=== PATIENT | female | born 1970 | race Caucasian/White ===

== ENCOUNTER → 2021-02-12 13:22 | Outpatient (CLI) | payer OTHER, SELFPAY ==
[2021-02-12 15:31] LABS: Absolute Lymphocyte Count 1.63 X10^3/uL (0.83-4.51); Absolute Neutrophil Count 3.9 X10^3/uL (2.0-7.7); Basophil# 0.03 X10^3/uL; Basophil% 0.5 % (0-1); Eosinophil# 0.09 X10^3/uL; Eosinophils% 1.5 % (0-5); Hematocrit 41.1 % (37-47); Hemoglobin 13.9 g/dL (12.0-15.0); Lymphocyte # 1.63 X10^3/ul (0.83-4.51); Lymphocyte % 27.3 % (19-41); Mean Corp Hgb Conc 33.8 g/dL (32-36); Mean Corpuscular Hgb 30.8 pg (27.0-32.0); Mean Corpuscular Volume 91.1 fL (81-99); Mean Platelet Vol. 9.5 fl (6.2-12.0); Monocyte# 0.28 X10^3/uL; Monocyte% 4.7 % (0-10); NRBC Flagged by Analyzer 0 % (0-5); Neutrophil # 3.91 X10^3/uL (2.7-7.7); Neutrophil % 65.7 % (47-70); Platelet Count 280 K/mm3 (150-450); RBC Distribution Width CV 12.6 % (11.6-14.6); RBC Distribution Width SD 42.2 fl (35.1-43.9); Red Blood Count 4.51 M/mm3 (4.2-5.4)
[2021-02-12 16:34] LABS: ALB/GLOB Ratio 1.3 RATIO (0.9-2.4); AST(SGOT) 11 U/L (15-37); Alanine Aminotransfer ALT/SGPT 22 U/L (13-56); Albumin, Serum 4.4 g/dL (3.2-5.0); Alkaline Phosphatase 62 U/L (45-117); Anion Gap 7 (5-15); BUN 15 mg/dL (7-18); Calcium,Total 9.1 mg/dL (8.5-10.1); Chloride 106 mmol/L (98-107); Creatinine, Serum 0.94 mg/dL (0.55-1.02); EST Glomerular Filtration Rate 68 mL/min (>60); Est Glom Filt Rate - Afr Amer 82 mL/min (>60); Globulin 3.3 g/dL (2.2-4.2); Glucose 95 mg/dL (74-106); Potassium 4.1 mmol/L (3.5-5.1); Protein, Total 7.7 g/dL (6.4-8.2); Sodium Level 139 mmol/L (136-145); Thyroid Stim Hormone (TSH) 1.64 uIU/mL (0.358-3.74)
[2021-02-12 16:38] LABS: Microalbumin,Random Urine < 5.0 mg/L (NO RANGE EST.)
== END ==
PROVIDERS: PCP Internal Medicine; Referring Provider Nurse Practitioner Adult Health; Visit Provider Nurse Practitioner Adult Health
DX: I10 Essential (primary) hypertension (principal); R53.83 Other fatigue
CPT/HCPCS: 36415; 80053; 82043; 84443; 85025

== ENCOUNTER → 2021-02-26 16:12 | Outpatient (CLI) | payer OTHER, SELFPAY ==
--- NOTE | 2021-02-26 16:16 | RAD_ITS ---
STUDY: X-RAY - LEFT KNEE REASON FOR EXAM: Female, 50 years old. Left knee pain. TECHNIQUE: 3 view(s) of the knee. COMPARISON: None. FINDINGS: Normal visualized distal femur. Normal visualized proximal tibia and fibula. Normal proximal tibiofibular articulation. Normal medial femorotibial compartment. 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 Normal patellofemoral articulation. Small suprapatellar joint effusion. 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 No other abnormality. Electronically Signed: Vinicius Luo MD at 9:37 EST , Service support ,
[2021-03-01 04:07] LABS: Chlamydia By Nucleic Acid AMP Negative (Negative)
[2021-03-01 13:39] LABS: Gonococcus By Nucleic Acid AMP Negative (Negative)
[2021-03-03 08:03] LABS: HPV APTIMA, High Risk Negative (Negative)
== END ==
PROVIDERS: PCP Internal Medicine; Visit Provider Nurse Practitioner Women's Health
DX: S86.912A Strain of unspecified muscle(s) and tendon(s) at lower leg level, left leg, initial encounter (principal); Z11.3 Encounter for screening for infections with a predominantly sexual mode of transmission; X58.XXXA Exposure to other specified factors, initial encounter; Y93.9 Activity, unspecified; Y92.9 Unspecified place or not applicable; Y99.9 Unspecified external cause status
CPT/HCPCS: 73562; 87491; 87591; 87624; 88175; G0145

== ENCOUNTER → 2021-03-16 11:56 | Outpatient (CLI) | payer OTHER, SELFPAY ==
--- NOTE | 2021-03-16 12:01 | US_ITS ---
HISTORY:menorrhagia. TECHNIQUE: Transabdominal and transvaginal pelvic ultrasound was performed with grayscale, spectral, and color Doppler flow evaluation. # of images incl. paperwork: 66. COMPARISON: None. FINDINGS: UTERUS: 9.4 x 4.6 x 4.9 cm. 1.2 x 1.4 x 1.3 cm heterogeneous anterior lesion. 0.8 x 1.3 x 1.4 cm hypoechoic posterior lesion. 1.3 x 1.6 x 1.3 cm mildly hyperechoic anterior lesion. ENDOMETRIUM: 3 mm in thickness. RIGHT OVARY: 2.3 x 1.5 x 2.1 cm. No adnexal masses. LEFT OVARY: 2.5 x 1.3 x 2.6 cm. 1.2 cm dominant follicle. FREE FLUID: No significant free fluid in the pelvis. US/Pelvic (Non ) IMPRESSION: Small uterine leiomyomata. at 1050 Reported and signed by: Mariela Paniagua MD Electronically Signed: Mariela Paniagua MD at 10:49 EST Tel , Service support ,
--- NOTE | 2021-03-16 12:01 | US_ITS ---
HISTORY:menorrhagia. TECHNIQUE: Transabdominal and transvaginal pelvic ultrasound was performed with grayscale, spectral, and color Doppler flow evaluation. # of images incl. paperwork: 66. COMPARISON: None. FINDINGS: UTERUS: 9.4 x 4.6 x 4.9 cm. 1.2 x 1.4 x 1.3 cm heterogeneous anterior lesion. 0.8 x 1.3 x 1.4 cm hypoechoic posterior lesion. 1.3 x 1.6 x 1.3 cm mildly hyperechoic anterior lesion. ENDOMETRIUM: 3 mm in thickness. RIGHT OVARY: 2.3 x 1.5 x 2.1 cm. No adnexal masses. LEFT OVARY: 2.5 x 1.3 x 2.6 cm. 1.2 cm dominant follicle. FREE FLUID: No significant free fluid in the pelvis. US/Transvaginal Non- IMPRESSION: Small uterine leiomyomata. at 1050 Reported and signed by: Mariela Paniagua MD Electronically Signed: Mariela Paniagua MD at 10:49 EST Tel , Service support ,
== END ==
PROVIDERS: PCP Internal Medicine; Referring Provider Nurse Practitioner Women's Health; Visit Provider Nurse Practitioner Women's Health
DX: N92.0 Excessive and frequent menstruation with regular cycle (principal)
CPT/HCPCS: 76830; 76856

== ENCOUNTER 2021-04-09 18:20 | Outpatient (CLI) | payer OTHER, SELFPAY ==
[2021-04-09 18:30] VITALS: BP 114/75; PULSE 74; RESP 16; TEMP 37; O2SAT 98; BMI 32.9
[2021-04-09] MEDS: 0.9% Saline Lock 10 ML Syringe IV (18:30)
[2021-04-09 19:04] VITALS: BP 113/71; PULSE 67; RESP 16; TEMP 36.9; O2SAT 99
[2021-04-09 20:00] VITALS: BP 129/86; PULSE 70; RESP 16; TEMP 37.2; O2SAT 100
== END 2021-04-09 20:02 | disposition home or self-care (01) ==
LOC: MS3OUT 18:20 → MS3 18:21
PROVIDERS: PCP Internal Medicine; Referring Provider Nurse Practitioner Adult Health; Visit Provider Nurse Practitioner Adult Health
DX: Z23 Encounter for immunization (principal); U07.1 COVID-19; I10 Essential (primary) hypertension
CPT/HCPCS: J7050; M0245; Q0245; A4216

== ENCOUNTER 2021-04-30 09:47 | Outpatient (CLI) | payer BC, SELFPAY ==
--- NOTE | 2021-04-30 09:49 | BI_ITS ---
MAMMOGRAPHY - BILATERAL SCREENING REASON FOR EXAM: Female, 50 years old. Routine annual screening examination. PERTINENT HISTORY: Grandmother with breast cancer. Aunt with breast cancer. TECHNIQUE: Digital bilateral breast chris (3D mammographic acquisition) in the CC and MLO projections. 2-D mediolateral oblique (MLO) and craniocaudad (CC) views of both breasts were obtained. CAD: Full Field Digital Mammography with Computer Added Detection was performed. COMPARISON: Comparison is made with prior outside examination dated 09/21/2014. FINDINGS: Breast Composition: The breasts are extremely dense, which lowers the sensitivity of mammography. There are no dominant masses or suspicious calcifications. Stable small benign appearing bilateral axillary lymph nodes. No other significant abnormalities are identified. There has been no significant change since the prior study. BI/SCRN MAMM (CAD)W/CHRIS BILAT IMPRESSION: Stable bilateral screening mammogram. Yearly follow-up mammogram recommended. (A) ASSESSMENT CATEGORY: BIRADS Category 2: Benign. A letter regarding these results will be sent to the patient by the facility within 30 days. Approximately 10% of breast cancers are not detected by mammography. A normal mammogram should not delay biopsy of a clinically suspicious abnormality. [id number] Electronically Signed: Tomy Bedolla MD at 13:22 EST ,
== END 2021-04-30 23:59 | disposition short-term general hospital (02) ==
LOC: OPBI 09:48
PROVIDERS: PCP Internal Medicine; Referring Provider Nurse Practitioner Women's Health; Visit Provider Nurse Practitioner Women's Health
DX: Z12.31 Encounter for screening mammogram for malignant neoplasm of breast (principal)
CPT/HCPCS: 77063; 77067

== ENCOUNTER 2021-05-07 11:50 | Outpatient (CLI) | payer BC, SELFPAY ==
--- NOTE | 2021-05-07 10:15 | EMB_PTH ---
PATIENT: JUAN ANTONIO MONIQUE LOC: [facility] U#:[id number] AGE/SX: 50/F ROOM: RE05/07/[address]: Dr. Naomy Treviño MD : 1970 BED: DIS: 05/07/2021 SPEC #: [id number] RECD: 05/07/21 11:47 STATUS: JAMEL REJuan F #: [id number] FIDELINA: 05/07/21 10:[address]: Naomy Treviño DEPT: SURGICAL PATHOLOGY RECD BY: Radha James ENTERED: 05/07/21 12:54 SP TYPE: ENDOM BX/C OT DR: Dr. Vale Pepe MD Tissues: Endometrium, NOS Procedures: Surgery Specimen Level IV HEADER OPERATION: Endometrial biopsy PRE-OP DIAGNOSIS: Abnormal uterine bleeding TISSUE SUBMITTED: Endometrial lining MICROSCOPIC DIAGNOSIS Endometrium, biopsy: Proliferative endometrium with focal glandular breakdown. AM:lashay 05/08/2021 MICROSCOPIC DESCRIPTION Slides are reviewed. GROSS DESCRIPTION Received is one container labeled with the patient's name and not further designated. The specimen consists of multiple irregular fragments of light adams soft tissue that in aggregate measure 3 x 1.5 x 0.1 cm. The specimen is totally submitted in one cassette. / AM:lashay 05/07/2021 TC:5 CPT: 76331
== END 2021-05-07 23:59 | disposition short-term general hospital (02) ==
LOC: LABSPEC 11:52
PROVIDERS: PCP Internal Medicine; Visit Provider Obstetrics & Gynecology
DX: N93.9 Abnormal uterine and vaginal bleeding, unspecified (principal)
CPT/HCPCS: 88305

== ENCOUNTER 2021-06-26 08:02 | Day surgery (SDC) | payer BC, SELFPAY ==
--- NOTE | 2021-06-25 10:35 | EKG12_ITS ---
Test Reason : PRE OP Blood Pressure : / mmHG Vent. Rate : 071 BPM Atrial Rate : 071 BPM P-R Int : 132 ms QRS Dur : 086 ms QT Int : 390 ms P-R-T Axes : 058 083 072 degrees QTc Int : 423 ms Normal sinus rhythm Normal ECG Confirmed by MICHAEL KOEHLER, TOMMIE ([id number]), electronic news gathering editor KALEY STAPLETON ([id number]) on 06/26/2021 9:22:17 AM Referred By: Naomy Treviño Confirmed By:TOMMIE RODRIGUEZ MD
[2021-06-25 11:22] LABS: Absolute Lymphocyte Count 1.57 X10^3/uL (0.83-4.51); Absolute Neutrophil Count 2.7 X10^3/uL (2.0-7.7); Basophil# 0.04 X10^3/uL; Basophil% 0.9 % (0-1); Eosinophil# 0.11 X10^3/uL; Eosinophils% 2.4 % (0-5); Hematocrit 37.1 % (37-47); Hemoglobin 12.5 g/dL (12.0-15.0); Lymphocyte # 1.57 X10^3/ul (0.83-4.51); Lymphocyte % 33.9 % (19-41); Mean Corp Hgb Conc 33.7 g/dL (32-36); Mean Corpuscular Hgb 31.1 pg (27.0-32.0); Mean Corpuscular Volume 92.3 fL (81-99); Mean Platelet Vol. 8.8 fl (6.2-12.0); Monocyte# 0.22 X10^3/uL; Monocyte% 4.8 % (0-10); NRBC Flagged by Analyzer 0 % (0-5); Neutrophil # 2.67 X10^3/uL (2.7-7.7); Neutrophil % 57.6 % (47-70); Platelet Count 276 K/mm3 (150-450); RBC Distribution Width CV 12.6 % (11.6-14.6); RBC Distribution Width SD 42.7 fl (35.1-43.9); Red Blood Count 4.02 M/mm3 (4.2-5.4); White Blood Count 4.6 K/mm3 (4.4-11.0)
[2021-06-26] VITALS (13 sets, daily range): BP systolic 68–123; BP diastolic 49–77; PULSE 73–88; RESP 12–18; TEMP 36.2–36.9; O2SAT 96–100; BMI 33.5
--- NOTE | 2021-06-26 05:47 | PCM.HP.BLA ---
History and Physical Date of Admission: 06/26/21 Vital Signs 06/18/21 09:03 Height 5 ft 3 in Weight: 188 lb BMI 33.3 Intake Visit Reasons: TVHBS possible LAVH Chief Complaint: pre op TVH BS Director Of Quantitative Research Required: No Is patient in pain?: No Allergies clindamycin Allergy (Intermediate, Verified 05/14/21 10:23) stomach pain penicillin G Allergy (Intermediate, Verified 05/14/21 10:23) hives Medications L.acidop,casei,lactis,rham-B.lact,nicolas 625 mg (10 billion cell) capsule 1 cap PO DAILY cap 02/12/21 [History Confirmed 06/18/21] blood pressure monitor #1 ea 02/12/21 [Rx Confirmed 06/18/21] pyridoxine (vitamin B6) 50 mg tablet 50 mg PO DAILY 02/12/21 [History Confirmed 06/18/21] turmeric root extract 500 mg capsule 500 mg PO DAILY 02/12/21 [History Confirmed 06/18/21] albuterol sulfate 90 mcg/actuation aerosol inhaler 2 puff INHALATION Q4H PRN #8.5 g 04/23/21 [Rx Confirmed 06/18/21] cyclobenzaprine 10 mg tablet 10 mg PO HS #30 tab 05/14/21 [Rx Confirmed 06/18/21] lisinopril 20 mg tablet 20 mg PO DAILY #90 tab 05/14/21 [Rx Confirmed 06/18/21] Is last menstrual period known: No Post menopausal: No Patient : No : No PFSH Medical History COVID-19 Encounter for screening for COVID-19 History of wrist fracture Hives Surgical History History of removal of cyst History of surgical removal of meniscus of knee Family History Daughter Asthma defect Mother Hypertension Depression Hyperlipidemia Rheumatic arteritis Grandmother Arthritis Cancer Breast CVA (cerebral vascular accident) Diabetes Father Hypertension CVA (cerebral vascular accident) Grandfather Heart disease, Onset Age: 60 M.I. 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 sexually active: Yes Smoking Status: Former smoker quit date: 08/16/20 alcohol intake: current alcohol intake frequency: 0-2 drinks per day substance use type: does not use what type of physical activity do you participate in: weight training and other details: Cardio frequency: 5-6 times per week do you feel safe at home: Yes additional social history: single HPI TVHBS possible LAV[facility] Details: JUAN ANTONIO DUMONT is a 50 year old who presents for preop appointment planning TVH BS for uterine fibroids and AUB. nl emb. Female Reproductive History Menopausal Symptoms: No hot flashes, No night sweats, No difficulty concentrating and No change in libido Pregancy History 4 Elective abortions Hx Para 2 Spontaneous abortions Hx # Term Pregnancies Ectopic pregnancies Hx # Pregnancies Multiple births # of living children 2 Past Pregnancies Del. Date Name GA/Weeks Outcome Route Bth Weight [facility] Renetta 1992 Unknown Marjorie 1998 ROS Const Constitutional: Denies fatigue, night sweats, weight gain or weight loss ENT ENT: Reports system reviewed and no additional complaints, except as documented Cardio Card: Denies chest pain Resp Resp: Denies cough or dyspnea GI GI: Reports as per HPI; Denies constipation, nausea or vomiting : Reports as per HPI; Denies hot flashes, nipple discharge, vaginal discharge, vaginal dryness, vaginal odor or vaginal pruritus Musc Musc: Denies arthralgias, back pain or muscle weakness Skin Skin/Breast: Denies alopecia, change in hair, dry skin, breast mass, breast pain, breast skin changes or nipple discharge Neuro Neuro: Reports system reviewed and no additional complaints, except as documented Psych Psych: Reports system reviewed and no additional complaints, except as documented; Denies change in libido or difficulty concentrating Endo Endo: Denies cold intolerance, excessive sweating, heat intolerance or polydipsia Dwayne/Lymph Hematologic/Lymphatic: Denies easy bleeding, Denies easy bruising and Denies lymphadenopathy Exam Const General: cooperative, healthy appearing, comfortable, no acute distress and well developed Orientation: alert HENMT Head: normal to inspection and normocephalic Ears: hearing grossly normal bilaterally and external ears normal Nose: external nose normal and nares normal Face and sinus: normal facial exam Neck Neck: normal visual inspection and no lymphadenopathy Thyroid: thyroid normal Chest Chest palpation & inspection: normal inspection of the chest Resp Effort & Inspection: normal respiratory effort Auscultation: clear to auscultation bilaterally Cardio Rate: regular rate Rhythm: regular rhythm Heart Sounds: S1 normal and S2 normal GI Inspection: normal to inspection and non-distended Palpation: soft and no hepatosplenomegaly General: bladder normal to palpation External Female Exam: normal external appearance and normal appearance of the urethra Urethra: normal appearance of the urethra, normal palpation and no discharge Speculum Exam - Vagina: normal appearance of the vagina and normal vaginal discharge Speculum Exam - Cervix: normal appearance of the cervix and nontender Bimanual Exam- Vagina & Uterus: normal bimanual exam, uterine size normal, bladder normal to palpation, uterine shape normal, No tender, uterine mobility normal, consistency normal, normal palpation and non-tender Bimanual Exam- Adnexa, other: normal adnexae, adnexae mobile, no masses and normal Pelvic Support: normal Musc Other: gross motor intact no deficits, full bilateral strength Skin General: no rashes or lesions noted Neuro General: patient alert, patient awake, moves all extremities and no focal motor deficits Motor: muscle tone normal throughout Extrem General: normal to inspection and no pedal edema Psych Appearance: grossly normal Mental Status: mental status grossly normal Affect: normal affect Speech and Movement: speech and movement normal Coding Level of Care Code No Charge Diagnoses Menorrhagia with regular cycle N92.0 Assessment and Plan Assessment and Plan (1) Menorrhagia with regular cycle: Status: Acute Comment: discussed medical vs surgical options. plan TVHBS. failed progestin therapy. emb done. cbc tsh us done small fibroids. Plan - Dr. Naomy Treviño MD: After discussing the patient's diagnosis and treatment plan options, patient wishes to proceed with surgical management. I have discussed with the patient the risks, benefits, and alternatives of the procedure which include but are not limited to risks of anesthesia, bleeding, infection, possible damage to bowel, bladder, or surrounding vasculature which could lead to additional surgery to evaluate any complications. Patient agrees to procedure and wishes to proceed. ACOG/uptodate references given for additional information regarding procedure. UPDATE- I have seen the patient and performed any clinically relevant updates to the history and physical exam. Naomy Treviño MD
--- NOTE | 2021-06-26 08:36 | SUR.PREOP ---
CLARIFIED CLINDAMYCIN ADVERSE REACTION WITH PHARMACY, PER PHARM DEVON ARGUETA TO GIVE IV CLINDAMYCIN.
[2021-06-26 08:51] LABS: Internal QC Validated? YES +Cl - CLEAR BKGD
[2021-06-26 08:55] LABS: Pregnancy, Urine Negative Negative
[2021-06-26 09:10] LABS: Bedside Glucose 121 mg/dL (74-106)
[2021-06-26] MEDS: Lactated Ringers 1,000 ML 40 ML IV (09:18)
[2021-06-26] MEDS: dexAMETHasone 10 MG/ML Vial 8 MG IV (09:18)
[2021-06-26] MEDS: Gabapentin 600 MG Tablet PO (09:19)
[2021-06-26] MEDS: Enoxaparin 40 MG/0.4 ML Syringe SC (09:19)
[2021-06-26] MEDS: Acetaminophen 500 MG Tablet 1000 MG PO (09:19)
[2021-06-26] MEDS: Celecoxib 200 MG Capsule 400 MG PO (09:19)
[2021-06-26] MEDS: Phenazopyridine 95 MG Tablet 190 MG PO (09:19)
--- NOTE | 2021-06-26 09:21 | PCM.OPRPT ---
Problems Associated Problem List Diagnoses (1) Menorrhagia with regular cycle: Report of Operation Date of Procedure: 06/26/21 Pre-Operative Diagnosis: see A/P Post-Operative Diagnosis: same Surgery/Procedure Performed:: TVH BS Description of Surgical Findings:: nl uterus tubes ovaries Type of Anesthesia: General Specimen's removed: uterus, tubes Drains: webster Estimated Blood Loss (mL): 50 Fluids Replaced: crystalloid Description of Procedure: Patient was taken to the operating room and was placed under general anesthesia was prepped and draped in normal sterile fashion in the dorsal lithotomy position. Preoperative antibiotics and SCDs and Webster catheter was placed inside the bladder. Weighted speculum was placed in the vagina and the anterior and posterior lip of the cervix was grasped with 2 Niels clamps and circumferentially injected with dilute vasopressin. A circumferential incision was made with a scalpel and the posterior cul-de-sac was entered into sharply and a longneck speculum was placed. The anterior cul-de-sac was also dissected down and entered into sharply and the uterosacral ligaments were clamped cut and suture ligated bilaterally followed by the cardinal ligaments which were Clamped cut and suture ligated bilaterally with 0 Monocryl. The uterus serially descended and progressive bites were taken bilaterally up to the level of the utero-ovarian ligament bilaterally which was clamped transected and double ligated with 0 Monocryl suture and 0 Vicryl free tie. Bilateral fallopian tubes and ovaries were well visualized and noted be within normal limits and the bilateral fallopian tubes were transected across the base with a Florina clamp and removed and sutured with 0 Vicryl suture. Excellent hemostasis was noted. The vagina was closed with [id number] 0 Vicryl pop offs including the posterior and anterior peritoneum in the reapproximation. Excellent hemostasis was noted. All instruments removed from the vagina clear urine was noted at the end of the procedure and patient was awoken and taken recovery in stable condition. Grafts/Implants Used: none Complications none Admit VTE Documentation VTE Present on Admission: No VTE Mechan Device Prophylaxis: SCD's VTE Pharm Prophylaxis ordered?: Yes Multi Select Codes Urinary/Genital Urinary/Genital CPT Codes: 25061 TVH+BS/O <250gr uterus
--- NOTE | 2021-06-26 09:22 | EX.PCM.DISCH ---
Discharge Instructions Procedure Hysterectomy, Vaginal Diet Discharge Diet: No restrictions Activity Discharge Activity: Return to Normal Activity, May Not Drive (while taking narcotic pain medications.) and May Shower May resume sexual activity in: 6-8 weeks Dressing / Incision Call your doctor if your incision/area has: Continuous Slow Oozing, Sudden Increased Bleeding, Increased Pain/ Swelling, Increased Redness and Foul Smelling Discharge Call your doctor if you observe: Fever of 101 or Higher, Inability to urinate, Inability to have a bowel movement and Using more than 1 pad per hour Follow Up Care Please Follow Up With: Naomy Treviño MD Test Results: Test results from this visit will be discussed in further detail at your follow-up appointment, if applicable. Discharge Plan Admission Primary Reason for Your Visit: hysterectomy Attending Provider: Naomy Treviño Primary Care Provider: Vale Pepe Discharge Orders/Prescriptions Prescriptions: New oxycodone-acetaminophen [Percocet] 5-325 mg tablet 1 tab PO Q6H PRN (Reason: pain) 7 Days Qty: 20 RF: 0 naproxen [naproxen] 500 MG tablet 500 mg PO BID PRN PRN (Reason: Pain) Qty: 30 RF: 1 Continued pyridoxine (vitamin B6) 50 mg tablet 50 mg PO DAILY RF: 0 turmeric root extract 500 mg capsule 500 mg PO DAILY RF: 0 Advanced Probiotic 625 mg (10 billion cell) capsule 1 cap PO DAILY RF: 0 (DME) blood pressure monitor Kit See Rx Instructions .ROUTE .MEDSUPPLY Qty: 1 RF: 0 lisinopril 20 mg tablet 20 mg PO DAILY Qty: 90 RF: 3 cyclobenzaprine 10 mg tablet 10 mg PO HS Qty: 30 RF: 8 albuterol sulfate 90 mcg/actuation HFA aerosol inhaler 2 puff inhalation Q4H PRN (Reason: shortness of breath or wheezing) Qty: 8.5 RF: 3 Referrals / Follow Up: Vale Pepe MD [Primary Care Provider] - Disposition Disposition (needs filled in before D/C Order can be placed): Home, Self Care
[2021-06-26] MEDS: Scopolamine 1mg/72hr Patch 1 PATCH TD (09:35)
--- NOTE | 2021-06-26 10:00 | HYST_PTH ---
PATIENT: JUAN ANTONIO MONIQUE LOC: [facility] [place] U[place][id number] AGE/SX: 50/F ROOM: RE06/26/[address]: Dr. Naomy Treviño MD : 1970 BED: DIS: 06/26/2021 SPEC #: [id number] RECD: 06/26/21 11:14 STATUS: JAMEL AMIN #: [id number] FIDELINA: 06/26/21 10:[address]: Naomy Treviño DEPT: SURGICAL PATHOLOGY RECD BY: Radha James ENTERED: 06/26/21 13:54 SP TYPE: HYSTERECT OTHR DR: Dr. Vale Pepe MD Tissues: Uterus, NOS Procedures: Surgery Specimen Level V HEADER OPERATION: ERAS, vaginal hysterectomy, salpingectomy PRE-OP DIAGNOSIS: Menorrhagia TISSUE SUBMITTED: Uterus, cervix, bilateral fallopian tubes MICROSCOPIC DIAGNOSIS Uterus, hysterectomy: Cervix ? squamous metaplasia and mild chronic inflammation. Endometrium ? proliferative endometrium. Myometrium ? leiomyomas and adenomyosis. Right and left fallopian tubes - No pathologic change. AM:lashay 06/27/2021 MICROSCOPIC DESCRIPTION Slides are reviewed. GROSS DESCRIPTION Received in fixative is one container labeled with the patient's name and designated uterus. The specimen consists of a uterus with attached cervix and two detached fallopian tubes. The uterus with cervix measures 10.5 x 5.6 x 4 cm and weighs 111.5 gm. The endocervical canal measures 3.8 cm in length and is grossly unremarkable. The triangular endometrial cavity measures 4 x 3.5 cm. The velvety endometrium measures up to 0.3 cm in thickness. The myometrium measures 2.5 cm in greatest thickness and contains multiple rubbery nodules ranging in size from 1.2 to 2.5 cm and grossly consistent with leiomyomas. The two fallopian tubes in the container have an average length each of 4 cm and an average diameter of 0.5 cm. Tower Air Traffic Control Specialist sections are submitted in eight cassettes as follows: 1??anterior cervix, 2 - posterior cervix, 3 & 4 - anterior uterine wall, 5 & 6 - posterior myometrial wall, 7??right fallopian tube, 8 - left fallopian tube. / AM:lashay 06/26/2021 TC:1 CPT: 69570
[2021-06-26] MEDS: Vasopressin 20 UNITS/ML Vial (10:20)
[2021-06-26] MEDS: Lactated Ringers 1,000 ML 70 ML IV (11:30)
--- NOTE | 2021-06-26 11:41 | SUR.PHASEI ---
on arrival to [facility], patient's blood pressure 68/55 ELECTRONICS DETAIL DRAFTSPERSON at side and gave 10mg of Ephedrine. Bp up to 88/49, ELECTRONICS DETAIL DRAFTSPERSON gave another 5mg Ephedrine. Blood pressure up to 91/55. IV Fluids running at LR wide open per ELECTRONICS DETAIL DRAFTSPERSON.
[2021-06-26] MEDS: Ondansetron 4 MG/2 ML Vial IV (12:18)
[2021-06-26] MEDS: Lactated Ringers 1,000 ML 999 ML IV (12:58)
[2021-06-26 13:00] LABS: Absolute Lymphocyte Count 1.06 X10^3/uL (0.83-4.51); Absolute Neutrophil Count 9.3 X10^3/uL (2.0-7.7); Basophil# 0.01 X10^3/uL; Basophil% 0.1 % (0-1); Eosinophil# 0.04 X10^3/uL; Eosinophils% 0.4 % (0-5); Hematocrit 34.9 % (37-47); Lymphocyte # 1.06 X10^3/ul (0.83-4.51); Lymphocyte % 10.1 % (19-41); Mean Corp Hgb Conc 34.4 g/dL (32-36); Mean Corpuscular Hgb 31.7 pg (27.0-32.0); Mean Corpuscular Volume 92.1 fL (81-99); Mean Platelet Vol. 8.4 fl (6.2-12.0); Monocyte# 0.13 X10^3/uL; Monocyte% 1.2 % (0-10); NRBC Flagged by Analyzer 0 % (0-5); Neutrophil # 9.26 X10^3/uL (2.7-7.7); Neutrophil % 87.8 % (47-70); Platelet Count 222 K/mm3 (150-450); RBC Distribution Width CV 12.5 % (11.6-14.6); Red Blood Count 3.79 M/mm3 (4.2-5.4); White Blood Count 10.5 K/mm3 (4.4-11.0)
[2021-06-26] MEDS: Ketorolac 30 MG/ML Syringe IV (13:20)
[2021-06-26] MEDS: oxyCODONE 5 MG Tablet PO (14:59)
[2021-06-26] MEDS: Acetaminophen 325 MG Tablet PO (14:59)
== END 2021-06-26 23:59 | disposition home or self-care (01) ==
LOC: SDC 08:05 → AC 08:06
PROVIDERS: Anesthesiology; PCP Internal Medicine; Referring Provider Obstetrics & Gynecology; Visit Provider Obstetrics & Gynecology
PROC: (CPT 58260; principal; 2021-06-26 09:40)
DX: D25.9 Leiomyoma of uterus, unspecified (principal); N80.0 Endometriosis of uterus; Z20.822 Contact with and (suspected) exposure to COVID-19; M79.7 Fibromyalgia; K21.9 Gastro-esophageal reflux disease without esophagitis; Z79.899 Other long term (current) drug therapy; Z87.891 Personal history of nicotine dependence
CPT/HCPCS: 58262; 00944; 36415; 81025; 82962; 83735; 85025; 86850; 86900; 86901; 87426; 88307; 93005; C9803; J7120; J2405; J3490

== ENCOUNTER → 2021-08-13 | Outpatient (CLI) | payer BC, SELFPAY ==
[2021-08-13 12:47] LABS: Bacteria 0 SEEN /hpf (None Seen); Mucous, Urine 0 SEEN /hpf (<or=2+); Red Blood Cells-Urine 0 SEEN /hpf (0-5); Squamous Epithelial Cells - UA 0 SEEN /hpf (5-10)
[2021-08-13 13:22] LABS: Absolute Lymphocyte Count 2.19 X10^3/uL (0.83-4.51); Absolute Neutrophil Count 4.1 X10^3/uL (2.0-7.7); Basophil# 0.03 X10^3/uL; Basophil% 0.4 % (0-1); Eosinophil# 0.19 X10^3/uL; Eosinophils% 2.7 % (0-5); Hematocrit 42.9 % (37-47); Hemoglobin 14.3 g/dL (12.0-15.0); Lymphocyte # 2.19 X10^3/ul (0.83-4.51); Lymphocyte % 31.4 % (19-41); Mean Corp Hgb Conc 33.3 g/dL (32-36); Mean Corpuscular Volume 90.1 fL (81-99); Mean Platelet Vol. 8.7 fl (6.2-12.0); Monocyte# 0.44 X10^3/uL; Monocyte% 6.3 % (0-10); NRBC Flagged by Analyzer 0 % (0-5); Neutrophil # 4.11 X10^3/uL (2.7-7.7); Neutrophil % 58.9 % (47-70); Platelet Count 321 K/mm3 (150-450); RBC Distribution Width CV 12.6 % (11.6-14.6); RBC Distribution Width SD 41.6 fl (35.1-43.9); Red Blood Count 4.76 M/mm3 (4.2-5.4)
[2021-08-13 13:25] LABS: Color, Urine Yellow (Yellow); Glucose, Dipstick Normal (Normal); Ketone-Dipstick Negative (Negative); Leukocyte Esterase-Dipstick 25 /ul (Negative); Nitrite-Dipstick Negative (Negative); Occult Blood-Urine Negative /ul (Negative); Protein-Dipstick Negative (Negative); Urine Bilirubin Dipstick Negative (Negative); Urine Clarity Sl. Cloudy (Clear); Urine Urobilinogen Normal (Normal)
[2021-08-13 13:37] LABS: White Blood Cells 0-5 SEEN /hpf (0-5)
[2021-08-13 13:39] LABS: Protein, Urine (Random) < 6.0 mg/dL (<11.9)
[2021-08-13 14:13] LABS: ALB/GLOB Ratio 1.3 RATIO (0.9-2.4); AST(SGOT) 13 U/L (15-37); Alanine Aminotransfer ALT/SGPT 20 U/L (13-56); Albumin, Serum 4.2 g/dL (3.2-5.0); Alkaline Phosphatase 75 U/L (45-117); Anion Gap 4 (5-15); BUN 23 mg/dL (7-18); BUN/Creat Ratio 26.8 RATIO (10-20); Calcium,Total 9.3 mg/dL (8.5-10.1); Chloride 106 mmol/L (98-107); Creatinine, Serum 0.86 mg/dL (0.55-1.02); EST Glomerular Filtration Rate 75 mL/min (>60); Est Glom Filt Rate - Afr Amer 90 mL/min (>60); Free T3 2.6 pg/mL (2.18-3.98); Globulin 3.2 g/dL (2.2-4.2); Glucose 92 mg/dL (74-106); Potassium 4.5 mmol/L (3.5-5.1); Protein, Total 7.4 g/dL (6.4-8.2); Sodium Level 136 mmol/L (136-145); T4 Free Direct 0.84 ng/dL (0.76-1.46); Thyroid Stim Hormone (TSH) 1.28 uIU/mL (0.358-3.74)
== END | disposition home or self-care (01) ==
LOC: LAB 12:42
PROVIDERS: PCP Internal Medicine; Visit Provider Nurse Practitioner Adult Health
DX: R53.83 Other fatigue (principal)
CPT/HCPCS: 36415; 80053; 81001; 82570; 84156; 84439; 84443; 84481; 85025

== ENCOUNTER → 2021-09-24 | Outpatient (CLI) | payer BC, SELFPAY ==
[2021-09-24 12:12] LABS: Erythrocyte Sedimentation Rate 3 mm/hr (0-30)
[2021-09-24 12:14] LABS: ALB/GLOB Ratio 1.3 RATIO (0.9-2.4); AST(SGOT) 12 U/L (15-37); Alanine Aminotransfer ALT/SGPT 20 U/L (13-56); Albumin, Serum 3.8 g/dL (3.2-5.0); Alkaline Phosphatase 63 U/L (45-117); Anion Gap 3 (5-15); BUN 13 mg/dL (7-18); BUN/Creat Ratio 14.4 RATIO (10-20); CRP 3.11 mg/L (0.0-3.0); Calcium,Total 8.9 mg/dL (8.5-10.1); Chloride 108 mmol/L (98-107); EST Glomerular Filtration Rate 71 mL/min (>60); Est Glom Filt Rate - Afr Amer 85 mL/min (>60); Glucose 89 mg/dL (74-106); Potassium 4.1 mmol/L (3.5-5.1); Protein, Total 6.8 g/dL (6.4-8.2); Rheumatoid Factor < 10.0 IU/mL (<15); Sodium Level 139 mmol/L (136-145)
[2021-09-24 12:15] LABS: Absolute Lymphocyte Count 1.37 X10^3/uL (0.83-4.51); Absolute Neutrophil Count 2.9 X10^3/uL (2.0-7.7); Basophil# 0.03 X10^3/uL; Basophil% 0.7 % (0-1); Eosinophil# 0.12 X10^3/uL; Eosinophils% 2.6 % (0-5); Hematocrit 38.3 % (37-47); Lymphocyte # 1.37 X10^3/ul (0.83-4.51); Lymphocyte % 29.8 % (19-41); Mean Corp Hgb Conc 33.9 g/dL (32-36); Mean Corpuscular Volume 91.4 fL (81-99); Mean Platelet Vol. 9.2 fl (6.2-12.0); Monocyte# 0.21 X10^3/uL; Monocyte% 4.6 % (0-10); NRBC Flagged by Analyzer 0 % (0-5); Neutrophil # 2.85 X10^3/uL (2.7-7.7); Neutrophil % 62.1 % (47-70); Platelet Count 250 K/mm3 (150-450); RBC Distribution Width CV 13.1 % (11.6-14.6); RBC Distribution Width SD 43.7 fl (35.1-43.9); Red Blood Count 4.19 M/mm3 (4.2-5.4); White Blood Count 4.6 K/mm3 (4.4-11.0)
[2021-09-24 13:01] LABS: Hepatitis B Surface Antibody Non-Reactive; Hepatitis B Surface Antigen Non-Reactive (Nonreactive); Hepatitis C Antibody Non-Reactive (Nonreactive)
[2021-09-25 15:55] LABS: ANTINUCLEAR ANTIBODIES DIRECT Negative (Negative)
[2021-09-27 17:13] LABS: CCP IgG Antibodies 9 units (0-19)
== END | disposition home or self-care (01) ==
LOC: MTLAB 10:08
PROVIDERS: PCP Internal Medicine; Referring Provider Internal Medicine Rheumatology; Visit Provider Internal Medicine Rheumatology
DX: M06.4 Inflammatory polyarthropathy (principal); M79.7 Fibromyalgia; M17.0 Bilateral primary osteoarthritis of knee; M47.897 Other spondylosis, lumbosacral region; M51.37 Other intervertebral disc degeneration, lumbosacral region; K58.9 Irritable bowel syndrome, unspecified; G43.909 Migraine, unspecified, not intractable, without status migrainosus; I10 Essential (primary) hypertension; K21.9 Gastro-esophageal reflux disease without esophagitis
CPT/HCPCS: 36415; 80053; 85025; 85652; 86038; 86140; 86200; 86431; 86706; 86803; 87340

== ENCOUNTER → 2021-12-10 | Outpatient (CLI) | payer BC, SELFPAY ==
[2021-12-10 18:01] LABS: Absolute Lymphocyte Count 1.68 X10^3/uL (0.83-4.51); Absolute Neutrophil Count 3.9 X10^3/uL (2.0-7.7); Basophil# 0.03 X10^3/uL; Basophil% 0.5 % (0-1); Eosinophil# 0.13 X10^3/uL; Eosinophils% 2.1 % (0-5); Hematocrit 37.4 % (37-47); Hemoglobin 12.6 g/dL (12.0-15.0); Lymphocyte # 1.68 X10^3/ul (0.83-4.51); Lymphocyte % 27.6 % (19-41); Mean Corp Hgb Conc 33.7 g/dL (32-36); Mean Corpuscular Hgb 30.6 pg (27.0-32.0); Mean Corpuscular Volume 90.8 fL (81-99); Mean Platelet Vol. 9.5 fl (6.2-12.0); Monocyte# 0.33 X10^3/uL; Monocyte% 5.4 % (0-10); NRBC Flagged by Analyzer 0 % (0-5); Neutrophil % 64.1 % (47-70); Platelet Count 261 K/mm3 (150-450); RBC Distribution Width CV 12.6 % (11.6-14.6); RBC Distribution Width SD 41.4 fl (35.1-43.9); Red Blood Count 4.12 M/mm3 (4.2-5.4); White Blood Count 6.1 K/mm3 (4.4-11.0)
== END | disposition home or self-care (01) ==
PROVIDERS: PCP Internal Medicine; Referring Provider Internal Medicine Rheumatology; Visit Provider Internal Medicine Rheumatology
DX: M06.4 Inflammatory polyarthropathy (principal); M79.7 Fibromyalgia; M17.0 Bilateral primary osteoarthritis of knee; M47.897 Other spondylosis, lumbosacral region; M51.37 Other intervertebral disc degeneration, lumbosacral region; K58.9 Irritable bowel syndrome, unspecified; G43.909 Migraine, unspecified, not intractable, without status migrainosus; I10 Essential (primary) hypertension; K21.9 Gastro-esophageal reflux disease without esophagitis
CPT/HCPCS: 36415; 85025

== ENCOUNTER → 2022-01-28 | Outpatient (CLI) | payer BC, SELFPAY ==
[2022-01-28 12:23] LABS: Absolute Lymphocyte Count 0.93 X10^3/uL (0.83-4.51); Basophil# 0.02 X10^3/uL; Basophil% 0.3 % (0-1); Eosinophil# 0.02 X10^3/uL; Eosinophils% 0.3 % (0-5); Hematocrit 39.9 % (37-47); Hemoglobin 13.5 g/dL (12.0-15.0); Lymphocyte # 0.93 X10^3/ul (0.83-4.51); Lymphocyte % 12.9 % (19-41); Mean Corp Hgb Conc 33.8 g/dL (32-36); Mean Corpuscular Hgb 31.1 pg (27.0-32.0); Mean Corpuscular Volume 91.9 fL (81-99); Mean Platelet Vol. 8.9 fl (6.2-12.0); Monocyte# 0.19 X10^3/uL; Monocyte% 2.6 % (0-10); NRBC Flagged by Analyzer 0 % (0-5); Neutrophil # 5.99 X10^3/uL (2.7-7.7); Neutrophil % 83.3 % (47-70); Platelet Count 263 K/mm3 (150-450); RBC Distribution Width SD 46.9 fl (35.1-43.9); Red Blood Count 4.34 M/mm3 (4.2-5.4); White Blood Count 7.2 K/mm3 (4.4-11.0)
[2022-01-28 12:47] LABS: ALB/GLOB Ratio 1.3 RATIO (0.9-2.4); AST(SGOT) 14 U/L (15-37); Alanine Aminotransfer ALT/SGPT 28 U/L (13-56); Alkaline Phosphatase 67 U/L (45-117); Anion Gap 8 (5-15); BUN 14 mg/dL (7-18); BUN/Creat Ratio 14.4 RATIO (10-20); Calcium,Total 9.3 mg/dL (8.5-10.1); Chloride 106 mmol/L (98-107); Creatinine, Serum 0.98 mg/dL (0.55-1.02); EST Glomerular Filtration Rate 65 mL/min (>60); Est Glom Filt Rate - Afr Amer 78 mL/min (>60); Globulin 3.1 g/dL (2.2-4.2); Glucose 109 mg/dL (74-106); Potassium 4.8 mmol/L (3.5-5.1); Protein, Total 7.1 g/dL (6.4-8.2); Sodium Level 138 mmol/L (136-145)
== END | disposition home or self-care (01) ==
LOC: MTLAB 10:25
PROVIDERS: PCP Internal Medicine; Referring Provider Internal Medicine Rheumatology; Visit Provider Internal Medicine Rheumatology
DX: M06.4 Inflammatory polyarthropathy (principal); M79.7 Fibromyalgia; M17.0 Bilateral primary osteoarthritis of knee; M47.897 Other spondylosis, lumbosacral region; M51.37 Other intervertebral disc degeneration, lumbosacral region; K58.9 Irritable bowel syndrome, unspecified; G43.909 Migraine, unspecified, not intractable, without status migrainosus; I10 Essential (primary) hypertension; K21.9 Gastro-esophageal reflux disease without esophagitis
CPT/HCPCS: 36415; 80053; 85025

== ENCOUNTER → 2022-03-25 | Outpatient (CLI) | payer BC, SELFPAY ==
[2022-03-25 10:01] LABS: Absolute Lymphocyte Count 2.06 X10^3/uL (0.83-4.51); Absolute Neutrophil Count 3.2 X10^3/uL (2.0-7.7); Basophil# 0.04 X10^3/uL; Basophil% 0.7 % (0-1); Eosinophil# 0.33 X10^3/uL; Eosinophils% 5.6 % (0-5); Hematocrit 40.2 % (37-47); Hemoglobin 13.4 g/dL (12.0-15.0); Lymphocyte # 2.06 X10^3/ul (0.83-4.51); Lymphocyte % 34.8 % (19-41); Mean Corp Hgb Conc 33.3 g/dL (32-36); Mean Corpuscular Hgb 32.1 pg (27.0-32.0); Mean Corpuscular Volume 96.2 fL (81-99); Mean Platelet Vol. 9.2 fl (6.2-12.0); Monocyte# 0.29 X10^3/uL; Monocyte% 4.9 % (0-10); NRBC Flagged by Analyzer 0 % (0-5); Neutrophil # 3.17 X10^3/uL (2.7-7.7); Neutrophil % 53.5 % (47-70); Platelet Count 303 K/mm3 (150-450); RBC Distribution Width CV 13.2 % (11.6-14.6); RBC Distribution Width SD 46.9 fl (35.1-43.9); Red Blood Count 4.18 M/mm3 (4.2-5.4); White Blood Count 5.9 K/mm3 (4.4-11.0)
[2022-03-25 10:29] LABS: BUN 12 mg/dL (7-18); EST Glomerular Filtration Rate 71 mL/min (>60); Glucose 107 mg/dL (74-106)
[2022-03-25 10:30] LABS: ALB/GLOB Ratio 1.6 RATIO (0.9-2.4); AST(SGOT) 9 U/L (15-37); Alanine Aminotransfer ALT/SGPT 20 U/L (13-56); Albumin, Serum 3.8 g/dL (3.2-5.0); Alkaline Phosphatase 68 U/L (45-117); Anion Gap 4 (5-15); BUN/Creat Ratio 13.4 RATIO (10-20); Calcium,Total 8.6 mg/dL (8.5-10.1); Chloride 110 mmol/L (98-107); Est Glom Filt Rate - Afr Amer 86 mL/min (>60); Globulin 2.4 g/dL (2.2-4.2); Potassium 4.5 mmol/L (3.5-5.1); Protein, Total 6.2 g/dL (6.4-8.2); Sodium Level 141 mmol/L (136-145)
== END | disposition home or self-care (01) ==
LOC: MTLAB 07:05
PROVIDERS: PCP Internal Medicine; Referring Provider Internal Medicine Rheumatology; Visit Provider Internal Medicine Rheumatology
DX: Z79.899 Other long term (current) drug therapy (principal); M06.4 Inflammatory polyarthropathy; M79.7 Fibromyalgia; M17.0 Bilateral primary osteoarthritis of knee; M47.897 Other spondylosis, lumbosacral region; M51.37 Other intervertebral disc degeneration, lumbosacral region; K58.9 Irritable bowel syndrome, unspecified; G43.909 Migraine, unspecified, not intractable, without status migrainosus; I10 Essential (primary) hypertension; K21.9 Gastro-esophageal reflux disease without esophagitis
CPT/HCPCS: 36415; 80053; 85025

== ENCOUNTER → 2022-04-01 | Outpatient (CLI) | payer BC, SELFPAY ==
[2022-04-03 15:08] LABS: Red Blood Cell Count Test/G6PD 3.92 x10E6/uL (3.77-5.28)
[2022-04-03 20:54] LABS: G6PD Quant Test 249 (127-427)
== END | disposition home or self-care (01) ==
LOC: MTLAB 07:56
PROVIDERS: PCP Internal Medicine; Referring Provider Internal Medicine Rheumatology; Visit Provider Internal Medicine Rheumatology
DX: M06.4 Inflammatory polyarthropathy (principal); Z79.899 Other long term (current) drug therapy; M79.7 Fibromyalgia; M17.0 Bilateral primary osteoarthritis of knee; M47.897 Other spondylosis, lumbosacral region; M51.37 Other intervertebral disc degeneration, lumbosacral region; K58.9 Irritable bowel syndrome, unspecified; G43.909 Migraine, unspecified, not intractable, without status migrainosus; I10 Essential (primary) hypertension; K21.9 Gastro-esophageal reflux disease without esophagitis
CPT/HCPCS: 36415; 82955

== ENCOUNTER → 2022-05-06 | Outpatient (CLI) | payer BC, SELFPAY ==
--- NOTE | 2022-05-06 08:51 | BI_ITS ---
MAMMOGRAPHY - BILATERAL SCREENING REASON FOR EXAM: Female, 51 years old. Routine annual screening examination. PERTINENT HISTORY: Grandmothers with breast cancer. TECHNIQUE: Digital bilateral breast chris (3D mammographic acquisition) in the CC and MLO projections. 2-D mediolateral oblique (MLO) and craniocaudad (CC) views of both breasts were obtained. CAD: Full Field Digital Mammography with Computer Added Detection was performed. COMPARISON: Comparison is made with prior study dated 04/30/2021. FINDINGS: Breast Composition: The breasts are extremely dense, which lowers the sensitivity of mammography. There are no dominant masses or suspicious calcifications. Stable small benign appearing bilateral axillary lymph nodes. No other significant abnormalities are identified. There has been no significant change since the prior study. BI/SCRN MAMM (CAD)W/CHRIS BILAT IMPRESSION: Stable bilateral screening mammogram. Yearly follow-up mammogram recommended. (A) ASSESSMENT CATEGORY: BIRADS Category 2: Benign. A letter regarding these results will be sent to the patient by the facility within 30 days. Approximately 10% of breast cancers are not detected by mammography. A normal mammogram should not delay biopsy of a clinically suspicious abnormality. [id number] Electronically Signed: Tomy Bedolla MD at 9:37 EST ,
== END | disposition home or self-care (01) ==
LOC: OPBI 08:49
PROVIDERS: PCP Internal Medicine; Visit Provider Obstetrics & Gynecology
DX: Z12.31 Encounter for screening mammogram for malignant neoplasm of breast (principal); Z80.3 Family history of malignant neoplasm of breast
CPT/HCPCS: 77063; 77067

== ENCOUNTER → 2022-06-03 | Outpatient (CLI) | payer BC, SELFPAY ==
[2022-06-03 10:19] LABS: Absolute Lymphocyte Count 1.42 X10^3/uL (0.83-4.51); Absolute Neutrophil Count 3.9 X10^3/uL (2.0-7.7); Basophil# 0.03 X10^3/uL; Basophil% 0.5 % (0-1); Eosinophil# 0.09 X10^3/uL; Eosinophils% 1.6 % (0-5); Hematocrit 40.1 % (37-47); Hemoglobin 13.3 g/dL (12.0-15.0); Lymphocyte # 1.42 X10^3/ul (0.83-4.51); Lymphocyte % 24.8 % (19-41); Mean Corp Hgb Conc 33.2 g/dL (32-36); Mean Corpuscular Hgb 31.3 pg (27.0-32.0); Mean Corpuscular Volume 94.4 fL (81-99); Mean Platelet Vol. 9.3 fl (6.2-12.0); Monocyte% 5.2 % (0-10); NRBC Flagged by Analyzer 0 % (0-5); Neutrophil # 3.88 X10^3/uL (2.7-7.7); Neutrophil % 67.7 % (47-70); Platelet Count 245 K/mm3 (150-450); RBC Distribution Width CV 12.5 % (11.6-14.6); RBC Distribution Width SD 43.2 fl (35.1-43.9); Red Blood Count 4.25 M/mm3 (4.2-5.4); White Blood Count 5.7 K/mm3 (4.4-11.0)
[2022-06-03 10:51] LABS: ALB/GLOB Ratio 1.3 RATIO (0.9-2.4); AST(SGOT) 12 U/L (15-37); Alanine Aminotransfer ALT/SGPT 18 U/L (13-56); Albumin, Serum 3.8 g/dL (3.2-5.0); Alkaline Phosphatase 58 U/L (45-117); Anion Gap 6 (5-15); BUN 20 mg/dL (7-18); Calcium,Total 9.1 mg/dL (8.5-10.1); Chloride 107 mmol/L (98-107); Creatinine, Serum 0.84 mg/dL (0.55-1.02); EST Glomerular Filtration Rate 77 mL/min (>60); Est Glom Filt Rate - Afr Amer 93 mL/min (>60); Globulin 2.9 g/dL (2.2-4.2); Glucose 97 mg/dL (74-106); Potassium 4.2 mmol/L (3.5-5.1); Protein, Total 6.7 g/dL (6.4-8.2); Sodium Level 139 mmol/L (136-145)
== END | disposition home or self-care (01) ==
LOC: MTLAB 08:35
PROVIDERS: PCP Internal Medicine; Referring Provider Internal Medicine Rheumatology; Visit Provider Internal Medicine Rheumatology
DX: M06.4 Inflammatory polyarthropathy (principal); Z79.899 Other long term (current) drug therapy; M79.7 Fibromyalgia; M17.0 Bilateral primary osteoarthritis of knee; M47.897 Other spondylosis, lumbosacral region; M51.37 Other intervertebral disc degeneration, lumbosacral region; K58.9 Irritable bowel syndrome, unspecified; G43.909 Migraine, unspecified, not intractable, without status migrainosus; I10 Essential (primary) hypertension; K21.9 Gastro-esophageal reflux disease without esophagitis
CPT/HCPCS: 36415; 80053; 85025

== ENCOUNTER → 2022-07-26 | Outpatient (CLI) | payer BC, SELFPAY ==
[2022-07-26 10:24] LABS: Absolute Lymphocyte Count 1.43 X10^3/uL (0.83-4.51); Absolute Neutrophil Count 2.7 X10^3/uL (2.0-7.7); Basophil# 0.02 X10^3/uL; Basophil% 0.4 % (0-1); Eosinophil# 0.07 X10^3/uL; Eosinophils% 1.5 % (0-5); Hematocrit 36.7 % (37-47); Hemoglobin 12.2 g/dL (12.0-15.0); Lymphocyte # 1.43 X10^3/ul (0.83-4.51); Lymphocyte % 31.6 % (19-41); Mean Corp Hgb Conc 33.2 g/dL (32-36); Mean Corpuscular Hgb 31.8 pg (27.0-32.0); Mean Corpuscular Volume 95.6 fL (81-99); Mean Platelet Vol. 9.4 fl (6.2-12.0); Monocyte# 0.33 X10^3/uL; Monocyte% 7.3 % (0-10); NRBC Flagged by Analyzer 0 % (0-5); Neutrophil # 2.67 X10^3/uL (2.7-7.7); Platelet Count 195 K/mm3 (150-450); RBC Distribution Width CV 12.9 % (11.6-14.6); RBC Distribution Width SD 45.1 fl (35.1-43.9); Red Blood Count 3.84 M/mm3 (4.2-5.4); White Blood Count 4.5 K/mm3 (4.4-11.0)
[2022-07-26 11:14] LABS: ALB/GLOB Ratio 1.5 RATIO (0.9-2.4); AST(SGOT) 11 U/L (15-37); Alanine Aminotransfer ALT/SGPT 23 U/L (13-56); Alkaline Phosphatase 57 U/L (45-117); Anion Gap 3 (5-15); BUN 25 mg/dL (7-18); BUN/Creat Ratio 28.2 RATIO (10-20); Calcium,Total 9.2 mg/dL (8.5-10.1); Chloride 108 mmol/L (98-107); Creatinine, Serum 0.89 mg/dL (0.55-1.02); EST Glomerular Filtration Rate 72 mL/min (>60); Est Glom Filt Rate - Afr Amer 87 mL/min (>60); Globulin 2.7 g/dL (2.2-4.2); Glucose 99 mg/dL (74-106); Potassium 4.8 mmol/L (3.5-5.1); Protein, Total 6.7 g/dL (6.4-8.2); Sodium Level 136 mmol/L (136-145)
== END | disposition home or self-care (01) ==
PROVIDERS: PCP Internal Medicine; Referring Provider Internal Medicine Rheumatology; Visit Provider Internal Medicine Rheumatology
DX: M06.4 Inflammatory polyarthropathy (principal); Z79.899 Other long term (current) drug therapy
CPT/HCPCS: 36415; 80053; 85025

== ENCOUNTER → 2022-09-20 | Outpatient (CLI) | payer BC, SELFPAY ==
[2022-09-20 11:18] LABS: Absolute Lymphocyte Count 2.05 X10^3/uL (0.83-4.51); Absolute Neutrophil Count 4.1 X10^3/uL (2.0-7.7); Basophil# 0.03 X10^3/uL; Basophil% 0.4 % (0-1); Eosinophils% 1.5 % (0-5); Hematocrit 40.8 % (37-47); Hemoglobin 13.1 g/dL (12.0-15.0); Lymphocyte # 2.05 X10^3/ul (0.83-4.51); Lymphocyte % 30.4 % (19-41); Mean Corp Hgb Conc 32.1 g/dL (32-36); Mean Corpuscular Hgb 31.3 pg (27.0-32.0); Mean Corpuscular Volume 97.4 fL (81-99); Mean Platelet Vol. 9.5 fl (6.2-12.0); Monocyte% 5.9 % (0-10); NRBC Flagged by Analyzer 0 % (0-5); Neutrophil # 4.13 X10^3/uL (2.7-7.7); Neutrophil % 61.4 % (47-70); Platelet Count 221 K/mm3 (150-450); RBC Distribution Width CV 12.3 % (11.6-14.6); RBC Distribution Width SD 43.9 fl (35.1-43.9); Red Blood Count 4.19 M/mm3 (4.2-5.4); White Blood Count 6.7 K/mm3 (4.4-11.0)
[2022-09-20 11:33] LABS: ALB/GLOB Ratio 1.5 RATIO (0.9-2.4); AST(SGOT) 13 U/L (15-37); Alanine Aminotransfer ALT/SGPT 19 U/L (13-56); Alkaline Phosphatase 60 U/L (45-117); Anion Gap 7 (5-15); BUN 18 mg/dL (7-18); BUN/Creat Ratio 17.8 RATIO (10-20); Calcium,Total 8.8 mg/dL (8.5-10.1); Chloride 106 mmol/L (98-107); Creatinine, Serum 1.01 mg/dL (0.55-1.02); EST Glomerular Filtration Rate 62 mL/min (>60); Est Glom Filt Rate - Afr Amer 75 mL/min (>60); Globulin 2.7 g/dL (2.2-4.2); Glucose 83 mg/dL (74-106); Potassium 4.6 mmol/L (3.5-5.1); Protein, Total 6.7 g/dL (6.4-8.2); Sodium Level 137 mmol/L (136-145)
== END | disposition home or self-care (01) ==
LOC: MTLAB 07:47
PROVIDERS: PCP Internal Medicine; Referring Provider Internal Medicine Rheumatology; Visit Provider Internal Medicine Rheumatology
DX: M06.4 Inflammatory polyarthropathy (principal); Z79.899 Other long term (current) drug therapy
CPT/HCPCS: 36415; 80053; 85025

== ENCOUNTER → 2023-01-08 | Outpatient (CLI) | payer OTHER, SELFPAY ==
[2023-01-08 10:15] LABS: Absolute Lymphocyte Count 1.77 X10^3/uL (0.83-4.51); Absolute Neutrophil Count 3.8 X10^3/uL (2.0-7.7); Basophil# 0.03 X10^3/uL; Basophil% 0.5 % (0-1); Eosinophils% 1.6 % (0-5); Hematocrit 39.4 % (37-47); Hemoglobin 13.2 g/dL (12.0-15.0); Lymphocyte # 1.77 X10^3/ul (0.83-4.51); Lymphocyte % 28.8 % (19-41); Mean Corp Hgb Conc 33.5 g/dL (32-36); Mean Corpuscular Hgb 31.7 pg (27.0-32.0); Mean Corpuscular Volume 94.7 fL (81-99); Mean Platelet Vol. 9.6 fl (6.2-12.0); Monocyte# 0.41 X10^3/uL; Monocyte% 6.7 % (0-10); NRBC Flagged by Analyzer 0 % (0-5); Neutrophil # 3.82 X10^3/uL (2.7-7.7); Neutrophil % 62.1 % (47-70); Platelet Count 218 K/mm3 (150-450); RBC Distribution Width CV 12.1 % (11.6-14.6); RBC Distribution Width SD 42.6 fl (35.1-43.9); Red Blood Count 4.16 M/mm3 (4.2-5.4); White Blood Count 6.2 K/mm3 (4.4-11.0)
[2023-01-08 10:46] LABS: ALB/GLOB Ratio 1.6 RATIO (0.9-2.4); AST(SGOT) 7 U/L (15-37); Alanine Aminotransfer ALT/SGPT 17 U/L (13-56); Albumin, Serum 4.1 g/dL (3.2-5.0); Alkaline Phosphatase 62 U/L (45-117); Anion Gap 6 (5-15); BUN 12 mg/dL (7-18); BUN/Creat Ratio 14.9 RATIO (10-20); Calcium,Total 8.8 mg/dL (8.5-10.1); Chloride 108 mmol/L (98-107); EST Glomerular Filtration Rate 80 mL/min (>60); Est Glom Filt Rate - Afr Amer 97 mL/min (>60); Globulin 2.6 g/dL (2.2-4.2); Glucose 89 mg/dL (74-106); Potassium 4.1 mmol/L (3.5-5.1); Protein, Total 6.7 g/dL (6.4-8.2); Sodium Level 140 mmol/L (136-145)
[2023-01-08 10:48] LABS: Cholesterol 176 mg/dL (200); High Density Lipoprotein 44 mg/dL; Triglycerides 108 mg/dL; Very Low Density Lipoprotein 22 mg/dL (5-40)
== END | disposition home or self-care (01) ==
PROVIDERS: PCP Internal Medicine; Referring Provider Internal Medicine Rheumatology; Visit Provider Internal Medicine Rheumatology
DX: M06.4 Inflammatory polyarthropathy (principal); Z79.899 Other long term (current) drug therapy; M47.897 Other spondylosis, lumbosacral region; I10 Essential (primary) hypertension
CPT/HCPCS: 36415; 80053; 80061; 85025

== ENCOUNTER 2023-02-13 16:40 | Outpatient (CLI) | payer OTHER, SELFPAY ==
--- OUTSIDE RECORDS SUMMARY | 2023-02-13 17:01 | XMS RPT_ITS | CCD ---
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 Mine Aguilar Attending Unavail able Unavailable Primary Care Provider UnavailJOSE DANIEL Mayes JR Attending Unavailable JOSE DANIEL PORRAS JR Attending Unavailable REX VILLA Referring Unavailable JOSE DANIEL PORRAS JR Attending Unavailable JOSE DANIEL PORRAS JR Referring Unavailable OSMIN VINES Attending Unavailable JOSE DANIEL PORRAS JR Referring Unavailable ELAINE MCKENNA Attending Unavailable Allergies Allergy Classification Reported Allergen(s) Allergy Type Date of Onset Reaction(s) Facility (14 sources) Clindamycin; Translations: [CLINDAMYCIN] Drug Allergy 02-12-2021 GI Upset, Other: See Comments [facility] (13 sources) Penicillin G; Translations: [PENICILLIN G] Drug Allergy 02-12-2021 [facility] (1 source) Penicillin Drug Allergy [facility] Medications Current Medications Medication Drug Class(es) Dates Sig (Normalized) Sig (Original) diclofenac sodium 50 mg delayed release oral tablet (1 source) Nonsteroidal Anti-inflammatory Drug Start: 12-08-2022 End: 12-22-2022 take 1 tablet by mouth three times daily at mealtime diclofenac sodium 50 mg oral delayed release tablet ; 1 tab(s) orally 3 times a day Quantity: 45 Refills: 0 Ordered: 08-Dec-2022 Mine Aguilar Start: 08-Dec-2022 End: 22-Dec-2022 Generic Substitution Allowed Comments: Do not take this drug if you are .It is very important that you take or use this exactly as directed. Do not skip doses or discontinue unless directed by your doctor.May cause drowsiness or dizziness.Obtain medical advice before taking any non-prescription drugs as some may affect the action of this medication.Swallow whole. Do not crush.Take with food or milk. Completed/Discontinued Medications Medication Drug Class(es) Dates Sig (Normalized) Sig (Original) [id number] 200 actuat albuterol 0.09 mg/actuat metered dose inhaler (8 sources) beta2-Adrenergic Agonist Start: 04-23-2021 take 2 puff(s) by inhalation every four hours as needed albuterol HFA (PROVENTIL HFA, VENTOLIN HFA) 90 mcg/actuation inhaler Inhale 2 Puffs as instructed every 4 hours as needed. 0 04/23/2021 Active Problems Active Problems Problem Classification Problem Date Documented Da te Episodic/Chronic Abdominal pain (3 sources) Abdominal pain; Translations: [Pelvic and perineal pain] Onset: 12-08-2022 12-08-2022 Episodic Past or Other Problems Problem Classification Problem Date Documented Date Episodic/Chronic Malaise and fatigue (5 sources) Asthenia; Translations: [Weakness] Onset: 06-10-2022 Episodic Other connective tissue disease (1 source) Pain in left leg; Translations: [Pain of left lower extremity] Onset: 06-10-2022 Episodic Other connective tissue disease (1 source) Other muscle spasm; Translations: [Muscle spasm of left lower extremity] Onset: 06-10-2022 Episodic Other nervous system disorders (1 source) Paresthesia of skin; Translations: [Paresthesia of skin] Onset: 06-10-2022 Episodic Spondylosis; intervertebral disc disorders; other back problems (6 sources) Stenosis of intervertebral foramina; Translations: [Spinal stenosis, cervical region] Onset: 06-10-2022 Episodic Results Test Name Value Interpretation Reference Range Facil ity Vital Signs Date Time Vital Sign Value Performing Clinician Facility 12-31-2022 07:01-0400 Body temperature 98.71 [degF] Elaine Mckenna PA-C Work Phone: [facility] 12-31-2022 07:01-0400 Body weight 76.3 kg Elaine Mckenna PA-C Work Phone: [facility] 12-31-2022 07:01-0400 Diastolic blood pressure 74 mm[Hg] Elaine Mckenna PA-C Work Phone: [facility] 12-31-2022 07:01-0400 Heart rate 72 /min Elaine Mckenna PA-C Work Phone: [facility] 12-31-2022 07:01-0400 Respiratory rate 16 /min Elaine Garciaer PA-C Work Phone: [facility] 12-31-2022 07:01-0400 SaO2% (BldA) [Mass fraction] 98 % Elaine Mckenna PA-C Work Phone: [facility] 12-31-2022 07:01-0400 Systolic blood pressure 104 mm[Hg] Elaine Mckenna PA-C Work Phone: [facility] 12-08-2022 12:49-0400 Body height 160 cm No Pcp Required [facility] 12-08-2022 12:49-0400 Body weight 72 kg No Pcp Required [facility] 12-08-2022 12:49-0400 Diastolic blood pressure 77 mm[Hg] No Pcp Required [facility] 12-08-2022 12:49-0400 Heart rate 75 /min No Pcp Required [facility] 12-08-2022 12:49-0400 Respiratory rate 22 /min No Pcp Required [facility] 12-08-2022 12:49-0400 SaO2% (BldA) [Mass fraction] 100 % No Pcp Required [facility] 12-08-2022 12:49-0400 Systolic blood pressure 134 mm[Hg] No Pcp Required [facility] 09-16-2022 13:56-0400 Body temperature 98.4 [degF] Jose Daniel Porras Jr., MD Work Phone: [facility] 09-16-2022 13:56-0400 Body weight 78.56 kg Jose Daniel Porras Jr., MD Work Phone: [facility] 09-16-2022 13:56-0400 Diastolic blood pressure 87 mm[Hg] Jose Daniel Porras Jr., MD Work Phone: [facility] 09-16-2022 13:56-0400 Heart rate 74 /min Jose Daniel Porras Jr., MD Work Phone: [facility] 09-16-2022 13:56-0400 Respiratory rate 18 /min Jose Danile Porras Jr., MD Work Phone: [facility] 09-16-2022 13:56-0400 SaO2% (BldA) [Mass fraction] 99 % Jose Daniel Porras Jr., MD Work Phone: [facility] 09-16-2022 13:56-0400 Systolic blood pressure 135 mm[Hg] Jose Daniel Porras Jr., MD Work Phone: [facility] 05-20-2022 15:19-0500 Body temperature 99.1 [degF] Jose Daniel Porras Jr., MD Work Phone: [facility] 05-20-2022 15:19-0500 Body weight 81.19 kg Jose Daniel Porras Jr., MD Work Phone: [facility] 05-20-2022 15:19-0500 Diastolic blood pressure 82 mm[Hg] Jose Daniel Porras Jr., MD Work Phone: [facility] 05-20-2022 15:19-0500 Heart rate 74 /min Jose Daniel Porras Jr., MD Work Phone: [facility] 05-20-2022 15:19-0500 Respiratory rate 16 /min Jose Daniel Porras Jr., MD Work Phone: [facility] 05-20-2022 15:19-0500 SaO2% (BldA) [Mass fraction] 97 % Jose Daniel Porras Jr., MD Work Phone: [facility] 05-20-2022 15:19-0500 Systolic blood pressure 138 mm[Hg] Jose Daniel Porras Jr., MD Work Phone: [facility] 01-14-2022 14:27-0400 Body temperature 98.29 [degF] Jose Daniel Porras Jr., MD Work Phone: [facility] 01-14-2022 14:27-0400 Body weight 81.65 kg Jose Daniel Porras Jr., MD Work Phone: [facility] 01-14-2022 14:27-0400 Diastolic blood pressure 82 mm[Hg] Jose Daniel Porras Jr., MD Work Phone: [facility] 01-14-2022 14:27-0400 Heart rate 85 /min Jose Daniel Porras Jr., MD Work Phone: [facility] 01-14-2022 14:27-0400 Respiratory rate 18 /min Jose Daniel Porras Jr., MD Work Phone: [facility] 01-14-2022 14:27-0400 SaO2% (BldA) [Mass fraction] 97 % Jose Daniel Porras Jr., MD Work Phone: [facility] 01-14-2022 14:27-0400 Systolic blood pressure 138 mm[Hg] Jose Daniel Porras Jr., MD Work Phone: [facility] Encounters Encounter Date Encounter Type Care Provider Facility Start: 12-31-2022 End: 12-31-2022 ambulatory ELAINEBRINA GARCIA Facility:[facility] Start: 12-31-2022 End: 12-31-2022 Patient encounter procedure Elainebrina Garciaderrick PA-Aniya Work Phone: Neurology Procedures Date Procedure Procedure Detail Performing Clinician Start: 12-24-2021 Mri brain brain stem w/o w/contrast material Jose Daniel Porras MD Work Phone: Plan of Treatment Date Care Activity Detail Author Start: 12-08-2025 Diabetes Screening Diabetes Screening [facility] Start: 11-26-2024 DIABETES SCREEN DIABETES SCREEN [facility] Start: 01-01-2024 BP Controlled (<130/80) BP Controlled (<130/80) [facility] Start: 12-13-2022 Influenza vaccination [facility] Start: 04-14-2022 DEPRESSION ASSESSMENT DEPRESSION ASSESSMENT [facility] Start: 12-13-2021 Influenza vaccination INFLUENZA (#1) [facility] Start: 04-14-2021 DEPRESSION ASSESSMENT DEPRESSION ASSESSMENT [facility] Start: 2017 COLOGUARD (FIT-DNA) COLOGUARD (FIT-DNA) [facility] Start: 2017 Colonoscopy COLONOSCOPY [facility] Start: 2017 COLORECTAL CANCER SCREENING COLORECTAL CANCER SCREENING [facility] Start: [address] COLONOGRAPHY [facility] Start: 2017 DIABETES SCREEN DIABETES SCREEN [facility] Start: 2017 FECAL OCCULT BLOOD FECAL OCCULT BLOOD [facility] Start: 2017 Lipid 1996 panel - Serum or Plasma Lipid Screening [facility] Start: 2017 LIPID SCREEN LIPID SCREEN [facility] Start: 2017 SIGMOIDOSCOPY SIGMOIDOSCOPY [facility] Start: 2012 Mammography [facility] Start: 2002 HPV TESTING HPV TESTING [facility] Start: 1993 PAP TESTING PAP TESTING [facility] Start: 12-13-1991 SHINGRIX VACCINE (1 of 2) SHINGRIX VACCINE (1 of 2) [facility] Start: 12-13-1991 Urine microalbumin profile [facility] Start: 1990 Annual PCP Team Chronic Disease Visit Annual PCP Team Chronic Disease Visit [facility] Start: 1990 HEPATITIS C SCREENING HEPATITIS C SCREENING [facility] Start: 1990 HIV SCREENING HIV SCREENING [facility] Start: 1984 Adult depression screening assessment DEPRESSION SCREENING [facility] Start: 1978 PNEUMOCOCCAL (1 - PCV) PNEUMOCOCCAL (1 - PCV) [facility] Start: 1978 Pneumococcal vaccination Pneumococcal Vaccine (1 - PCV) [facility] Start: 1977 COVID-19 VACCINE (#1) COVID-19 VACCINE (#1) [facility] Start: 06-11-1973 COVID-19 VACCINE (#1) COVID-19 VACCINE (#1) [facility] Start: 1972 HEPATITIS B (1 of 3 - 3-dose series) HEPATITIS B (1 of 3 - 3-dose series) [facility] Start: 1972 Hepatitis B Vaccine (1 of 3 - 3-dose series) Hepatitis B Vaccine (1 of 3 - 3-dose series) [facility] End: 12-27-2022 Mri spinal canal cervical w/o & w/contr matrl MRI CERVICAL SPINE WO/W IVCON Radiology Routine 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 Occurrences starting 11/27/2021 until 12/27/[address] [facility] Work Phone: Payers Date Payer Category Payer Unknown [id number] 2022 Unknown [id number] 2021 Unknown [employer] SS PPO [id number] 2021-Present [phone] [id number] [place] [address] PPO [id number] 2021 Unknown [id number] 2021 Unknown [id number] 1972 Unknown [id number] Social History Date Type Detail Facility Tobacco smoking stat [facility] Tobacco smoking consumption unknown [facility] Start: 1972 Sex Assigned At Not on file [facility] Start: 11-26-2021 End: 01-14-2022 Tobacco smoking status NHIS Ex-smoker [facility] End: 08-16-2020 History of tobacco use Current smoker [facility] End: 08-16-2020 History of tobacco use Cigarette Smoker [facility] Start: 1972 Sex Assigned At Female [facility] Start: 11-16-2021 End: 11-26-2021 Exposure to SARS-CoV-2 (event) Not sure [facility] Start: 01-14-2022 Tobacco use and exposure Smoke less tobacco non-user [facility] Start: 01-14-2022 End: 12-31-2022 Alcohol intake Ex-drinker (finding) [facility] Start: 01-14-2022 History SDOH Alcohol Comment Unable due to medication [facility] Start: 01-04-2022 End: 01-14-2022 Exposure to SARS-CoV-2 (event) Yes [facility] Start: 05-13-2022 End: 09-16-2022 History of Social function [facility] Start: 05-13-2022 End: 09-16-2022 Tobacco use panel [facility] Adult Depression Screening Assessment 2 [facility] Start: 11-19-2021 Gender identity Identifies as female gender (finding) [facility] Clinical Notes 11-16-2021 to 12-31-2022 Patient InstructionsElaine Mckenna PA-C - 12/31/2022 7:12 AM EDTTelephone Encounter - Jose Daniel Porras Jr., MD - 12/17/2022 10:34 AM EDTJose Daniel Porras Jr., MD - 09/16/2022 1:57 PM EDT Note Date & Type Note Facility 12-31-2022 Note HNO ID: [id number] Author: Elaine Mckenna PA-C Service: ? Author Type: Physician Component Assembler Supervisor Type: Progress Notes Filed: 12/31/2022 7:54 AM Note Text: ESTABLISHED PATIENT VISIT Last visit: 09/16/[address] Porras Assessment and Plan: ASSESSMENT/PLAN: 1. Paresthesia of skin - ICD9: 782.0, ICD10: R20.2 (primary diagnosis) 2. Chronic nonintractable headache, unspecified headache type - ICD9: 784.0, ICD10: R51.9, G89.29 3. Intractable episodic headache, unspecified headache type - ICD9: 784.0, ICD10: R51.9 4. Cervicalgia - ICD9: 723.1, ICD10: M54.2 5. Fibromyalgia - ICD9: 729.1, ICD10: M79.7 6. Rheumatoid arthritis, involving unspecified site, unspecified whether rheumatoid factor present (HCC) - ICD9: 714.0, ICD10: M06.9 Overall patient doing much better with conservative treatment of symptoms above. Etiology of pain still uncertain but known med conditions likely contributing including RA and Fibromyalgia. Tolerating Lyrica which has resulted in resolution of most symptoms. However, discomfort does return during the afternoon hours and question if Lyrica lasting long enough. Thus, will increase dose to 75mg TID. SE and ADRs again reviewed with pt. She agrees with plan. Encouraged massage therapy and physical therapy as recommended by Dr. Vines. No additional workup at this time. Follow up in 3 months or sooner prn. Jose Daniel Porras MD CHIEF COMPLAINT: follow up HISTORY OF PRESENT ILLNESS: Samuel Mccracken is a 52 year old female, There were no vitals taken for this visit. with a PMH significant for fibromyalgia, RA, tension headache, HTN. Chiquita 09/16/22- improved with lyrica, increased to [address]mg tid. Saw Dr[address] Vines and does not want to do injections. Etiology likely RA and Fibromyalgia. Was unable to attend last appont[place]. Since last appointment no break thorugh nerve pain. No new sympotms, no side effects with increasing Lyrica. No day time sleepiness. No new concerns. No new meds or diagnoses. Has tried gabapentin in the past with no help. Reports that she has had numbness and pain in the hands, feet, neck and spine for many years. Started around the time she had lumbar fusion surgery on L5-S1. Feels like bugs crawling on her back but will also feel like a complete loss of sensation as well. Occasionally will get electrical shock like pain as well. No weakness or falls. REVIEW OF SYSTEMS GENERAL:No weight loss, malaise or fevers. HEENT:Negative for frequent or significant headaches, No changes in hearing or vision, no nose bleeds or other nasal problems NECK:Negative for lumps, goiter, pain and significant neck swelling RESPIRATORY: Negative for cough, wheezing or shortness of breath. CARDIOVASCULAR: Negative for chest pain, leg swelling or palpitations. GASTROINTESTINAL: Negative for abdominal discomfort, blood in stools or black stools or change in bowel habits GENITOURINARY: No history of dysuria, frequency or incontinence MUSCULOSKELETAL: Negative for joint pain or swelling, back pain or muscle pain. NEUROLOGIC:Negative for focal numbness or weakness, headaches and dizziness or syncope, vision changes, speech/languag changes - EXCEPT that as per HPI above. SKIN:Negative for lesions, rash, and itching. PSYCHIATRIC: Negative for sleep disturbance, mood disorder and recent psychosocial stressors. HEMATOLOGIC/LYMPHATIC/IMMUNOLOG IC:Negative for prolonged bleeding, bruising easily or swollen nodes. ENDOCRINE: Negative for cold or heat intolerance, polyuria, polydipsia and goiter. The remainder of the ROS was reviewed and is negative. LAB/IMAGING: Those performed since patient's last visit have been reviewed. CMP 12/04 normal MEDICATIONS: pregabalin (LYRICA) 75 mg capsule Take 1 capsule by mouth three times daily for 30 days. sulfaSALAzine EC (AZULFIDINE EN) 500 mg EC tablet Take 2 tablets by mouth twice daily. albuterol HFA (PROVENTIL HFA, VENTOLIN HFA) 90 mcg/actuation inhaler Inhale 2 Puffs as instructed every 4 hours as needed. predniSONE (DELTASONE) 10 mg tablet Take 1 tablet by mouth Every 3 Days. With flare takes PRN 3-5 days As needed lisinopril (ZESTRIL, PRINIVIL) 20 mg tablet Take 10 mg by mouth once daily. cyclobenzaprine (FLEXERIL) 10 mg tablet Take 10 mg by mouth daily at bedtime. pyridoxine, vitamin B6, (VITAMIN B6) 100 mg tablet Take 100 mg by mouth once daily. HISTORIES History reviewed. No pertinent past medical history. History reviewed. No pertinent family history. SOCIAL HISTORY Social History Tobacco Use Smoking status: Former Types: Cigarettes Quit date: 08/16/2020 Years since quittin.3 Smokeless tobacco: Never Substance Use Topics Alcohol use: Not Currently Comment: Unable due to medication Drug use: Never PHYSICAL EXAMINATION BP 104/74 Pulse 72 Temp 37.1 ?C (98.7 ?F) Resp 16 Wt 76.3 kg (168 lb 3.2 oz) SpO2 98% GENERAL EXAM: General appearance: NAD, (more content not included)... [facility] 12-31-2022 Instructions Elaine Mckenna PA-C - 12/31/2022 7:25 AM EDT Continue 75mg three times a day Follow up in March with Dr. Porras as planned documented in this encounter [facility] 12-31-2022 History of Presen t illness Narrative ESTABLISHED PATIENT VISIT Last visit: 09/16/[address] Porras Assessment and Plan: ASSESSMENT/PLAN: 1. Paresthesia of skin - ICD9: 782.0, ICD10: R20.2 (primary diagnosis) 2. Chronic nonintractable headache, unspecified headache type - ICD9: 784.0, ICD10: R51.9, G89.29 3. Intractable episodic headache, unspecified headache type - ICD9: 784.0, ICD10: R51.9 4. Cervicalgia - ICD9: 723.1, ICD10: M54.2 5. Fibromyalgia - ICD9: 729.1, ICD10: M79.7 6. Rheumatoid arthritis, involving unspecified site, unspecified whether rheumatoid factor present (HCC) - ICD9: 714.0, ICD10: M06.9 Overall patient doing much better with conservative treatment of symptoms above. Etiology of pain still uncertain but known med conditions likely contributing including RA and Fibromyalgia. Tolerating Lyrica which has resulted in resolution of most symptoms. However, discomfort does return during the afternoon hours and question if Lyrica lasting long enough. Thus, will increase dose to 75mg TID. SE and ADRs again reviewed with pt. She agrees with plan. Encouraged massage therapy and physical therapy as recommended by Dr. Vines. No additional workup at this time. Follow up in 3 months or sooner prn. Jose Daniel Porras MD CHIEF COMPLAINT: follow up HISTORY OF PRESENT ILLNESS: Samuel Mccracken is a 52 year old female, There were no vitals taken for this visit. with a PMH significant for fibromyalgia, RA, tension headache, HTN. Chiquita 09/16/22- improved with lyrica, increased to [address]mg tid. [address] Dr[address] Vines and does not want to do injections. Etiology likely RA and Fibromyalgia. Was unable to attend last appontment due to being [place] of state. Since last appointment no break thorugh nerve pain. No new sympotms, no side effects with increasing Lyrica. No day time sleepiness. No new concerns. No new meds or diagnoses. Has tried gabapentin in the past with no help. Reports that she has had numbness and pain in the hands, feet, neck and spine for many years. Started around the time she had lumbar fusion surgery on L5-S1. Feels like bugs crawling on her back but will also feel like a complete loss of sensation as well. Occasionally will get electrical shock like pain as well. No weakness or falls. REVIEW OF SYSTEMS GENERAL:No weight loss, malaise or fevers. HEENT:Negative for frequent or significant headaches, No changes in hearing or vision, no nose bleeds or other nasal problems NECK:Negative for lumps, goiter, pain and significant neck swelling RESPIRATORY: Negative for cough, wheezing or shortness of breath. CARDIOVASCULAR: Negative for chest pain, leg swelling or palpitations. GASTROINTESTINAL: Negative for abdominal discomfort, blood in stools or black stools or change in bowel habits GENITOURINARY: No history of dysuria, frequency or incontinence MUSCULOSKELETAL: Negative for joint pain or swelling, back pain or muscle pain. NEUROLOGIC:Negative for focal numbness or weakness, headaches and dizziness or syncope, vision changes, speech/languag changes - EXCEPT that as per HPI above. SKIN:Negative for lesions, rash, and itching. PSYCHIATRIC: Negative for sleep disturbance, mood disorder and recent psychosocial stressors. HEMATOLOGIC/LYMPHATIC/IMMUNOLOG IC:Negative for prolonged bleeding, bruising easily or swollen nodes. ENDOCRINE: Negative for cold or heat intolerance, polyuria, polydipsia and goiter. The remainder of the ROS was reviewed and is negative. LAB/IMAGING: Those performed since patient's last visit have been reviewed. CMP 12/04 normal MEDICATIONS: pregabalin (LYRICA) 75 mg capsule Take 1 capsule by mouth three times daily for 30 days. sulfaSALAzine EC (AZULFIDINE EN) 500 mg EC tablet Take 2 tablets by mouth twice daily. albuterol HFA (PROVENTIL HFA, VENTOLIN HFA) 90 mcg/actuation inhaler Inhale 2 Puffs as instructed every 4 hours as needed. predniSONE (DELTASONE) 10 mg tablet Take 1 tablet by mouth Every 3 Days. With flare takes PRN 3-5 days As needed lisinopril (ZESTRIL, PRINIVIL) 20 mg tablet Take 10 mg by mouth once daily. cyclobenzaprine (FLEXERIL) 10 mg tablet Take 10 mg by mouth daily at bedtime. pyridoxine, vitamin B6, (VITAMIN B6) 100 mg tablet Take 100 mg by mouth once daily. HISTORIES History reviewed. No pertinent past medical history. History reviewed. No pertinent family history. SOCIAL HISTORY Social History Tobacco Use Smoking status: Former Types: Cigarettes Quit date: 08/16/2020 Years since quittin.3 Smokeless tobacco: Never Substance Use Topics Alcohol use: Not Currently Comment: Unable due to medication Drug use: Never PHYSICAL EXAMINATION BP 104/74 Pulse 72 Temp 37.1 C (98.7 F) Resp 16 Wt 76.3 kg (168 lb 3.2 oz) SpO2 98% GENERAL EXAM: General appearance: NAD, pleasant. HEENT: NC/AT, nasal congestion absent, no oral lesions, membranes moist. NECK: No masses, supple. Lungs: Breathing comfortably Extr: Moves all extremities without difficulty Skin: Cool to touch. No rash. NEUROLOGICAL EXAM: General: Awake, alert, oriented x3 (person,place,time), speech fluent, no dysarthria; comprehension, naming, repetition intact. Short and terminal carman memory intact. CN: PERRL, EOMI and without nystagmus, VFF to confrontation, facial sensation and strength are normal and symmetric, hearing is intact to finger rub bilaterally, palate and tongue movements are intact and symmetric. SCM and trapezius strength normal. Motor: Normal tone, bulk and strength (5/5) bilaterally (throughout extremities x4). Reflexes: 2/4 and symmetric, Coordination: FNF intact. No tremors. Sensation: LT throughout. No evidence of neglect. Gait: Narrow based and stable with normal stride and arm swing. Assessment and Plan: ASSESSMENT/PLAN: 1. Paresthesia of skin - ICD9: 782.0, ICD10: R20.2 (primary diagnosis) Patient with significant improvement in her symptoms after titrating up to 75mg lyrica tid. No side effects, recent CMP normal. No daytime sleepiness and no break through symptoms. No new symptoms or red flag signs or symptoms that would warrant further work up at this time. Will continue current regimen at this time. Patient agreeable to treatment plan of care, all questions were answered. Patient has follow up in [address] Porras and would like to keep this appointment. Elaine Mckenna PA-C I spent a total of 25 minutes on the date of the service which included preparing to see the patient, [id number] patient care, completing clinical documentation, obtaining and/or reviewing separately obtained history, performing a medically appropriate examination, counseling and educating the patient/family/caregiver, and ordering medications, tests, or procedures. This document has been created with the use of voice recognition technology. It may contain inaccuracies: (e.g. misspellings, inaccurate syntax or word sense) that have escaped review. [facility] website checked and validated. All prescriptions have been APPROPRIATELY filled. No suspicious activity was identified. 12/31/2022 by Elaine Mckenna PA-C documented in this encounter [facility] 12-17-2022 Miscellaneous Notes PDMP website checked and validated. All prescriptions have been APPROPRIATELY filled. No suspicious activity was identified. 12/17/2022 by Jose Daniel Porras MD [facility] message sent back to patient with providers message below. Nothing further at this time. LU Ludwig Patient is calling had family emergency in [place], had to reschedule her appt. Went over notes below from Dr Porras with understanding. Patient asking if would send rx to local pharmacy until her appt? Her is going to have ot [facility] and get it to her. She will not be back in the area until 12/29. Patient uses [facility] pharmacy. Patient phone number is [phone] if needed. Please advise This is a controlled med and cannot be Rx'd outside the [facility]. Jose Daniel Porras MD Pt has made follow up appointment in person with on 12-31-22. Please advise. Meredith Vaughan LPN documented in this encounter [facility] 10-16-2022 Miscellaneous Notes Medication approved. CaseId:[id number]; Status:Approved;Review Type:Prior Auth; Coverage Start Date:10/12/2022; Coverage End Date:11/11/2023; Meredith Vaughan LPN PA started on CoverMyMeds. Await decision. Meredith Vaughan LPN Pt called and she needs to have another PA done for medication Pregabalin she takes 3 times a day. Pt's insurance changed to [employer] PRIOR AUTHORIZATION Medication for Prior Authorization: Pregabalin Other formulary meds available : NO Insurance Company: [employer] phone number: [phone] Patient insurance ID number: [id number] Martha Davis LPN Pt reports she runs out of medication tomorrow 10/17/22. documented in this encounter [facility] 09-16-2022 Miscellaneous Notes Medication approved. Pt notified via TC. Meredith Vaughan LPN PA started via covermymeds. Sent to plan. Await decision. Meredith Vaughan LPN Pt calls to report that insurance does not want to cover pregabalin 75 mg tid. Pharmacy advised provider would need to change dose/medication or a prior authorization is needed for insurance. Pt reports she will be out of medication tomorrow. . reporree documented in this encounter [facility] 09-16-2022 Note HNO ID: [id number] Author: Jose Daniel Porras Jr., MD Service: ? Author Type: Physician Type: Progress Notes Filed: 09/16/2022 5:38 PM Note Text: ESTABLISHED PATIENT VISIT CHIEF COMPLAINT: Follow up HISTORY OF PRESENT ILLNESS: Samuel Mccracken is a 51 year old female, with a PMH significant for and since last office visit of 05/20/22: 1. Paresthesia of skin - ICD9: 782.0, ICD10: R20.2 (primary diagnosis) 2. Weakness - ICD9: 780.79, ICD10: R53.1 3. Pain of left lower extremity - ICD9: 729.5, ICD10: M79.605 4. Muscle spasm of left lower extremity - ICD9: 728.85, ICD10: M62.838 5. Chronic nonintractable headache, unspecified headache type - ICD9: 784.0, ICD10: R51.9, G89.29 6. Foraminal stenosis of cervical region - ICD9: 723.0, ICD10: M48.02 7. Intractable episodic headache, unspecified headache type - ICD9: 784.0, ICD10: R51.9 8. Cervicalgia - ICD9: 723.1, ICD10: M54.2 Patient with multiple complaints above for which etiology is uncertain. Patient has known inflammatory/autoimmune disorder that may be contributing to symptoms. However, while some symptoms have improved with therapy (lower exts), she continues to have arm numbness and spasms in thoracic region as well as headaches with cervicalgia. Possible that foraminal stenosis at C5-6 contributing with pt reporting LUE symptoms >> RUE. Will refer to spine and pain for second opinion. Currently with non-focal neuro exam. In addition to above, will empirically treat with Lyrica 75mg BID to see if any improvement in symptoms with additional concerns for CTS on prior EMG/NCV as well as inability to rule out small fiber type neuropathy. Pt to follow up after evaluation by spine and pain. Encouraged pt to follow up with Rheum as well. Pt reports doing well. No longer working for [employer] and working from home. Nerve pain eased up tremendously with the Lyrica. Still some bleed through down back and hands. Saw Dr. Vines, and did not want to do injections and recommend therapy and massage. Has yet to do any of this. Neck has eased up. Reports no other neurogenic pain. Breakthrough pain occurring few times per week. No weakness. Not dropping objects. Rarely takes muscle relaxants. No side effects from Lyrica. Pain fairly well controlled over 24 hours. States perhaps pain worse towards the evening and afternoon. REVIEW OF SYSTEMS GENERAL:No weight loss, malaise or fevers. HEENT: No changes in hearing or vision, no nose bleeds or other nasal problems RESPIRATORY: Negative for cough, wheezing or shortness of breath. CARDIOVASCULAR: Negative for chest pain, leg swelling or palpitations. GASTROINTESTINAL: Negative for abdominal discomfort, blood in stools or black stools or change in bowel habits GENITOURINARY: No history of dysuria, frequency or incontinence MUSCULOSKELETAL: See HPI. NEUROLOGIC:Negative for focal numbness or weakness, and dizziness or syncope, vision changes, speech/languag changes - EXCEPT that as per HPI above. SKIN:Negative for lesions, rash, and itching. LAB/IMAGING: Those performed since patient's last visit have been reviewed. Glucose (mg/dL) Date Value 11/26/2021 82 BUN (mg/dL) Date Value 11/26/2021 19 Creatinine (mg/dL) Date Value 11/26/2021 0.75 Sodium (mmol/L) Date Value 11/26/2021 138 Potassium (mmol/L) Date Value 11/26/2021 4.3 Chloride (mmol/L) Date Value 11/26/2021 104 CO2 (mmol/L) Date Value 11/26/2021 21 (L) Protein, Total (g/dL) Date Value 11/26/2021 7.1 11/26/2021 6.9 Albumin (g/dL) Date Value 11/26/2021 5.1 (H) Calcium, Total (mg/dL) Date Value 11/26/2021 9.8 Alkaline Phosphatase (U/L) Date Value 11/26/2021 72 Bilirubin, Total (mg/dL) Date Value 11/26/2021 0.2 AST (U/L) Date Value 11/26/2021 15 ALT (U/L) Date Value 11/26/2021 17 PAST MEDICAL HISTORY: RA, fibromyalgia, OA MEDICATIONS: pregabalin (LYRICA) 75 mg capsule Take 1 capsule by mouth twice daily for 90 days. sulfaSALAzine EC (AZULFIDINE EN) 500 mg EC tablet Take 2 tablets by mouth twice daily. albuterol HFA (PROVENTIL HFA, VENTOLIN HFA) 90 mcg/actuation inhaler Inhale 2 Puffs as instructed every 4 hours as needed. predniSONE (DELTASONE) 10 mg tablet Take 1 tablet by mouth Every 3 Days. With flare takes PRN 3-5 days lisinopril (ZESTRIL, PRINIVIL) 20 mg tablet Take 20 mg by mouth once daily. cyclobenzaprine (FLEXERIL) 10 mg tablet Take 10 mg by mouth daily at bedtime. pyridoxine, vitamin B6, (VITAMIN B6) 100 mg tablet Take 100 mg by mouth once daily. HISTORIES SOCIAL HISTORY Social History Tobacco Use Smoking status: Former Types: Cigarettes Quit date: 08/16/2020 Years since quittin.0 Smokeless tobacco: Never Substance Use Topics Alcohol use: Not Currently Comment: Unable due to medication Drug use: Never PHYSICAL EXAMINATION Blood pressure 135/87, pulse 74, temperature 36.9 ?C (98.4 ?F), resp. rate 18, weight 78.6 kg (173 l (more content not included)... [facility] 09-16-2022 History of Presen t illness Narrative ESTABLISHED PATIENT VISIT CHIEF COMPLAINT: Follow up HISTORY OF PRESENT ILLNESS: Samuel Mccracken is a 51 year old female, with a PMH significant for and since last office visit of 05/20/22: 1. Paresthesia of skin - ICD9: 782.0, ICD10: R20.2 (primary diagnosis) 2. Weakness - ICD9: 780.79, ICD10: R53.1 3. Pain of left lower extremity - ICD9: 729.5, ICD10: M79.605 4. Muscle spasm of left lower extremity - ICD9: 728.85, ICD10: M62.838 5. Chronic nonintractable headache, unspecified headache type - ICD9: 784.0, ICD10: R51.9, G89.29 6. Foraminal stenosis of cervical region - ICD9: 723.0, ICD10: M48.02 7. Intractable episodic headache, unspecified headache type - ICD9: 784.0, ICD10: R51.9 8. Cervicalgia - ICD9: 723.1, ICD10: M54.2 Patient with multiple complaints above for which etiology is uncertain. Patient has known inflammatory/autoimmune disorder that may be contributing to symptoms. However, while some symptoms have improved with therapy (lower exts), she continues to have arm numbness and spasms in thoracic region as well as headaches with cervicalgia. Possible that foraminal stenosis at C5-6 contributing with pt reporting LUE symptoms >> RUE. Will refer to spine and pain for second opinion. Currently with non-focal neuro exam. In addition to above, will empirically treat with Lyrica 75mg BID to see if any improvement in symptoms with additional concerns for CTS on prior EMG/NCV as well as inability to rule out small fiber type neuropathy. Pt to follow up after evaluation by spine and pain. Encouraged pt to follow up with Rheum as well. Pt reports doing well. No longer working for [employer] and working from home. Nerve pain eased up tremendously with the Lyrica. Still some bleed through down back and hands. Saw Dr. Vines, and did not want to do injections and recommend therapy and massage. Has yet to do any of this. Neck has eased up. Reports no other neurogenic pain. Breakthrough pain occurring few times per week. No weakness. Not dropping objects. Rarely takes muscle relaxants. No side effects from Lyrica. Pain fairly well controlled over 24 hours. States perhaps pain worse towards the evening and afternoon. REVIEW OF SYSTEMS GENERAL:No weight loss, malaise or fevers. HEENT: No changes in hearing or vision, no nose bleeds or other nasal problems RESPIRATORY: Negative for cough, wheezing or shortness of breath. CARDIOVASCULAR: Negative for chest pain, leg swelling or palpitations. GASTROINTESTINAL: Negative for abdominal discomfort, blood in stools or black stools or change in bowel habits GENITOURINARY: No history of dysuria, frequency or incontinence MUSCULOSKELETAL: See HPI. NEUROLOGIC:Negative for focal numbness or weakness, and dizziness or syncope, vision changes, speech/languag changes - EXCEPT that as per HPI above. SKIN:Negative for lesions, rash, and itching. LAB/IMAGING: Those performed since patient's last visit have been reviewed. Glucose (mg/dL) Date Value 11/26/2021 82 BUN (mg/dL) Date Value 11/26/2021 19 Creatinine (mg/dL) Date Value 11/26/2021 0.75 Sodium (mmol/L) Date Value 11/26/2021 138 Potassium (mmol/L) Date Value 11/26/2021 4.3 Chloride (mmol/L) Date Value 11/26/2021 104 CO2 (mmol/L) Date Value 11/26/2021 21 (L) Protein, Total (g/dL) Date Value 11/26/2021 7.1 11/26/2021 6.9 Albumin (g/dL) Date Value 11/26/2021 5.1 (H) Calcium, Total (mg/dL) Date Value 11/26/2021 9.8 Alkaline Phosphatase (U/L) Date Value 11/26/2021 72 Bilirubin, Total (mg/dL) Date Value 11/26/2021 0.2 AST (U/L) Date Value 11/26/2021 15 ALT (U/L) Date Value 11/26/2021 17 PAST MEDICAL HISTORY: RA, fibromyalgia, OA MEDICATIONS: pregabalin (LYRICA) 75 mg capsule Take 1 capsule by mouth twice daily for 90 days. sulfaSALAzine EC (AZULFIDINE EN) 500 mg EC tablet Take 2 tablets by mouth twice daily. albuterol HFA (PROVENTIL HFA, VENTOLIN HFA) 90 mcg/actuation inhaler Inhale 2 Puffs as instructed every 4 hours as needed. predniSONE (DELTASONE) 10 mg tablet Take 1 tablet by mouth Every 3 Days. With flare takes PRN 3-5 days lisinopril (ZESTRIL, PRINIVIL) 20 mg tablet Take 20 mg by mouth once daily. cyclobenzaprine (FLEXERIL) 10 mg tablet Take 10 mg by mouth daily at bedtime. pyridoxine, vitamin B6, (VITAMIN B6) 100 mg tablet Take 100 mg by mouth once daily. HISTORIES SOCIAL HISTORY Social History Tobacco Use Smoking status: Former Types: Cigarettes Quit date: 08/16/2020 Years since quittin.0 Smokeless tobacco: Never Substance Use Topics Alcohol use: Not Currently Comment: Unable due to medication Drug use: Never PHYSICAL EXAMINATION Blood pressure 135/87, pulse 74, temperature 36.9 C (98.4 F), resp. rate 18, weight 78.6 kg (173 lb 3.2 oz), SpO2 99 %. GENERAL EXAM: General appearance: NAD, pleasant. HEENT: NC/AT, nasal congestion absent, no oral lesions, membranes moist. NECK: No masses, supple. Lungs: CTA bilaterally. CV: RRR nl S1, S2. Skin: Cool to touch. NEUROLOGICAL EXAM: General: Awake, alert, oriented x3 (person,place,time), speech fluent, no dysarthria; comprehension, naming, repetition intact. CN: PERRL, EOMI and without nystagmus, VFF to confrontation, facial sensation and strength are normal and symmetric, hearing is intact to finger rub bilaterally, palate and tongue movements are intact and symmetric. SCM and trapezius strength normal. Motor: Normal tone, bulk and strength (5/5) bilaterally (throughout extremities x4). Coordination: FNF, JESI, HTS intact. No tremors. Sensation: LT intact throughout. No evidence of neglect. Gait: Stable with normal stride and arm swing. Assessment and Plan: ASSESSMENT/PLAN: 1. Paresthesia of skin - ICD9: 782.0, ICD10: R20.2 (primary diagnosis) 2. Chronic nonintractable headache, unspecified headache type - ICD9: 784.0, ICD10: R51.9, G89.29 3. Intractable episodic headache, unspecified headache type - ICD9: 784.0, ICD10: R51.9 4. Cervicalgia - ICD9: 723.1, ICD10: M54.2 5. Fibromyalgia - ICD9: 729.1, ICD10: M79.7 6. Rheumatoid arthritis, involving unspecified site, unspecified whether rheumatoid factor present (HCC) - ICD9: 714.0, ICD10: M06.9 Overall patient doing much better with conservative treatment of symptoms above. Etiology of pain still uncertain but known med conditions likely contributing including RA and Fibromyalgia. Tolerating Lyrica which has resulted in resolution of most symptoms. However, discomfort does return during the afternoon hours and question if Lyrica lasting long enough. Thus, will increase dose to 75mg TID. SE and ADRs again reviewed with pt. She agrees with plan. Encouraged massage therapy and physical therapy as recommended by Dr. Vines. No additional workup at this time. Follow up in 3 months or sooner prn. Jose Daniel Porras MD PDMP website checked and validated. All prescriptions have been APPROPRIATELY filled. No suspicious activity was identified. 09/16/2022 by Jose Daniel Porras MD Medical Decision Making: Problems: Moderate: 2+ stable chronic illnesses Risk: Moderate: Drug management Medical Decision Making Level: 4 - Moderate documented in this encounter [facility] 07-29-2022 Miscellaneous Notes PDMP website checked and validated. All prescriptions have been APPROPRIATELY filled. No suspicious activity was identified. 07/29/2022 by Jose Daniel Porras MD [facility] 05/20/22 with [facility] NOV 09/16/22 with [facility] Refill 05/20/22 with qty: 60 and 2 refills Pt states she will not have enough until follow up appt in September [facility] Damon Assessment/Plan Assessment and Plan: ASSESSMENT/PLAN: 1. Paresthesia of skin - ICD9: 782.0, ICD10: R20.2 (primary diagnosis) 2. Weakness - ICD9: 780.79, ICD10: R53.1 3. Pain of left lower extremity - ICD9: 729.5, ICD10: M79.605 4. Muscle spasm of left lower extremity - ICD9: 728.85, ICD10: M62.838 5. Chronic nonintractable headache, unspecified headache type - ICD9: 784.0, ICD10: R51.9, G89.29 6. Foraminal stenosis of cervical region - ICD9: 723.0, ICD10: M48.02 7. Intractable episodic headache, unspecified headache type - ICD9: 784.0, ICD10: R51.9 8. Cervicalgia - ICD9: 723.1, ICD10: M54.2 Patient with multiple complaints above for which etiology is uncertain. Patient has known inflammatory/autoimmune disorder that may be contributing to symptoms. However, while some symptoms have improved with therapy (lower exts), she continues to have arm numbness and spasms in thoracic region as well as headaches with cervicalgia. Possible that foraminal stenosis at C5-6 contributing with pt reporting LUE symptoms >> RUE. Will refer to spine and pain for second opinion. Currently with non-focal neuro exam. In addition to above, will empirically treat with Lyrica 75mg BID to see if any improvement in symptoms with additional concerns for CTS on prior EMG/NCV as well as inability to rule out small fiber type neuropathy. Pt to follow up after evaluation by spine and pain. Encouraged pt to follow up with Rheum as well. Jose Daniel Porras MD documented in this encounter [facility] 06-10-2022 Note HNO ID: [id number] Author: Osmin Vines MD Service: ? Author Type: Physician Type: Progress Notes Filed: 06/10/2022 12:52 PM Note Text: [facility] Date: June 10, 2022 - 11:05 AM Samuel Mccracken is seen in consultation requested by Dr. Jose Daniel Porras Jr. for an opinion regarding chronic neck pain. My final recommendations will be communicated back to the requesting physician by way of shared medical record or via US mail. Chief Complaint: neck pain SUBJECTIVE: Samuel Mccracken, is a 51 year old female who presents with neck pain. The pain started 7+ years ago, with no known injury or trauma. The pain onset was gradual. The patient states that the current pain is persistent. Her pain is located in the bilateral posterior cervical region and radiates to bilateral upper extremities along anterior aspect, lateral aspect, and posterior aspect to the level of fingers. // The pain is described as burning, contraction, numbness, radiating, spasm, stiffness, tightness, numbness, and tingling The pain intensity is rated 6. The pain is exacerbated by heavy lifting and relieved by medications, cold, heat, and massage. Symptoms interfere with physical activity, walking, sleeping, sitting, bathing, driving, cooking, household cleaning, lifting, and social activities. 50% pain in spine vs 50% (radiating) pain in the extremity. Litigation: No. Worker's Compensation: No. Prior pain treatment has included Medication: pregabalin with substantial relief. Cervical injection in 2015 in [place]. ALLERGIES Allergen Reactions Clindamycin GI Upset, Other: See Comments Missy Pang Current Medications: Pain medications reviewed and reconciled in the medication list: Yes. Current Outpatient Medications Medication Sig sulfaSALAzine EC (AZULFIDINE EN) 500 mg EC tablet Take 1 tablet by mouth twice daily. albuterol HFA (PROVENTIL HFA, VENTOLIN HFA) 90 mcg/actuation inhaler Inhale 2 Puffs as instructed every 4 hours as needed. pregabalin (LYRICA) 75 mg capsule Take 1 capsule by mouth twice daily for 90 days. predniSONE (DELTASONE) 10 mg tablet Take 1 tablet by mouth Every 3 Days. With flare takes PRN 3-5 days lisinopril (ZESTRIL, PRINIVIL) 20 mg tablet Take 20 mg by mouth once daily. cyclobenzaprine (FLEXERIL) 10 mg tablet Take 10 mg by mouth daily at bedtime. pyridoxine, vitamin B6, (VITAMIN B6) 100 mg tablet Take 100 mg by mouth once daily. No current facility-administered medications for this visit. No past medical history on file. PAST SURGICAL HISTORY Procedure Laterality Date VAGINAL HYSTERECTOMY 06/26/2021 No family history on file. Social History: Alcohol Use: Not Currently (Unable due to medication) Tobacco Use: Quit 08/16/2020. Types: Cigarettes Drug Use: Never Employer And Job Title: None on file Years Of Education Completed: Not specified Marital Status: REVIEW OF SYSTEMS: Constitutional: (-) Fever (-) Night Sweats (-) Weight Gain (-) Weight Loss (+) Fatigue Cardiovascular: (-) Chest Pain (-) Palpitations (-) Lightheadedness (-) Swelling of Ankles (-) Hx Heart Surgery Respiratory: (-) Shortness of Breath (-) Cough (-) Wheezing (-) Snoring Gastrointestinal: (-) Incontinence (-) Abdominal Pain (-) Diarrhea (-) Constipation (-) Nausea/Vomiting (-) Heart Burn Endocrine: (-) Thyroid Disorder (-) Diabetes Hematologic: (-) Prolonged Bleeding (-) Easy Bruising Genitourinary: (-) Incontinence (-) Frequency (-) Urinary Urgency Skin: (-) Rashes (-) Itching (-) Other Lesions Neurologic: (+) Headache (-) Double Vision (-) Confusion (-) Paralysis (+) Vertigo (-) Syncope Psychiatric: (-) Depression (+) Anxiety (-) Delusions (-) Hallucinations (-) Suicidal Thoughts OARRS Report reviewed: Yes Narcotic Agreement reviewed and signed?: N/A Baseline Urine Toxicology obtained: N/A Urine Panel: No results found for: UQCANN, UQBNZL, CHI4VAW, UQAMPH, UQMAMP, UQBUPRE, UQNORBUP, UQMTHD, UQEDDP, UQTRAM, UQDTRM, UQFNTL, UQNFTL, UQCODE, UQMORP, UQDCDN, UQHCOD, UQOXYC, UQHMOR, UQOXYM, UQCREA, UQPH, UQSPGR, UQOXID, UQSPQ The pain panel was N/A OBJECTIVE: Performed in conjunction with observation. The patient was alert and oriented x3. The patient was in no acute distress. Lungs: Clear, negative for dyspnea or distress. CVR: Negative for SOB or peripheral edema. Neck: Supple. The range of motion was intact. Diffuse bilateral paracervical tenderness extends to the superior border of the trapezius bilaterally in the upper thoracic levels. Cervical facet loading: Negative Spurling's: Negative Back: Range of motion of the trunk was intact. SLR: Negative Extremities: no reported edema or erythema. Motor: Negative focal deficits Sensory: Intact to light touch and sharp throughout the upper extremities Gait: Within normal limits Medical record (more content not included)... [facility] 06-10-2022 History of Presen t illness Narrative [facility] Date: June 10, 2022 - 11:05 AM Samuel Mccracken is seen in consultation requested by Dr. Jose Daniel Porras Jr. for an opinion regarding chronic neck pain. My final recommendations will be communicated back to the requesting physician by way of shared medical record or via US mail. Chief Complaint: neck pain SUBJECTIVE: Samuel Mccracken, is a 51 year old female who presents with neck pain. The pain started 7+ years ago, with no known injury or trauma. The pain onset was gradual. The patient states that the current pain is persistent. Her pain is located in the bilateral posterior cervical region and radiates to bilateral upper extremities along anterior aspect, lateral aspect, and posterior aspect to the level of fingers. // The pain is described as burning, contraction, numbness, radiating, spasm, stiffness, tightness, numbness, and tingling The pain intensity is rated 6. The pain is exacerbated by heavy lifting and relieved by medications, cold, heat, and massage. Symptoms interfere with physical activity, walking, sleeping, sitting, bathing, driving, cooking, household cleaning, lifting, and social activities. 50% pain in spine vs 50% (radiating) pain in the extremity. Litigation: No. Worker's Compensation: No. Prior pain treatment has included Medication: pregabalin with substantial relief. Cervical injection in 2015 in [place]. ALLERGIES Allergen Reactions Clindamycin GI Upset, Other: See Comments Missy Pang Current Medications: Pain medications reviewed and reconciled in the medication list: Yes. Current Outpatient Medications Medication Sig sulfaSALAzine EC (AZULFIDINE EN) 500 mg EC tablet Take 1 tablet by mouth twice daily. albuterol HFA (PROVENTIL HFA, VENTOLIN HFA) 90 mcg/actuation inhaler Inhale 2 Puffs as instructed every 4 hours as needed. pregabalin (LYRICA) 75 mg capsule Take 1 capsule by mouth twice daily for 90 days. predniSONE (DELTASONE) 10 mg tablet Take 1 tablet by mouth Every 3 Days. With flare takes PRN 3-5 days lisinopril (ZESTRIL, PRINIVIL) 20 mg tablet Take 20 mg by mouth once daily. cyclobenzaprine (FLEXERIL) 10 mg tablet Take 10 mg by mouth daily at bedtime. pyridoxine, vitamin B6, (VITAMIN B6) 100 mg tablet Take 100 mg by mouth once daily. No current facility-administered medications for this visit. No past medical history on file. PAST SURGICAL HISTORY Procedure Laterality Date VAGINAL HYSTERECTOMY 06/26/2021 No family history on file. Social History: Alcohol Use: Not Currently (Unable due to medication) Tobacco Use: Quit 08/16/2020. Types: Cigarettes Drug Use: Never Employer And Job Title: None on file Years Of Education Completed: Not specified Marital Status: REVIEW OF SYSTEMS: Constitutional: (-) Fever (-) Night Sweats (-) Weight Gain (-) Weight Loss (+) Fatigue Cardiovascular: (-) Chest Pain (-) Palpitations (-) Lightheadedness (-) Swelling of Ankles (-) Hx Heart Surgery Respiratory: (-) Shortness of Breath (-) Cough (-) Wheezing (-) Snoring Gastrointestinal: (-) Incontinence (-) Abdominal Pain (-) Diarrhea (-) Constipation (-) Nausea/Vomiting (-) Heart Burn Endocrine: (-) Thyroid Disorder (-) Diabetes Hematologic: (-) Prolonged Bleeding (-) Easy Bruising Genitourinary: (-) Incontinence (-) Frequency (-) Urinary Urgency Skin: (-) Rashes (-) Itching (-) Other Lesions Neurologic: (+) Headache (-) Double Vision (-) Confusion (-) Paralysis (+) Vertigo (-) Syncope Psychiatric: (-) Depression (+) Anxiety (-) Delusions (-) Hallucinations (-) Suicidal Thoughts OARRS Report reviewed: Yes Narcotic Agreement reviewed and signed?: N/A Baseline Urine Toxicology obtained: N/A Urine Panel: No results found for: UQCANN, UQBNZL, KTF5DUK, UQAMPH, UQMAMP, UQBUPRE, UQNORBUP, UQMTHD, UQEDDP, UQTRAM, UQDTRM, UQFNTL, UQNFTL, UQCODE, UQMORP, UQDCDN, UQHCOD, UQOXYC, UQHMOR, UQOXYM, UQCREA, UQPH, UQSPGR, UQOXID, UQSPQ The pain panel was N/A OBJECTIVE: Performed in conjunction with observation. The patient was alert and oriented x3. The patient was in no acute distress. Lungs: Clear, negative for dyspnea or distress. CVR: Negative for SOB or peripheral edema. Neck: Supple. The range of motion was intact. Diffuse bilateral paracervical tenderness extends to the superior border of the trapezius bilaterally in the upper thoracic levels. Cervical facet loading: Negative Spurling's: Negative Back: Range of motion of the trunk was intact. SLR: Negative Extremities: no reported edema or erythema. Motor: Negative focal deficits Sensory: Intact to light touch and sharp throughout the upper extremities Gait: Within normal limits Medical record and diagnostic tests reviewed for today's visit: The [facility] EMR was reviewed during the visit IMAGING STUDIES: No new imaging studies were reviewed during this office visit. ASSESSMENT: (R20.2) Paresthesia of skin (R53.1) Weakness (M79.605) Pain of left lower extremity (M62.838) Muscle spasm of left lower extremity (R51.9, G89.29) Chronic nonintractable headache, unspecified headache type (M48.02) Foraminal stenosis of cervical region Discussion: A discussion was entertained regarding multicomponent pain source. Discussed conservative options and focus on improvement of function and the concerns of ongoing chronic pain. Discussed the rationale behind interventional approach and how it can facilitate improvement of pain but also diagnostic information that procedures provide. shelter use of any opioid pain medication is discouraged in chronic benign pain. PLAN: 1. MRI of the cervical and thoracic spine was reviewed. Findings were discussed. Recommended conservative approach. Recommend referral to integrative medicine for consideration for acute puncture, OMT, chiropractic treatments. 2. No interventional procedures indicated 3. No new medication was prescribed. 4. Counseled patient regarding the importance of activity modification and exercise. 5. Follow up: 6 to 8 weeks or as needed basis. The above plan and management options were discussed with patient. The patient is in agreement with the above and verbalized understanding. I have discussed and confirmed the above treatment plan with the patient and I have reviewed the nurses notes and I am aware of the family/social history. I have confirmed ROS findings. Osmin Vines MD June 10, 2022 cc: Jose Daniel Porras [address] [phone] Results of consultation to be transmitted via electronic medical record for those providers who practice within [facility] or with access to [employer] via MD Connect, or via letter. documented in this encounter [facility] 05-20-2022 Note HNO ID: [id number] Author: Jose Daniel Porras Jr., MD Service: ? Author Type: Physician Type: Progress Notes Filed: 05/20/2022 6:05 PM Note Text: ESTABLISHED PATIENT VISIT CHIEF COMPLAINT: Follow Up HISTORY OF PRESENT ILLNESS: Samuel Mccracken is a 51 year old female, with a PMH significant for and per last office visit of 01/14/22: 1. Paresthesia of skin - ICD9: 782.0, ICD10: R20.2 (primary diagnosis) 2. Weakness - ICD9: 780.79, ICD10: R53.1 3. Pain of left lower extremity - ICD9: 729.5, ICD10: M79.605 4. Muscle spasm of left lower extremity - ICD9: 728.85, ICD10: M62.838 5. Involuntary movements - ICD9: 781.0, ICD10: R25.9 6. Chronic nonintractable headache, unspecified headache type - ICD9: 784.0, ICD10: R51.9, G89.29 Previous complaints resolving/resolved since starting on methotrexate for RA. Non focal neuro exam today. Reviewed EMG and imagine studies with pt in detail. Possible that CTS is contributing to wrist pain but symptoms as described today appear of a more arthritic nature. As for other symptoms, given improvement since on methotrexate and steroids, possible RA or inflammation superimposed on known lumbar disease. At this point with improvement, discussed with patient treatment options, but feel it might be best to first see how methotrexate works over the next few months. If symptoms worsen the patient will contact us immediately. For now will schedule follow up in ~4 months. Pt agrees with plan. States methotrexate helped legs but made the upper ext pain worse. Off MTX due to GI upset. Now on sulfaSALAzine since 2021. States it is helping. States no longer having nerve pain in legs. States the weird things she is having is a tingling that goes from the back of head, into neck and down into shoulder blades. Has happened twice and lasted couple hours. Issue that is more prominent is sense that muscles are pulling into the spine, and feels like they are locked. Not loosening with Flexeril. LUE more bothered than R. States both hands go numb if holding steering wheel or otherwise either hand will go numb if holding something too long. 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 Besides pain in the back of the head, headaches are occurring about one day per week - entire posterior cranium gomez. By description feels tightness around head suggestive of tension headache. REVIEW OF SYSTEMS GENERAL:No weight loss, malaise or fevers. HEENT: No changes in hearing or vision, no nose bleeds or other nasal problems NECK:Negative for lumps, goiter, pain and significant neck swelling RESPIRATORY: Negative for cough, wheezing or shortness of breath. CARDIOVASCULAR: Negative for chest pain, leg swelling or palpitations. GASTROINTESTINAL: Negative for abdominal discomfort, blood in stools or black stools or change in bowel habits GENITOURINARY: No history of dysuria, frequency or incontinence MUSCULOSKELETAL: See HPI. NEUROLOGIC:See HPI. SKIN:Negative for lesions, rash, and itching. HEMATOLOGIC/LYMPHATIC/IMMUNOLOG IC:Negative for prolonged bleeding, bruising easily or swollen nodes. ENDOCRINE: Negative for cold or heat intolerance, polyuria, polydipsia and goiter. The remainder of the ROS was reviewed and is negative. LAB/IMAGING: Those performed since patient's last visit have been reviewed. Glucose (mg/dL) Date Value 11/26/2021 82 BUN (mg/dL) Date Value 11/26/2021 19 Creatinine (mg/dL) Date Value 11/26/2021 0.75 Sodium (mmol/L) Date Value 11/26/2021 138 Potassium (mmol/L) Date Value 11/26/2021 4.3 Chloride (mmol/L) Date Value 11/26/2021 104 CO2 (mmol/L) Date Value 11/26/2021 21 (L) Protein, Total (g/dL) Date Value 11/26/2021 7.1 11/26/2021 6.9 Albumin (g/dL) Date Value 11/26/2021 5.1 (H) Calcium, Total (mg/dL) Date Value 11/26/2021 9.8 Alkaline Phosphatase (U/L) Date Value 11/26/2021 72 Bilirubin, Total (mg/dL) Date Value 11/26/2021 0.2 AST (U/L) Date Value 11/26/2021 15 ALT (U/L) Date Value 11/26/2021 17 MEDICATIONS: predniSONE (DELTASONE) 10 mg tablet Take 1 tablet by mouth Every 3 Days. With flare takes PRN 3-5 days methotrexate 2.5 mg tablet Take 2.5 mg by mouth one time only. lisinopril (ZESTRIL, PRINIVIL) 20 mg tablet Take 20 mg by mouth once daily. cyclobenzaprine (FLEXERIL) 10 mg tablet Take 10 mg by mouth daily at bedtime. turmeric root extract 500 mg cap Take 500 mg by mouth once daily. pyridoxine, vitamin B6, (VITAMIN B6) 100 mg tablet Take 100 mg by mouth once daily. L.acid/L.casei/B.bif/B.nicolas/FOS (PROBIOTIC BLEND ORAL) Take 1 capsule by mouth once daily. ProBio 5 by [employer] MEDICATION, NON-DATABASE Take 2 capsules by mouth once daily. [employer] HISTORIES SOCIAL HISTORY Social History Tobacco Use Smoking status: Former Types: Cigarettes Quit date: 08/16/2020 Years since quittin.7 Smokeless tobacco: Never Substance Use Topic (more content not included)... [facility] 05-20-2022 History of Presen t illness Narrative ESTABLISHED PATIENT VISIT CHIEF COMPLAINT: Follow Up HISTORY OF PRESENT ILLNESS: Samuel Mccracken is a 51 year old female, with a PMH significant for and per last office visit of 01/14/22: 1. Paresthesia of skin - ICD9: 782.0, ICD10: R20.2 (primary diagnosis) 2. Weakness - ICD9: 780.79, ICD10: R53.1 3. Pain of left lower extremity - ICD9: 729.5, ICD10: M79.605 4. Muscle spasm of left lower extremity - ICD9: 728.85, ICD10: M62.838 5. Involuntary movements - ICD9: 781.0, ICD10: R25.9 6. Chronic nonintractable headache, unspecified headache type - ICD9: 784.0, ICD10: R51.9, G89.29 Previous complaints resolving/resolved since starting on methotrexate for RA. Non focal neuro exam today. Reviewed EMG and imagine studies with pt in detail. Possible that CTS is contributing to wrist pain but symptoms as described today appear of a more arthritic nature. As for other symptoms, given improvement since on methotrexate and steroids, possible RA or inflammation superimposed on known lumbar disease. At this point with improvement, discussed with patient treatment options, but feel it might be best to first see how methotrexate works over the next few months. If symptoms worsen the patient will contact us immediately. For now will schedule follow up in ~4 months. Pt agrees with plan. States methotrexate helped legs but made the upper ext pain worse. Off MTX due to GI upset. Now on sulfaSALAzine since 2021. States it is helping. States no longer having nerve pain in legs. States the weird things she is having is a tingling that goes from the back of head, into neck and down into shoulder blades. Has happened twice and lasted couple hours. Issue that is more prominent is sense that muscles are pulling into the spine, and feels like they are locked. Not loosening with Flexeril. LUE more bothered than R. States both hands go numb if holding steering wheel or otherwise either hand will go numb if holding something too long. 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 Besides pain in the back of the head, headaches are occurring about one day per week - entire posterior cranium gomez. By description feels tightness around head suggestive of tension headache. REVIEW OF SYSTEMS GENERAL:No weight loss, malaise or fevers. HEENT: No changes in hearing or vision, no nose bleeds or other nasal problems NECK:Negative for lumps, goiter, pain and significant neck swelling RESPIRATORY: Negative for cough, wheezing or shortness of breath. CARDIOVASCULAR: Negative for chest pain, leg swelling or palpitations. GASTROINTESTINAL: Negative for abdominal discomfort, blood in stools or black stools or change in bowel habits GENITOURINARY: No history of dysuria, frequency or incontinence MUSCULOSKELETAL: See HPI. NEUROLOGIC:See HPI. SKIN:Negative for lesions, rash, and itching. HEMATOLOGIC/LYMPHATIC/IMMUNOLOG IC:Negative for prolonged bleeding, bruising easily or swollen nodes. ENDOCRINE: Negative for cold or heat intolerance, polyuria, polydipsia and goiter. The remainder of the ROS was reviewed and is negative. LAB/IMAGING: Those performed since patient's last visit have been reviewed. Glucose (mg/dL) Date Value 11/26/2021 82 BUN (mg/dL) Date Value 11/26/2021 19 Creatinine (mg/dL) Date Value 11/26/2021 0.75 Sodium (mmol/L) Date Value 11/26/2021 138 Potassium (mmol/L) Date Value 11/26/2021 4.3 Chloride (mmol/L) Date Value 11/26/2021 104 CO2 (mmol/L) Date Value 11/26/2021 21 (L) Protein, Total (g/dL) Date Value 11/26/2021 7.1 11/26/2021 6.9 Albumin (g/dL) Date Value 11/26/2021 5.1 (H) Calcium, Total (mg/dL) Date Value 11/26/2021 9.8 Alkaline Phosphatase (U/L) Date Value 11/26/2021 72 Bilirubin, Total (mg/dL) Date Value 11/26/2021 0.2 AST (U/L) Date Value 11/26/2021 15 ALT (U/L) Date Value 11/26/2021 17 MEDICATIONS: predniSONE (DELTASONE) 10 mg tablet Take 1 tablet by mouth Every 3 Days. With flare takes PRN 3-5 days methotrexate 2.5 mg tablet Take 2.5 mg by mouth one time only. lisinopril (ZESTRIL, PRINIVIL) 20 mg tablet Take 20 mg by mouth once daily. cyclobenzaprine (FLEXERIL) 10 mg tablet Take 10 mg by mouth daily at bedtime. turmeric root extract 500 mg cap Take 500 mg by mouth once daily. pyridoxine, vitamin B6, (VITAMIN B6) 100 mg tablet Take 100 mg by mouth once daily. L.acid/L.casei/B.bif/B.nicolas/FOS (PROBIOTIC BLEND ORAL) Take 1 capsule by mouth once daily. ProBio 5 by [employer] MEDICATION, NON-DATABASE Take 2 capsules by mouth once daily. [employer] HISTORIES SOCIAL HISTORY Social History Tobacco Use Smoking status: Former Types: Cigarettes Quit date: 08/16/2020 Years since quittin.7 Smokeless tobacco: Never Substance Use Topics Alcohol use: Not Currently Comment: Unable due to medication Drug use: Never PHYSICAL EXAMINATION Blood pressure 138/82, pulse 74, temperature 37.3 C (99.1 F), temperature source Left Tympanic, resp. rate 16, weight 81.2 kg (179 lb), SpO2 97 %. GENERAL EXAM: General appearance: NAD, pleasant. HEENT: NC/AT, nasal congestion absent, no oral lesions, membranes moist. NECK: No masses, supple. Lungs: CTA bilaterally. CV: RRR nl S1, S2. Extr: No cyanosis, clubbing or edema. Skin: Cool to touch. NEUROLOGICAL EXAM: General: Awake, alert, oriented x3 (person,place,time), speech fluent, no dysarthria; comprehension, naming, repetition intact. Fund of knowledge grossly normal. CN: PERRL, fundi with no evidence of papilledema, EOMI and without nystagmus, VFF to confrontation, facial sensation and strength are normal and symmetric, hearing is intact, palate and tongue movements are intact and symmetric. SCM and trapezius strength normal. Motor: Normal tone, bulk and strength (5/5) bilaterally (throughout extremities x4). Coordination: FNF, JESI, HTS intact. No tremors. Sensation: Light touch, vibration, temperature intact throughout. No evidence of neglect. Gait: Stable with normal stride and arm swing. Assessment and Plan: ASSESSMENT/PLAN: 1. Paresthesia of skin - ICD9: 782.0, ICD10: R20.2 (primary diagnosis) 2. Weakness - ICD9: 780.79, ICD10: R53.1 3. Pain of left lower extremity - ICD9: 729.5, ICD10: M79.605 4. Muscle spasm of left lower extremity - ICD9: 728.85, ICD10: M62.838 5. Chronic nonintractable headache, unspecified headache type - ICD9: 784.0, ICD10: R51.9, G89.29 6. Foraminal stenosis of cervical region - ICD9: 723.0, ICD10: M48.02 7. Intractable episodic headache, unspecified headache type - ICD9: 784.0, ICD10: R51.9 8. Cervicalgia - ICD9: 723.1, ICD10: M54.2 Patient with multiple complaints above for which etiology is uncertain. Patient has known inflammatory/autoimmune disorder that may be contributing to symptoms. However, while some symptoms have improved with therapy (lower exts), she continues to have arm numbness and spasms in thoracic region as well as headaches with cervicalgia. Possible that foraminal stenosis at C5-6 contributing with pt reporting LUE symptoms >> RUE. Will refer to spine and pain for second opinion. Currently with non-focal neuro exam. In addition to above, will empirically treat with Lyrica 75mg BID to see if any improvement in symptoms with additional concerns for CTS on prior EMG/NCV as well as inability to rule out small fiber type neuropathy. Pt to follow up after evaluation by spine and pain. Encouraged pt to follow up with Rheum as well. Jose Daniel Porras MD I spent a total of 35 minutes on the date of the service which included preparing to see the patient, [id number] patient care, completing clinical documentation, obtaining and/or reviewing separately obtained history, performing a medically appropriate examination, counseling and educating the patient/family/caregiver, ordering medications, tests, or procedures, and communicating results to the patient/family/caregiver. PDMP website checked and validated. All prescriptions have been APPROPRIATELY filled. No suspicious activity was identified. 05/20/2022 by Jose Daniel Porras MD documented in this encounter [facility] 01-14-2022 Note HNO ID: [id number] Author: Jose Daniel Porras Jr., MD Service: ? Author Type: Physician Type: Progress Notes Filed: 01/14/2022 3:20 PM Note Text: ESTABLISHED PATIENT VISIT CHIEF COMPLAINT: Follow Up HISTORY OF PRESENT ILLNESS: Samuel Stanton is a 51 year old female, with a PMH significant for and per last note of 11/26/21: 1. Paresthesia of skin - ICD9: 782.0, ICD10: R20.2 (primary diagnosis) 2. Chronic nonintractable headache, unspecified headache type - ICD9: 784.0, ICD10: R51.9, G89.29 3. Involuntary movements - ICD9: 781.0, ICD10: R25.9 4. Weakness - ICD9: 780.79, ICD10: R53.1 5. Pain of left lower extremity - ICD9: 729.5, ICD10: M79.605 6. Muscle spasm of left lower extremity - ICD9: 728.85, ICD10: M62.838 Patient with multiple complaints as above, although limited details with regards to onset of and pattern of symptoms. Etiology uncertain. Possible that symptoms being endorsed are due to known inflammatory arthritis for whom she is seeing Rheumatology. However, from neuro standpoint, if trying to determine a single etiology of multiple symptoms would need to consider a demyelinating disorder such as MS. Otherwise possible that patient may have multiple disorder, but again, at this time, difficult to determine what these in fact would be. Neuro exam is non focal except for subjective deficits on sensory testing. At this time, will proceed with MRI brain, C spine and T spine to determine if demyelination or other RADIO RIGGER lesion present that might be the cause of symptoms (I.e. headache - mass, lower ext symptoms - herniation...). Will also get EMG/NCV to evaluate for peripheral n etiology of symptoms. Also will check for metabolic etiologies including B12 deficiency or thyroid disorder, as well as immune etiology with SPEP and infections with Lyme Ab. As etiology uncertain will hold on any treatment at this time. Patient will return after workup complete. If workup unremarkable, then likely symptoms due to rheum disorder and encourage follow up with rheumatology. If headaches persist, will also recommend referral to the headache center. MRI brain/C/T spine unremarkable for etiology of symptoms and per rad report: Few punctate foci of nonspecific white matter change, likely the subtle sequelae of remote insult and within expected limits for age. No abnormal intracranial enhancement or mass effect. Cervical spondylosis notable for mild spinal canal and moderate left foraminal narrowing at C5-6. No cord compression. Patent thoracic spinal canal and neural foramina. No evidence of a demyelinating lesion involving the cervical or thoracic spinal cord. Lab workup ordered last visit also unremarkable. Primary finding from EMG/NCV was mild L CTS per report. Pt states not doing bad since last visit - most of her discomfort is due to the RA and not the nerve pain. Does get burning over wrists but appears in joints not radiating throughout distributing of median nerve. Since last visit, started on Methotrexate, and not noticing significant change in symptoms yet. Also taking prednisone as needed for flare and then folic acid to calm side effects from the methotrexate. REVIEW OF SYSTEMS GENERAL:No weight loss, malaise or fevers. HEENT:Negative for frequent or significant headaches, No changes in hearing or vision, no nose bleeds or other nasal problems NECK:Negative for lumps, goiter, pain and significant neck swelling RESPIRATORY: Negative for cough, wheezing or shortness of breath. CARDIOVASCULAR: Negative for chest pain, leg swelling or palpitations. GASTROINTESTINAL: Negative for abdominal discomfort, blood in stools or black stools or change in bowel habits GENITOURINARY: No history of dysuria, frequency or incontinence MUSCULOSKELETAL: See HPI. NEUROLOGIC: See HPI. SKIN:Negative for lesions, rash, and itching. HEMATOLOGIC/LYMPHATIC/IMMUNOLOG IC:Negative for prolonged bleeding, bruising easily or swollen nodes. ENDOCRINE: Negative for cold or heat intolerance, polyuria, polydipsia and goiter. The remainder of the ROS was reviewed and is negative. LAB/IMAGING: Those performed since patient's last visit have been reviewed. Glucose (mg/dL) Date Value 11/26/2021 82 BUN (mg/dL) Date Value 11/26/2021 19 Creatinine (mg/dL) Date Value 11/26/2021 0.75 Sodium (mmol/L) Date Value 11/26/2021 138 Potassium (mmol/L) Date Value 11/26/2021 4.3 Chloride (mmol/L) Date Value 11/26/2021 104 CO2 (mmol/L) Date Value 11/26/2021 21 (L) Protein, Total (g/dL) Date Value 11/26/2021 7.1 11/26/2021 6.9 Albumin (g/dL) Date Value 11/26/2021 5.1 (H) Calcium, Total (mg/dL) Date Value 11/26/2021 9.8 Alkaline Phosphatase (U/L) Date Value 11/26/2021 72 Bilirubin, Total (mg/dL) Date Value 11/26/2021 0.2 AST (U/L) Date Value 11/26/2021 15 ALT (U/L) Date Value 11/26/2021 17 MEDICATIONS: lisinopril (ZESTRIL, PRINIVIL) 20 (more content not included)... [facility] 01-14-2022 History of Presen t illness Narrative ESTABLISHED PATIENT VISIT CHIEF COMPLAINT: Follow Up HISTORY OF PRESENT ILLNESS: Samuel Stanton is a 51 year old female, with a PMH significant for and per last note of 11/26/21: 1. Paresthesia of skin - ICD9: 782.0, ICD10: R20.2 (primary diagnosis) 2. Chronic nonintractable headache, unspecified headache type - ICD9: 784.0, ICD10: R51.9, G89.29 3. Involuntary movements - ICD9: 781.0, ICD10: R25.9 4. Weakness - ICD9: 780.79, ICD10: R53.1 5. Pain of left lower extremity - ICD9: 729.5, ICD10: M79.605 6. Muscle spasm of left lower extremity - ICD9: 728.85, ICD10: M62.838 Patient with multiple complaints as above, although limited details with regards to onset of and pattern of symptoms. Etiology uncertain. Possible that symptoms being endorsed are due to known inflammatory arthritis for whom she is seeing Rheumatology. However, from neuro standpoint, if trying to determine a single etiology of multiple symptoms would need to consider a demyelinating disorder such as MS. Otherwise possible that patient may have multiple disorder, but again, at this time, difficult to determine what these in fact would be. Neuro exam is non focal except for subjective deficits on sensory testing. At this time, will proceed with MRI brain, C spine and T spine to determine if demyelination or other RADIO RIGGER lesion present that might be the cause of symptoms (I.e. headache - mass, lower ext symptoms - herniation...). Will also get EMG/NCV to evaluate for peripheral n etiology of symptoms. Also will check for metabolic etiologies including B12 deficiency or thyroid disorder, as well as immune etiology with SPEP and infections with Lyme Ab. As etiology uncertain will hold on any treatment at this time. Patient will return after workup complete. If workup unremarkable, then likely symptoms due to rheum disorder and encourage follow up with rheumatology. If headaches persist, will also recommend referral to the headache center. MRI brain/C/T spine unremarkable for etiology of symptoms and per rad report: Few punctate foci of nonspecific white matter change, likely the subtle sequelae of remote insult and within expected limits for age. No abnormal intracranial enhancement or mass effect. Cervical spondylosis notable for mild spinal canal and moderate left foraminal narrowing at C5-6. No cord compression. Patent thoracic spinal canal and neural foramina. No evidence of a demyelinating lesion involving the cervical or thoracic spinal cord. Lab workup ordered last visit also unremarkable. Primary finding from EMG/NCV was mild L CTS per report. Pt states not doing bad since last visit - most of her discomfort is due to the RA and not the nerve pain. Does get burning over wrists but appears in joints not radiating throughout distributing of median nerve. Since last visit, started on Methotrexate, and not noticing significant change in symptoms yet. Also taking prednisone as needed for flare and then folic acid to calm side effects from the methotrexate. REVIEW OF SYSTEMS GENERAL:No weight loss, malaise or fevers. HEENT:Negative for frequent or significant headaches, No changes in hearing or vision, no nose bleeds or other nasal problems NECK:Negative for lumps, goiter, pain and significant neck swelling RESPIRATORY: Negative for cough, wheezing or shortness of breath. CARDIOVASCULAR: Negative for chest pain, leg swelling or palpitations. GASTROINTESTINAL: Negative for abdominal discomfort, blood in stools or black stools or change in bowel habits GENITOURINARY: No history of dysuria, frequency or incontinence MUSCULOSKELETAL: See HPI. NEUROLOGIC: See HPI. SKIN:Negative for lesions, rash, and itching. HEMATOLOGIC/LYMPHATIC/IMMUNOLOG IC:Negative for prolonged bleeding, bruising easily or swollen nodes. ENDOCRINE: Negative for cold or heat intolerance, polyuria, polydipsia and goiter. The remainder of the ROS was reviewed and is negative. LAB/IMAGING: Those performed since patient's last visit have been reviewed. Glucose (mg/dL) Date Value 11/26/2021 82 BUN (mg/dL) Date Value 11/26/2021 19 Creatinine (mg/dL) Date Value 11/26/2021 0.75 Sodium (mmol/L) Date Value 11/26/2021 138 Potassium (mmol/L) Date Value 11/26/2021 4.3 Chloride (mmol/L) Date Value 11/26/2021 104 CO2 (mmol/L) Date Value 11/26/2021 21 (L) Protein, Total (g/dL) Date Value 11/26/2021 7.1 11/26/2021 6.9 Albumin (g/dL) Date Value 11/26/2021 5.1 (H) Calcium, Total (mg/dL) Date Value 11/26/2021 9.8 Alkaline Phosphatase (U/L) Date Value 11/26/2021 72 Bilirubin, Total (mg/dL) Date Value 11/26/2021 0.2 AST (U/L) Date Value 11/26/2021 15 ALT (U/L) Date Value 11/26/2021 17 MEDICATIONS: lisinopril (ZESTRIL, PRINIVIL) 20 mg tablet Take 20 mg by mouth once daily. cyclobenzaprine (FLEXERIL) 10 mg tablet Take 10 mg by mouth daily at bedtime. turmeric root extract 500 mg cap Take 500 mg by mouth once daily. pyridoxine, vitamin B6, (VITAMIN B6) 100 mg tablet Take 100 mg by mouth once daily. L.acid/L.casei/B.bif/B.nicolas/FOS (PROBIOTIC BLEND ORAL) Take 1 capsule by mouth once daily. ProBio 5 by Plexus MEDICATION, NON-DATABASE Take 2 capsules by mouth once daily. Plexus Bio Cleanse HISTORIES No past medical history on file. No family history on file. SOCIAL HISTORY Social History Tobacco Use Smoking status: Former Types: Cigarettes Quit date: 08/16/2020 Years since quittin.4 PHYSICAL EXAMINATION Blood pressure 138/82, pulse 85, temperature 36.8 C (98.3 F), resp. rate 18, weight 81.6 kg (180 lb), SpO2 97 %. GENERAL EXAM: General appearance: NAD, pleasant. HEENT: NC/AT NECK: ROM nml. Lungs: CTA bilaterally. CV: RRR nl S1, S2, NEUROLOGICAL EXAM: General: Awake, alert, oriented x3 (person,place,time), speech fluent, no dysarthria; comprehension, naming, repetition intact. Fund of knowledge grossly normal. CN: PERRL, EOMI and without nystagmus, VFF to confrontation, facial sensation and strength are normal and symmetric, palate and tongue movements are intact and symmetric. SCM and trapezius strength normal. Coordination: FNF, JESI, HTS intact. No tremors. Sensation: Light touch intact throughout. Vibration and pin unremarkable today. Gait: Stable with normal stride and arm swing. Assessment and Plan: ASSESSMENT/PLAN: 1. Paresthesia of skin - ICD9: 782.0, ICD10: R20.2 (primary diagnosis) 2. Weakness - ICD9: 780.79, ICD10: R53.1 3. Pain of left lower extremity - ICD9: 729.5, ICD10: M79.605 4. Muscle spasm of left lower extremity - ICD9: 728.85, ICD10: M62.838 5. Involuntary movements - ICD9: 781.0, ICD10: R25.9 6. Chronic nonintractable headache, unspecified headache type - ICD9: 784.0, ICD10: R51.9, G89.29 Previous complaints resolving/resolved since starting on methotrexate for RA. Non focal neuro exam today. Reviewed EMG and imagine studies with pt in detail. Possible that CTS is contributing to wrist pain but symptoms as described today appear of a more arthritic nature. As for other symptoms, given improvement since on methotrexate and steroids, possible RA or inflammation superimposed on known lumbar disease. At this point with improvement, discussed with patient treatment options, but feel it might be best to first see how methotrexate works over the next few months. If symptoms worsen the patient will contact us immediately. For now will schedule follow up in ~4 months. Pt agrees with plan. Jose Daniel Porras MD I spent a total of 30+ minutes on the date of the service which included preparing to see the patient, [id number] patient care, completing clinical documentation, obtaining and/or reviewing separately obtained history, performing a medically appropriate examination, counseling and educating the patient/family/caregiver, independently interpreting results (not separately reported), and communicating results to the patient/family/caregiver (this includes reviewing results directly with patient). documented in this encounter [facility] 12-24-2021 History of Presen t illness Narrative Radiology Service Progress Note DATE OF SERVICE: December 24, 2021 TIME: 2:20 PM PATIENT IDENTITY VERIFICATION COMPLETED USING TWO (2) STANDARD IDENTIFIERS: Name and Date of confirmed by patient verbally. FALL SCREENING: Has the patient had 2 falls in the last year or 1 fall with injury or currently using an Ambulatory Assistive Device (Walker, Cane, Wheelchair, Crutches, etc.)? No PATIENT GENDER DATA: Female. status: : No status: NO. PATIENT RELEVANT IMPLANT DATA REVIEWED: Yes ALLERGIES: Reviewed and unchanged CONTRAST ALLERGY: NO. EXAM: MRI - CONTRAST TYPE: GROUP II PERIPHERAL IV DATA: Ambulatory: A peripheral IV was started in the Right antecubital site with a Angio cath: 22 gauge. RADIOLOGY DEPARTMENT: MR; Exam(s) Completed: Head: Multiple Sclerosis Spine: Cervical spine and Thoracic spine SIGNATURE: RT Cedric(R) PATIENT NAME: Samuel Stanton DATE: December 24, 2021 TIME: 2:20 PM documented in this encounter [facility] 11-27-2021 Miscellaneous Notes Pt updated through . DIANA Ludwig In looking over pt chart the EMG was ordered yesterday at office visit but was not on lot attendant worksheet. Will route to scheduling pool once other issues addressed to be scheduled. Please advise in regards to MRI questions. Thank you. DIANA Ludwig documented in this encounter [facility] 11-27-2021 Miscellaneous Notes Please assist patient in scheduling an EMG. Thank you. DIANA Ludwig documented in this encounter [facility] 11-16-2021 Miscellaneous Notes Records received via fax. Copy placed on providers desk for review with original sent to scanning. DIANA Ludwig Noted. Will leave encounter open until records received. DIANA Ludwig Pt called in and information was given. Pt will contact her doctor to fax records. Fax number was provided. Martha Davis LPN TC to patient to inquire about current PCP and contact information. No answer, left message to return call. Pt has an upcoming appointment on 11/[address] Porras and there are no records on patient. Will need recent OV notes, imaging, any sleep studies and recent lab work from PCPs office. DIANA Ludwig documented in this encounter [facility] Diagnosis Chronic nonintractable headache, unspecified headache type Paresthesia of skin Disturbance of skin sensation Involuntary movements Abnormal involuntary movements Demyelinating disease of central nervous system (HCC) Demyelinating disease of central nervous system, unspecified [facility] Diagnosis Paresthesia of skin- Primary Disturbance of skin sensation Weakness Other malaise and fatigue Pain of left lower extremity Muscle spasm of left lower extremity Involuntary movements Abnormal involuntary movements Chronic nonintractable headache, unspecified headache type [facility] Diagnosis Paresthesia of skin- Primary Disturbance of skin sensation Weakness Other malaise and fatigue Pain of left lower extremity Muscle spasm of left lower extremity Chronic nonintractable headache, unspecified headache type Foraminal stenosis of cervical region Spinal stenosis in cervical region Intractable episodic headache, unspecified headache type Cervicalgia [facility] Diagnosis Cervical myofascial pain syndrome- Primary Mylagia and myositis, unspecified Paresthesia of skin Disturbance of skin sensation Weakness Other malaise and fatigue Pain of left lower extremity Muscle spasm of left lower extremity Chronic nonintractable headache, unspecified headache type Foraminal stenosis of cervical region Spinal stenosis in cervical region Myofascial pain syndrome of thoracic spine [facility] Diagnosis Paresthesia of skin Disturbance of skin sensation Weakness Other malaise and fatigue Pain of left lower extremity Muscle spasm of left lower extremity Chronic nonintractable headache, unspecified headache type [facility] Diagnosis Paresthesia of skin- Primary Disturbance of skin sensation Chronic nonintractable headache, unspecified headache type Intractable episodic headache, unspecified headache type Cervicalgia Fibromyalgia Mylagia and myositis, unspecified Rheumatoid arthritis, involving unspecified site, unspecified whether rheumatoid factor present ([facility]) [facility] Diagnosis Paresthesia of skin Disturbance of skin sensation Chronic nonintractable headache, unspecified headache type Cervicalgia Fibromyalgia Mylagia and myositis, unspecified Rheumatoid arthritis, involving unspecified site, unspecified whether rheumatoid factor present (HCC) [facility] Diagnosis Paresthesia of skin- Primary Disturbance of skin sensation Fibromyalgia Mylagia and myositis, unspecified documented in this encounter [facility] Summary Purpose Family History No Family History Records FoundNo Family History Records FoundNo Family History Records FoundNo Family History Records Found Advance Directives No Advanced Directives Records FoundNo Advanced Directives Records FoundNo Advanced Directives Records FoundNo Advanced Directives Records Found Reason for Referral Specialty Diagnoses / Procedures Referred By Contac t Referred To Contact MR IMAGING Diagnoses Demyelinating disease of central nervous system (HCC) Procedures MRI CERVICAL SPINE WO/W IVCON MRI SPINAL CANAL CERVICAL W/O & W/CONTR JUL Jose Daniel Porras Jr., MD [address] [facility] [address] [place] [address] Mr Imaging Referral ID Status Reason Start Date Expiration Date Visits Requested Visits Authorized [id number] Pending Review Auto-Generat ed Referral 11/27/2021 12/27/2022 1 1 Referral ID Status Reason Start Date Expiration Date V isits Requested Visits Authorized [id number] Closed Auto-Generate d Referral 11/27/2021 12/27/2022 1 1 Specialty Diagnoses / Procedures Referred By Contac t Referred To Contact MR IMAGING Diagnoses Chronic nonintractable headache, unspecified headache type Paresthesia of skin Demyelinating disease of central nervous system (HCC) Involuntary movements Procedures MRI THORACIC SPINE WO/W IVCON MRI SPINAL CANAL THORACIC W/O & W/CONTR JUL Jose Daniel Porras Jr., MD [address] [facility] [address] [place] [address] Mr Imaging Referral ID Status Reason Start Date Expiration Date V isits Requested Visits Authorized [id number] Closed Auto-Generate d Referral 11/26/2021 12/26/2022 1 1 Specialty Diagnoses / Procedures Referred By Contac t Referred To Contact MR IMAGING Diagnoses Chronic nonintractable headache, unspecified headache type Paresthesia of skin Involuntary movements Procedures MRI BRAIN WO/W IVCON MRI BRAIN BRAIN STEM W/O W/CONTRAST MATERIAL Jose Daniel Porras Jr., MD [address] [facility] [address] [place] [address] Mr Imaging Referral ID Status Reason Start Date Expiration Date V isits Requested Visits Authorized [id number] Closed Auto-Generate d Referral 11/26/2021 12/25/2021 1 1 Specialty Diagnoses / Procedures Referred By Contac t Referred To Contact [facility] Diagnoses Paresthesia of skin Weakness Pain of left lower extremity Muscle spasm of left lower extremity Chronic nonintractable headache, unspecified headache type Foraminal stenosis of cervical region Procedures [facility]/OUTPATIENT [facility] 60-74 MINUTES Jose Daniel Porras Jr., MD [address] [place] [address] Referral ID Status Reason Start Date Expiration Date Visits Requested Visits Authorized [id number] Authorized PCP Requested Referral 05/20/2022 05/20/2023 1 1 Specialty Diagnoses / Procedures Referred By Contac t Referred To Contact Diagnoses Cervical myofascial pain syndrome Myofascial pain syndrome of thoracic spine Procedures CONSULT TO [facility] OFF[facility]/OUTPATIENT [facility] 60-74 MINUTES Osmin Vines MD [address] [facility] [place] [address] Referral ID Status Reason Start Date Expiration Date Visits Requested Visits Authorized [id number] Authorized PCP Requested Referral 06/10/2022 06/10/2023 1 1 Additional Source Comments Source Comments (unrecognize d section and content) In the event this informatio n is protected by the Federal Confidentiality of Alcohol and Drug Abuse Patient Records regulations: The Federal rules restrict any use of the information to criminally investigate or prosecute any alcohol or drug abuse patient.[facility] the event this information is protected by the Federal Confidentiality of Alcohol and Drug Abuse Patient Records regulations: The Federal rules restrict any use of the information to criminally investigate or prosecute any alcohol or drug abuse patient.[facility] the event this information is protected by the Federal Confidentiality of Alcohol and Drug Abuse Patient Records regulations: The Federal rules restrict any use of the information to criminally investigate or prosecute any alcohol or drug abuse patient.[facility] the event this information is protected by the Federal Confidentiality of Alcohol and Drug Abuse Patient Records regulations: The Federal rules restrict any use of the information to criminally investigate or prosecute any alcohol or drug abuse patient.[facility] the event this information is protected by the Federal Confidentiality of Alcohol and Drug Abuse Patient Records regulations: The Federal rules restrict any use of the information to criminally investigate or prosecute any alcohol or drug abuse patient.[facility] the event this information is protected by the Federal Confidentiality of Alcohol and Drug Abuse Patient Records regulations: The Federal rules restrict any use of the information to criminally investigate or prosecute any alcohol or drug abuse patient.[facility] the event this information is protected by the Federal Confidentiality of Alcohol and Drug Abuse Patient Records regulations: The Federal rules restrict any use of the information to criminally investigate or prosecute any alcohol or drug abuse patient.[facility] the event this information is protected by the Federal Confidentiality of Alcohol and Drug Abuse Patient Records regulations: The Federal rules restrict any use of the information to criminally investigate or prosecute any alcohol or drug abuse patient.[facility] the event this information is protected by the Federal Confidentiality of Alcohol and Drug Abuse Patient Records regulations: The Federal rules restrict any use of the information to criminally investigate or prosecute any alcohol or drug abuse patient.[facility] the event this information is protected by the Federal Confidentiality of Alcohol and Drug Abuse Patient Records regulations: The Federal rules restrict any use of the information to criminally investigate or prosecute any alcohol or drug abuse patient.[facility] the event this information is protected by the Federal Confidentiality of Alcohol and Drug Abuse Patient Records regulations: The Federal rules restrict any use of the information to criminally investigate or prosecute any alcohol or drug abuse patient.[facility] the event this information is protected by the Federal Confidentiality of Alcohol and Drug Abuse Patient Records regulations: The Federal rules restrict any use of the information to criminally investigate or prosecute any alcohol or drug abuse patient.[facility] the event this information is protected by the Federal Confidentiality of Alcohol and Drug Abuse Patient Records regulations: The Federal rules restrict any use of the information to criminally investigate or prosecute any alcohol or drug abuse patient.[facility] the event this information is protected by the Federal Confidentiality of Alcohol and Drug Abuse Patient Records regulations: The Federal rules restrict any use of the information to criminally investigate or prosecute any alcohol or drug abuse patient.[facility] INFORMATION SOURCE (unrecogn ized section and content) DATE CREATED AUTHOR AUTHOR'S ORGANIZ ATION 10/16/2022 [facility] DATE CREATED AUTHOR AUTHOR'S ORGANIZ ATION 12/10/2022 [facility] DATE CREATED AUTHOR AUTHOR'S ORGANIZ ATION 01/01/[address] [facility] Reason for Visit (unrecogniz ed section and content) Reason Comments Orders Specialty Diagnoses / Procedures Referred By Lane galindo Referred To Contact MR IMAGING Diagnoses Chronic nonintractable headache, unspecified headache type Paresthesia of skin Demyelinating disease of central nervous system (HCC) Involuntary movements Procedures MRI THORACIC SPINE WO/W IVCON MRI SPINAL CANAL THORACIC W/O & W/CONTR MATRL Jose Daniel Porras Jr., MD [address] [facility] [address] [place] [address] Mr Imaging Referral ID Status Reason Start Date Expiration Date V isits Requested Visits Authorized [id number] Closed Auto-Generate d Referral 11/26/2021 12/26/2022 1 1 Reason Comments Established Patient Follow up N/T and mu scle weakness Reason Comments Follow Up Specialty Diagnoses / Procedures Referred By Contac mateo Referred To Contact [facility] Diagnoses Paresthesia of skin Weakness Pain of left lower extremity Muscle spasm of left lower extremity Chronic nonintractable headache, unspecified headache type Foraminal stenosis of cervical region Procedures [facility]/OUTPATIENT [facility] 60-74 MINUTES Jose Daniel Porras Jr., MD [address] [place] [address] Referral ID Status Reason Start Date Expiration Date V isits Requested Visits Authorized [id number] Closed PCP Requested Referral 05/20/2022 05/20/2023 1 1 Reason Onset Date Comments Refill Request 07/26/2022 Reason Comments Medication Problem Reason Comments Follow Up Reason Comments Medication prior authorization Reason Comments New Patient Evaluation <item> Privacy Markings (unrecogniz ed section and content) Section Author: Judith Johansen PROHIBITION ON REDISCLOSURE OF CONFIDENTIAL INFORMATION This notice accompanies a disclosure of information concerning a client made to you with the consent of such client. FOR RECORDS PERTAINING TO PATIENTS WHO ARE OR HAVE BEEN ENROLLED IN A CHEMICAL DEPENDENCY/SUBSTANCEABUSE PROGRAM, SOME INFORMATION MAY BE OMITTED. This clinical summary was aggregated from multiple sources. Caution should be exercised in using it in the provision of clinical care. This summary normalizes information from multiple sources, and as a consequence, information in this document may materially change the coding, format and clinical context of patient data. In addition, data may be omitted in some cases. CLINICAL DECISIONS SHOULD BE BASED ON THE PRIMARY CLINICAL RECORDS. [employer] provides no warranty or guarantee of the accuracy or completeness of information in this document.
[2023-02-13 17:49] LABS: Estradiol 149.7 pg/mL; Follicle Stimulating Hormone 4.8 mIU/mL
== END 2023-02-13 23:59 | disposition home or self-care (01) ==
LOC: LAB 16:42
PROVIDERS: PCP Internal Medicine; Referring Provider Obstetrics & Gynecology; Visit Provider Obstetrics & Gynecology
DX: N95.1 Menopausal and female climacteric states (principal)
CPT/HCPCS: 36415; 82670; 83001

== ENCOUNTER → 2023-02-25 | Outpatient (CLI) | payer OTHER, SELFPAY ==
--- NOTE | 2023-02-25 16:33 | US_ITS ---
STUDY: ULTRASOUND OF THE FEMALE PELVIS - COMPLETE REASON FOR EXAM: Female, 52 years old. cyst-RTO F/U LMP: TECHNIQUE: Transabdominal and transvaginal TECHNICAL QUALITY: Adequate. COMPARISON: March 16, 2021 FINDINGS: Uterus not visualized consistent with hysterectomy The right ovary is visualized. The right ovary measures 2.6 x 1.8 x 1.5 cm. There is no right ovarian cyst or ovarian mass. There is no visualized right adnexal mass or complex lesion. There is normal arterial and normal venous vascularity. The left ovary is visualized. The left ovary measures 4.4 x 3.2 x 3 cm. There is no left ovarian cyst or ovarian mass. Complex cyst measuring 2.2 x 1.9 x 1.8 cm possibly hemorrhagic. There is normal arterial and normal venous vascularity. There is no fluid in the cul-de-sac. The pre void volume of the bladder was 154 ml. US/Pelvic w/ Transvaginal IMPRESSION: Small complex cyst in left ovary possibly hemorrhagic which is new finding since prior study.. Status post hysterectomy Electronically Signed: Hua Cage MD at 20:28 EST Reading Location ID and State: [facility] / [place] Tel , Service support ,
== END | disposition home or self-care (01) ==
PROVIDERS: PCP Internal Medicine; Referring Provider Obstetrics & Gynecology; Visit Provider Obstetrics & Gynecology
DX: N95.1 Menopausal and female climacteric states (principal)
CPT/HCPCS: 76830; 76856

== ENCOUNTER 2023-03-14 11:19 | Day surgery (SDC) | payer OTHER, SELFPAY ==
[2023-03-14] VITALS (7 sets, daily range): BP systolic 89–125; BP diastolic 57–80; PULSE 56–75; RESP 16–18; TEMP 36.5–37.1; O2SAT 96–100; BMI 28.6
--- NOTE | 2023-03-14 11:40 | H&P.OPEN ---
HPI - General HPI Narrative JUAN ANTONIO MONIQUE, is a 52 F who presents for screening colonoscopy. Patient had a colonoscopy about 10 years ago due to intestinal issues/IBS per patient- neg. Patient's maternal great aunt was diagnosed with colon cancer and no immediate relatives, mom had polyps unsure size. Patient has bowel movements daily denies any blood. Patient denies any chronic abdominal pain/nausea/vomiting/reflux. PFSH Medical History Alcohol use Anemia Arthritis Asthma Back pain Carpal tunnel syndrome Colon cancer screening COVID-19 Depression Dietary restriction Difficulty swallowing Encounter for screening for COVID-19 Health care maintenance Heartburn History of IBS History of pain when walking History of wrist fracture Hx of sciatica Hypertension IBS (irritable bowel syndrome) Marijuana use Migraine headache Restless legs Rheumatic arteritis Rheumatoid arthritis Smoker Home Medications cyclobenzaprine 10 mg tablet 10 mg PO HS PRN muscle spasm #90 tabs 11/11/22 [Rx Last Taken Unknown] pregabalin 75 mg capsule (Lyrica) 75 mg PO TID 11/11/22 [History Last Taken 03/14/23] lisinopril 10 mg tablet 10 mg PO DAILY #90 tabs 02/24/23 [Rx Last Taken 03/14/23] sulfasalazine 500 mg tablet 1 g PO BID 02/24/23 [History Last Taken Unknown] Allergy/AdvReac Type Severity Reaction Status Date / Time penicillin G Allergy Intermediate hives Verified 02/28/23 09:36 clindamycin AdvReac Intermediate stomach Verified 02/28/23 09:36 pain Family History (Updated 02/28/23 @ 09:36 by Dianna Horowitz) Daughter Asthma defect Mother Hypertension Depression Hyperlipidemia Rheumatic arteritis Colon polyps Grandmother Arthritis Cancer Breast CVA (cerebral vascular accident) Diabetes Father Hypertension CVA (cerebral vascular accident) Grandfather Heart disease, Onset Age: 60 M.I. 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 sexually active: Yes Smoking Status: Current some day smoker tobacco type: e-cigarettes alcohol intake: current alcohol intake frequency: holidays/special occasions only substance use type: does not use what type of physical activity do you participate in: weight training and other details: Cardio frequency: 1-2 times per week do you feel safe at home: Yes additional social history: single Past Medical/Surgical History Planned Operation Planned Operative Procedure/s: COLONOSCOPY Previous Hospitalizations/Surgeries HX Hospitalizations: No HX of Surgeries: tonsillectomy tubal ligation left knee meniscus repair laminectomy cyst removal right knee Any Problems With Anesthesia: No You/Your Family Experience Fever (Hyperthermia) With Anes: No Cholinesterase deficiency: No Cardiovascular Hx Hypertension: No Respiratory Hx Sleep Apnea: No CPAP: No Hx Respiratory Tract Infection/Cold (presently): No Do You Snore Loudly (louder than talking or can be heard): No Do You Often Feel Tired/ Fatigued/ Sleepy Dring Daytime?: No Has Anyone Observed You Stop Breathing During Sleep?: No Result (for STOP score): Negative Smoking Status: Current some day smoker Neurological Hx Seizures: No Does patient have nerve stimulator: No Reproduction : No Genitourinary Hx Renal Disease: No Endocrine Hx Diabetes: No Miscellaneous Hx Cancer: No Recent Exposure to Contagious Disease: No Allergies penicillin G Allergy (Intermediate, Verified 02/28/23 09:36) hives clindamycin Adverse Reaction (Intermediate, Verified 02/28/23 09:36) stomach pain Discharge Is Pt Admitted From a Care Home, or a Intermediate: No Who Could Help: DAUGHTER After D/C, Where Do you Plan to Go: Return Home Physical Exam Const alert, oriented x3 and no apparent distress HEENT normocephalic and head/scalp atraumatic Resp normal respiratory effort Cardio regular rate GI soft to palpation and non-tender; Negative for non-distended Palpation: Negative for guarding Extremity no clubbing, cyanosis or edema Skin no rashes or lesions noted Neuro CN's II-XII intact bilaterally Psych mental status grossly normal Assessment & Plan Assessment/Plan (1) Colon cancer screening: Surgery Risks - Colonoscopy I discussed with the patient the risks of the procedure: Yes Risks Include but are not Limited To: Risks include but are not limited to: Bleeding, perforation requiring further surgery, inability to complete colonoscopy requiring barium enema.
[2023-03-14] MEDS: Lactated Ringers 1,000 ML 15 ML IV (11:42)
--- NOTE | 2023-03-14 12:28 | OP.COLON_ITS ---
Patient Name: Samuel Mccracken Procedure Date: 03/14/2023 11:48 AM Date of : 1970 Age: 52 Procedure: Colonoscopy Indications: Screening for colorectal malignant neoplasm Providers: Lucia Doll MD Medicines: Monitored Anesthesia Care Patient Profile: This is a 52 year old female. Last Colonoscopy: 10 years ago. Complications: No immediate complications. Procedure: Pre-Anesthesia Assessment: - Prior to the procedure, a History and Physical was performed, and patient medications and allergies were reviewed. The patient's tolerance of previous anesthesia was also reviewed. The risks and benefits of the procedure and the sedation options and risks were discussed with the patient. All questions were answered, and informed consent was obtained. Prior Anticoagulants: The patient has taken no anticoagulant or antiplatelet agents. ASA Grade Assessment: Per anesthesia. After reviewing the risks and benefits, the patient was deemed in satisfactory condition to undergo the procedure. After I obtained informed consent, the scope was passed under direct vision. Throughout the procedure, the patient's blood pressure, pulse, and oxygen saturations were monitored continuously. The Colonoscope was introduced through the anus and advanced to the cecum, identified by the appendiceal orifice, ileocecal valve and palpation. The colonoscopy was performed without difficulty. The patient tolerated the procedure well. The quality of the bowel preparation was good. Scope In: 11:59:27 AM Scope Withdrawal Time 0 hours 13 minutes 12 seconds Scope Out: 12:19:46 PM Total Procedure Duration Time 0 hours 20 minutes 19 seconds Findings: Hemorrhoids were found on perianal exam. Non-bleeding internal hemorrhoids were found. The hemorrhoids were Grade I (internal hemorrhoids that do not prolapse). The entire examined colon appeared normal. Impression: - Hemorrhoids found on perianal exam. - Non-bleeding internal hemorrhoids. - The entire examined colon is normal. - No specimens collected. Recommendation: - Discharge patient to home. - Resume previous diet. - Continue present medications. - Repeat colonoscopy in 10 years for screening purposes. Procedure Code(s): --- Professional --- G0121, PT, Colorectal cancer screening; colonoscopy on individual not meeting criteria for high risk Diagnosis Code(s): --- Professional --- Z12.11, Encounter for screening for malignant neoplasm of colon K64.0, First degree hemorrhoids CPT copyright 2021 [employer]. All rights reserved. The codes documented in this report are preliminary and upon patient service specialist review may be revised to meet current compliance requirements. MD Lucia Kaur MD 03/14/2023 12:27:44 PM This report has been signed electronically. Number of Addenda: 0 Note Initiated On: 03/14/2023 11:48 AM
--- NOTE | 2023-03-14 12:28 | OP.CCLET_ITS ---
03/14/2023 Vale Pepe MD [address] [place] [address] [place] [address] Re : Colonoscopy procedure for Samuel Mccracken Dear Dr. Pepe This procedure was performed on Tuesday, March 14, 2023. My impressions and recommendations are as follows: Impressions : - Hemorrhoids found on perianal exam. - Non-bleeding internal hemorrhoids. - The entire examined colon is normal. - No specimens collected. Recommendations : - Discharge patient to home. - Resume previous diet. - Continue present medications. - Repeat colonoscopy in 10 years for screening purposes. My findings are described in the full procedure note, which is enclosed. If I can be of further assistance, please feel free to contact me at Doctor phone number(s): , Work: . Sincerely, MD Lucia Kaur MD 03/14/2023 12:27:44 PM This report has been signed electronically.
== END 2023-03-14 13:16 | disposition home or self-care (01) ==
LOC: EN 11:20 → AC 11:21
PROVIDERS: PCP Internal Medicine; Referring Provider Internal Medicine; Visit Provider Surgery
PROC: 0DJD8ZZ Inspection of Lower Intestinal Tract, Via Natural or Artificial Opening Endoscopic (ICD-10-PCS; CPT 45378; principal; 2023-03-14 13:20)
DX: Z12.11 Encounter for screening for malignant neoplasm of colon (principal); K64.0 First degree hemorrhoids; F17.210 Nicotine dependence, cigarettes, uncomplicated; Z86.16 Personal history of COVID-19; I10 Essential (primary) hypertension
CPT/HCPCS: G0121; J7120; J2405

== ENCOUNTER → 2023-04-01 | Outpatient (CLI) | payer OTHER, SELFPAY ==
[2023-04-01 12:11] LABS: Absolute Lymphocyte Count 1.27 X10^3/uL (0.83-4.51); Absolute Neutrophil Count 2.4 X10^3/uL (2.0-7.7); Basophil# 0.02 X10^3/uL; Basophil% 0.5 % (0-1); Eosinophil# 0.04 X10^3/uL; Hematocrit 38.9 % (37-47); Hemoglobin 13.1 g/dL (12.0-15.0); Lymphocyte # 1.27 X10^3/ul (0.83-4.51); Lymphocyte % 32.2 % (19-41); Mean Corp Hgb Conc 33.7 g/dL (32-36); Mean Corpuscular Hgb 31.5 pg (27.0-32.0); Mean Corpuscular Volume 93.5 fL (81-99); Mean Platelet Vol. 8.7 fl (6.2-12.0); Monocyte# 0.24 X10^3/uL; Monocyte% 6.1 % (0-10); NRBC Flagged by Analyzer 0 % (0-5); Neutrophil # 2.36 X10^3/uL (2.7-7.7); Neutrophil % 59.9 % (47-70); Platelet Count 255 K/mm3 (150-450); RBC Distribution Width SD 41.4 fl (35.1-43.9); Red Blood Count 4.16 M/mm3 (4.2-5.4); White Blood Count 3.9 K/mm3 (4.4-11.0)
[2023-04-01 12:59] LABS: ALB/GLOB Ratio 1.5 RATIO (0.9-2.4); AST(SGOT) 11 U/L (15-37); Alanine Aminotransfer ALT/SGPT 23 U/L (13-56); Albumin, Serum 4.1 g/dL (3.2-5.0); Alkaline Phosphatase 68 U/L (45-117); Anion Gap 5 (5-15); BUN 15 mg/dL (7-18); Calcium,Total 8.8 mg/dL (8.5-10.1); Chloride 110 mmol/L (98-107); Creatinine, Serum 0.72 mg/dL (0.55-1.02); EST Glomerular Filtration Rate 92 mL/min (>60); Est Glom Filt Rate - Afr Amer 111 mL/min (>60); Globulin 2.8 g/dL (2.2-4.2); Glucose 97 mg/dL (74-106); Potassium 4.6 mmol/L (3.5-5.1); Protein, Total 6.9 g/dL (6.4-8.2); Sodium Level 140 mmol/L (136-145)
== END | disposition home or self-care (01) ==
LOC: MTLAB 11:17
PROVIDERS: PCP Internal Medicine; Referring Provider Internal Medicine Rheumatology; Visit Provider Internal Medicine Rheumatology
DX: M06.4 Inflammatory polyarthropathy (principal); Z79.899 Other long term (current) drug therapy; M79.7 Fibromyalgia; M17.0 Bilateral primary osteoarthritis of knee
CPT/HCPCS: 36415; 80053; 85025

== ENCOUNTER → 2023-04-16 | Outpatient (CLI) | payer OTHER, SELFPAY ==
--- NOTE | 2023-04-16 12:50 | US_ITS ---
STUDY: ULTRASOUND OF THE FEMALE PELVIS - COMPLETE REASON FOR EXAM: Female, 52 years old. left ovarian cyst LMP: Status post hysterectomy 2021. TECHNIQUE: Transabdominal and Transvaginal TECHNICAL QUALITY: Adequate. COMPARISON: 02/25/2023. FINDINGS: The uterus is not visualized consistent with known history of prior hysterectomy. The right ovary is visualized. The right ovary measures 3.6 x 2.7 x 2.0 cm. Within the right ovary there is a predominantly anechoic structure measuring 1.6 x 1.1 x 1.0 cm with minimal internal echoes versus artifact and mild wavy contour. There is no visualized right adnexal mass or complex lesion. There is normal arterial and normal venous vascularity. The left ovary is visualized. The left ovary measures 2.7 x 2.4 x 1.3 cm. Within the left ovary there are several anechoic structure consistent with follicular cysts, largest measuring 1.2 x 1.2 x 0.7 cm. There is no visualized left adnexal mass or complex lesion. There is normal arterial and normal venous vascularity. There is no fluid in the cul-de-sac. The volume of the bladder was 103.7 ml. US/Pelvic w/ Transvaginal IMPRESSION: Indeterminate cyst with mild complex appearance of the right ovary which could represent a ruptured hemorrhagic cyst versus involuting corpus luteum cyst and measuring 1.6 cm. If indicated, this can be further assessed with follow-up ultrasound to document resolution. Left-sided follicular cysts with a dominant left-sided follicle measuring 1.2 cm. Status post hysterectomy, remainder of the pelvic ultrasound unremarkable. Electronically Signed: Judit Kellogg MD at 21:57 EST ,
--- OUTSIDE RECORDS SUMMARY | 2023-04-16 13:13 | XMS RPT_ITS | CCD ---
Author Name Unknown Address [address] [place] [address] Organization [facility] Care Team Providers Care Content Editor Name Role Phone Unavailable Primary Care Provider Unavailjuarez e Required, No Pcp Unavailable Unavailable Mine Aguilar Unavailable Unavailable Ms. Mine Aguilar Attending Unavail able Unavailable Primary Care Provider UnavailJOSE DANIEL Mayes JR Attending Unavailable OSMIN VINES Attending Unavailable JOSE DANIEL PORRAS JR Referring Unavailable JOSE DANIEL PORRAS JR Referring Unavailable JOSE DANIEL PORRAS JR Attending Unavailable JOSE DANIEL PORRAS JR Referring Unavailable JOSE DANIEL PORRAS JR Attending Unavailable ELAINE MCKENNA Attending Unavailable Allergies Allergy Classification Reported Allergen(s) Allergy Type Date of Onset Reaction(s) Facility (15 sources) Clindamycin; Translations: [CLINDAMYCIN] Drug Allergy 02-12-2021 GI Upset, Other: See Comments [facility] (14 sources) Penicillin G; Translations: [PENICILLIN G] Drug Allergy 02-12-2021 [facility] (1 source) Penicillin Drug Allergy [facility] Medications Current Medications Medication Drug Class(es) [...] Drug Class(es) Dates Sig (Normalized) Sig (Original) [id number] 200 actuat albuterol 0.09 mg/actuat metered dose inhaler (9 sources) beta2-Adrenergic Agonist Start: 04-23-2021 take 2 [...] Onset: 06-10-2022 Episodic Other nervous system disorders (2 sources) Numbness and tingling sensation of skin; Translations: [Anesthesia of skin] Onset: 12-31-2022 12-31-2022 Episodic Other nervous system disorders (1 source) Paresthesia of skin; Translations: [Paresthesia of skin] Onset: 06-10-2022 Episodic Spondylosis; intervertebral disc disorders; other back problems (7 sources) Stenosis of intervertebral foramina; Translations: [Spinal stenosis, cervical region] Onset: 06-10-2022 Episodic Results Test Name Value Interpretation Reference Range Facil ity Vital Signs Date Time Vital Sign Value Performing Clinician Facility 03-31-2023 13:54-0500 Body weight 77.75 kg Jose Daniel Porras Jr., MD Work Phone: [facility] 03-31-2023 13:54-0500 Diastolic blood pressure 86 mm[Hg] Jose Daniel Porras Jr., MD Work Phone: [facility] 03-31-2023 13:54-0500 Heart rate 88 /min Jose Daniel Porras Jr., MD Work Phone: [facility] 03-31-2023 13:54-0500 Respiratory rate 16 /min Jose Daniel Porras Jr., MD Work Phone: [facility] 03-31-2023 13:54-0500 SaO2% (BldA) [Mass fraction] 96 % Jose Daniel Porras Jr., MD Work Phone: [facility] 03-31-2023 13:54-0500 Systolic blood pressure 138 mm[Hg] Jose Daniel Porras Jr., MD Work Phone: [facility] 12-31-2022 07:01-0400 Body temperature 98.71 [degF] Elaine Queener PA-C Work Phone: [facility] 12-31-2022 07:01-0400 Body weight 76.3 kg Elaine Queener PA-C Work Phone: [facility] 12-31-2022 07:01-0400 Diastolic blood pressure 74 mm[Hg] Elaine Queener PA-C Work Phone: [facility] 12-31-2022 07:01-0400 Heart rate 72 /min Elaine Queener PA-C Work Phone: [facility] 12-31-2022 07:01-0400 Respiratory rate 16 /min Elaine Queener PA-C Work Phone: [facility] 12-31-2022 07:01-0400 SaO2% (BldA) [Mass fraction] 98 % Elaine Queener PA-C Work Phone: [facility] 12-31-2022 07:01-0400 Systolic blood pressure 104 mm[Hg] Elaine Queener PA-C Work Phone: [facility] 12-08-2022 12:49-0400 Body height 160 cm No Pcp Required [facility] 12-08-2022 12:49-0400 Body weight 72 kg No Pcp Required [facility] 12-08-2022 12:49-0400 Diastolic blood pressure 77 mm[Hg] No Pcp Required [facility] 12-08-2022 12:49-0400 Heart rate 75 /min No Pcp Required [facility] 12-08-2022 12:49-0400 Respiratory rate 22 /min No Pcp Required [facility] 12-08-2022 12:49-0400 SaO2% (BldA) [Mass fraction] 100 % No Pcp Required [facility] 12-08-2022 12:49-0400 Systolic blood pressure 134 mm[Hg] No Pcp Required [facility] 09-16-2022 13:56-0400 Body temperature 98.4 [degF] Jose Daniel Porras Jr., MD Work Phone: [facility] 09-16-2022 13:56-0400 Body weight 78.56 kg Jose Daniel Porras Jr., MD Work Phone: [facility] 09-16-2022 13:56-0400 Diastolic blood pressure 87 mm[Hg] Jose Daniel Porras Jr., MD Work Phone: [facility] 09-16-2022 13:56-0400 Heart rate 74 /min Jose Daniel Porras Jr., MD Work Phone: [facility] 09-16-2022 13:56-0400 Respiratory rate 18 /min Jose Daniel Porras Jr., MD Work Phone: [facility] 09-16-2022 13:56-0400 SaO2% (BldA) [Mass fraction] 99 % Jose Daniel Porras Jr., MD Work Phone: [facility] 09-16-2022 13:56-0400 Systolic blood pressure 135 mm[Hg] Jose Daniel Porras Jr., MD Work Phone: [facility] 05-20-2022 15:19-0500 Body temperature 99.1 [degF] Jose Daniel Porras Jr., MD Work Phone: [facility] 05-20-2022 15:19-0500 Body weight 81.19 kg Jose Daniel Porras Jr., MD Work Phone: [facility] 05-20-2022 15:19-0500 Diastolic blood pressure 82 mm[Hg] Jose Daniel Porras Jr., MD Work Phone: [facility] 05-20-2022 15:19-0500 Heart rate 74 /min Jose Daniel Porras Jr., MD Work Phone: [facility] 05-20-2022 15:19-0500 Respiratory rate 16 /min Jose Daniel Porras Jr., MD Work Phone: [facility] 05-20-2022 15:19-0500 SaO2% (BldA) [Mass fraction] 97 % Jose Daniel Porras Jr., MD Work Phone: [facility] 05-20-2022 15:19-0500 Systolic blood pressure 138 mm[Hg] Jose Daniel Porras Jr., MD Work Phone: [facility] 01-14-2022 14:27-0400 Body temperature 98.29 [degF] Jose Daniel Porras Jr., MD Work Phone: [facility] 01-14-2022 14:27-0400 Body weight 81.65 kg Jose Daniel Porras Jr., MD Work Phone: [facility] 01-14-2022 14:27-0400 Diastolic blood pressure 82 mm[Hg] Jose Daniel Porras Jr., MD Work Phone: [facility] 01-14-2022 14:27-0400 Heart rate 85 /min Jose Daniel Porras Jr., MD Work Phone: [facility] 01-14-2022 14:27-0400 Respiratory rate 18 /min Jose Daniel Porras Jr., MD Work Phone: [facility] 01-14-2022 14:27-0400 SaO2% (BldA) [Mass fraction] 97 % Jose Daniel Porras Jr., MD Work Phone: [facility] 01-14-2022 14:27-0400 Systolic blood pressure 138 mm[Hg] Jose Daniel Porras Jr., MD Work Phone: [facility] Encounters Encounter Date Encounter Type Care Provider Facility Start: 03-31-2023 End: 04-01-2023 ambulatory JOSE DANIEL PORRAS JR Facility:[facility] Start: 03-31-2023 End: 03-31-2023 Patient encounter procedure Jose Daniel Porras MD Work Phone: Neurology Procedures Date Procedure Procedure Detail Performing Clinician Start: 12-24-2021 Mri brain brain stem w/o w/contrast material Jose Daniel Porras MD Work Phone: Plan of Treatment Date Care Activity Detail Author Start: 12-08-2025 Diabetes Screening Diabetes Screening [facility] Start: 11-26-2024 DIABETES SCREEN DIABETES SCREEN [facility] Start: 01-01-2024 BP Controlled (<130/80) BP Controlled (<130/80) [facility] Start: 12-13-2022 Influenza vaccination [facility] Start: 04-14-2022 DEPRESSION ASSESSMENT DEPRESSION ASSESSMENT [facility] Start: 12-13-2021 Influenza vaccination INFLUENZA (#1) [facility] Start: 04-14-2021 DEPRESSION ASSESSMENT DEPRESSION ASSESSMENT [facility] Start: 2017 COLOGUARD (FIT-DNA) COLOGUARD (FIT-DNA) [facility] Start: 2017 Colonoscopy COLONOSCOPY [facility] Start: 2017 COLORECTAL CANCER SCREENING COLORECTAL CANCER SCREENING [facility] Start: [address] COLONOGRAPHY [facility] Start: 2017 DIABETES SCREEN DIABETES SCREEN [facility] Start: 2017 FECAL OCCULT BLOOD FECAL OCCULT BLOOD [facility] Start: 2017 Lipid 1996 panel - Serum or Plasma Lipid Screening [facility] Start: 2017 Lipid panel Lipid Screening [facility] Start: 2017 LIPID SCREEN LIPID SCREEN [facility] Start: 2017 Screening for malignant neoplasm of colon [facility] Start: 2017 SIGMOIDOSCOPY SIGMOIDOSCOPY [facility] Start: 2012 Mammography [facility] Start: 2012 Screening for malignant neoplasm of breast Mammogram Screening [facility] Start: 2002 HPV TESTING HPV TESTING [facility] Start: 2002 Screening for malignant neoplasm of cervix HPV Testing [facility] Start: 1993 PAP TESTING PAP TESTING [facility] Start: 1993 Screening for malignant neoplasm of cervix Pap Testing [facility] Start: 12-13-1991 SHINGRIX VACCINE (1 of 2) SHINGRIX VACCINE (1 of 2) [facility] Start: 12-13-1991 Urine microalbumin profile [facility] Start: 1990 Annual PCP Team Chronic Disease Visit Annual PCP Team Chronic Disease Visit [facility] Start: 1990 BP Controlled (<130/80) BP Controlled (<130/80) [facility] in Start: 1990 HEPATITIS C SCREENING HEPATITIS C SCREENING [facility] Start: 1990 Hepatitis C screening Hepatitis C Screening [facility] Start: 1990 HIV SCREENING HIV SCREENING [facility] Start: 1990 HIV screening HIV Screening [facility] Start: 1984 Adult depression screening assessment DEPRESSION SCREENING [facility] Start: 1978 PNEUMOCOCCAL (1 - PCV) PNEUMOCOCCAL (1 - PCV) [facility] Start: 1978 [facility]neum[facility] Start: 1977 COVID-19 VACCINE (#1) COVID-19 VACCINE (#1) [facility] Start: 06-11-1973 COVID-19 VACCINE (#1) COVID-19 VACCINE (#1) [facility] Start: 1972 HEPATITIS B (1 of 3 - 3-dose series) HEPATITIS B (1 of 3 - 3-dose series) [facility] Start: 1972 Hepatitis B Vaccine (1 of 3 - 3-dose series) Hepatitis B Vaccine (1 of 3 - 3-dose series) [facility] End: 12-27-2022 Mri spinal canal cervical w/o & w/contr matrl MRI CERVICAL SPINE WO/W IVCON Radiology Routine 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 Occurrences starting 11/27/2021 until 12/27/2022 [facility] Work Phone: Payers Date Payer Category Payer Unknown [id number] 2022 Unknown [id number] 2021 Unknown [employer] PPO [id number] 2021-Present [phone] [address] [place] [address] PPO [id number] 2021 Unknown [id number] 2021 Unknown [id number] 1972 Unknown [id number] Social History Date Type Detail Facility Tobacco smoking stat [facility] Tobacco smoking consumption unknown [facility] Start: 1972 Sex Assigned At Not on file [facility] Start: 11-26-2021 End: 01-14-2022 Tobacco smoking status MTIS Ex-smoker [facility] End: 08-16-2020 History of tobacco use Current smoker [facility] End: 08-16-2020 History of tobacco use Cigarette Smoker [facility] Start: 1970 Sex Assigned At Female C [facility] Start: 11-16-2021 End: 11-26-2021 Exposure to SARS-CoV-2 (event) Not sure [facility] Start: 01-14-2022 Tobacco use and exposure Smoke less tobacco non-user [facility] Start: 01-14-2022 End: 03-31-2023 Alcohol intake Ex-drinker (finding) [facility] Start: 01-14-2022 History SDOH Alcohol Comment Unable due to medication [facility] Start: 01-04-2022 End: 01-14-2022 Exposure to SARS-CoV-2 (event) Yes [facility] Start: 05-13-2022 End: 09-16-2022 History of Social function [facility] Start: 05-13-2022 End: 09-16-2022 Tobacco use panel [facility] Adult Depression Screening Assessment 2 [facility] Start: 11-19-2021 Gender identity Identifies as female gender (finding) [facility] Clinical Notes 11-16-2021 to 03-31-2023 Jose Daniel Porras Jr., MD - 03/31/2023 1:55 PM ESTPatient Elaine Koenig PA-C - 12/31/2022 7:12 AM EDTTelephone Encounter - Jose Daniel Porras Jr., MD - 12/17/2022 10:34 AM EDT Note Date & Type Note Facility 03-31-2023 Note HNO ID: [id number] Author: Jose Daniel Porras Jr., MD Service: ? Author Type: Physician Type: Progress Notes Filed: 04/07/2023 9:51 PM Note Text: ESTABLISHED PATIENT VISIT CHIEF COMPLAINT: Follow up HISTORY OF PRESENT ILLNESS: Samuel Mccracken is a 52 year old female, There were no vitals taken for this visit. with a PMH significant for and per last visit note of 12/31/22: 1. Paresthesia of skin - ICD9: 782.0, [...] Will continue current regimen at this time. Per my prior visit with pt on 09/16/22: 1. Paresthesia of skin - ICD9: 782.0, [...] up in 3 months or sooner prn. Pt recently loss job due to cuts, in setting of [place] back home and loss of a car. Now on unemployment. States stressed to the max . Stress has exacerbated migraines x1, but patient not feeling need for med adjustment. Numbness and tingling controlled. Neck pain stable. REVIEW OF SYSTEMS GENERAL:No weight loss, malaise or fevers. HEENT:Negative for frequent or significant headaches, No changes in hearing or vision, no nose bleeds or other nasal problems NECK:Negative for lumps, goiter, pain and significant neck swelling RESPIRATORY: Negative for cough, wheezing or shortness of breath. CARDIOVASCULAR: Negative for chest pain or palpitations. GASTROINTESTINAL: Negative for abdominal discomfort, [...] above. SKIN:Negative for lesions, rash, and itching. See HPI. PSYCHIATRIC: See HPI. LAB/IMAGING: Those performed since patient's last visit [...] ALT (U/L) Date Value 11/26/2021 17 MEDICATIONS: pregabalin (LYRICA) 75 mg capsule Take 1 capsule by mouth three times a day for 90 days. sulfaSALAzine EC (AZULFIDINE EN) [...] 100 mg by mouth once daily. HISTORIES No past medical history on file. No family history on file. SOCIAL HISTORY Social History Tobacco Use Smoking status: Former Types: Cigarettes Quit date: 08/16/2020 Years since quittin.6 Smokeless tobacco: Never Substance Use Topics Alcohol use: Not Currently Comment: Unable due to medication Drug use: [place] (more content not included)... [facility] 03-31-2023 History of Presen t illness Narrative ESTABLISHED PATIENT VISIT CHIEF COMPLAINT: Follow up HISTORY OF PRESENT ILLNESS: Samuel Mccracken is a 52 year old female, There were no vitals taken for this visit. with a PMH significant for and per last visit note of 12/31/22: 1. Paresthesia of skin - ICD9: 782.0, [...] Will continue current regimen at this time. Per my prior visit with pt on 09/16/22: 1. Paresthesia of skin - ICD9: 782.0, [...] up in 3 months or sooner prn. Pt recently loss job due to cuts, in setting of [place] back home and loss of a car. Now on unemployment. States stressed to the max . Stress has exacerbated migraines x1, but patient not feeling need for med adjustment. Numbness and tingling controlled. Neck pain stable. REVIEW OF SYSTEMS GENERAL:No weight loss, malaise or fevers. HEENT:Negative for frequent or significant headaches, No changes in hearing or vision, no nose bleeds or other nasal problems NECK:Negative for lumps, goiter, pain and significant neck swelling RESPIRATORY: Negative for cough, wheezing or shortness of breath. CARDIOVASCULAR: Negative for chest pain or palpitations. GASTROINTESTINAL: Negative for abdominal discomfort, [...] above. SKIN:Negative for lesions, rash, and itching. See HPI. PSYCHIATRIC: See HPI. LAB/IMAGING: Those performed since patient's last visit [...] ALT (U/L) Date Value 11/26/2021 17 MEDICATIONS: pregabalin (LYRICA) 75 mg capsule Take 1 capsule by mouth three times a day for 90 days. sulfaSALAzine EC (AZULFIDINE EN) [...] 100 mg by mouth once daily. HISTORIES No past medical history on file. No family history on file. SOCIAL HISTORY Social History Tobacco Use Smoking status: Former Types: Cigarettes Quit date: 08/16/2020 Years since quittin.6 Smokeless tobacco: Never Substance Use Topics Alcohol use: Not Currently Comment: Unable due to medication Drug use: Never PHYSICAL EXAMINATION There were no vitals taken for this visit. GENERAL EXAM: General appearance: NAD, pleasant. HEENT: NC/AT, nasal congestion absent, no oral lesions, membranes moist. Lungs: CTA bilaterally. CV: RRR nl S1, S2. Extr: No cyanosis, clubbing or edema. Extremity pulses palpable and normal. Skin: Cool to touch. NEUROLOGICAL EXAM: General: Awake, alert, oriented x3 (person,place,time), fluent, no dysarthria; comprehension, naming, repetition intact. Short and senior care memory intact. Fund of knowledge grossly normal by MOCA. CN: PERRL, fundi appear normal including no evidence of papilledema, EOMI and without nystagmus, VFF to confrontation, facial sensation and strength are normal and symmetric, hearing is intact to finger rub bilaterally, palate and tongue movements are intact and symmetric. SCM and trapezius strength normal. Motor: Normal tone, bulk and strength (5/5) bilaterally (throughout extremities x4). Coordination: FNF, JESI, HTS intact. No tremors. Sensation: LT, PP, vibration intact throughout. No evidence of neglect. Gait: Stable with normal stride and arm swing. Assessment and Plan: ASSESSMENT/PLAN: 1. Paresthesia of skin - ICD9: 782.0, ICD10: R20.2 (primary diagnosis) 2. Fibromyalgia - ICD9: 729.1, ICD10: M79.7 3. Rheumatoid arthritis, involving unspecified site, unspecified whether rheumatoid factor present (HCC) - ICD9: 714.0, ICD10: M06.9 4. Cervicalgia - ICD9: 723.1, ICD10: M54.2 5. Migraine without aura and without status migrainosus, not intractable - ICD9: 346.10, ICD10: G43.009 6. High risk medication use - ICD9: V58.69, ICD10: Z79.899 Patient feels primary neurologic complaints stable on current dose of Lyrica. External stressors possible exacerbating symptoms, but patient feels no need for change in med dosing. Neck pain and headaches much improved on Lyrica with headaches no longer being intractable since on medication. For now will continue Lyrica 75mg BID. D/w pt further options for evaluating for small fiber neuropathy. Pt will consider. Know RA. Lyrica refills provided. Will get UDS due to senior care use of Lyrica. Pt understanding of reasons for UDS. Follow up 3 months or sooner prn. Jose Daniel Porras MD I spent a total of 24 minutes on the date of the service which included preparing to see the patient, [id number] patient care, completing clinical documentation, obtaining and/or reviewing separately obtained history, performing a medically appropriate examination, counseling and educating the patient/family/caregiver, ordering medications, tests, or procedures, communicating results to the patient/family/caregiver . PDMP website checked and validated. All prescriptions have been APPROPRIATELY filled. No suspicious activity was identified. 03/31/2023 by Jose Daniel Porras MD documented in this encounter [facility] 12-31-2022 Note HNO ID: [id number] Author: Elaien Mckenna PA-C Service: ? Author Type: Physician Batter Mixer Helper Type: Progress Notes Filed: 12/31/2022 7:54 AM [...] General appearance: NAD, (more content not included)... [facility] 12-31-2022 Instructions Elaine Mckenna PA-C - 12/31/2022 7:25 AM EDT Continue 75mg three times a day Follow up in March with Dr. Porras as planned documented in this encounter [facility] 12-31-2022 History of Presen t illness Narrative [...] dysarthria; comprehension, naming, repetition intact. 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 CN: PERRL, EOMI and without [...] which included preparing to see the patient, [id number] patient care, completing clinical documentation, obtaining and/or reviewing separately obtained history, performing a medically appropriate examination, counseling and educating the patient/family/caregiver, and ordering medications, tests, or procedures. This document has been created with the use of voice recognition technology. It may contain inaccuracies: (e.g. misspellings, inaccurate syntax or word sense) that have escaped review. [facility] website checked and validated. All prescriptions have been APPROPRIATELY filled. No suspicious activity was identified. 12/31/2022 by Elaine Mckenna PA-C documented in this encounter [facility] 12-17-2022 Miscellaneous Notes [facility] website checked and validated. All prescriptions have been APPROPRIATELY filled. No suspicious activity was identified. 12/17/2022 by Jose Daniel Porras MD [facility] message sent back to patient with providers message below. Nothing further at this time. LU Ludwig Patient is calling had family emergency in [place], had to reschedule her appt. Went over notes below from Dr Porras with understanding. Patient asking if would send rx to local pharmacy until her appt? Her is going to have ot corn picker rx and get it to her. She will not be back in the area until 12/29. Patient uses [facility] pharmacy. Patient phone number is [phone] if needed. Please advise This is a controlled med and cannot be Rx'd outside the [facility] [place]. Jose Daniel Porras MD Pt has made follow up appointment in person with MQ on 12-31-22. Please advise. Meredith Vaughan LPN documented in this encounter [facility] 10-16-2022 Miscellaneous Notes Medication approved. CaseId:[id number]; Status:Approved;Review Type:Prior Auth; Coverage Start Date:10/12/2022; Coverage End Date:11/11/2023; Meredith Vaughan LPN PA started on CoverMyMeds. Await decision. Meredith Vaughan LPN Pt called and she needs to have another PA done for medication Pregabalin she takes 3 times a day. Pt's insurance changed to [employer] PRIOR AUTHORIZATION Medication for Prior Authorization: Pregabalin Other formulary meds available : NO Insurance Company: [employer] Company phone number: [phone] Patient insurance ID number: [id number] Martha Davis LPN Pt reports she runs out of medication tomorrow 10/17/22. documented in this encounter [facility] 09-16-2022 Miscellaneous Notes Medication approved. Pt notified [...] she will be out of medication tomorrow. Ms. morel documented in this encounter [facility] 09-16-2022 Note HNO ID: [id number] Author: Jose Daniel Porras Jr., MD Service: [...] kg (173 l (more content not included)... [facility] 09-16-2022 History of Presen t illness Narrative [...] Moderate documented in this encounter [facility] 07-29-2022 Miscellaneous Notes PDMP website checked and [...] MD documented in this encounter [facility] 06-10-2022 Note HNO ID: [id number] Author: Osmin Vines MD Service: ? Author Type: Physician Type: Progress Notes Filed: 06/10/2022 12:52 PM Note Text: [facility] Date: June 10, 2022 [...] substantial relief. Cervical injection in 2015 in [place]. ALLERGIES Allergen Reactions Clindamycin GI Upset, Other: [...] Panel: No results found for: UQCANN, UQBNZL, ILU6PEU, UQAMPH, UQMAMP, UQBUPRE, UQNORBUP, UQMTHD, UQEDDP, UQTRAM, [...] limits Medical record (more content not included)... [facility] 06-10-2022 History of Presen t illness Narrative [facility] Date: June 10, 2022 [...] substantial relief. Cervical injection in 2015 in [place]. ALLERGIES Allergen Reactions Clindamycin GI Upset, Other: [...] Panel: No results found for: UQCANN, UQBNZL, YVT6RLT, UQAMPH, UQMAMP, UQBUPRE, UQNORBUP, UQMTHD, UQEDDP, UQTRAM, [...] diagnostic tests reviewed for today's visit: The [facility] EMR was reviewed during the visit IMAGING [...] but also diagnostic information that procedures provide. 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 documented in this encounter [facility] 05-20-2022 Note HNO ID: [id number] Author: Jose Daniel Porras Jr., MD Service: [...] Substance Use Topic (more content not included)... [facility] 05-20-2022 History of Presen t illness Narrative [...] which included preparing to see the patient, [id number] patient care, completing clinical documentation, obtaining and/or reviewing separately obtained history, performing a medically appropriate examination, counseling and educating the patient/family/caregiver, ordering medications, tests, or procedures, and communicating results to the patient/family/caregiver. PDMP website checked and validated. All prescriptions have been APPROPRIATELY filled. No suspicious activity was identified. 05/20/2022 by Jose Daniel Porras MD documented in this encounter [facility] 01-14-2022 History of Presen t illness Narrative [...] spine to determine if demyelination or other CHARGE HAND lesion present that might be the cause [...] which included preparing to see the patient, [id number] patient care, completing clinical documentation, obtaining and/or reviewing separately obtained history, performing a medically appropriate examination, counseling and educating the patient/family/caregiver, independently interpreting results (not separately reported), and communicating results to the patient/family/caregiver (this includes reviewing results directly with patient). documented in this encounter [facility] 12-24-2021 History of Presen t illness Narrative [...] Cervical spine and Thoracic spine SIGNATURE: RT Cedric(Karen) PATIENT NAME: Samuel Stanton DATE: December 24, 2021 TIME: 2:20 PM documented in this encounter [facility] 11-27-2021 Miscellaneous Notes Pt updated through . 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 Will route to scheduling pool once other issues addressed to be scheduled. Please advise in regards to MRI questions. Thank you. DIANA Ludwig documented in this encounter [facility] 11-27-2021 Miscellaneous Notes Please assist patient in scheduling an EMG. Thank you. DIANA Ludwig documented in this encounter [facility] 11-16-2021 Miscellaneous Notes Records received via fax. [...] Ludwig documented in this encounter [facility] Chronic nonintractable headache, unspecified headache type Paresthesia of skin Disturbance of skin sensation Involuntary movements Abnormal involuntary movements Demyelinating disease of central nervous system (HCC) Demyelinating disease of central nervous system, unspecified documented in this encounter [facility] note* Diagnosis Paresthesia of skin- Primary Disturbance of skin sensation Weakness Other malaise and fatigue Pain of left lower extremity Muscle spasm of left lower extremity Involuntary movements Abnormal involuntary movements Chronic nonintractable headache, unspecified headache type documented in this encounter [facility] note* Diagnosis Paresthesia of skin- Primary Disturbance of skin sensation Weakness Other malaise and fatigue Pain of left lower extremity Muscle spasm of left lower extremity Chronic nonintractable headache, unspecified headache type Foraminal stenosis of cervical region Spinal stenosis in cervical region Intractable episodic headache, unspecified headache type Cervicalgia [facility] Diagnosis Cervical myofascial pain syndrome- Primary Mylagia and myositis, unspecified Paresthesia of skin Disturbance of skin sensation Weakness Other malaise and fatigue Pain of left lower extremity Muscle spasm of left lower extremity Chronic nonintractable headache, unspecified headache type Foraminal stenosis of cervical region Spinal stenosis in cervical region Myofascial pain syndrome of thoracic spine documented in this encounter [facility] note* Diagnosis Paresthesia of skin Disturbance of skin sensation Weakness Other malaise and fatigue Pain of left lower extremity Muscle spasm of left lower extremity Chronic nonintractable headache, unspecified headache type [facility] Diagnosis Paresthesia of skin- Primary Disturbance of skin sensation Chronic nonintractable headache, unspecified headache type Intractable episodic headache, unspecified headache type Cervicalgia Fibromyalgia Mylagia and myositis, unspecified Rheumatoid arthritis, involving unspecified site, unspecified whether rheumatoid factor present (HCC) documented in this encounter [facility] note* Diagnosis Paresthesia of skin Disturbance of skin sensation Chronic nonintractable headache, unspecified headache type Cervicalgia Fibromyalgia Mylagia and myositis, unspecified Rheumatoid arthritis, involving unspecified site, unspecified whether rheumatoid factor present (HCC) documented in this encounter [facility] note* Diagnosis Paresthesia of skin- Primary Disturbance of skin sensation Fibromyalgia Mylagia and myositis, unspecified documented in this encounter [facility] note* Diagnosis Paresthesia of skin- Primary Disturbance of skin sensation Fibromyalgia Mylagia and myositis, unspecified Rheumatoid arthritis, involving unspecified site, unspecified whether rheumatoid factor present (HCC) Cervicalgia Migraine without aura and without status migrainosus, not intractable Migraine without aura, without mention of intractable migraine without mention of status migrainosus High risk medication use Encounter for long-term (current) use of other medications Chronic nonintractable headache, unspecified headache type documented in this encounter [facility] Summary Purpose Family History No Family History [...] MRI SPINAL CANAL CERVICAL W/O & W/CONTR Jose Daniel Osman Jr., MD [address] [facility] [address] [place] [address] Mr Imaging Referral ID Status Reason Start Date Expiration Date Visits Requested Visits Authorized [id number] Pending Review Auto-Generat ed Referral 11/27/2021 12/27/2022 1 1 Referral ID Status Reason Start Date Expiration Date V isits Requested Visits Authorized [id number] Closed Auto-Generate d Referral 11/27/2021 12/27/2022 1 1 Specialty Diagnoses / Procedures Referred By Contac t Referred To Contact MR IMAGING Diagnoses Chronic nonintractable headache, unspecified headache type Paresthesia of skin Demyelinating disease of central nervous system (HCC) Involuntary movements Procedures MRI THORACIC SPINE WO/W IVCON MRI SPINAL CANAL THORACIC W/O & W/CONTR JUL Jose Daniel Porras Jr., MD [address] [facility] [address] [place] [address] Mr Imaging Referral ID Status Reason Start Date Expiration Date V isits Requested Visits Authorized [id number] Closed Auto-Generate d Referral 11/26/2021 12/26/2022 1 1 [facility] Diagnoses / [facility]AGING Diagnoses Chronic nonintractable headache, unspecified headache type Paresthesia of skin Involuntary movements Procedures MRI BRAIN WO/W IVCON MRI BRAIN BRAIN STEM W/O W/CONTRAST MATERIAL Jose Daniel Porras Jr., MD [address] [facility] [address] [place] [address] Mr Imaging Referral ID Status Reason Start Date Expiration Date V isits Requested Visits Authorized [id number] Closed Auto-Generate d Referral 11/26/2021 12/25/2021 1 1 Specialty Diagnoses / Procedures Referred By Contac t Referred To Contact [facility] Diagnoses Paresthesia of skin Weakness Pain of left lower extremity Muscle spasm of left lower extremity Chronic nonintractable headache, unspecified headache type Foraminal stenosis of cervical region Procedures CON[facility] 60-74 MINUTES Jose Daniel Porras Jr., MD [address] [place] [address] Referral ID Status Reason Start Date Expiration Date Visits Requested Visits Authorized [id number] Authorized PCP Requested Referral 05/20/2022 05/20/2023 1 1 Specialty Diagnoses / Procedures Referred By Contac t Referred To Contact Diagnoses Cervical myofascial pain syndrome Myofascial pain syndrome of thoracic spine Procedures CONSULT TO [facility] 60-74 MINUTES Osmin Vines MD [address] [facility] [place] [address] Referral ID Status Reason Start Date Expiration Date Visits Requested Visits Authorized [id number] Authorized PCP Requested Referral 06/10/2022 06/10/2023 1 1 Additional Source Comments Source Comments (unrecognize d section and content) In the event this informatio n is protected by the Federal Confidentiality of Alcohol and Drug Abuse Patient Records regulations: The Federal rules restrict any use of the information to criminally investigate or prosecute any alcohol or drug abuse patient.[facility] event this information is protected by the Federal Confidentiality of Alcohol and Drug Abuse Patient Records regulations: The Federal rules restrict any use of the information to criminally investigate or prosecute any alcohol or drug abuse patient.[facility] the event this information is protected by the Federal Confidentiality of Alcohol and Drug Abuse Patient Records regulations: The Federal rules restrict any use of the information to criminally investigate or prosecute any alcohol or drug abuse patient.[facility] the event this information is protected by the Federal Confidentiality of Alcohol and Drug Abuse Patient Records regulations: The Federal rules restrict any use of the information to criminally investigate or prosecute any alcohol or drug abuse patient.[facility] the event this information is protected by the Federal Confidentiality of Alcohol and Drug Abuse Patient Records regulations: The Federal rules restrict any use of the information to criminally investigate or prosecute any alcohol or drug abuse patient.[facility] the event this information is protected by the Federal Confidentiality of Alcohol and Drug Abuse Patient Records regulations: The Federal rules restrict any use of the information to criminally investigate or prosecute any alcohol or drug abuse patient.[facility] the event this information is protected by the Federal Confidentiality of Alcohol and Drug Abuse Patient Records regulations: The Federal rules restrict any use of the information to criminally investigate or prosecute any alcohol or drug abuse patient.[facility] the event this information is protected by the Federal Confidentiality of Alcohol and Drug Abuse Patient Records regulations: The Federal rules restrict any use of the information to criminally investigate or prosecute any alcohol or drug abuse patient.[facility] the event this information is protected by the Federal Confidentiality of Alcohol and Drug Abuse Patient Records regulations: The Federal rules restrict any use of the information to criminally investigate or prosecute any alcohol or drug abuse patient.[facility] the event this information is protected by the Federal Confidentiality of Alcohol and Drug Abuse Patient Records regulations: The Federal rules restrict any use of the information to criminally investigate or prosecute any alcohol or drug abuse patient.[facility] event this information is protected by the Federal Confidentiality of Alcohol and Drug Abuse Patient Records regulations: The Federal rules restrict any use of the information to criminally investigate or prosecute any alcohol or drug abuse patient.[facility] the event this information is protected by the Federal Confidentiality of Alcohol and Drug Abuse Patient Records regulations: The Federal rules restrict any use of the information to criminally investigate or prosecute any alcohol or drug abuse patient.[facility] event this information is protected by the Federal Confidentiality of Alcohol and Drug Abuse Patient Records regulations: The Federal rules restrict any use of the information to criminally investigate or prosecute any alcohol or drug abuse patient.[facility] event this information is protected by the Federal Confidentiality of Alcohol and Drug Abuse Patient Records regulations: The Federal rules restrict any use of the information to criminally investigate or prosecute any alcohol or drug abuse patient.[facility] event this information is protected by the Federal Confidentiality of Alcohol and Drug Abuse Patient Records regulations: The Federal rules restrict any use of the information to criminally investigate or prosecute any alcohol or drug abuse patient.[facility] INFORMATION SOURCE (unrecogn ized section and content) DATE CREATED AUTHOR AUTHOR'S ORGANIZ ATION 10/16/2022 [facility] DATE CREATED AUTHOR AUTHOR'S ORGANIZ ATION 12/10/2022 [facility] DATE CREATED AUTHOR AUTHOR'S ORGANIZ ATION 04/09/2023 [facility] Reason for Visit (unrecogniz ed section and content) Reason Comments Orders Specialty Diagnoses / Procedures Referred By Contac t Referred To Contact MR IMAGING Diagnoses Chronic nonintractable headache, unspecified headache type Paresthesia of skin Demyelinating disease of central nervous system (HCC) Involuntary movements Procedures MRI THORACIC SPINE WO/W IVCON MRI SPINAL CANAL THORACIC W/O & W/CONTR JUL Jose Daniel Porras Jr., MD [address] [facility] [address] [place] [address] Mr Imaging Referral ID Status Reason Start Date Expiration Date V isits Requested Visits Authorized [id number] Closed Auto-Generate d Referral 11/26/2021 12/26/2022 1 1 Reason Comments Established Patient Follow up N/T and mu scle weakness Reason Comments Follow Up Specialty Diagnoses / Procedures Referred By Lane t Referred To Contact [facility] Diagnoses Paresthesia of skin Weakness Pain of left lower extremity Muscle spasm of left lower extremity Chronic nonintractable headache, unspecified headache type Foraminal stenosis of cervical region Procedures [facility] 60-74 MINUTES Jose Daniel Porras Jr., MD [address] [place] [address] Referral ID Status Reason Start Date Expiration Date V isits Requested Visits Authorized [id number] Closed PCP Requested Referral 05/20/2022 05/20/2023 1 1 Reason Onset Date Comments Refill Request 07/26/2022 Reason Comments Medication Problem Reason Comments Follow Up Reason Comments Medication prior authorization Reason Comments New Patient Evaluation Reason Comments Follow Up Pt reported Moe have decreased, denied visual changes, denied numbness. <item> Privacy Markings (unrecogniz ed section and [...] BE BASED ON THE PRIMARY CLINICAL RECORDS. [facility] [employer] [facility]. provides no warranty or guarantee of the accuracy or completeness of information in this document.
== END | disposition home or self-care (01) ==
LOC: US 12:49
PROVIDERS: PCP Internal Medicine; Referring Provider Obstetrics & Gynecology; Visit Provider Obstetrics & Gynecology
DX: R10.2 Pelvic and perineal pain (principal)
CPT/HCPCS: 76830; 76856

== ENCOUNTER → 2023-06-30 | Outpatient (CLI) | payer OTHER, SELFPAY ==
[2023-06-30 10:25] LABS: Absolute Lymphocyte Count 1.45 X10^3/uL (0.83-4.51); Absolute Neutrophil Count 2.8 X10^3/uL (2.0-7.7); Basophil# 0.03 X10^3/uL; Basophil% 0.6 % (0-1); Eosinophil# 0.03 X10^3/uL; Eosinophils% 0.6 % (0-5); Hematocrit 38.1 % (37-47); Hemoglobin 12.3 g/dL (12.0-15.0); Lymphocyte # 1.45 X10^3/ul (0.83-4.51); Lymphocyte % 30.9 % (19-41); Mean Corp Hgb Conc 32.3 g/dL (32-36); Mean Corpuscular Hgb 31.1 pg (27.0-32.0); Mean Corpuscular Volume 96.2 fL (81-99); Mean Platelet Vol. 9.6 fl (6.2-12.0); Monocyte# 0.32 X10^3/uL; Monocyte% 6.8 % (0-10); NRBC Flagged by Analyzer 0 % (0-5); Neutrophil # 2.84 X10^3/uL (2.7-7.7); Neutrophil % 60.5 % (47-70); Platelet Count 196 K/mm3 (150-450); RBC Distribution Width CV 12.3 % (11.6-14.6); RBC Distribution Width SD 43.4 fl (35.1-43.9); Red Blood Count 3.96 M/mm3 (4.2-5.4); White Blood Count 4.7 K/mm3 (4.4-11.0)
[2023-06-30 11:14] LABS: ALB/GLOB Ratio 1.6 RATIO (0.9-2.4); AST(SGOT) 18 U/L (15-37); Alanine Aminotransfer ALT/SGPT 25 U/L (13-56); Albumin, Serum 3.9 g/dL (3.2-5.0); Alkaline Phosphatase 51 U/L (45-117); Anion Gap 4 (5-15); BUN 11 mg/dL (7-18); BUN/Creat Ratio 12.2 RATIO (10-20); Calcium,Total 8.7 mg/dL (8.5-10.1); Chloride 111 mmol/L (98-107); EST Glomerular Filtration Rate 70 mL/min (>60); Est Glom Filt Rate - Afr Amer 85 mL/min (>60); Globulin 2.4 g/dL (2.2-4.2); Glucose 101 mg/dL (74-106); Potassium 4.5 mmol/L (3.5-5.1); Protein, Total 6.3 g/dL (6.4-8.2); Sodium Level 141 mmol/L (136-145)
== END | disposition home or self-care (01) ==
LOC: MTLAB 07:48
PROVIDERS: PCP Internal Medicine; Referring Provider Internal Medicine Rheumatology; Visit Provider Internal Medicine Rheumatology
DX: M06.4 Inflammatory polyarthropathy (principal); Z79.899 Other long term (current) drug therapy; M79.7 Fibromyalgia; M17.0 Bilateral primary osteoarthritis of knee; M47.897 Other spondylosis, lumbosacral region; M51.37 Other intervertebral disc degeneration, lumbosacral region; K58.9 Irritable bowel syndrome, unspecified; G43.909 Migraine, unspecified, not intractable, without status migrainosus; I10 Essential (primary) hypertension; K21.9 Gastro-esophageal reflux disease without esophagitis
CPT/HCPCS: 36415; 80053; 85025

== ENCOUNTER → 2023-07-25 | Outpatient (CLI) | payer OTHER, SELFPAY ==
--- NOTE | 2023-07-25 09:52 | BI_ITS ---
MAMMOGRAPHY - BILATERAL SCREENING REASON FOR EXAM: Female, 52 years old. Routine annual screening examination. PERTINENT HISTORY: Grandmother with breast cancer. TECHNIQUE: Digital bilateral breast chris (3D mammographic acquisition) in the CC and MLO projections. 2-D mediolateral oblique (MLO) and craniocaudad (CC) views of both breasts were obtained. CAD: Full Field Digital Mammography with Computer Added Detection was performed. COMPARISON: Comparison is made with prior study dated May 06, 2022 and April 30, 2021. FINDINGS: Breast Composition: The breasts are extremely dense, which lowers the sensitivity of mammography. There are no dominant masses or suspicious calcifications. Stable fat-containing bilateral axillary lymph nodes. No other significant abnormalities are identified. There has been no significant change since the prior study. BI/SCRN MAMM (CAD)W/CHRIS BILAT IMPRESSION: Stable bilateral screening mammogram. Yearly follow-up mammogram recommended. (A) ASSESSMENT CATEGORY: BIRADS Category 2: Benign. A letter regarding these results will be sent to the patient by the facility within 30 days. Approximately 10% of breast cancers are not detected by mammography. A normal mammogram should not delay biopsy of a clinically suspicious abnormality. [id number] Electronically Signed: Tomy Bedolla MD at 11:08 EDT ,
== END | disposition home or self-care (01) ==
LOC: OPBI 09:51
PROVIDERS: PCP Internal Medicine; Referring Provider Obstetrics & Gynecology; Visit Provider Obstetrics & Gynecology
DX: Z12.31 Encounter for screening mammogram for malignant neoplasm of breast (principal)
CPT/HCPCS: 77063; 77067

== ENCOUNTER → 2023-09-24 | Outpatient (CLI) | payer OTHER, SELFPAY ==
[2023-09-24 16:01] LABS: Absolute Lymphocyte Count 1.83 X10^3/uL (0.83-4.51); Absolute Neutrophil Count 2.6 X10^3/uL (2.0-7.7); Basophil# 0.01 X10^3/uL; Basophil% 0.2 % (0-1); Eosinophil# 0.07 X10^3/uL; Eosinophils% 1.5 % (0-5); Hematocrit 37.3 % (37-47); Hemoglobin 12.6 g/dL (12.0-15.0); Lymphocyte # 1.83 X10^3/ul (0.83-4.51); Lymphocyte % 38.3 % (19-41); Mean Corp Hgb Conc 33.8 g/dL (32-36); Mean Corpuscular Hgb 32.3 pg (27.0-32.0); Mean Corpuscular Volume 95.6 fL (81-99); Mean Platelet Vol. 9.3 fl (6.2-12.0); Monocyte# 0.28 X10^3/uL; Monocyte% 5.9 % (0-10); NRBC Flagged by Analyzer 0 % (0-5); Neutrophil # 2.57 X10^3/uL (2.7-7.7); Neutrophil % 53.7 % (47-70); Platelet Count 228 K/mm3 (150-450); RBC Distribution Width CV 12.3 % (11.6-14.6); White Blood Count 4.8 K/mm3 (4.4-11.0)
[2023-09-24 16:45] LABS: ALB/GLOB Ratio 1.5 RATIO (0.9-2.4); AST(SGOT) 17 U/L (15-37); Alanine Aminotransfer ALT/SGPT 35 U/L (13-56); Alkaline Phosphatase 61 U/L (45-117); Anion Gap 4 (5-15); BUN 14 mg/dL (7-18); BUN/Creat Ratio 16.1 RATIO (10-20); Calcium,Total 8.8 mg/dL (8.5-10.1); Chloride 108 mmol/L (98-107); Creatinine, Serum 0.87 mg/dL (0.55-1.02); EST Glomerular Filtration Rate 73 mL/min (>60); Est Glom Filt Rate - Afr Amer 89 mL/min (>60); Globulin 2.7 g/dL (2.2-4.2); Glucose 85 mg/dL (74-106); Potassium 4.6 mmol/L (3.5-5.1); Protein, Total 6.7 g/dL (6.4-8.2); Sodium Level 138 mmol/L (136-145)
== END | disposition home or self-care (01) ==
PROVIDERS: PCP Internal Medicine; Referring Provider Internal Medicine Rheumatology; Visit Provider Internal Medicine Rheumatology
DX: M06.4 Inflammatory polyarthropathy (principal); Z79.899 Other long term (current) drug therapy; M17.0 Bilateral primary osteoarthritis of knee; M79.7 Fibromyalgia
CPT/HCPCS: 36415; 80053; 85025

== ENCOUNTER → 2023-09-26 | Outpatient (CLI) | payer OTHER, SELFPAY ==
[2023-09-26 10:25] LABS: Absolute Lymphocyte Count 1.56 X10^3/uL (0.83-4.51); Absolute Neutrophil Count 2.6 X10^3/uL (2.0-7.7); Basophil# 0.02 X10^3/uL; Basophil% 0.4 % (0-1); Eosinophil# 0.09 X10^3/uL; Eosinophils% 1.9 % (0-5); Hematocrit 37.9 % (37-47); Hemoglobin 12.4 g/dL (12.0-15.0); Lymphocyte # 1.56 X10^3/ul (0.83-4.51); Lymphocyte % 33.8 % (19-41); Mean Corp Hgb Conc 32.7 g/dL (32-36); Mean Corpuscular Hgb 31.4 pg (27.0-32.0); Mean Corpuscular Volume 95.9 fL (81-99); Mean Platelet Vol. 9.4 fl (6.2-12.0); Monocyte# 0.33 X10^3/uL; Monocyte% 7.1 % (0-10); NRBC Flagged by Analyzer 0 % (0-5); Neutrophil % 56.4 % (47-70); Platelet Count 227 K/mm3 (150-450); RBC Distribution Width CV 12.4 % (11.6-14.6); RBC Distribution Width SD 44.1 fl (35.1-43.9); Red Blood Count 3.95 M/mm3 (4.2-5.4); White Blood Count 4.6 K/mm3 (4.4-11.0)
[2023-09-27 01:53] LABS: ALB/GLOB Ratio 1.6 RATIO (0.9-2.4); AST(SGOT) 22 U/L (15-37); Alanine Aminotransfer ALT/SGPT 39 U/L (13-56); Alkaline Phosphatase 57 U/L (45-117); Anion Gap 6 (5-15); BUN 17 mg/dL (7-18); BUN/Creat Ratio 20.7 RATIO (10-20); Calcium,Total 9.1 mg/dL (8.5-10.1); Chloride 110 mmol/L (98-107); Cholesterol 214 mg/dL (200); Creatinine, Serum 0.82 mg/dL (0.55-1.02); EST Glomerular Filtration Rate 78 mL/min (>60); Est Glom Filt Rate - Afr Amer 94 mL/min (>60); Globulin 2.5 g/dL (2.2-4.2); Glucose 96 mg/dL (74-106); High Density Lipoprotein 44 mg/dL; Potassium 4.9 mmol/L (3.5-5.1); Protein, Total 6.5 g/dL (6.4-8.2); Sodium Level 141 mmol/L (136-145); Triglycerides 130 mg/dL; Very Low Density Lipoprotein 26 mg/dL (5-40)
== END | disposition home or self-care (01) ==
LOC: MTLAB 08:01
PROVIDERS: PCP Internal Medicine; Referring Provider Internal Medicine; Visit Provider Internal Medicine
DX: I10 Essential (primary) hypertension (principal)
CPT/HCPCS: 36415; 80053; 80061; 85025

== ENCOUNTER → 2023-12-24 | Outpatient (CLI) | payer OTHER, SELFPAY ==
[2023-12-24 17:28] LABS: Absolute Lymphocyte Count 1.84 X10^3/uL (0.83-4.51); Absolute Neutrophil Count 3.3 X10^3/uL (2.0-7.7); Basophil# 0.03 X10^3/uL; Basophil% 0.5 % (0-1); Eosinophil# 0.08 X10^3/uL; Eosinophils% 1.4 % (0-5); Hematocrit 36.2 % (37-47); Lymphocyte # 1.84 X10^3/ul (0.83-4.51); Lymphocyte % 32.9 % (19-41); Mean Corp Hgb Conc 33.1 g/dL (32-36); Mean Corpuscular Hgb 31.3 pg (27.0-32.0); Mean Corpuscular Volume 94.3 fL (81-99); Monocyte# 0.34 X10^3/uL; Monocyte% 6.1 % (0-10); NRBC Flagged by Analyzer 0 % (0-5); Neutrophil # 3.28 X10^3/uL (2.7-7.7); Neutrophil % 58.7 % (47-70); Platelet Count 216 K/mm3 (150-450); RBC Distribution Width CV 12.8 % (11.6-14.6); RBC Distribution Width SD 43.8 fl (35.1-43.9); Red Blood Count 3.84 M/mm3 (4.2-5.4); White Blood Count 5.6 K/mm3 (4.4-11.0)
[2023-12-24 18:22] LABS: ALB/GLOB Ratio 1.5 RATIO (0.9-2.4); AST(SGOT) 12 U/L (15-37); Alanine Aminotransfer ALT/SGPT 28 U/L (13-56); Albumin, Serum 3.9 g/dL (3.2-5.0); Alkaline Phosphatase 61 U/L (45-117); Anion Gap 5 (5-15); BUN 14 mg/dL (7-18); BUN/Creat Ratio 16.8 RATIO (10-20); Chloride 107 mmol/L (98-107); Creatinine, Serum 0.83 mg/dL (0.55-1.02); EST Glomerular Filtration Rate 77 mL/min (>60); Est Glom Filt Rate - Afr Amer 93 mL/min (>60); Globulin 2.6 g/dL (2.2-4.2); Glucose 78 mg/dL (74-106); Potassium 4.2 mmol/L (3.5-5.1); Protein, Total 6.5 g/dL (6.4-8.2); Sodium Level 138 mmol/L (136-145)
== END | disposition home or self-care (01) ==
LOC: MTLAB 13:57
PROVIDERS: PCP Internal Medicine; Referring Provider Internal Medicine Rheumatology; Visit Provider Internal Medicine Rheumatology
DX: M06.4 Inflammatory polyarthropathy (principal); Z79.899 Other long term (current) drug therapy; M79.7 Fibromyalgia; M17.0 Bilateral primary osteoarthritis of knee
CPT/HCPCS: 36415; 80053; 85025

== ENCOUNTER → 2024-03-24 | Outpatient (CLI) | payer OTHER, SELFPAY ==
[2024-03-24 17:46] LABS: Absolute Lymphocyte Count 1.77 X10^3/uL (0.83-4.51); Absolute Neutrophil Count 3.7 X10^3/uL (2.0-7.7); Basophil# 0.03 X10^3/uL; Basophil% 0.5 % (0-1); Eosinophil# 0.07 X10^3/uL; Eosinophils% 1.2 % (0-5); Hematocrit 35.9 % (37-47); Hemoglobin 11.8 g/dL (12.0-15.0); Lymphocyte # 1.77 X10^3/ul (0.83-4.51); Lymphocyte % 30.4 % (19-41); Mean Corp Hgb Conc 32.9 g/dL (32-36); Mean Corpuscular Hgb 31.3 pg (27.0-32.0); Mean Corpuscular Volume 95.2 fL (81-99); Mean Platelet Vol. 8.8 fl (6.2-12.0); Monocyte# 0.28 X10^3/uL; Monocyte% 4.8 % (0-10); NRBC Flagged by Analyzer 0 % (0-5); Neutrophil # 3.65 X10^3/uL (2.7-7.7); Neutrophil % 62.6 % (47-70); Platelet Count 208 K/mm3 (150-450); RBC Distribution Width CV 12.9 % (11.6-14.6); RBC Distribution Width SD 44.7 fl (35.1-43.9); Red Blood Count 3.77 M/mm3 (4.2-5.4); White Blood Count 5.8 K/mm3 (4.4-11.0)
[2024-03-24 18:15] LABS: ALB/GLOB Ratio 1.5 RATIO (0.9-2.4); AST(SGOT) 17 U/L (15-37); Alanine Aminotransfer ALT/SGPT 52 U/L (13-56); Albumin, Serum 4.1 g/dL (3.2-5.0); Alkaline Phosphatase 60 U/L (45-117); Anion Gap 6 (5-15); BUN 14 mg/dL (7-18); BUN/Creat Ratio 17.7 RATIO (10-20); Calcium,Total 9.3 mg/dL (8.5-10.1); Chloride 110 mmol/L (98-107); Cholesterol 221 mg/dL (200); Creatinine, Serum 0.79 mg/dL (0.55-1.02); EST Glomerular Filtration Rate 81 mL/min (>60); Est Glom Filt Rate - Afr Amer 98 mL/min (>60); Globulin 2.7 g/dL (2.2-4.2); Glucose 86 mg/dL (74-106); High Density Lipoprotein 52 mg/dL; Potassium 4.3 mmol/L (3.5-5.1); Protein, Total 6.8 g/dL (6.4-8.2); Sodium Level 142 mmol/L (136-145); Triglycerides 129 mg/dL; Very Low Density Lipoprotein 26 mg/dL (5-40)
== END | disposition home or self-care (01) ==
LOC: MTLAB 15:56
PROVIDERS: PCP Internal Medicine; Referring Provider Internal Medicine Rheumatology; Visit Provider Internal Medicine Rheumatology
DX: M06.4 Inflammatory polyarthropathy (principal); Z79.899 Other long term (current) drug therapy; M79.7 Fibromyalgia; M17.0 Bilateral primary osteoarthritis of knee
CPT/HCPCS: 36415; 80053; 80061; 85025

== ENCOUNTER → 2024-06-02 | Outpatient (CLI) | payer OTHER, SELFPAY ==
[2024-06-02 10:33] LABS: Anion Gap 5 (5-15); BUN 30 mg/dL (7-18); BUN/Creat Ratio 34.2 RATIO (10-20); Calcium,Total 9.1 mg/dL (8.5-10.1); Chloride 109 mmol/L (98-107); Creatinine, Serum 0.88 mg/dL (0.55-1.02); EST Glomerular Filtration Rate 72 mL/min (>60); Est Glom Filt Rate - Afr Amer 87 mL/min (>60); Glucose 99 mg/dL (74-106); Potassium 4.6 mmol/L (3.5-5.1); Sodium Level 139 mmol/L (136-145)
== END | disposition home or self-care (01) ==
LOC: MTLAB 08:52
PROVIDERS: PCP Internal Medicine; Referring Provider Internal Medicine; Visit Provider Internal Medicine
DX: I10 Essential (primary) hypertension (principal)
CPT/HCPCS: 36415; 80048

== ENCOUNTER → 2024-06-16 | Outpatient (CLI) | payer OTHER, SELFPAY ==
[2024-06-16 17:50] LABS: Absolute Lymphocyte Count 1.92 X10^3/uL (0.83-4.51); Absolute Neutrophil Count 3.6 X10^3/uL (2.0-7.7); Basophil# 0.03 X10^3/uL; Basophil% 0.5 % (0-1); Eosinophil# 0.11 X10^3/uL; Eosinophils% 1.8 % (0-5); Hematocrit 36.4 % (37-47); Hemoglobin 12.3 g/dL (12.0-15.0); Lymphocyte # 1.92 X10^3/ul (0.83-4.51); Lymphocyte % 31.7 % (19-41); Mean Corp Hgb Conc 33.8 g/dL (32-36); Mean Corpuscular Hgb 31.1 pg (27.0-32.0); Mean Corpuscular Volume 92.2 fL (81-99); Mean Platelet Vol. 9.3 fl (6.2-12.0); Monocyte# 0.37 X10^3/uL; Monocyte% 6.1 % (0-10); NRBC Flagged by Analyzer 0 % (0-5); Neutrophil # 3.61 X10^3/uL (2.7-7.7); Neutrophil % 59.6 % (47-70); Platelet Count 224 K/mm3 (150-450); RBC Distribution Width SD 43.9 fl (35.1-43.9); Red Blood Count 3.95 M/mm3 (4.2-5.4); White Blood Count 6.1 K/mm3 (4.4-11.0)
[2024-06-16 18:18] LABS: ALB/GLOB Ratio 2.2 RATIO (0.9-2.4); AST(SGOT) 17 U/L (<=31); Alanine Aminotransfer ALT/SGPT 21 U/L (<=34); Albumin, Serum 4.6 g/dL (3.5-5.0); Alkaline Phosphatase 57 U/L (35-104); Anion Gap 12 (5-15); BUN 20 mg/dL (4-19); BUN/Creat Ratio 20.4 RATIO (10-20); Calcium,Total 9.7 mg/dL (7.6-11.0); Carbon Dioxide 22.5 mmol/L (21.0-32.0); Chloride 106 mmol/L (98-108); Creatinine, Serum 0.99 mg/dL (0.70-1.20); EST Glomerular Filtration Rate 69 (>60); Globulin 2.1 g/dL (2.2-4.2); Glucose 85 mg/dL (70-99); Potassium 4.4 mmol/L (3.3-5.1); Protein, Total 6.7 g/dL (5.9-8.4); Sodium Level 140 mmol/L (133-145); Total Bilirubin 0.43 mg/dL (0.00-1.30)
== END | disposition home or self-care (01) ==
LOC: MTLAB 15:17
PROVIDERS: PCP Internal Medicine; Referring Provider Internal Medicine Rheumatology; Visit Provider Internal Medicine Rheumatology
DX: M06.4 Inflammatory polyarthropathy (principal); Z79.899 Other long term (current) drug therapy; M79.7 Fibromyalgia; M17.0 Bilateral primary osteoarthritis of knee
CPT/HCPCS: 36415; 80053; 85025

== ENCOUNTER → 2024-09-24 | Outpatient (CLI) | payer OTHER, SELFPAY ==
[2024-09-24 15:18] LABS: Absolute Neutrophil Count 3.6 X10^3/uL (2.0-7.7); Basophil# 0.02 X10^3/uL; Basophil% 0.4 % (0-1); Eosinophils% 1.8 % (0-5); Hematocrit 41.6 % (37-47); Lymphocyte % 28.6 % (19-41); Mean Corp Hgb Conc 33.7 g/dL (32-36); Mean Corpuscular Hgb 31.2 pg (27.0-32.0); Mean Corpuscular Volume 92.7 fL (81-99); Mean Platelet Vol. 9.5 fl (6.2-12.0); Monocyte# 0.26 X10^3/uL; Monocyte% 4.6 % (0-10); NRBC Flagged by Analyzer 0 % (0-5); Neutrophil # 3.59 X10^3/uL (2.7-7.7); Neutrophil % 64.1 % (47-70); Platelet Count 241 K/mm3 (150-450); RBC Distribution Width CV 12.8 % (11.6-14.6); RBC Distribution Width SD 43.4 fl (35.1-43.9); Red Blood Count 4.49 M/mm3 (4.2-5.4); White Blood Count 5.6 K/mm3 (4.4-11.0)
[2024-09-24 17:25] LABS: AST(SGOT) 14 U/L (<=31); Alanine Aminotransfer ALT/SGPT 16 U/L (<=34); Albumin, Serum 4.6 g/dL (3.5-5.0); Alkaline Phosphatase 68 U/L (35-104); Anion Gap 10 (5-15); BUN 20 mg/dL (4-19); BUN/Creat Ratio 15.2 RATIO (10-20); Calcium,Total 9.6 mg/dL (7.6-11.0); Carbon Dioxide 24.8 mmol/L (21.0-32.0); Chloride 105 mmol/L (98-108); Creatinine, Serum 1.29 mg/dL (0.70-1.20); EST Glomerular Filtration Rate 50 (>60); Globulin 2.3 g/dL (2.2-4.2); Glucose 99 mg/dL (70-99); Potassium 4.7 mmol/L (3.3-5.1); Protein, Total 6.9 g/dL (5.9-8.4); Sodium Level 139 mmol/L (133-145); Total Bilirubin 0.44 mg/dL (0.00-1.30)
== END | disposition home or self-care (01) ==
LOC: MTLAB 13:35
PROVIDERS: PCP Internal Medicine; Referring Provider Internal Medicine Rheumatology; Visit Provider Internal Medicine Rheumatology
DX: M06.4 Inflammatory polyarthropathy (principal); M79.7 Fibromyalgia; Z79.899 Other long term (current) drug therapy; M17.0 Bilateral primary osteoarthritis of knee
CPT/HCPCS: 36415; 80053; 85025

== ENCOUNTER → 2024-10-01 | Outpatient (CLI) | payer OTHER, SELFPAY ==
--- NOTE | 2024-10-01 12:00 | BI_ITS ---
EXAM: SCRN MAMM (CAD)W/CHRIS BILAT 10/01/2024 CLINICAL HISTORY: F, Age 53 y/o , SCREEN FOR BREAST CANCER TECHNIQUE: Bilateral screening digital breast tomosynthesis with 2D and 3D images. Computer aided detection. COMPARISON: Prior exam(s) dated 07/25/2023, 05/06/2022, 04/30/2021. FINDINGS: TISSUE DENSITY: The breast tissue is heterogenously dense, which may obscure small masses. The mammogram demonstrates that the patient has dense breasts. Supplemental screening with whole breast ultrasound or MRI may be considered for further evaluation. Bilateral Breast Mammographic Findings: There is an asymmetry inferior right breast at middle depth visualized on the MLO view. No significant masses, calcifications or other abnormalities are identified in the left breast. BI/SCRN MAMM (CAD)W/CHRIS BILAT IMPRESSION: 1. The asymmetry in the inferior right breast at middle depth visualized on th e MLO view requires further evaluation. Recommend diagnostic mammogram of the right breast and ultrasound on the day of diagnosti c if indicated. Right Breast: BIRADS 0 Incomplete: Need additional imaging evaluation and/or pr ior mammograms for comparison.. Left Breast: BIRADS 1 NEGATIVE. OVERALL FINAL ASSESSMENT: BIRADS 0 Incomplete: Need additional imaging evaluati on and/or prior mammograms for comparison.. RECOMMENDATION: Additional projections. A letter with findings and recommendations will be mailed to the patient. Reading Location: [id number]
== END | disposition home or self-care (01) ==
PROVIDERS: PCP Internal Medicine; Referring Provider Obstetrics & Gynecology; Visit Provider Obstetrics & Gynecology
DX: Z12.31 Encounter for screening mammogram for malignant neoplasm of breast (principal)
CPT/HCPCS: 77063; 77067

== ENCOUNTER → 2024-10-08 | Outpatient (CLI) | payer OTHER, SELFPAY ==
--- NOTE | 2024-10-08 14:00 | US_ITS ---
EXAM: DIAG MAMM W/CAD, UNILAT; BREAST LIMITED UNILATERAL; RT BRST UNILAT CHRIS ADD-ON 10/08/2024 CLINICAL HISTORY: F, Age 53 y/o , ASSYMETRY RIGHT BREAST; ABNORMAL MAMMOGRAM; ABN MAMM TECHNIQUE: DIAG MAMM W/CAD, UNILAT; BREAST LIMITED UNILATERAL; RT BRST UNILAT CHRIS ADD-ON. COMPARISON: Prior exam(s) dated 10/01/2024, 07/25/2023, 05/06/2022, 04/30/2021. FINDINGS: MAMMOGRAM: TISSUE DENSITY: The breasts are heterogeneously dense, which may obscure small masses. Unilateral Right Breast Mammographic Findings: Follow-up examination performed for the asymmetry in the right breast seen on examination of 10/01/2024. On the present examination, the asymmetry in the inferior right breast at middle depth visualized on the MLO view partially effaces. ULTRASOUND: Right breast: Ultrasound performed of the inferior right breast demonstrates no sonographic correlate. There are no suspicious sonographic findings. US/Breast Limited Unilateral IMPRESSION: The asymmetry in the inferior right breast at middle depth is probably benign. Recommend short interval six-month follow-up diagnostic mammogram of the right breast for further evaluation. OVERALL FINAL ASSESSMENT BI-RADS 3: PROBABLY BENIGN. RECOMMENDATION: 6 Month Follow-up A letter with findings and recommendations will be mailed to the patient. Reading Location: [id number]
--- NOTE | 2024-10-08 14:07 | BI_ITS ---
EXAM: DIAG MAMM W/CAD, UNILAT; BREAST LIMITED UNILATERAL; RT BRST UNILAT CHRIS ADD-ON 10/08/2024 CLINICAL HISTORY: F, Age 53 y/o , ASSYMETRY RIGHT BREAST; ABNORMAL MAMMOGRAM; ABN MAMM TECHNIQUE: DIAG MAMM W/CAD, UNILAT; BREAST LIMITED UNILATERAL; RT BRST UNILAT CHRIS ADD-ON. COMPARISON: Prior exam(s) dated 10/01/2024, 07/25/2023, 05/06/2022, 04/30/2021. FINDINGS: MAMMOGRAM: TISSUE DENSITY: The breasts are heterogeneously dense, which may obscure small masses. Unilateral Right Breast Mammographic Findings: Follow-up examination performed for the asymmetry in the right breast seen on examination of 10/01/2024. On the present examination, the asymmetry in the inferior right breast at middle depth visualized on the MLO view partially effaces. ULTRASOUND: Right breast: Ultrasound performed of the inferior right breast demonstrates no sonographic correlate. There are no suspicious sonographic findings. BI/Rt Brst Unilat Chris Add-On IMPRESSION: The asymmetry in the inferior right breast at middle depth is probably benign. Recommend short interval six-month follow-up diagnostic mammogram of the right breast for further evaluation. OVERALL FINAL ASSESSMENT BI-RADS 3: PROBABLY BENIGN. RECOMMENDATION: 6 Month Follow-up A letter with findings and recommendations will be mailed to the patient. Reading Location: [id number]
== END | disposition home or self-care (01) ==
LOC: OPUS 13:56
PROVIDERS: PCP Internal Medicine; Referring Provider Obstetrics & Gynecology; Visit Provider Obstetrics & Gynecology
DX: R92.8 Other abnormal and inconclusive findings on diagnostic imaging of breast (principal)
CPT/HCPCS: 76642; 77061; 77065; G0279

== ENCOUNTER → 2024-11-19 | Outpatient (CLI) | payer BC, SELFPAY ==
[2024-11-19 17:48] LABS: Hematocrit 39.2 % (37-47); Hemoglobin 12.9 g/dL (12.0-15.0); Immature Granulocytes Count 0.030 X10^3/uL (0.0-0.0); Mean Corp Hgb Conc 32.9 g/dL (32-36); Mean Corpuscular Volume 92.7 fL (81-99); Mean Platelet Vol. 9.8 fl (6.2-12.0); NRBC Flagged by Analyzer 0 % (0-5); Platelet Count 235 K/mm3 (150-450); RBC Distribution Width CV 13.2 % (11.6-14.6); RBC Distribution Width SD 44.5 fl (35.1-43.9); Red Blood Count 4.23 M/mm3 (4.2-5.4); White Blood Count 5.7 K/mm3 (4.4-11.0)
[2024-11-19 18:14] LABS: AST(SGOT) 15 U/L (<=31); Alanine Aminotransfer ALT/SGPT 14 U/L (<=34); Albumin, Serum 4.4 g/dL (3.5-5.0); Alkaline Phosphatase 62 U/L (35-104); Anion Gap 11 (5-15); BUN 14 mg/dL (4-19); BUN/Creat Ratio 17.0 RATIO (10-20); Calcium,Total 9.9 mg/dL (7.6-11.0); Carbon Dioxide 24.1 mmol/L (21.0-32.0); Chloride 105 mmol/L (98-108); Globulin 1.9 g/dL (2.2-4.2); Glucose 109 mg/dL (70-99); Potassium 4.0 mmol/L (3.3-5.1)
== END | disposition home or self-care (01) ==
LOC: MTLAB 14:50
PROVIDERS: PCP Internal Medicine; Referring Provider Internal Medicine Rheumatology; Visit Provider Internal Medicine Rheumatology
DX: M06.4 Inflammatory polyarthropathy (principal); Z79.899 Other long term (current) drug therapy; M79.7 Fibromyalgia; M47.897 Other spondylosis, lumbosacral region
CPT/HCPCS: 36415; 80053; 85025

== ENCOUNTER → 2025-01-14 | Outpatient (CLI) | payer BC, SELFPAY ==
[2025-01-14 13:16] LABS: Cholesterol 235 mg/dL (<=200); Low Density Lipoprotein Calc. 161 mg/dL; Triglycerides 118 mg/dL; Very Low Density Lipoprotein 24 mg/dL (5-40); cholesterol:hdl ratio screen 4.68
[2025-01-14 13:17] LABS: Follicle Stimulating Hormone 4.5 mIU/mL
[2025-01-18 17:08] LABS: Anti-Mullerian Hormone,Serum 0.080 ng/mL (.)
== END | disposition home or self-care (01) ==
PROVIDERS: PCP Internal Medicine; Visit Provider Obstetrics & Gynecology
DX: N95.1 Menopausal and female climacteric states (principal); E78.5 Hyperlipidemia, unspecified
CPT/HCPCS: 36415; 80061; 82627; 82670; 83001; 83498; 83516; 84402; 82626

== ENCOUNTER → 2025-03-18 | Outpatient (CLI) | payer BC, SELFPAY ==
--- OUTSIDE RECORDS SUMMARY | 2025-03-18 07:46 | XMS RPT_ITS | CCD ---
Author Organization [facility] Care Team Providers Care Sub Master Name Role Phone Unavailable Primary Care Provider Dr. Estelita Medina Primary Care Provider 1([phone]) Dr. Estelita Pepe Referring Provider [phone] Dr. Naomy Treviño Attending Provider 1(330 ) Dr. Henrique Khan Attending Provider 1(330) Dr. Naomy Treviño Referring Provider 1(330 ) Dr. Naomy Treviño Other Provider [phone] Dr. Estelita Pepe Primary Care Provider 1(33 0) Dr. Estelita Pepe Referring Provider [phone])2 Dr. Naomy Treviño Attending Provider 1(330 ) Unavailable Primary Care Provider Dr. Estelita Medina Primary Care Provider 1(33 0) Dr. Estelita Pepe Referring Provider 1(330)2 AWA Samuel Attending Provider Dr. Naomy Treviño Attending Provider 1(330 ) Unavailable Primary Care Provider Dr. Estelita Medina Primary Care Provider 1(33 0) Dr. Estelita Pepe Referring Provider [phone])2 Dr. Naomy Treviño Attending Provider 1(330 ) Required, No Pcp Unavailable Unavailable Rahsi Bustos Unavailable Unavailable Ms. Rashi Bustos Bozica Attending Unavail able Dr. Estelita Pepe Primary Care Provider 1(33 0) Afshin, Dr. Collazo Attending Provider [phone])2 Afshin, Dr. Collazo Referring Provider 1(330)2 Afshin, Dr. Collazo Primary Care Provider 1(33 0) Afshin, Dr. Collazo Attending Provider 1(330)2 Afshin, Dr. Collazo Referring Provider [phone])2 Dr. Naomy Treviño Attending Provider 1(330 ) Afshin, Dr. Collazo Primary Care Provider 1(33 0) Afshin, Dr. Collazo Attending Provider 1(330)2 Afshin, Dr. Collazo Referring Provider 1(330)2 Dianna Horowitz Attending Provider Unavailable Dr. Lucia Doll Attending Provider Sharmila, Dr. Myers Other Provider Dr. Estelita Pepe Primary Care Provider 1(33 0) Afshin, Dr. Collazo Referring Provider 1(330)2 Afshin, Dr. Collazo Attending Provider 1(330)2 Afshin, Dr. Collazo Primary Care Provider 1(33 0) Afshin, Dr. Collazo Referring Provider 1(330)2 Dr. Lucia Doll Attending Provider [phone] Sharmila, Dr. Myers Other Provider Dr. Naomy Treviño Attending Provider 1(330 ) Afshin, Dr. Collazo Primary Care Provider 1(33 0) Afshin, Dr. Collazo Referring Provider 1(330)2 Unavailable Primary Care Provider Estelita Medina MD Primary Care Provider 1(3 30) Afshin KOEHLER, Dr. Collazo Primary Care Provider Chris KOEHLER, Dr. Salazar Attending Provider Chris KOEHLER, Dr. Salazar Referring Provider Afshin KOEHLER, Dr. Collazo Attending Provider [phone] Afshin KOEHLER, Dr. Collazo Referring Provider [phone] ELAINE MCKENNA Attending Unavailable LOUIS PORRAS JR Attending Unavailable OLEGHE, EFEWONGBE B Primary Care Unavailable OLEGHE, EFEWONGBE B Primary Care Unavailable OLEGHE, EFEWONGBE B Primary Care Unavailable ELAINE MCKENNA Attending Unavailable Afshin KOEHLER, Dr. Collazo Primary Care Provider Afshin KOEHLER, Dr. Collazo Attending Provider 1(33 0) Afshin KOEHLER, Dr. Collazo Referring Provider 1(33 0) Chris KOEHLER, Dr. Salazar Attending Provider Chris KOEHLER, Dr. Salazar Referring Provider Afshin KOEHLER, Dr. Collazo Primary Care Provider Kamila KOEHLER, Dr. Moralez Attending Provider Kamila KOEHLER, Dr. Moralez Referring Provider Afshin KOEHLER, Dr. Collazo Primary Care Provider Chris KOEHLER, Dr. Salazar Attending Provider Chris KOEHLER, Dr. Salazar Referring Provider Afshin KOEHLER, Dr. Collazo Primary Care Physician Chris KOEHLER, Dr. Salazar Attending Physician [phone] Kamila KOEHLER, Dr. Moralez Attending Physician Afshin KOEHLER, Dr. Collazo Attending Physician 1(3 [phone]) Afshin KOEHLER, Dr. Collazo Referring Provider [phone] Afshin Efewongbe Primary Care Unavailable Afshin Efewongbe Attending Unavailable Oleghe, Efewongbe Referring Unavailable MarcNaomy carpenter Attending Unavailable Oleghe, Efewongbe Primary Care Unavailable Oleghe, Efewongbe Referring Unavailable Oleghe, Efewongbe Primary Care Unavailable Vellanki, Marie Attending Unavailable Vellanki, Marie Referring Unavailable MarcanthonyNaomy Attending Unavailable MarcanthonyNaomy Referring Unavailable Oleghe, Efewongbe Primary Care Unavailable Oleghe, Efewongbe Primary Care Unavailable Naomy Treviño Attending Unavailable Oleghe, Efewongbe Primary Care Unavailable Vellanki, Marie Referring Unavailable Vellanki, Marie Attending Unavailable Oleghe, Efewongbe Primary Care Unavailable Vellanki, Marie Attending Unavailable Vellanki, Marie Referring Unavailable Marcanthony, Naomy Attending Unavailable Marcanthony, Naomy Referring Unavailable Oleghe, Efewongbe Primary Care Unavailable Oleghe, Efewongbe Primary Care Unavailable Vellanki, Marie Attending Unavailable Vellanki, Marie Referring Unavailable Oleghe, Efewongbe Primary Care Unavailable Oleghe, Efewongbe Attending Unavailable Oleghe, Efewongbe Referring Unavailable Oleghe, Efewongbe Primary Care Unavailable Oleghe, Efewongbe Attending Unavailable Oleghe, Efewongbe Referring Unavailable Oleghe, Efewongbe Referring Unavailable Oleghe, Efewongbe Primary Care Unavailable Oleghe, Efewongbe Attending Unavailable Allergies Allergy Classification Reported Allergen(s) Allergy Type Date of Onset Reaction(s) Facility (20 sources) Clindamycin; Translations: [CLINDAMYCIN] Drug Allergy 1 GI Upset, Other: See Comments [facility] (20 sources) Penicillin G; Translations: [PENICILLIN G] Drug Allergy 1 [facility] (1 source) Penicillin Drug Allergy [facility] (1 source) Clindamycin Drug Allergy 5 [facility] (1 source) Penicillin Drug Allergy 5 [facility] Medications Current Medications Medication Drug Class(es) Dates Sig (Normalized) Sig (Original) [id number] 200 actuat albuterol 0.09 mg/actuat metered dose inhaler (20 sources) beta2-Adrenergic Agonist Start: 04-30-2024 Start: 04-23-2021 take 2 puff(s) by in halation every four hours as needed albuterol HFA (PROVENTIL HFA, VENTOLIN HFA) 90 mcg/actuation inhaler Inhale 2 Puffs as instructed every 4 hours as needed. 04/23/2021 Active Start: 04-23-2021 take 1 puff(s) by in halation every four hours Albuterol Sulfate Active 2 PUFF INHALATION Q4H 8.5 April 23, 2021 2:50pm Start: 04-23-2021 End: 11-11-2022 Albuterol Sulfate 90 mcg/act uation HFA aerosol inhaler Discontinued 2 NMA INHALATION Q4H as needed for shortness of breath or wheezing 8.5 3 April 23, 2021 1:00am November 11, 2022 1:06pm Start: 04-23-2021 End: 11-11-2022 take 1 puff(s) by inhalation every four hours Albuterol Sulfate Discontinued 2 PUFF INHALATION Q4H 8.5 April 23, 2021 1:00am November 11, 2022 1:06pm Comment on above: Inhale 2 Puffs as in structed every 4 hours as needed. Blood Pressure Monitor (15 sources) Start: 02-12-2021 Blood Pressure Monitor Active 0 .ROUTE .MEDSUPPLY February 12, 2021 12:40pm As directed Start: 02-12-2021 End: 05-06-2022 Blood Pressure Monitor Disco ntinued 0 .ROUTE .MEDSUPPLY February 12, 2021 12:00am May 06, 2022 11:26am As directed Start: 02-12-2021 End: 05-06-2022 Blood Pressure Monitor Disco ntinued 0 .ROUTE .MEDSUPPLY February 11, 2021 11:00pm May 06, 2022 10:26am As directed Start: 02-12-2021 Blood Pressure Monitor Active 0 .ROUTE .MEDSUPPLY February 11, 2021 11:00pm As directed Start: 02-12-2021 Blood Pressure Monitor Active 0 .ROUTE .MEDSUPPLY February 12, 2021 12:00am As directed diclofenac sodium 50 mg delayed release oral tablet (1 source) Nonsteroidal Anti-inflammatory Drug Start: 12-08-2022 End: 12-22-2022 take 1 tablet by mouth three times daily at mealtime diclofenac sodium 50 mg oral delayed release tablet ; 1 tab(s) orally 3 times a day Quantity: 45 Refills: 0 Ordered: 08-Dec-2022 Rashi Bustos Start: 08-Dec-2022 End: 22-Dec-2022 Generic Substitution Allowed [...] Do not crush.Take with food or milk. Comment on above: Do not take this drug if you are pregnan t.It is very important that you take or use this exactly as directed. Do not skip doses or discontinue unless directed by your doctor.May cause drowsiness or dizziness.Obtain medical advice before taking any non-prescription drugs as some may affect the action of this medication.Swallow whole. Do not crush.Take with food or milk. iv contrast (will be provided with radiology test) (5 sources) Start: 11-27-2021 End: 11-28-2021 iv contrast (will be provided with radiology test) Indications: Demyelinating disease of central nervous system (HCC) MRI CSP Inject, intravenously, once for 1 dose. No IV access, insert saline lock prior to the beginning of sedation, infusion, injection of imaging exam. Discontinue saline lock post exam. If Pt. has a central line or IVAD, may access for administration according to line specific nursing protocol. Once exam is complete flush line and de-access according to line specific nursing protocol in the MR contrast administration guidelines link. 1 Each 0 11/27/2021 11/28/2021 Active Start: 11-26-2021 End: 11-27-2021 inject 1 dose intravenously once iv contrast (will be provided with radiology test) MRI Brain Inject, intravenously, once for 1 dose.No IV access, insert saline lock prior to beginning of sedation, infusion, injection of imaging exam.Discontinue saline lock post exam. If Pt. has a central line or IVAD, may access for administration according to line specific nursing protocol.Once exam is complete flush line and de-access according to line specific nursing protocol in the MR contrast administration guidelines link 1 Each 0 11/26/2021 11/27/2021 Active Start: 11-26-2021 End: 11-27-2021 inject 1 dose intravenously once iv contrast (will be provided with radiology test) MRI TSP Inject, intravenously, once for 1 dose. No IV access, insert saline lock prior to the beginning of sedation, infusion, injection of imaging exam. Discontinue saline lock post exam. If Pt. has a central line or IVAD, may access for administration according to line specific nursing protocol. Once exam is complete flush line and de-access according to line specific nursing protocol in the MR contrast administration guidelines link. 1 Each 0 11/26/2021 11/27/2021 Active Comment on above: MRI Brain Inject, in travenously, once for 1 dose.No IV access, insert saline lock prior to beginning of sedation, infusion, injection of imaging exam.Discontinue saline lock post exam. If Pt. has a central line or IVAD, may access for administration according to line specific nursing protocol.Once exam is complete flush line and de-access according to line specific nursing protocol in the MR contrast administration guidelines link MRI TSP Inject, intr avenously, once for 1 dose. No IV access, insert saline lock prior to the beginning of sedation, infusion, injection of imaging exam. Discontinue saline lock post exam. If Pt. has a central line or IVAD, may access for administration according to line specific nursing protocol. Once exam is complete flush line and de-access according to line specific nursing protocol in the MR contrast administration guidelines link. MRI CSP Inject, intr avenously, once for 1 dose. No IV access, insert saline lock prior to the beginning of sedation, infusion, injection of imaging exam. Discontinue saline lock post exam. If Pt. has a central line or IVAD, may access for administration according to line specific nursing protocol. Once exam is complete flush line and de-access according to line specific nursing protocol in the MR contrast administration guidelines link. L.Acidop,Jose,Lac, Rha-B.Lac,Carlos (Advanced Probiotic) 625 mg (10 billion cell) capsule (20 sources) Start: 1 take 1 capsule by mouth once daily L.Acidop,Jose,Lac, Rha-B.Lac,Carlos (Advanced Probiotic) 625 mg (10 billion cell) capsule Active 1 CAP PO DAILY February 12, 2021 10:57am Start: 02-12-2021 End: 05-06-2022 take 1 capsule by mouth once daily L.Acidop,Jose,Lac,Rha-B.Lac,Carlos (Advanced Probiotic) 625 mg (10 billion cell) capsule Discontinued 1 NMA PO DAILY February 12, 2021 12:00am May 06, 2022 11:26am Start: 02-12-2021 End: 05-06-2022 take 1 capsule by mouth once daily L.Acidop,Jose,Lac,Rha-B.Lac,Carlos (Advanced Probiotic) 625 mg (10 billion cell) capsule Discontinued 1 CAP PO DAILY February 12, 2021 12:00am May 06, 2022 11:26am Start: 02-12-2021 End: 05-06-2022 take 1 capsule by mouth once daily L.Acidop,Jose,Lac,Rha-B.Lac,Carlos (Advanced Probiotic) 625 mg (10 billion cell) capsule Discontinued 1 CAP PO DAILY February 11, 2021 11:00pm May 06, 2022 10:26am Start: 02-12-2021 take 1 capsule by mouth once daily L.Acidop,Jose,Lac,Rha-B.Lac,Carlos (Advanced Probiotic) 625 mg (10 billion cell) capsule Active 1 CAP PO DAILY February 11, 2021 11:00pm Start: 02-12-2021 take 1 capsule by mouth once daily L.Acidop,Jose,Lac,Rha-B.Lac,Carlos (Advanced Probiotic) 625 mg (10 billion cell) capsule Active 1 CAP PO DAILY February 12, 2021 12:00am lisinopril 20 mg oral tablet (20 sources) Angiotensin Converting Enzyme Inhibitor Start: 01-07-2025 take 10 mg by mouth once daily Start: 04-30-2024 End: 01-07-2025 take 1 tablet by mouth once daily Lisinopril 20 mg tablet Discontinued 20 mg PO DAILY 90 September 17, 2024 1:13pm January 07, 2025 3:08pm Start: 09-23-2023 End: 12-05-2023 take 1 tablet by mouth once daily Lisinopril 20 mg tablet Discontinued 20 mg PO DAILY September 23, 2023 1:26pm December 05, 2023 11:16am Start: 02-24-2023 End: 09-23-2023 take 1 tablet by mouth once daily Lisinopril 10 mg tablet Discontinued 10 mg PO DAILY 90 3 February 24, 2023 2:17pm September 23, 2023 1:26pm Start: 02-13-2023 End: 02-24-2023 take 10 mg by mouth once daily Lisinopril Discontinued 10 MG PO DAILY February 13, 2023 4:11pm February 24, 2023 2:17pm Start: 11-03-2021 End: 04-30-2024 take 10 mg by mouth once daily Lisinopril 20 mg tablet Discontinued 10 mg PO DAILY December 05, 2023 11:15am April 30, 2024 11:26am Start: 02-19-2021 End: 02-13-2023 take 1 tablet by mouth once daily Lisinopril 20 mg tablet Discontinued 20 mg PO DAILY 90 3 November 11, 2022 1:33pm February 13, 2023 4:11pm Start: 02-12-2021 End: 02-19-2021 take 1 tablet by mouth once daily Lisinopril 10 mg tablet Discontinued 10 mg PO DAILY 30 0 February 12, 2021 12:00am February 19, 2021 12:25pm Comment on above: Take 20 mg by mouth once daily. Take 10 mg by mouth once daily. Fsucxwfm-Yzxs-Ssn-G reen Tea Ex (15 sources) Start: 08-13-2021 take 1 tablet by mouth once daily Jzxbygoz-Wrxw-Jfv- Green Tea Ex Active TABLET PO DAILY August 13, 2021 11:06am Start: 08-13-2021 End: 05-06-2022 take 1 tablet by mouth once daily Nbvsqnxk-Rccs-Dxn-Green Tea Ex Discontinued TABLET PO DAILY August 13, 2021 12:00am May 06, 2022 11:26am Start: 08-13-2021 End: 05-06-2022 take 1 tablet by mouth once daily Noglmyiy-Twqd-Cdj-Green Tea Ex Discontinued TABLET PO DAILY August 12, 2021 11:00pm May 06, 2022 10:26am Start: 08-13-2021 take 1 tablet by chon once daily Zcawfijr-Vgyu-Iwb-Green Tea Ex Active TABLET PO DAILY August 12, 2021 11:00pm Start: 08-13-2021 take 1 tablet by chon th once daily Wdnbwpom-Hvbk-Poh-Green Tea Ex Active TABLET PO DAILY August 13, 2021 12:00am pregabalin 75 mg oral capsule (20 sources) Start: 05-07-2024 End: 01-10-2025 take 1 capsule by mouth three times daily pregabalin (LYRICA) 75 mg capsule Indications: Paresthesia of skin , Rheumatoid arthritis, involving unspecified site, unspecified whether rheumatoid factor present (HCC) , Fibromyalgia , Migraine without aura and without status migrainosus, not intractable , Cervicalgia Take 1 capsule by mouth three times a day for 180 days. 270 capsule 1 07/14/2024 01/10/2025 Active Start: 08-29-2023 End: 01-07-2025 Pregabalin (Lyrica) 75 mg ca psule Discontinued 100 mg PO THREE TIMES A DAY August 29, 2023 9:46am January 07, 2025 2:40pm Start: 07-18-2023 End: 07-11-2024 take 1 capsule by mouth three times daily pregabalin (LYRICA) 100 mg capsule Indications: Paresthesia of skin , Rheumatoid arthritis, involving unspecified site, unspecified whether rheumatoid factor present (HCC) , Migraine without aura and without status migrainosus, not intractable , Fibromyalgia , Cervicalgia Take 1 capsule by mouth three times a day for 180 days. 270 capsule 1 01/13/2024 05/07/2024 Discontinued Start: 09-16-2022 End: 08-29-2023 take 1 capsule by mouth three times daily Pregabalin (Lyrica) 75 mg capsule Discontinued 75 mg PO THREE TIMES A DAY November 11, 2022 12:00am August 29, 2023 9:47am Start: 05-20-2022 End: 10-27-2022 take 1 capsule by mouth twice daily pregabalin (LYRICA) 75 mg capsule Indications: Paresthesia of skin , Weakness , Pain of left lower extremity , Muscle spasm of left lower extremity , Chronic nonintractable headache, unspecified headache type Take 1 capsule by mouth twice daily for 90 days. 60 capsule 0 07/29/2022 09/16/2022 Discontinued Comment on above: Take 1 capsule by mo ut twice daily for 90 days. Take 1 capsule by mo ut three times daily for 90 days. Take 1 capsule by mo ut three times daily for 30 days. Take 1 capsule by mo ut three times a day for 90 days. Do not start before April 18, 2023. Take 1 capsule by mo ut three times a day for 90 days. Szbthlmc-Cr42-Cnopn r-Citric Ac (15 sources) Start: 08-13-2021 take 1 g by mouth once daily before mealtime Iplusdhm-It96-Lla durga-Citric Ac Active GM PO DAILY August 13, 2021 11:02am Start: 08-13-2021 End: 05-06-2022 take 1 g by mouth once daily before mealtime Jdmnnzuu-Kj02-Fmfeqv-Citric Ac Discontin ued GM PO DAILY August 13, 2021 12:00am May 06, 2022 11:26am Start: 08-13-2021 End: 05-06-2022 take 1 g by mouth once daily before mealtime Dwemupek-Am13-Slzyzn-Citric Ac Discontin ued GM PO DAILY August 12, 2021 11:00pm May 06, 2022 10:26am Start: 08-13-2021 take 1 g by mouth on ce daily before mealtime Lmnghney-Aj99-Abyosh-Citric Ac Active GM PO DAILY August 12, 2021 11:00pm Start: 08-13-2021 take 1 g by mouth on ce daily before mealtime Nrwjewfq-Mb26-Emtwyk-Citric Ac Active GM PO DAILY August 13, 2021 12:00am sulfaSALAzine 500 mg oral tablet (20 sources) Aminosalicylate Start: 02-24-2023 take 1 g by mouth twice daily at mealtime Sulfasalazine Active 1 GM PO TWICE A DAY February 24, 2023 2:03pm give with food (meal/snack) Start: 05-06-2022 End: 02-24-2023 take 1 tablet by mouth twice daily at mealtime Start: 05-06-2022 End: 02-24-2023 take 0.5 g by mouth twice daily at mealtime Sulfasalazine Discontinued 0.5 GM PO TWICE A DAY May 06, 2022 12:33pm February 24, 2023 2:03pm give with food (meal/snack) Start: 05-06-2022 End: 05-06-2022 take 1 tablet by mouth every six hours at mealtime Sulfasalazine 500 mg tablet Discontinued 0.5 g PO EVERY 6 HOURS May 06, 2022 1:00am May 06, 2022 12:34pm give with food (meal/snack) Start: 05-06-2022 End: 05-06-2022 take 0.5 g by mouth every six hours at mealtime Sulfasalazine Discontinued 0.5 GM PO EVERY 6 HOURS May 06, 2022 1:00am May 06, 2022 12:34pm give with food (meal/snack) Start: 04-29-2022 take 2 tablets by mo uth twice daily sulfaSALAzine EC (AZULFIDINE EN) 500 mg EC tablet Take 2 tablets by mouth twice daily. 04/29/2022 Active Start: 04-29-2022 take 1 tablet by chon th twice daily sulfaSALAzine EC (AZULFIDINE EN) 500 mg EC tablet Take 1 tablet by mouth twice daily. 0 04/29/2022 Active Comment on above: Take 1 tablet by chon th twice daily. Take 2 tablets by mo uth twice daily. tacrolimus 0.001 mg/mg topical ointment (9 sources) Calcineurin Inhibitor Immunosuppressant Start: 12-08-2024 Start: 12-05-2023 End: 12-08-2024 Tacrolimus 0.1 % ointment Di scontinued 1 NMA TOPICAL TWICE A DAY 30 0 December 05, 2023 12:00am December 08, 2024 4:17pm Turmeric Root Extract (20 sources) Start: 02-12-2021 take 500 mg by mouth once daily Turmeric Root Extract Active 500 MG PO DAILY February 12, 2021 10:56am Start: 02-12-2021 End: 05-06-2022 take 1 capsule by mouth once daily Turmeric Root Extract 500 mg capsule Discontinued 500 mg PO DAILY February 12, 2021 12:00am May 06, 2022 11:26am Start: 02-12-2021 End: 05-06-2022 take 500 mg by mouth once daily Turmeric Root Extract Discontinued 500 MG PO DAILY February 12, 2021 12:00am May 06, 2022 11:26am Start: 02-12-2021 End: 05-06-2022 take 500 mg by mouth once daily Turmeric Root Extract Discontinued 500 MG PO DAILY February 11, 2021 11:00pm May 06, 2022 10:26am Start: 02-12-2021 take 500 mg by mouth once susan y Turmeric Root Extract Active 500 MG PO DAILY February 11, 2021 11:00pm Start: 02-12-2021 take 500 mg by mouth once susan y Turmeric Root Extract Active 500 MG PO DAILY February 12, 2021 12:00am Completed/Discontinued Medications Medication Drug Class(es) Dates Sig (Normalized) Sig (Original) acetaminophen 325 mg / oxyCODONE hydrochloride 5 mg oral tablet (20 sources) Opioid Agonist Start: 06-26-2021 End: 07-09-2021 Oxycodone-Acetamino phen (Percocet) 5-325 mg tablet Discontinued 1 {tbl} PO EVERY 6 HOURS as needed for pain 20 7 0 June 26, 2021 July 09, 2021 10:47am Menorrhagia with regular cycle Status post vaginal hysterectomy Excessive and frequent menstruation with regular cycle Acquired absence of both cervix and uterus Blood Pressure Monitor kit (7 sources) Start: 02-12-2021 End: 05-06-2022 Blood Pressure Monitor kit Discontinued 0 .ROUTE .MEDSUPPLY 1 0 February 12, 2021 12:00am May 06, 2022 11:26am As directed Start: 02-12-2021 End: 05-06-2022 Blood Pressure Monitor kit D iscontinued 0 .ROUTE .MEDSUPPLY 1 February 12, 2021 12:00am May 06, 2022 11:26am As directed cyclobenzaprine hydrochloride 10 mg oral tablet (20 sources) Muscle Relaxant Start: 02-26-2021 End: 11-11-2022 take 1 tablet by mouth at bedtime as needed for muscle spasms Cyclobenzaprine 10 mg tablet Discontinued 10 mg PO BEDTIME as needed for muscle spasm 90 3 February 04, 2022 10:26am November 11, 2022 1:34pm Comment on above: Take 10 mg by mouth daily at bedtime. doxycycline hyclate 50 mg oral tablet (7 sources) Tetracycline- class Drug Start: 12-05-2023 End: 12-26-2023 take 1 tablet by mouth twice daily Doxycycline Hyclate 50 mg tablet Discontinued 50 mg PO TWICE A DAY 30 0 December 05, 2023 12:00am December 26, 2023 9:58am folic acid 1 mg oral tablet (19 sources) Start: 02-04-2022 End: 05-06-2022 take 2 tablets by mouth once daily Folic Acid 1 mg tablet Discontinued 1 mg PO As Directed February 04, 2022 12:00am May 06, 2022 11:26am 2 tabs daily. hydroCHLOROthiazide 12.5 mg oral tablet (9 sources) Thiazide Diuretic Start: 04-30-2024 End: 01-07-2025 take 1 tablet by mouth once daily in the morning Hydrochlorothiazide 12.5 mg tablet Discontinued 12.5 mg PO EVERY MORNING 30 2 April 30, 2024 1:00am January 07, 2025 2:40pm take 1 capsule by mouth once ryan ly hydroCHLOROthiazide 12.5 mg capsule Take 12.5 mg by mouth once daily. Active L.acid/L.casei/B.bif/B.carlos/F OS (PROBIOTIC BLEND ORAL) (5 sources) End: 05-20-2022 L.acid/L.casei/B.bif/B.carlos/F OS (PROBIOTIC BLEND ORAL) Take 1 capsule by mouth once daily. ProBio 5 by Plexus 0 05/20/2022 Discontinued (Discontinued by Patient) L.acid/L.casei/B .bif/B.carlos/FOS (PROBIOTIC BLEND ORAL) Take 1 capsule by mouth once daily. ProBio 5 by Plexus 0 Active Comment on above: Take 1 capsule by mo uth once daily. ProBio 5 by Plexus MEDICATION, NON-DATABASE (5 sources) End: 05-20-2022 take 2 capsules by mouth once daily MEDICATION, NON-DATABASE Take 2 capsules by mouth once daily. Plexus Bio Cleanse 0 05/20/2022 Discontinued (Discontinued by Patient) take 2 capsules by mouth once da sonia MEDICATION, NON-DATABASE Take 2 capsules by mouth once daily. Plexus Bio Cleanse 0 Active Comment on above: Take 2 capsules by m outh once daily. Plexus Bio Cleanse methotrexate 2.5 mg oral tablet (20 sources) Folate Analog Metabolic Inhibitor Start: 2 End: 3 take 5 tablets by mouth every week Methotrexate Sodium 2.5 mg tablet Discontinued 2.5 mg PO As Directed February 04, 2022 12:00am May 06, 2022 11:26am 5 tablets weekly on Friday. End: 05-20-2022 take 1 tablet by mouth once methotrexate 2.5 mg tablet Take 2.5 mg by mouth one time only. 0 05/20/2022 Discontinued Comment on above: Take 2.5 mg by mouth one time only. Ecvwbtuv-Olod-Nzn-Green Tea Ex 18-0.4-27 mg tablet (7 sources) Start: 08-13-2021 End: 05-06-2022 Cdnlvqir-Rusm-Hmh-Green Tea Ex 18-0.4-27 mg tablet Discontinued {tbl} PO DAILY August 13, 2021 12:00am May 06, 2022 11:26am Multivitamin tablet (7 sources) Start: 12-05-2023 End: 01-14-2025 Multivitamin tablet Discontinued 1 {tbl} PO DAILY December 05, 2023 12:00am January 14, 2025 11:21am Start: 12-05-2023 Multivitamin t ablet Active 1 {tbl} PO DAILY December 05, 2023 12:00am Complies with drug therapy Start: 12-05-2023 Multivitamin t ablet Active 1 {tbl} PO DAILY December 05, 2023 12:00am naproxen 500 mg oral tablet (20 sources) Nonsteroidal Anti-inflammatory Drug Start: 06-26-2021 End: 07-09-2021 take 1 tablet by mouth twice daily as needed for pain Naproxen 500 MG tablet Discontinued 500 mg PO TWICE DAILY NEEDED as needed for Pain 30 June 26, 2021 12:00am July 09, 2021 10:46am norethindrone 0.35 mg oral tablet (20 sources) Start: 03-19-2021 End: 05-07-2021 take 1 tablet by mouth once daily Norethindrone (Contraceptive) (Lily) 0.35 mg tablet Discontinued 0.35 mg PO daily 84 4 March 19, 2021 1:00am May 07, 2021 10:51am start day 1 of menstrual cycle predniSONE 10 mg oral tablet (20 sources) Start: 12-10-2021 End: 02-13-2023 Prednisone 10 mg tablet Discontinued 10 mg PO As Directed February 04, 2022 12:00am February 13, 2023 4:11pm Start: 02-27-2021 End: 02-27-2021 Prednisone 10 mg tablet Disc ontinued 10 mg PO As Directed 30 February 27, 2021 1:00am February 27, 2021 4:23pm 4 tabs PO daily X 3 days, then 3 tabs daily x3 days, then 2 tabs daily x3 days, then 1 tab daily for 3 days then stop. BWC take 1 tablet by chon th once daily predniSONE 10 mg oral tablet ; 1 tab(s) orally once a day for 3-5 days for flares Quantity: 0 Refills: 0 Ordered: 08-Dec-2022 Janet Cheema Generic Substitution Allowed Comment on above: Take 1 tablet by chon th Every 3 Days. With flare takes PRN 3-5 days Take 1 tablet by chon th Every 3 Days. With flare takes PRN 3-5 days As needed Aihdevph-If45-Xbtcf r-Citric Ac 2-30-72 g-mg-mg/4 g powder (7 sources) Start: 08-13-2021 End: 05-06-2022 Veyjktta-Wh41-Grbrpl-C itric Ac 2-30-72 g-mg-mg/4 g powder Discontinued g PO DAILY August 13, 2021 12:00am May 06, 2022 11:26am turmeric root extract 500 mg cap (5 sources) Start: 02-12-2021 End: 05-20-2022 take 1 capsule by mouth once daily turmeric root extract 500 mg cap Take 500 mg by mouth once daily. 0 02/12/2021 05/20/2022 Discontinued (Course of therapy completed) Start: 02-12-2021 take 1 capsule by mo [facility] once daily turmeric root extract 500 mg cap Take 500 mg by mouth once daily. 0 02/12/2021 Active Comment on above: Take 500 mg by mouth once daily. vitamin b6 50 mg oral tablet (20 sources) Start: 02-12-2021 End: 05-06-2022 take 1 tablet by mouth once daily Pyridoxine (Vitamin B6) 50 mg tablet Discontinued 50 mg PO DAILY February 12, 2021 12:00am May 06, 2022 11:26am Start: 06-02-2020 End: 05-07-2024 take 1 tablet by mouth once daily pyridoxine, vitamin B6, (VITAMIN B6) 100 mg tablet Take 100 mg by mouth once daily. 06/02/2020 05/07/2024 Discontinued Comment on above: Take 100 mg by mouth once daily. Problems Active Problems Problem Classification Problem Date Documented Da te Episodic/Chronic Abdominal pain (3 sources) Abdominal pain; Translations: [Pelvic and perineal pain] Onset: 3 12-08-2022 Episodic Comment on above: ABD PAIN Administrative/social admission (20 sources) Administrative reason for encounter; Translations: [Encounter for other administrative examinations] Episodic Allergic reactions (1 source) Allergy status to penicillin; Translations: [Allergy status to penicillin] Onset: 3 Episodic Conditions associated with dizziness or vertigo (20 sources) Dizziness; Translations: [Dizziness and giddiness] 05-07-2021 Episodic Comment on above: Dizziness may be rel ated to high blood pressure. Disorders of lipid metabolism (11 sources) Hyperlipidemia; Translations: [Hyperlipidemia, unspecified] Onset: 5 12-26-2023 Chronic Disorders usually diagnosed in infancy, childhood, or adolescence (11 sources) Attention deficit hyperactivity disorder, predominantly inattentive type; Translations: [Other specified behavioral and emotional disorders with onset usually occurring in childhood and adolescence] Onset: 3 12-31-2022 Chronic Esophageal disorders (20 sources) Gastroesophageal reflux disease without esophagitis; Translations: [Gastro-esophageal reflux disease without esophagitis] 02-12-2021 Chronic Essential hypertension (20 sources) Hypertensive disorder; Translations: [Essential (primary) hypertension] Onset: 3 05-07-2021 Chronic Fever of unknown origin (20 sources) Fever; Translations: [Fever, unspecified] 05-07-2021 Episodic Genitourinary symptoms and ill-defined conditions (20 sources) History of recurrent urinary tract infection; Translations: [Personal history of urinary (tract) infections] 05-07-2021 Episodic Headache; including migraine (18 sources) Tension-type headache; Translations: [Tension-type headache, unspecified, not intractable] Onset: 3 12-31-2022 Chronic Headache; including migraine (20 sources) Headache; Translations: [Headache] Episodic Immunizations and screening for infectious disease (20 sources) Patient encounter status; Translations: [Encounter for screening for COVID-19] 05-07-2021 Episodic Malaise and fatigue (20 sources) Fatigue; Translations: [Other fatigue] Episodic Menopausal disorders (20 sources) Menopausal syndrome; Translations: [Menopausal and female climacteric states] Onset: 5 02-13-2023 Chronic Comment on above: check labs, discusse d options of HRT vs non hormonal therapy. if desired can provide progesterone premenopausal or estrogen only postmenopausal Menstrual disorders (20 sources) Menorrhagia; Translations: [Excessive and frequent menstruation with regular cycle] Chronic Comment on above: discussed medical vs surgical options. plan TVHBS. failed progestin therapy. emb done. cbc tsh us done small fibroids. Nutritional deficiencies (20 sources) Vitamin D deficiency; Translations: [Vitamin D deficiency, unspecified] 02-12-2021 Chronic Osteoarthritis (20 sources) Arthropathy of knee joint; Translations: [Unilateral primary osteoarthritis, unspecified knee] 06-11-2021 Chronic Comment on above: Chronic. H/o surgery of left knee. 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] Onset: 3 Episodic Other aftercare (1 source) Taking high risk medication; Translations: [Other retirement (current) drug therapy] 03-31-2023 Episodic Other aftercare (1 source) H/O: high risk medication; Translations: [Other retirement (current) drug therapy] 05-07-2024 Episodic Other connective tissue disease (20 sources) Fibromyalgia; Translations: [Fibromyalgia] Onset: 3 02-12-2021 Episodic Other connective tissue disease (20 sources) Swelling of hand; Translations: [Other specified soft tissue disorders] 05-07-2021 Episodic Other connective tissue disease (20 sources) Pain in lower limb; Translations: [Pain in right leg] 05-07-2021 Episodic Other connective tissue disease (4 sources) Pain in left lower limb; Translations: [Pain in left leg] Episodic Other connective tissue disease (4 sources) Spasm; Translations: [Other muscle spasm] Episodic Other connective tissue disease (1 source) Myofascial pain syndrome of neck; Translations: [Myalgia, other site] Episodic Other connective tissue disease (1 source) Myofascial pain syndrome of thoracic spine; Translations: [Myalgia, other site] Episodic Other connective tissue disease (1 source) Pain of right upper arm; Translations: [Pain in right upper arm] 05-07-2024 Episodic Other connective tissue disease (1 source) Pain in right upper arm; Translations: [Pain of right upper arm] Onset: 5 Episodic Other connective tissue disease (2 sources) Pain in bilateral legs; Translations: [Pain in right leg] 05-07-2021 Episodic Other gastrointestinal disorders (20 sources) Dysphagia; Translations: [Dysphagia, unspecified] 05-07-2021 Episodic Other inflammatory condition of skin (7 sources) Perioral dermatitis; Translations: [Perioral dermatitis] 12-05-2023 Chronic Other lower respiratory disease (20 sources) H/O: asthma; Translations: [Personal history of other diseases of the respiratory system] 05-07-2021 Episodic Other nervous system disorders (20 sources) Carpal tunnel syndrome; Translations: [Carpal tunnel syndrome, bilateral upper limbs] Onset: 3 05-07-2021 Chronic Other nervous system disorders (2 sources) Demyelinating disease of central nervous system; Translations: [Demyelinating disease of central nervous system, unspecified] Chronic Other nervous system disorders (3 sources) Bilateral carpal tunnel syndrome; Translations: [Carpal tunnel syndrome, bilateral upper limbs] 07-14-2024 Chronic Other nervous system disorders (1 source) Carpal tunnel syndrome, bilateral upper limbs; Translations: [Bilateral carpal tunnel syndrome] Onset: 3 Chronic Other nervous system disorders (20 sources) Numbness and tingling sensation of skin; Translations: [Anesthesia of skin] Onset: 3 08-13-2021 Episodic Other nervous system disorders (20 sources) Numbness of face; Translations: [Anesthesia of skin] 05-07-2021 Episodic Other nervous system disorders (20 sources) Numbness of foot ; Translations: [Other disturbances of skin sensation] 05-07-2021 Episodic Comment on above: Numbness of left gisele l. Other nervous system disorders (14 sources) Paresthesia; Translations: [Paresthesia of skin] Episodic Other nervous system disorders (2 sources) Involuntary movement; Translations: [Unspecified abnormal involuntary movements] Episodic Other nervous system disorders (1 source) Paresthesia of skin; Translations: [Paresthesia of skin] Onset: Episodic Other non-traumatic joint disorders (20 sources) Knee joint effusion; Translations: [Effusion, unspecified knee] 05-09-2021 Episodic Comment on above: Left knee on x-ray. Other non-traumatic joint disorders (20 sources) Osteophyte of left knee; Translations: [Osteophyte, left knee] 03-05-2021 Episodic Comment on above: Small osteophytes of left knee. Other non-traumatic joint disorders (20 sources) Instability of joint of left knee; Translations: [Other instability, left knee] 05-14-2021 Episodic Other nutritional; endocrine; and metabolic disorders (8 sources) Body mass index 30+ - obesity; Translations: [Obesity, unspecified] 08-29-2023 Chronic Other nutritional; endocrine; and metabolic disorders (17 sources) Weight gain; Translations: [Abnormal weight gain] 05-07-2021 Episodic Other nutritional; endocrine; and metabolic disorders (8 sources) Weight increased; Translations: [Abnormal weight gain] 05-07-2021 Episodic Comment on above: Will check thyroid. Other nutritional; endocrine; and metabolic disorders (1 source) Abnormal weight gain; Translations: [Weight gain] Onset: Episodic Other skin disorders (10 sources) Eruption; Translations: [Rash and other nonspecific skin eruption] 08-13-2021 Episodic Other skin disorders (12 sources) Rash and other nonspecific skin eruption; Translations: [Rash of face] 08-13-2021 Episodic Other skin disorders (2 sources) Loss of hair; Translations: [Nonscarring hair loss, unspecified] 10-31-2023 Episodic Other upper respiratory disease (20 sources) Seasonal allergy; Translations: [Other seasonal allergic rhinitis] 05-07-2021 Chronic Ovarian cyst (2 sources) Cyst of ovary; Translations: [Other and unspecified ovarian cyst] Onset: 3 12-08-2022 Episodic Residual codes; unclassified (20 sources) History of lumbar discectomy; Translations: [Other specified postprocedural states] 05-07-2021 Episodic Residual codes; unclassified (20 sources) History of lumbar laminectomy; Translations: [Other specified postprocedural states] 05-07-2021 Episodic Residual codes; unclassified (19 sources) History of vaginal hysterectomy; Translations: [Acquired absence of both cervix and uterus] 07-03-2021 Episodic Comment on above: tvhbs aub fibroids S M Residual codes; unclassified (1 source) Acquired absence of both cervix and uterus; Translations: [Acquired absence of both cervix and uterus] Onset: 3 Episodic Residual codes; unclassified (2 sources) Intolerant of cold; Translations: [Other general symptoms and signs] 10-31-2023 Episodic Rheumatoid arthritis and related disease (20 sources) Rheumatoid arthritis; Translations: [Rheumatoid arthritis, unspecified] Onset: 3 Chronic Spondylosis; intervertebral disc disorders; other back problems (20 sources) Low back pain; Translations: [Low back pain potentially associated with radiculopathy] Onset: 5 02-04-2022 Episodic Comment on above: WITH SCIATICA Sprains and strains (20 sources) Strain of muscle of lower limb; Translations: [Strain of unspecified muscle(s) and tendon(s) at lower leg level, left leg, initial encounter] 06-11-2021 Episodic Comment on above: I recommend orthoped ic consult due to increasing pain. Unclassified (1 source) Ovarian cyst 12-08-2022 Unclassified (19 sources) Cyst ; Translations: [Hemorrhagic cyst] 02-13-2023 Comment on above: repeat US ordered Unclassified (2 sources) Patient encounter status Unclassified (2 sources) Z00.00 - Encounter for general adult medical examination without abnormal findings Viral infection (20 sources) Disease caused by 2019-nCoV; Translations: [COVID-19] 06-19-2021 Episodic Comment on above: 03/2021 Past or Other Problems Problem Classification Problem Date Documented Da te Episodic/Chronic Other connective tissue disease (8 sources) Fibromyalgia; Translations: [Myalgia and myositis, unspecified] Onset: 12-31-2022 11-11-2022 Episodic Other screening for suspected conditions (not mental disorders or infectious disease) (11 sources) Encounter for screening for malignant neoplasm of colon; Translations: [Special screening for malignant neoplasms of colon] Onset: 10-07-2024 03-14-2023 Episodic Comment on above: asymmetry right xena st, Dx mammogram/US Results Test Name Value Interpretation Reference Range Facility 17-Hydroxyprogesteroneon 17ALPHA [place]-PROG 153 ng/dL Normal . [facility] Comment on above: Order Comment: Test( s) [id number] Progesterone LCMSwas developed and its performance characteristicsdetermined by [employer]. It has not been cleared or approvedby the Food and Drug Administration.N Result Comment: Adul t Female Follicular 15 - 70 Luteal 35 - 290 Performed at: [address] [id number] Mental Health Assistant: Shimon Genao MD, Phone: [phone] Performed By: #### L 3300.1500, L3100.9000, L3400.4800, L803.3000, L3100.5125, L3300.1750 ####[facility] [address] [place], [place], [id number] Antimullerian Hormone, Serum on 01-18-2025 AMH, SERUM 0.080 ng/mL Normal . [facility] Comment on above: Result Comment: For assays employing antibodies, the possibility exists for interference by heterophile antibodies in the samples.1 1.Violetta Troncoso. Interferences in Immunoassays - still a threat. Clin. Chem. 2000; 46: 7614-5685. This test was developed and its performance characteristics determined by [employer]. It has not been cleared or approved by the Food and Drug Administration. Reference Range: Females 47 - 54y: <= 0.82 Median <0.03 AMH concentrations of >= 1.06 ng/mL is correlated with a better response to ovarian stimulation, produced more retrievable oocytes and higher odds of live according to Cipriano et al. Fertility and Sterility. 2010: 94:3612-5150. The current AMH test method correlates with the study method with a slope of 0.94. Females at risk of ovarian hyperstimulation syndrome or polycystic ovarian syndrome (PCOS) may exhibit elevated serum AMH concentrations. AMH levels from PCOS patients may be 2 to 5 fold higher than age-appropriate reference interval values. Granulosa cell tumors of the ovary may secrete AMH along with other tumor markers. Elevated AMH is not specific for malignancy, and the assay should not be used exclusively to diagnose or exclude an AMH-secreting ovarian tumor. Performed By: #### L 3300.1500, L3100.9000, L3400.4800, L803.3000, L3100.5125, L3300.1750 ####[facility] [id number] [place], [place], [id number] DHEA Sulfateon 01-18-2025 DHEA SULFATE 60.1 ug/dL Normal 41.2-243.7 [facility] Comment on above: Order Comment: N Performed By: #### L 3300.1500, L3100.9000, L3400.4800, L803.3000, L3100.5125, L3300.1750 ####[facility] [id number] [place], [place], [id number] Testosterone Freeon 01-19-20 25 TESTOSTER FREE 0.2 pg/mL Normal 0.0-4.2 [facility] Comment on above: Result Comment: Perf ormed at: [facility] [employer] [address] [place] [id number] Mental Health Assistant: Angie Singh MD, Phone: [phone] Performed at: [address] [id number] Mental Health Assistant: Kd Miller PhD, Phone: [phone] Performed at: [address] [id number] Mental Health Assistant: Shimon Genao MD, Phone: [phone] Performed By: #### L 3300.1500, L3100.9000, L3400.4800, L803.3000, L3100.5125, L3300.1750 ####[facility] [id number] [place], [place], [id number] Estradiolon 01-14-2025 ESTRADIOL 62.7 pg/mL Normal [facility] Comment on above: Result Comment: FEMA LES ADULT FEMALE: Premenopausal: 15-350 pg/mL(E2 levels vary widely through the menstrual cycle) Postmenopausal: <10 pg/mL SEAN STAGES MEAN AGE REFERENCE RANGES Stage I(>14 days and prepubertal) 7.1 years Undetectable-20 pg/mLL Stage II 10.5 years Undetectable-24 pg/mL Stage III 11.6 years Undetectable-60 pg/mL Stage IV 12.3 years 15-85 pg/mL Stage V 14.5 years 15-350 pg/mL Puberty onset (transition from Sean stage I to Sean stage II) occurs for girls at a median age of 10.5 (/- 2) years. There is evidence that it may occur up to 1 year earlier in obese girls and in girls. Progression through Sean stages is variable. Sean stage V (adult) should be reached by age 18. Performed By: #### L 3300.1500, L3100.9000, L3400.4800, L803.3000, L3100.5125, L3300.1750 ####[facility] [address] [place], [place], [id number] Follicle Stimulating Hormone on 01-14-2025 FSH 4.5 mIU/mL Normal [facility] Comment on above: Result Comment: FEMA LE: Follicular: 1.4 - 18.1 mIU/mL Midcycle: 3.4 - 33.4 mIU/mL Luteal: 1.5 - 9.1 mIU/mL Post Menopause: 23.0 - 116.3 mIU/mL MALE: 1.4 - 18.1 mIU/mL Performed By: #### L 3300.1500, L3100.9000, L3400.4800, L803.3000, L3100.5125, L3300.1750 ####[facility] [id number] [place], [place], [id number] Lipid Profileon 01-14-2025 CHOL:HDL 4.68 Normal [facility] Comment on above: Performed By: #### L 500.4100 ####[facility] [address] [place], [address] Cholesterol [Mass/Vol] 235 mg/dL High <=200 [facility] Comment on above: Result Comment: Chol esterol level, Desirable <200 mg/dL Borderline high cholesterol 200-239 mg/dL High cholesterol >=240 mg/dL Recommendations of the NCEP Adult Treatment Panel for the following risk-cutoff thresholds for the [place] population. Performed By: #### L 500.4100 ####[facility] [id number] [place], [address] Cholesterol in HDL [Mass/Vol] 50 mg/dL Normal [facility] Comment on above: Result Comment: Cami onal Cholesterol Education Program (NCEP) guidelines: <40 mg/dL: Low HDL-cholesterol (major risk factor for CHD) >= 60 mg/dL: High HDL-cholesterol (negative risk factor for CHD) HDL-cholesterol is affected by a number of factors, e.g. smoking, exercise, hormones, sex and age. Performed By: #### L 500.4100 ####[facility] [address] [place], [address] Cholesterol in LDL [Mass/Vol] 161 mg/dL Normal [facility] Comment on above: Result Comment: Bord ckyahn=271-694 mg/dL Higher Kkod=117 mg/dL or greater Friedwald Equation for LDL-C Performed By: #### L 500.4100 ####[facility] [address] [place], [address] Cholesterol in VLDL [Mass/Vol] 24 mg/dL Normal 5-40 [facility] Comment on above: Performed By: #### L 500.4100 ####[facility] [address] [place], [address] Triglyceride [Mass/Vol] 118 mg/dL Normal [facility] Comment on above: Result Comment: The drugs N-Acetylcysteine and Metamizole may falsely depress this assay. Normal range: <150 mg/dL Borderline High: 150-199 mg/dL High: 200-499 mg/dL Very High: >500 mg/dL Performed By: #### L 500.4100 ####[facility] [id number] [place], [address] [employer] S[employer] Developer Office Visit Reporton 01-14-2025 [employer] S[employer] Ssis Developer Office Visit Report [facility] [address], [address] [place] [address] OFFICE VISIT Date of Service: 01/14/25 MR#: [id number] Acct: [id number] Name: SAMUEL MCCRACKEN Rep #: [id number] : 1970 Provider: Dr. 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 Is patient in pain?: No Allergies penicillin G Allergy (Intermediate, Verified 01/14/25 11:21) hives clindamycin Adverse Reaction (Intermediate, Verified 01/14/25 11:21) stomach pain Medications ???Medication ???Instructions ???Recorded ???Confirmed ???Type cyclobenzaprine 10 mg tablet 10 mg PO HS PRN muscle spasm #90 0 11/11/22 01/14/25 Rx tabs sulfasalazine 500 mg tablet 1 g PO BID 02/24/23 01/14/25 Histo ry albuterol sulfate 90 mcg/actuation 2 puff inhalation Q6H PRN 01/14/25 Rx aerosol inhaler shortness of breath or wheezing #8.5 grams tacrolimus 0.1 % topical ointment 1 applic topical BID #30 grams 01/14/25 Rx lisinopril 20 mg tablet 10 mg (1/2 x 20 mg) PO DAILY #90 0 01/07/25 01/14/25 Rx TABLETS Is last menstrual period known: No Post menopausal: No Patient : No : No PFSH Medical History Viral syndrome Hyperlipidemia Obesity (BMI 30-39.9) Marijuana use Dietary restriction Smoker Health care maintenance Colon cancer screening Rheumatoid arthritis IBS (irritable bowel syndrome) Carpal tunnel syndrome Anemia Rheumatic arteritis Depression Alcohol use Arthritis Restless legs Back pain Migraine headache Difficulty swallowing History of IBS Heartburn Asthma Hx of sciatica History of pain when walking Hypertension COVID-19 Encounter for screening for COVID-19 History of wrist fracture Surgical History Hx of colonoscopy S/P vaginal hysterectomy Hx of lumbar discectomy Hx of tubal ligation Hx of tonsillectomy History of surgical removal of meniscus of knee History of removal of cyst Family History Daughter Asthma defect Mother Hypertension Depression Hyperlipidemia Rheumatic arteritis Colon polyps Grandmother Arthritis Cancer Breast CVA (cerebral vascular accident) Diabetes Father Hypertension CVA (cerebral vascular accident) Grandfather Heart disease, Onset Age: 60 M.I. 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 Date Name GA/Weeks Outcome Route Bth Weight Infant Gen Labor Lgth Anesthesia Del Locatn Provider FOB Unknown Renetta 1990 Unknown Marjorie 1996 HPI Encounter for routine gynecological examination Details: SAMUEL MCCRACKEN is a 54 year old who presents for annual exam. Last PAP: hysterectomy History of abnormal PAP: Last mammogram: 10/08/24 - probably benign will need follow up History of abnormal mammogram: 10/08/2024 - benign US Colon cancer screening: colonoscopy 2022 Other preventative health care screenings: PCP Afshin Female Reproductive History Menopausal Symptoms: Yes hot flashes and Yes night sweats ROS Const Constitutional: Reports as per HPI and night sweats; Denies fatigue, increased appetite, poor appetite, weight gain or weight loss Cardio Card: Denies chest pain Resp Resp: Denies cough or dyspnea GI GI: Reports as per HPI; Denies abdominal pain, bloating, constipation, nausea or vomiting : Reports as per HPI, hot flashes and other; Denies difficulty voiding, dysuria, hematuria, nipple discharge, pelvic pain, prolapse symptoms, urinary frequency, urinary incontinence, urinary urgency, vaginal dischar (more content not included)... Normal [facility] Internal Medicine Office Vis iton 01-07-2025 Internal Medicine Office Visit [facility] Internal Medicine [address] [place] [address] [place] [address] OFFICE VISIT Date of Service: 01/07/25 MR#: [id number] Acct: [id number] Name: SAMUEL MCCRACKEN Rep #: [id number] : 1970 Provider: Dr. Estelita nava MD Age/Sex: 54/F Location[place] [facility] [place] Status: Signed Intake Vital Signs 04/30/24 10:24 01/07/25 14:37 Height 5 ft 4 in 5 ft 4 in Weight: 182 lb 8 oz BMI 31.3 BP 128/78 H Blood Pressure Location Lt brachial Position Sitting Respiration 16 Pulse 109 H Pulse Source Monitor Temp 98.7 F Temp Source Temporal Pulse Oximetry (%) 97 Oxygen Delivery Method room air Intake Visit Reasons: 3 M FU Chief Complaint: FU Nursery Attendant Required: No Accompanied by: Self Is patient in pain?: No Allergies penicillin G Allergy (Intermediate, Verified 01/07/25 14:37) hives clindamycin Adverse Reaction (Intermediate, Verified 01/07/25 14:37) stomach pain Medications ???Medication ???Instructions ???Recorded ???Confirmed ???Type cyclobenzaprine 10 mg tablet 10 mg PO HS PRN muscle spasm #90 0 11/11/22 01/07/25 Rx tabs sulfasalazine 500 mg tablet 1 g PO BID 02/24/23 01/07/25 Histo ry multivitamin 1 tab PO DAILY 12/05/23 01/07/25 H istory albuterol sulfate 90 mcg/actuation 2 puff inhalation Q6H PRN 01/07/25 Rx aerosol inhaler shortness of breath or wheezing #8.5 grams tacrolimus 0.1 % topical ointment 1 applic topical BID #30 grams 01/07/25 Rx lisinopril 20 mg tablet 10 mg (1/2 x 20 mg) PO DAILY #90 0 01/07/25 01/07/25 Rx TABLETS Nurse's Note: follow up [facility] Medical History Viral syndrome Hyperlipidemia Obesity (BMI 30-39.9) Marijuana use Dietary restriction Smoker Health care maintenance Colon cancer screening Rheumatoid arthritis IBS (irritable bowel syndrome) Carpal tunnel syndrome Anemia Rheumatic arteritis Depression Alcohol use Arthritis Restless legs Back pain Migraine headache Difficulty swallowing History of IBS Heartburn Asthma Hx of sciatica History of pain when walking Hypertension COVID-19 Encounter for screening for COVID-19 History of wrist fracture Surgical History Hx of colonoscopy S/P vaginal hysterectomy Hx of lumbar discectomy Hx of tubal ligation Hx of tonsillectomy History of surgical removal of meniscus of knee History of removal of cyst Family History Daughter Asthma defect Mother Hypertension Depression Hyperlipidemia Rheumatic arteritis Colon polyps Grandmother Arthritis Cancer Breast CVA (cerebral vascular accident) Diabetes Father Hypertension CVA (cerebral vascular accident) Grandfather Heart disease, Onset Age: 60 M.I. 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 sexually active: Yes Smoking Status: Current some day smoker tobacco type: e-cigarettes alcohol intake: current alcohol intake frequency: holidays/special occasions only substance use type: does not use what type of physical activity do you participate in: weight training and other details: Cardio frequency: 1-2 times per week do you feel safe at home: Yes additional social history: single HPI HPI Chief Complaint: FU Details: SAMUEL MCCRACKEN, is a 54-year-old female presenting for management of chronic conditions, notably essential hypertension, rheumatoid arthritis, and past elevated cholesterol levels. History of hypertension. Her hypertension has improved significantly, with blood pressure readings now around 120/80 mmHg, attributed largely to a weight loss of approximately 30 pounds over a few months. She had been previously prescribed lisinopril 20 mg but is currently maintaining well on 10 mg of lisinopril daily. The patient's elevated cholesterol was brought up due to prior history; there is concern that recent dietary changes might affect her cholesterol levels. She initially followed a carnivore diet but has gradually incorporated carbohydrates such as fruits and rice to assess tolerability and identify any upset with these foods. Her rheumatoid arthritis is being managed successfully with sulfasalazine 1 g BID, which has prevented any substantial flare-ups since diagnosed. The patient reports no symptoms such as joint pain or swelling, suggesting effective symptom control. Other chronic medical conditions are stable. Not open to the flu (more content not included)... Normal [facility] Absolute lymphocyte countOrd ered By: Marie Perez on 11-19-2024 Lymphocytes Auto (Unsp spec) [#/Vol] 1.83 10*3/uL 0.83-4.51 [facility] Absolute neutrophil countOrd ered By: Marie Perez on 11-19-2024 Neutrophils (Bld) [#/Vol] 3.4 10*3/uL 2.0-7.7 [facility] Anion gap in Serum or Plasma Ordered By: Marie Perez on 11-19-2024 Anion gap [Moles/Vol] 11 mmol/L 5-15 [facility] Automated lymphocyte count a s percentage of total leukocytesOrdered By: Marie Perez on 11-19-2024 Lymphocytes/100 WBC Auto (Unsp spec) 32.2 % 19-41 [facility] BUN/creatinine ratioOrdered By: Marie Perez on 11-19-2024 Urea nitrogen/Creatinine [Mass ratio] 17.0 mg/mg 10-20 [facility] Basophil percentageOrdered B y: Marie Perazalynne on 11-19-2024 Basophils/100 WBC (Bld) 0.4 % 0-1 [facility] Bilirubin, totalOrdered By: Marie Perez on 11-19-2024 Bilirubin [Mass/Vol] 0.26 mg/dL 0.00-1.30 [facility] CBC W/Diff, Automatedon Absolute Lymph 1.83 X10 3/uL Normal 0.83-4.51 [facility] Comment on above: Performed By: #### L 500.4050, L100.0100 ####[facility] [address] [place], [address] Absolute Neut 3.4 X10 3/uL Normal 2.0-7.7 [facility] Comment on above: Performed By: #### L 500.4050, L100.0100 ####[facility] [address] [place], [address] Basophils/100 WBC (Bld) 0.4 % Normal 0-1 [facility] Comment on above: Performed By: #### L 500.4050, L100.0100 ####[facility] [address] [place], [address] Eosinophils/100 WBC (Bld) 1.4 % Normal 0-5 [facility] Comment on above: Performed By: #### L 500.4050, L100.0100 ####[facility] [address] [place], [address] Erythrocyte distribution width (RBC) [Ratio] 13.2 % Normal 11.6-14.6 [facility] Comment on above: Performed By: #### L 500.4050, L100.0100 ####[facility] [address] [place], [address] Hematocrit (Bld) [Volume fraction] 39.2 % Normal 37-47 [facility] Comment on above: Performed By: #### L 500.4050, L100.0100 ####[facility] [address] [place], [address] Hemoglobin (Bld) [Mass/Vol] 12.9 g/dL Normal 12.0-15.0 [facility] Comment on above: Performed By: #### L 500.4050, L100.0100 ####[facility] [address] [place], [address] IG% 0.500 Normal 0.0-0.9 [facility] Comment on above: Result Comment: IG% - Immature Granulocytes (promyelocytes, myelocytes and metamyelocytes) > 1% indicates that a LEFT SHIFT is Present. Performed By: #### L 500.4050, L100.0100 ####[facility] [address] [place], [address] Lymphocytes/100 WBC (Bld) 32.2 % Normal 19-41 [facility] Comment on above: Performed By: #### L 500.4050, L100.0100 ####[facility] [address] [place], [address] MCH (RBC) [Entitic mass] 30.5 pg Normal 27.0-32.0 [facility] Comment on above: Performed By: #### L 500.4050, L100.0100 ####[facility] [address] [place], [address] MCHC (RBC) [Mass/Vol] 32.9 g/dL Normal 32-36 [facility] Comment on above: Performed By: #### L 500.4050, L100.0100 ####[facility] [address] [place], [address] MCV (RBC) [Entitic vol] 92.7 fL Normal 81-99 [facility] Comment on above: Performed By: #### L 500.4050, L100.0100 ####[facility] [address] [place], [address] Monocytes/100 WBC (Bld) 5.6 % Normal 0-10 [facility] Comment on above: Performed By: #### L 500.4050, L100.0100 ####[facility] [address] [place], [address] Neutrophils/100 WBC (Bld) 59.9 % Normal 47-70 [facility] Comment on above: Performed By: #### L 500.4050, L100.0100 ####[facility] [address] [place], [address] Nucleated RBC (Bld) [#/Vol] 0 10*3/uL Normal 0-5 [facility] Comment on above: Performed By: #### L 500.4050, L100.0100 ####[facility] [address] [place], [address] Platelet mean volume (Bld) [Entitic vol] 9.8 fL Normal 6.2-12.0 [facility] Comment on above: Performed By: #### L 500.4050, L100.0100 ####[facility] [address] [place], [address] Platelets (Bld) [#/Vol] 235 10*3/uL Normal 150-450 [facility] Comment on above: Performed By: #### L 500.4050, L100.0100 ####[facility] [address] [place], [address] RBC (Bld) [#/Vol] 4.23 10*6/uL Normal 4.2-5.4 [facility] Comment on above: Performed By: #### L 500.4050, L100.0100 ####[facility] [address] [place], [address] RDW SD 44.5 fl High 35.1-43.9 [facility] Comment on above: Performed By: #### L 500.4050, L100.0100 ####[facility] [address] [place], [address] WBC (Bld) [#/Vol] 5.7 10*3/uL Normal 4.4-11.0 [facility] Comment on above: Performed By: #### L 500.4050, L100.0100 ####[facility] [address] [place], [address] Carbon dioxide, total [Moles /volume] in Central venous bloodOrdered By: Marie Perez on 11-19-2024 CO2 [Moles/Vol] 24.1 mmol/L 21.0-32.0 [facility] Chloride assayOrdered By: Awa Perez on 11-19-2024 Chloride [Moles/Vol] 105 mmol/L 98-108 [facility] Comprehensive Metabolic Prof ilon 11-19-2024 Albumin [Mass/Vol] 4.4 g/dL Normal 3.5-5.0 [facility] Comment on above: Performed By: #### L 500.4050, L100.0100 ####[facility] [address] [place], [address] Albumin/Globulin [Mass ratio] 2.4 {ratio} Normal 0.9-2.4 [facility] Comment on above: Performed By: #### L 500.4050, L100.0100 ####[facility] [address] [place], [address] ALK PHOS 62 U/L Normal 35-104 [facility] Comment on above: Performed By: #### L 500.4050, L100.0100 ####[facility] [address] [place], [address] ALT [Catalytic activity/Vol] 14 U/L Normal <=34 [facility] Comment on above: Performed By: #### L 500.4050, L100.0100 ####[facility] [address] [place], [address] AST [Catalytic activity/Vol] 15 U/L Normal <=31 [facility] Comment on above: Performed By: #### L 500.4050, L100.0100 ####[facility] [address] [place], [address] Bilirubin [Mass/Vol] 0.26 mg/dL Normal 0.00-1.30 [facility] Comment on above: Performed By: #### L 500.4050, L100.0100 ####[facility] [address] [place], [address] BUN/CRE 17.0 RATIO Normal 10-20 [facility] Comment on above: Performed By: #### L 500.4050, L100.0100 ####[facility] [address] [place], [address] Calcium [Mass/Vol] 9.9 mg/dL Normal 7.6-11.0 [facility] Comment on above: Performed By: #### L 500.4050, L100.0100 ####[facility] [address] [place], [address] Chloride [Moles/Vol] 105 mmol/L Normal 98-108 [facility] Comment on above: Performed By: #### L 500.4050, L100.0100 ####[facility] [address] [place], [address] CO2 [Moles/Vol] 24.1 mmol/L Normal 21.0-32.0 [facility] Comment on above: Performed By: #### L 500.4050, L100.0100 ####[facility] [address] [place], [address] Creatinine [Mass/Vol] 0.81 mg/dL Normal 0.70-1.20 [facility] Comment on above: Performed By: #### L 500.4050, L100.0100 ####[facility] [address] [place], [address] GAP 11 Normal 5-15 [facility] Comment on above: Performed By: #### L 500.4050, L100.0100 ####[facility] [address] [place], [address] GFR/1.73 sq M.predicted among non-blacks MDRD (S/P/Bld) [Vol rate/Area] 88 mL/min/{1.73_m2} Normal >60 [facility] Comment on above: Result Comment: mL/m in/1.73m2 CKD-EPI Creatinine Equation (2020) Performed By: #### L 500.4050, L100.0100 ####[facility] [address] [place], [address] Globulin (S) [Mass/Vol] 1.9 g/dL Low 2.2-4.2 [facility] Comment on above: Performed By: #### L 500.4050, L100.0100 ####[facility] [address] [place], [address] Glucose [Mass/Vol] 109 mg/dL High 70-99 [facility] Comment on above: Performed By: #### L 500.4050, L100.0100 ####[facility] [address] [place], [address] Potassium [Moles/Vol] 4.0 mmol/L Normal 3.3-5.1 [facility] Comment on above: Performed By: #### L 500.4050, L100.0100 ####[facility] [address] [place], [address] Sodium [Moles/Vol] 140 mmol/L Normal 133-145 [facility] Comment on above: Performed By: #### L 500.4050, L100.0100 ####[facility] [address] [place], [address] T PROT 6.3 g/dL Normal 5.9-8.4 [facility] Comment on above: Performed By: #### L 500.4050, L100.0100 ####[facility] [address] [place], [address] Urea nitrogen [Mass/Vol] 14 mg/dL Normal 4-19 [facility] Comment on above: Performed By: #### L 500.4050, L100.0100 ####[facility] [address] [place], [address] Eosinophil percentageOrdered By: Marie Perez on 11-19-2024 Eosinophils/100 WBC (Bld) 1.4 % 0-5 [facility] Erythrocyte distribution wid th ratioOrdered By: Marie Perez on 11-19-2024 Erythrocyte distribution width (RBC) [Ratio] 13.2 % 11.6-14.6 [facility] Erythrocyte distribution wid th standard deviationOrdered By: Marie Perez on 11-19-2024 Erythrocyte distribution width (RBC) [Ratio] 44.5 fl High 35.1-43.9 [facility] Glomerular filtration rate ( GFR) estimation/1.73 sq m using serum, plasma, or whole bOrdered By: Marie Perez on 11-19-2024 GFR/1.73 sq M.predicted among non-blacks MDRD (S/P/Bld) [Vol rate/Area] 88 mL/min/{1.73_m2} >60 [facility] Comment on above: mL/min/1.73m2 CKD-EP I Creatinine Equation (2020) Hematocrit Auto (Bld) [Volum e fraction]Ordered By: Marie Perez on 11-19-2024 Hematocrit (Bld) [Volume fraction] 39.2 % 37-47 [facility] Hemoglobin measurementOrdere d By: Marie Perez on 11-19-2024 Hemoglobin (Bld) [Mass/Vol] 12.9 g/dL 12.0-15.0 [facility] Immature granulocytes/100 WB C Auto (Bld)Ordered By: Marie Perez on 11-19-2024 Immature granulocytes/100 WBC (Bld) 0.500 % 0.0-0.9 [facility] Comment on above: IG% - Immature Granu locytes (promyelocytes, myelocytes and metamyelocytes) > 1% indicates that a LEFT SHIFT is Present. Laboratory - Chemistry and C hemistry - challengeOrdered By: Marie Perez on 11-19-2024 AST [Catalytic activity/Vol] 15 U/L <32 [facility] MCV (mean corpuscular volume ) determinationOrdered By: Marie Perez on 11-19-2024 MCV (RBC) [Entitic vol] 92.7 fL 81-99 [facility] Mean corpuscular hemoglobin (MCH) determinationOrdered By: Marie Perez on 11-19-2024 MCH (RBC) [Entitic mass] 30.5 pg 27.0-32.0 [facility] Mean corpuscular hemoglobin concentration (MCHC) determinationOrdered By: Marie Perez on 11-19-2024 MCHC (RBC) [Mass/Vol] 32.9 g/dL 32-36 [facility] Mean platelet volume determi nationOrdered By: Marie Perez on 11-19-2024 Platelet mean volume (Bld) [Entitic vol] 9.8 fL 6.2-12.0 [facility] Monocyte percentageOrdered B y: Marie Perez on 11-19-2024 Monocytes/100 WBC (Bld) 5.6 % 0-10 [facility] Neutrophil percentageOrdered By: Marie Perez on 11-19-2024 Neutrophils/100 WBC (Bld) 59.9 % 47-70 [facility] Nucleated red blood cell per centageOrdered By: Marie Perez on 11-19-2024 Nucleated RBC/100 WBC (Bld) [Ratio] 0 % 0-5 [facility] Platelet countOrdered By: Awa Perez on 11-19-2024 Platelets (Bld) [#/Vol] 235 10*3/uL 150-450 [facility] Potassium measurement (mass/ volume)Ordered By: Marie Perez on 11-19-2024 Potassium (Unsp spec) [Mass/Vol] 4.0 mmol/L 3.3-5.1 [facility] RBC Auto (Bld) [#/Vol]Ordere d By: Marie Perez on 11-19-2024 RBC (Bld) [#/Vol] 4.23 10*6/uL 4.2-5.4 [facility] Serum creatinine measurement (mass/volume)Ordered By: Marie Perez on 11-19-2024 Creatinine [Mass/Vol] 0.81 mg/dL 0.70-1.20 [facility] Serum globulin measurementOr dered By: Marie Perez on 11-19-2024 Globulin (S) [Mass/Vol] 1.9 g/dL Low 2.2-4.2 [facility] Serum glucose measurement (m ass/volume)Ordered By: Marie Perez on 11-19-2024 Glucose [Mass/Vol] 109 mg/dL High 70-99 [facility] Serum or plasma alanine puckett otransferase (ALT) measurementOrdered By: Marie Perez on 11-19-2024 ALT [Catalytic activity/Vol] 14 U/L <35 [facility] Serum or plasma albumin jessica urement (mass/volume)Ordered By: Marie Perez on 11-19-2024 Albumin [Mass/Vol] 4.4 g/dL 3.5-5.0 [facility] Serum or plasma albumin/glob ulin mass ratioOrdered By: Marie Perez on 11-19-2024 Albumin/Globulin [Mass ratio] 2.4 {ratio} 0.9-2.4 [facility] Serum or plasma alkaline mariah sphatase measurementOrdered By: Marie Perez 11-19-2024 ALP [Catalytic activity/Vol] 62 U/L 35-104 [facility] Serum or plasma calcium jessica urement (mass/volume)Ordered By: Marie Perez on 11-19-2024 Calcium [Mass/Vol] 9.9 mg/dL 7.6-11.0 [facility] Serum or plasma urea nitroge n measurement (mass/volume)Ordered By: Marie Perez on 11-19-2024 Urea nitrogen [Mass/Vol] 14 mg/dL 4-19 [facility] Sodium levelOrdered By: Dirk Perez on 11-19-2024 Sodium [Moles/Vol] 140 mmol/L 133-145 [facility] Total proteinOrdered By: Amelia Perez on 11-19-2024 Protein [Mass/Vol] 6.3 g/dL 5.9-8.4 [facility] White blood cell (WBC) count Ordered By: Marie Perez on 11-19-2024 WBC (Bld) [#/Vol] 5.7 10*3/uL 4.4-11.0 [facility] Breast Limited Unilateralon 10-08-2024 Breast Limited Unilateral [facility] Imaging Services [address] [place] [address] [id number] Breast Limited Unilateral MR#: [id number] Acct: [id number] Name: SAMUEL MCCRACKEN Rep #: [id number] : 1970 F 53 From: Lolis Fernandez MD PCP: Dr. Estelita Pepe MD Status: REG CLI Study: Breast Limited Unilateral Date of Exam: Exam# [id number] Ordering Dr: Naomy Treviño EXAM: DIAG MAMM W/CAD, UNILAT; BREAST LIMITED UNILATERAL; RT BRST UNILAT OSMIN ADD-ON 10/08/2024 CLINICAL HISTORY: F, Age 53 y/o , ASSYMETRY RIGHT BREAST; ABNORMAL MAMMOGRAM; ABN MAMM TECHNIQUE: DIAG MAMM W/CAD, UNILAT; BREAST LIMITED UNILATERAL; RT BRST UNILAT OSMIN ADD-ON. COMPARISON: Prior exam(s) dated 10/01/2024, 07/25/2023, 05/06/2022, 04/30/2021. FINDINGS: MAMMOGRAM: TISSUE DENSITY: The breasts are heterogeneously dense, which may obscure small masses. Unilateral Right Breast Mammographic Findings: Follow-up examination performed for the asymmetry in the right breast seen on examination of 10/01/2024. On the present examination, the asymmetry in the inferior right breast at middle depth visualized on the MLO view partially effaces. ULTRASOUND: Right breast: Ultrasound performed of the inferior right breast demonstrates no sonographic correlate. There are no suspicious sonographic findings. US/Breast Limited Unilateral IMPRESSION: The asymmetry in the inferior right breast at middle depth is probably benign. Recommend short interval six-month follow-up diagnostic mammogram of the right breast for further evaluation. OVERALL FINAL ASSESSMENT BI-RADS 3: PROBABLY BENIGN. RECOMMENDATION: 6 Month Follow-up A letter with findings and recommendations will be mailed to the patient. Reading Location: [facility] CC: Dr. Estelita Pepe MD; Dr. Naomy Treviño MD Salesperson Art Objects: Signed Normal [facility] Breast imaging reportOrdered By: Lolis Fernandez on 10-08-2024 Study report [facility] Imaging Services [address] [place] [address] [id number] DIAG MAMM W/CAD, UNILAT MR#: [id number] Acct: [id number] Name: SAMUEL MCCRACKEN Rep #: [id number] : 1970 F 53 From: Rand Fernandez MD PCP: Dr. Estelita Pepe MD Status: R EG CLI Study:DIAG MAMM W/CAD, UNILAT Date of Exam: 10/08/24 Exam# [id number] Ordering Dr: Naomy Chamberlain MD EXAM: DIAG MAMM W/CAD, UNILAT; BREAST LIMITED UNILATERAL; RT BRST UNILAT OSMIN ADD-ON 10/08/2024 CLINICAL HISTORY: F, Age 53 y/o , ASSYMETRY RIGHT BREAST; ABNORMAL MAMMOGRAM; ABN MAMM TECHNIQUE: DIAG MAMM W/CAD, UNILAT; BREAST LIMITED UNILATERAL; RT BRST UNILAT OSMIN ADD-ON. COMPARISON: Prior exam(s) dated 10/01/2024, 07/25/2023, 05/06/2022, 04/30/2021. FINDINGS: MAMMOGRAM: TISSUE DENSITY: The breasts are heterogeneously dense, which may obscure small masses. Unilateral Right Breast Mammographic Findings: Follow-up examination performed for the asymmetry in the right breast seen on examination of 10/01/2024. On the present examination, the asymmetry in the inferior right breast at middle depth visualized on the MLO view partially effaces. ULTRASOUND: Right breast: Ultrasound performed of the inferior right breast demonstrates no sonographic correlate. There are no suspicious sonographic findings. BI/DIAG MAMM W/CAD, UNILAT IMPRESSION: The asymmetry in the inferior right breast at middle depth is probably benign. Recommend short interval six-month follow-up diagnostic mammogram of the right breast for further evaluation. OVERALL FINAL ASSESSMENT BI-RADS 3: PROBABLY BENIGN. RECOMMENDATION: 6 Month Follow-up A letter with findings and recommendations will be mailed to the patient. Reading Location: [facility] CC: Dr. Estelita Pepe MD; Dr. Naomy Treviño MD ~ Salesperson Art Objects: Signed [facility] Study report [facility] Imaging Services [address] [place] [address] [id number] Rt Brst Unilat Osmin Add-On MR#: [id number] Acct: [id number] Name: SAMUEL MCCRACKEN Rep #: [id number] : 1970 F 53 From: Rand Fernandez MD PCP: Dr. Estelita Pepe MD Status: R EG CLI Study:Rt Brst Unilat Osmin Add-On Date of Exam : 10/08/24 Exam# [id number] Ordering Dr: Naomy Chamberlain MD EXAM: DIAG MAMM W/CAD, UNILAT; BREAST LIMITED UNILATERAL; RT BRST UNILAT OSMIN ADD-ON 10/08/2024 CLINICAL HISTORY: F, Age 53 y/o , ASSYMETRY RIGHT BREAST; ABNORMAL MAMMOGRAM; ABN MAMM TECHNIQUE: DIAG MAMM W/CAD, UNILAT; BREAST LIMITED UNILATERAL; RT BRST UNILAT OSMIN ADD-ON. COMPARISON: Prior exam(s) dated 10/01/2024, 07/25/2023, 05/06/2022, 04/30/2021. FINDINGS: MAMMOGRAM: TISSUE DENSITY: The breasts are heterogeneously dense, which may obscure small masses. Unilateral Right Breast Mammographic Findings: Follow-up examination performed for the asymmetry in the right breast seen on examination of 10/01/2024. On the present examination, the asymmetry in the inferior right breast at middle depth visualized on the MLO view partially effaces. ULTRASOUND: Right breast: Ultrasound performed of the inferior right breast demonstrates no sonographic correlate. There are no suspicious sonographic findings. BI/Rt Brst Unilat Osmin Add-On IMPRESSION: The asymmetry in the inferior right breast at middle depth is probably benign. Recommend short interval six-month follow-up diagnostic mammogram of the right breast for further evaluation. OVERALL FINAL ASSESSMENT BI-RADS 3: PROBABLY BENIGN. RECOMMENDATION: 6 Month Follow-up A letter with findings and recommendations will be mailed to the patient. Reading Location: [facility] CC: Dr. Estelita Pepe MD; Dr. Naomy Treviño MD ~ Salesperson Art Objects: Signed [facility] DIAG MAMM W/CAD, UNILATon DIAG MAMM W/CAD, UNILAT [facility] Imaging Services [address] [place] [address] [id number] DIAG MAMM W/CAD, UNILAT MR#: [id number] Acct: [id number] Name: SAMUEL MCCRACKEN Rep #: [id number] : 1970 F 53 From: Lolis Fernandez MD PCP: Dr. Estelita Pepe MD Status: REG CLI Study: DIAG MAMM W/CAD, UNILAT Date of Exam: 10/08/24 Exam# [id number] Ordering Dr: Naomy Treviño EXAM: DIAG MAMM W/CAD, UNILAT; BREAST LIMITED UNILATERAL; RT BRST UNILAT OSMIN ADD-ON 10/08/2024 CLINICAL HISTORY: F, Age 53 y/o , ASSYMETRY RIGHT BREAST; ABNORMAL MAMMOGRAM; ABN MAMM TECHNIQUE: DIAG MAMM W/CAD, UNILAT; BREAST LIMITED UNILATERAL; RT BRST UNILAT OSMIN ADD-ON. COMPARISON: Prior exam(s) dated 10/01/2024, 07/25/2023, 05/06/2022, 04/30/2021. FINDINGS: MAMMOGRAM: TISSUE DENSITY: The breasts are heterogeneously dense, which may obscure small masses. Unilateral Right Breast Mammographic Findings: Follow-up examination performed for the asymmetry in the right breast seen on examination of 10/01/2024. On the present examination, the asymmetry in the inferior right breast at middle depth visualized on the MLO view partially effaces. ULTRASOUND: Right breast: Ultrasound performed of the inferior right breast demonstrates no sonographic correlate. There are no suspicious sonographic findings. BI/DIAG MAMM W/CAD, UNILAT IMPRESSION: The asymmetry in the inferior right breast at middle depth is probably benign. Recommend short interval six-month follow-up diagnostic mammogram of the right breast for further evaluation. OVERALL FINAL ASSESSMENT BI-RADS 3: PROBABLY BENIGN. RECOMMENDATION: 6 Month Follow-up A letter with findings and recommendations will be mailed to the patient. Reading Location: [facility] CC: Dr. Estelita Pepe MD; Dr. Naomy Treviño MD Salesperson Art Objects: Signed Normal [facility] Rt Brst Unilat Osmin Add-Onon 10-08-2024 Rt Brst Unilat Osmin Add-On [facility] Imaging Services [address] [place], [place] [id number] Rt Brst Unilat Osimn Add-On MR#: [id number] Acct: [id number] Name: SAMUEL MCCRACKEN Rep #: [id number] : 1970 F 53 From: Lolis Fernandez MD PCP: Dr. Estelita Pepe MD Status: REG CLI Study: Rt Brst Unilat Osmin Add-On Date of Exam: 10/08 Exam# [id number] Ordering Dr: Naomy Treviño EXAM: DIAG MAMM W/CAD, UNILAT; BREAST LIMITED UNILATERAL; RT BRST UNILAT OSMIN ADD-ON 10/08/2024 CLINICAL HISTORY: F, Age 53 y/o , ASSYMETRY RIGHT BREAST; ABNORMAL MAMMOGRAM; ABN MAMM TECHNIQUE: DIAG MAMM W/CAD, UNILAT; BREAST LIMITED UNILATERAL; RT BRST UNILAT OSMIN ADD-ON. COMPARISON: Prior exam(s) dated 10/01/2024, 07/25/2023, 05/06/2022, 04/30/2021. FINDINGS: MAMMOGRAM: TISSUE DENSITY: The breasts are heterogeneously dense, which may obscure small masses. Unilateral Right Breast Mammographic Findings: Follow-up examination performed for the asymmetry in the right breast seen on examination of 10/01/2024. On the present examination, the asymmetry in the inferior right breast at middle depth visualized on the MLO view partially effaces. ULTRASOUND: Right breast: Ultrasound performed of the inferior right breast demonstrates no sonographic correlate. There are no suspicious sonographic findings. BI/Rt Brst Unilat Osmin Add-On IMPRESSION: The asymmetry in the inferior right breast at middle depth is probably benign. Recommend short interval six-month follow-up diagnostic mammogram of the right breast for further evaluation. OVERALL FINAL ASSESSMENT BI-RADS 3: PROBABLY BENIGN. RECOMMENDATION: 6 Month Follow-up A letter with findings and recommendations will be mailed to the patient. Reading Location: [facility] CC: Dr. Estelita Pepe MD; Dr. Naomy Treviño MD Salesperson Art Objects: Signed Normal [facility] Breast imaging reportOrdered By: Lolis Fernandez on 10-01-2024 Study report [facility] Imaging Services [address] [place] [place], [place] [id number] SCRN MAMM (CAD)W/OSMIN BILAT MR#: [id number] Acct: [id number] Name: SAMUEL MCCRACKEN Rep #: [id number] : 1970 F 53 From: Rand Fernandez MD PCP: Dr. Estelita Pepe MD Status: R EG CLI Study:SCRN MAMM (CAD)W/OSMIN BILAT Date of Exa m: 10/01/24 Exam# [id number] Ordering Dr: Naomy Chamberlain MD EXAM: SCRN MAMM (CAD)W/OSMIN BILAT 10/01/2024 CLINICAL HISTORY: F, Age 53 y/o , SCREEN FOR BREAST CANCER TECHNIQUE: Bilateral screening digital breast tomosynthesis with 2D and 3D images. Computeraided detection. COMPARISON: Prior exam(s) dated 07/25/2023, 05/06/2022, 04/30/2021. FINDINGS: TISSUE DENSITY: The breast tissue is heterogenously dense, which may obscure small masses. The mammogram demonstrates that the patient has dense breasts. Supplemental screening with whole breast ultrasound or MRI may be considered for further evaluation. Bilateral Breast Mammographic Findings: There is an asymmetry inferior right breast at middle depth visualized on the MLO view. No significant masses, calcifications or other abnormalities are identified in the left breast. BI/SCRN MAMM (CAD)W/OSMIN BILAT IMPRESSION: 1. The asymmetry in the inferior right breast at middle depth visualized on theMLO view requires further evaluation. Recommend diagnostic mammogram of the right breast and ultrasound on the day of diagnosticif indicated. Right Breast: BIRADS 0 Incomplete: Need additional imaging evaluation and/or prior mammograms for comparison.. Left Breast: BIRADS 1 NEGATIVE. OVERALL FINAL ASSESSMENT: BIRADS 0 Incomplete: Need additional imaging evaluation and/or prior mammograms for comparison.. RECOMMENDATION: Additional projections. A letter with findings and recommendations will be mailed to the patient. Reading Location: [facility] CC: Dr. Estelita Pepe MD; Dr. Naomy Treviño MD ~ Salesperson Art Objects: Signed [facility] SCRN MAMM (CAD)W/OSMIN BILATo n 10-01-2024 SCRN MAMM (CAD)W/OSMIN BILAT [facility] Imaging Services [address] [place] [id number] SCRN MAMM (CAD)W/OSMIN BILAT MR#: [id number] Acct: [id number] Name: SAMUEL MCCRACKEN Rep #: [id number] : 1970 F 53 From: Lolis Fernandez MD PCP: Dr. Estelita Pepe MD Status: REG CLI Study: SCRN MAMM (CAD)W/OSMIN BILAT Date of Exam: 09/13 Exam# [id number] Ordering Dr: Naomy Treviño EXAM: SCRN MAMM (CAD)W/OSMIN BILAT 10/01/2024 CLINICAL HISTORY: F, Age 53 y/o , SCREEN FOR BREAST CANCER TECHNIQUE: Bilateral screening digital breast tomosynthesis with 2D and 3D images. Computer aided detection. COMPARISON: Prior exam(s) dated 07/25/2023, 05/06/2022, 04/30/2021. FINDINGS: TISSUE DENSITY: The breast tissue is heterogenously dense, which may obscure small masses. The mammogram demonstrates that the patient has dense breasts. Supplemental screening with whole breast ultrasound or MRI may be considered for further evaluation. Bilateral Breast Mammographic Findings: There is an asymmetry inferior right breast at middle depth visualized on the MLO view. No significant masses, calcifications or other abnormalities are identified in the left breast. BI/SCRN MAMM (CAD)W/OSMIN BILAT IMPRESSION: 1. The asymmetry in the inferior right breast at middle depth visualized on the MLO view requires further evaluation. Recommend diagnostic mammogram of the right breast and ultrasound on the day of diagnostic if indicated. Right Breast: BIRADS 0 Incomplete: Need additional imaging evaluation and/or prior mammograms for comparison.. Left Breast: BIRADS 1 NEGATIVE. OVERALL FINAL ASSESSMENT: BIRADS 0 Incomplete: Need additional imaging evaluation and/or prior mammograms for comparison.. RECOMMENDATION: Additional projections. A letter with findings and recommendations will be mailed to the patient. Reading Location: [facility] CC: Dr. Estelita Pepe MD; Dr. Naomy Treviño MD Salesperson Art Objects: Signed Normal [facility] Absolute lymphocyte countOrd ered By: Marie Perez on 09-24-2024 Lymphocytes Auto (Unsp spec) [#/Vol] 1.60 10*3/uL 0.83-4.51 [facility] Absolute neutrophil countOrd ered By: Marie Perez on 09-24-2024 Neutrophils (Bld) [#/Vol] 3.6 10*3/uL 2.0-7.7 [facility] Anion gap in Serum or Plasma Ordered By: Marie Perez on 09-24-2024 Anion gap [Moles/Vol] 10 mmol/L 5- [facility] Automated lymphocyte count a s percentage of total leukocytesOrdered By: Marie Preez on 09-24-2024 Lymphocytes/100 WBC Auto (Unsp spec) 28.6 % - [facility] BUN/creatinine ratioOrdered By: [facility] Chris on 09-24-2024 Urea nitrogen/Creatinine [Mass ratio] 15.2 mg/mg 10- [facility] Basophil percentageOrdered B y: Marie Perez on 09-24-2024 Basophils/100 WBC (Bld) 0.4 % 0- [facility] Bilirubin, totalOrdered By: Marie Perez on 09-24-2024 Bilirubin [Mass/Vol] 0.44 mg/dL 0.00-1.30 [facility] CBC W/Diff, Automatedon 09-12 Absolute Lymph 1.60 X10 3/uL Normal 0.83-4.51 [facility] Comment on above: Performed By: #### L 100.0100, L500.4050 ####[facility] [address] [place], [address] Absolute Neut 3.6 X10 3/uL Normal 2.0-7.7 [facility] Comment on above: Performed By: #### L 100.0100, L500.4050 ####[facility] [address] [place], [address] Basophils/100 WBC (Bld) 0.4 % Normal 0-1 [facility] Comment on above: Performed By: #### L 100.0100, L500.4050 ####[facility] [address] [place], [address] Eosinophils/100 WBC (Bld) 1.8 % Normal 0-5 [facility] Comment on above: Performed By: #### L 100.0100, L500.4050 ####[facility] [address] [place], [address] Erythrocyte distribution width (RBC) [Ratio] 12.8 % Normal 11.6-14.6 [facility] Comment on above: Performed By: #### L 100.0100, L500.4050 ####[facility] [address] [place], [address] Hematocrit (Bld) [Volume fraction] 41.6 % Normal 37-47 [facility] Comment on above: Performed By: #### L 100.0100, L500.4050 ####[facility] [address] [place], [address] Hemoglobin (Bld) [Mass/Vol] 14.0 g/dL Normal 12.0-15.0 [facility] Comment on above: Performed By: #### L 100.0100, L500.4050 ####[facility] [address] [place], [address] IG% 0.500 Normal 0.0-0.9 [facility] Comment on above: Result Comment: IG% - Immature Granulocytes (promyelocytes, myelocytes and metamyelocytes) > 1% indicates that a LEFT SHIFT is Present. Performed By: #### L 100.0100, L500.4050 ####[facility] [address] [place], [address] Lymphocytes/100 WBC (Bld) 28.6 % Normal 19-41 [facility] Comment on above: Performed By: #### L 100.0100, L500.4050 ####[facility] [address] [place], [address] MCH (RBC) [Entitic mass] 31.2 pg Normal 27.0-32.0 [facility] Comment on above: Performed By: #### L 100.0100, L500.4050 ####[facility] [address] [place], [address] MCHC (RBC) [Mass/Vol] 33.7 g/dL Normal 32-36 [facility] Comment on above: Performed By: #### L 100.0100, L500.4050 ####[facility] [address] [place], [address] MCV (RBC) [Entitic vol] 92.7 fL Normal 81-99 [facility] Comment on above: Performed By: #### L 100.0100, L500.4050 ####[facility] [address] [place], [address] Monocytes/100 WBC (Bld) 4.6 % Normal 0-10 [facility] Comment on above: Performed By: #### L 100.0100, L500.4050 ####[facility] [address] [place], [address] Neutrophils/100 WBC (Bld) 64.1 % Normal 47-70 [facility] Comment on above: Performed By: #### L 100.0100, L500.4050 ####[facility] [address] [place], [address] Nucleated RBC (Bld) [#/Vol] 0 10*3/uL Normal 0-5 [facility] Comment on above: Performed By: #### L 100.0100, L500.4050 ####[facility] [address] [place], [address] Platelet mean volume (Bld) [Entitic vol] 9.5 fL Normal 6.2-12.0 [facility] Comment on above: Performed By: #### L 100.0100, L500.4050 ####[facility] [address] [place], [address] Platelets (Bld) [#/Vol] 241 10*3/uL Normal 150-450 [facility] Comment on above: Performed By: #### L 100.0100, L500.4050 ####[facility] [address] [place], [address] RBC (Bld) [#/Vol] 4.49 10*6/uL Normal 4.2-5.4 [facility] Comment on above: Performed By: #### L 100.0100, L500.4050 ####[facility] [address] [place], [address] RDW SD 43.4 fl Normal 35.1-43.9 [facility] Comment on above: Performed By: #### L 100.0100, L500.4050 ####[facility] [address] [place], [address] WBC (Bld) [#/Vol] 5.6 10*3/uL Normal 4.4-11.0 [facility] Comment on above: Performed By: #### L 100.0100, L500.4050 ####[facility] [address] [place], [address] Carbon dioxide, total [Moles /volume] in Central venous bloodOrdered By: Marie Perez on 09-24-2024 CO2 [Moles/Vol] 24.8 mmol/L 21.0-32.0 [facility] Chloride assayOrdered By: Awa Perez on 09-24-2024 Chloride [Moles/Vol] 105 mmol/L 98-108 [facility] Comprehensive Metabolic Prof ilon 09-24-2024 Albumin [Mass/Vol] 4.6 g/dL Normal 3.5-5.0 [facility] Comment on above: Performed By: #### L 100.0100, L500.4050 ####[facility] [address] [place], [address] Albumin/Globulin [Mass ratio] 2.0 {ratio} Normal 0.9-2.4 [facility] Comment on above: Performed By: #### L 100.0100, L500.4050 ####[facility] [address] [place], [address] ALK PHOS 68 U/L Normal 35-104 [facility] Comment on above: Performed By: #### L 100.0100, L500.4050 ####[facility] [address] [place], [address] ALT [Catalytic activity/Vol] 16 U/L Normal <=34 [facility] Comment on above: Performed By: #### L 100.0100, L500.4050 ####[facility] [address] [place], [address] AST [Catalytic activity/Vol] 14 U/L Normal <=31 [facility] Comment on above: Performed By: #### L 100.0100, L500.4050 ####[facility] [address] [place], [address] Bilirubin [Mass/Vol] 0.44 mg/dL Normal 0.00-1.30 [facility] Comment on above: Performed By: #### L 100.0100, L500.4050 ####[facility] [address] [place], [address] BUN/CRE 15.2 RATIO Normal 10-20 [facility] Comment on above: Performed By: #### L 100.0100, L500.4050 ####[facility] [address] [place], [address] Calcium [Mass/Vol] 9.6 mg/dL Normal 7.6-11.0 [facility] Comment on above: Performed By: #### L 100.0100, L500.4050 ####[facility] [address] [place], [address] Chloride [Moles/Vol] 105 mmol/L Normal 98-108 [facility] Comment on above: Performed By: #### L 100.0100, L500.4050 ####[facility] [address] [place], [address] CO2 [Moles/Vol] 24.8 mmol/L Normal 21.0-32.0 [facility] Comment on above: Performed By: #### L 100.0100, L500.4050 ####[facility] [address] [place], [address] Creatinine [Mass/Vol] 1.29 mg/dL High 0.70-1.20 [facility] Comment on above: Performed By: #### L 100.0100, L500.4050 ####[facility] [address] [place], [address] GAP 10 Normal 5-15 [facility] Comment on above: Performed By: #### L 100.0100, L500.4050 ####[facility] [address] [place], [address] GFR/1.73 sq M.predicted among non-blacks MDRD (S/P/Bld) [Vol rate/Area] 50 mL/min/{1.73_m2} Low >60 [facility] Comment on above: Result Comment: mL/m in/1.73m2 CKD-EPI Creatinine Equation (2020) Performed By: #### L 100.0100, L500.4050 ####[facility] [address] [place], [address] Globulin (S) [Mass/Vol] 2.3 g/dL Normal 2.2-4.2 [facility] Comment on above: Performed By: #### L 100.0100, L500.4050 ####[facility] [address] [place], [address] Glucose [Mass/Vol] 99 mg/dL Normal 70-99 [facility] Comment on above: Performed By: #### L 100.0100, L500.4050 ####[facility] [address] [place], [address] Potassium [Moles/Vol] 4.7 mmol/L Normal 3.3-5.1 [facility] Comment on above: Performed By: #### L 100.0100, L500.4050 ####[facility] [address] [place], [address] Sodium [Moles/Vol] 139 mmol/L Normal 133-145 [facility] Comment on above: Performed By: #### L 100.0100, L500.4050 ####[facility] [address] [place], [address] T PROT 6.9 g/dL Normal 5.9-8.4 [facility] Comment on above: Performed By: #### L 100.0100, L500.4050 ####[facility] [address] [place], [address] Urea nitrogen [Mass/Vol] 20 mg/dL High 4-19 [facility] Comment on above: Performed By: #### L 100.0100, L500.4050 ####[facility] [address] [place], [address] Eosinophil percentageOrdered By: Marie Perez on 09-24-2024 Eosinophils/100 WBC (Bld) 1.8 % 0-5 [facility] Erythrocyte distribution wid th ratioOrdered By: Marie Perez on 09-24-2024 Erythrocyte distribution width (RBC) [Ratio] 12.8 % 11.6-14.6 [facility] Erythrocyte distribution wid th standard deviationOrdered By: Marie Perez on 09-24-2024 Erythrocyte distribution width (RBC) [Ratio] 43.4 fl 35.1-43.9 [facility] Glomerular filtration rate ( GFR) estimation/1.73 sq m using serum, plasma, or whole bOrdered By: Marie Perez on 09-24-2024 GFR/1.73 sq M.predicted among non-blacks MDRD (S/P/Bld) [Vol rate/Area] 50 mL/min/{1.73_m2} Low >60 [facility] Comment on above: mL/min/1.73m2 CKD-EP I Creatinine Equation (2020) Hematocrit Auto (Bld) [Volum e fraction]Ordered By: Marie Perez on 09-24-2024 Hematocrit (Bld) [Volume fraction] 41.6 % 37-47 [facility] Hemoglobin measurementOrdere d By: Marie Perez on 09-24-2024 Hemoglobin (Bld) [Mass/Vol] 14.0 g/dL 12.0-15.0 [facility] Immature granulocytes/100 WB C Auto (Bld)Ordered By: Marie Perze on 09-24-2024 Immature granulocytes/100 WBC (Bld) 0.500 % 0.0-0.9 [facility] Comment on above: IG% - Immature Granu locytes (promyelocytes, myelocytes and metamyelocytes) > 1% indicates that a LEFT SHIFT is Present. Laboratory - Chemistry and C hemistry - challengeOrdered By: Marie Perez on 09-24-2024 AST [Catalytic activity/Vol] 14 U/L <32 [facility] MCV (mean corpuscular volume ) determinationOrdered By: Marie Perez on 09-24-2024 MCV (RBC) [Entitic vol] 92.7 fL 81-99 [facility] Mean corpuscular hemoglobin (MCH) determinationOrdered By: Marie Perez on 09-24-2024 MCH (RBC) [Entitic mass] 31.2 pg 27.0-32.0 [facility] Mean corpuscular hemoglobin concentration (MCHC) determinationOrdered By: Marie Perez on 09-24-2024 MCHC (RBC) [Mass/Vol] 33.7 g/dL 32-36 [facility] Mean platelet volume determi nationOrdered By: Marie Perez on 09-24-2024 Platelet mean volume (Bld) [Entitic vol] 9.5 fL 6.2-12.0 [facility] Monocyte percentageOrdered B y: Marie Perez on 09-24-2024 Monocytes/100 WBC (Bld) 4.6 % 0-10 [facility] Neutrophil percentageOrdered By: Marie Perez on 09-24-2024 Neutrophils/100 WBC (Bld) 64.1 % 47-70 [facility] Nucleated red blood cell per centageOrdered By: Marie Perez on 09-24-2024 Nucleated RBC/100 WBC (Bld) [Ratio] 0 % 0-5 [facility] Platelet countOrdered By: Awa Perez on 09-24-2024 Platelets (Bld) [#/Vol] 241 10*3/uL 150-450 [facility] Potassium measurement (mass/ volume)Ordered By: Marie Perez on 09-24-2024 Potassium (Unsp spec) [Mass/Vol] 4.7 mmol/L 3.3-5.1 [facility] RBC Auto (Bld) [#/Vol]Ordere d By: Marie Perez on 09-24-2024 RBC (Bld) [#/Vol] 4.49 10*6/uL 4.2-5.4 [facility] Serum creatinine measurement (mass/volume)Ordered By: Marie Perez on 09-24-2024 Creatinine [Mass/Vol] 1.29 mg/dL High 0.70-1.20 [facility] Serum globulin measurementOr dered By: Marie Perez on 09-24-2024 Globulin (S) [Mass/Vol] 2.3 g/dL 2.2-4.2 [facility] Serum glucose measurement (m ass/volume)Ordered By: Marie Perez on 09-24-2024 Glucose [Mass/Vol] 99 mg/dL 70-99 [facility] Serum or plasma alanine puckett otransferase (ALT) measurementOrdered By: Marie Perez on 09-24-2024 ALT [Catalytic activity/Vol] 16 U/L <35 [facility] Serum or plasma albumin jessica urement (mass/volume)Ordered By: Marie Perez on 09-24-2024 Albumin [Mass/Vol] 4.6 g/dL 3.5-5.0 [facility] Serum or plasma albumin/glob ulin mass ratioOrdered By: Marie Perez on 09-24-2024 Albumin/Globulin [Mass ratio] 2.0 {ratio} 0.9-2.4 [facility] Serum or plasma alkaline mariah sphatase measurementOrdered By: Marie Perez on 09-24-2024 ALP [Catalytic activity/Vol] 68 U/L 35-104 [facility] Serum or plasma calcium jessica urement (mass/volume)Ordered By: Marie Perez on 09-24-2024 Calcium [Mass/Vol] 9.6 mg/dL 7.6-11.0 [facility] Serum or plasma urea nitroge n measurement (mass/volume)Ordered By: Marie Perez on 09-24-2024 Urea nitrogen [Mass/Vol] 20 mg/dL High 4-19 [facility] Sodium levelOrdered By: Dirk Perez on 09-24-2024 Sodium [Moles/Vol] 139 mmol/L 133-145 [facility] Total proteinOrdered By: Amelia Perez on 09-24-2024 Protein [Mass/Vol] 6.9 g/dL 5.9-8.4 [facility] [facility] White blood cell (WBC) count Ordered By: Marie Perez on 09-24-2024 WBC (Bld) [#/Vol] 5.6 10*3/uL 4.4-11.0 [facility] CNOVon 07-14-2024 CNOV Office Visit (JULIO ) -- SAMUEL MCCRACKEN ([id number]) 1970 F Date Time Provider Department 07/14/24 3:30 PM ELAINE MCKENNA During your visit today, we recorded the following information about you: Pulse Blood pressure Weight 71/minute 121/77 86.5 kg Elaine Mckenna PA-C 07/14/2024 4:06 PM Signed [facility] Name: Samuel Mccracken Age: [age] year old Gender: female Primary Care Provider: Estelita Pepe MD Assessment/Plan: 07/14/2024 - General Neurology, Elaine Mckenna PA-C ASSESSMENT ASSESSMENT/PLAN: 1. Paresthesia of skin - ICD9: 782.0, ICD10: R20.2 (primary diagnosis) 2. Rheumatoid arthritis, involving unspecified site, unspecified whether rheumatoid factor present (HCC) - ICD9: 714.0, ICD10: M06.9 3. Fibromyalgia - ICD9: 729.1, ICD10: M79.7 Stable, no new symptoms. Continuing Lyrica 75 mg 3 times daily, refill sent today. 4. Migraine without aura and without status migrainosus, not intractable - ICD9: 346.10, ICD10: G43.009 Has been asymptomatic in terms of headaches. Tolerated going down on Lyrica well. 5. Cervicalgia - ICD9: 723.1, ICD10: M54.2 No significant neck pain today. 6. Weight gain - ICD9: 783.1, ICD10: R63.5 Notes improvement, lost about 13 pounds since last appointment. Feels that decreasing the Lyrica was helpful with this. Also notes edema has resolved in her lower extremities, was put on hydrochlorothiazide and took this for about a month with significant improvement. 7. Bilateral carpal tunnel syndrome - ICD9: 354.0, ICD10: G56.03 Still experiencing symptoms of bilateral carpal tunnel, worse on the right. 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 Does wear wrist splints when she goes home but is unable to wear them at work. Denies any significant weakness, more just discomfort at the wrist and into the first 3 digits of the hand. Occasionally will radiate throughout the entire hand as well. Discussed possible referral to orthopedics should things worsen but patient would like to defer at this time she does not have the time to take off work. No other new symptoms that would warrant additional workup at this time. Encouraged conservative therapy. Patient agreeable to treatment plan of care at this time, all questions were answered. Patient to follow-up in 6 months. Elaine Mckenna PA-C Encounter Diagnosis ICD-10-CM 1. Paresthesia of skin R20.2 pregabalin (LYRICA) 75 mg capsule 2. Rheumatoid arthritis, involving unspecified site, unspecified whether rheumatoid factor present (HCC) M06.9 pregabalin (LYRICA) 75 mg capsule 3. Fibromyalgia M79.7 pregabalin (LYRICA) 75 mg capsule 4. Migraine without aura and without status migrainosus, not intractable G43.009 pregabalin (LYRICA) 75 mg capsule 5. Cervicalgia M54.2 pregabalin (LYRICA) 75 mg capsule 6. Weight gain R63.5 7. Bilateral carpal tunnel syndrome G56.03 Return in about 6 months (around 01/13/2025). Chart, labs,and relevant images reviewed. Chief Complaint:Patient presents with: Established Patient: Parathesia of skin, cold intolerance Chart Review: 05/07/[address] Porras ASSESSMENT/PLAN: 1. Paresthesia of skin - ICD9: 782.0, ICD10: R20.2 (primary diagnosis) 2. Rheumatoid arthritis, involving unspecified site, unspecified whether rheumatoid factor present (HCC) - ICD9: 714.0, ICD10: M06.9 3. Fibromyalgia - ICD9: 729.1, ICD10: M79.7 4. Migraine without aura and without status migrainosus, not intractable - ICD9: 346.10, ICD10: G43.009 All symptoms stable on Lyrica 100mg TID. However, now having pedal edema. Unfortunately do not have PCP labs and will request. However, if workup for other causes of edema (vascular, cardiac) -- pt reports they have -- will try to lower dose of Lyrica to 75mg TID to see if swelling decreases while also maintaining pain control. Will continue to lower dose as tolerated. 5. Pain of right upper arm - ICD9: 729.5, ICD10: M79.621 6. Cervicalgia - ICD9: 723.1, ICD10: M54.2 Uncertain etiology. Later pt reports some cervical pain, but most of pain appears to be from prox arm to hand. Etiology uncertain. Not constant or following pattern of plexitis. Possible CTS - reports h/o R CTS in past - note most recent EMG/NCV was of LUE. Also possible due to C radic. Patient not wanting additional testing at this time. She will try to use a wrist splint of the next 1-2 weeks. However, if no improvement, pt will contact us at such time, will proceed with EMG/NCV. Pt agrees with plan. 7. Long-term use of high-risk medication - ICD9: V58.69, ICD10: Z79.899 - TOXICOLOGY SCREEN, ROUTINE URINE (Cannot get today due to lab being closed at time of appt). Requesting in the next week. Note pt does admit to rare cannabis use - social. Prior tox screen neg for cannabinoids. Pt aware of possible interaction of such with Lyrica. (more content not included)... Normal [facility] Absolute lymphocyte countOrd ered By: Marie Perez on 06-16-2024 Lymphocytes Auto (Unsp spec) [#/Vol] 1.92 10*3/uL 0.83-4.51 [facility] Absolute neutrophil countOrd ered By: Marie Perez on 06-16-2024 Neutrophils (Bld) [#/Vol] 3.6 10*3/uL 2.0-7.7 [facility] Anion gap in Serum or Plasma Ordered By: Marie Perez on 06-16-2024 Anion gap [Moles/Vol] 12 mmol/L 5-15 [facility] Automated lymphocyte count a s percentage of total leukocytesOrdered By: Marie Perez on 06-16-2024 Lymphocytes/100 WBC Auto (Unsp spec) 31.7 % 19-41 [facility] BUN/creatinine ratioOrdered By: Marie Perez on 06-16-2024 Urea nitrogen/Creatinine [Mass ratio] 20.4 mg/mg High 10-20 [facility] Basophil percentageOrdered B y: Marie Perez on 06-16-2024 Basophils/100 WBC (Bld) 0.5 % 0-1 [facility] Bilirubin, totalOrdered By: Marie Perez on 03-05-2025 Bilirubin [Mass/Vol] 0.43 mg/dL 0.00-1.30 [facility] CBC W/Diff, Automatedon 03-0 5-2024 Absolute Lymph 1.92 X10 3/uL Normal 0.83-4.51 [facility] Comment on above: Performed By: #### L [id number], L100.0100 #### [facility] [address] [place], [address] Absolute Neut 3.6 X10 3/uL Normal 2.0-7.7 [facility] Comment on above: Performed By: #### L [id number], L100.0100 #### [facility] [address] [place], [address] Basophils/100 WBC (Bld) 0.5 % Normal 0-1 [facility] Comment on above: Performed By: #### L [id number], L100.0100 #### [facility] [address] [place], [address] Eosinophils/100 WBC (Bld) 1.8 % Normal 0-5 [facility] Comment on above: Performed By: #### L [id number], L100.0100 #### [facility] [address] [place], [address] Erythrocyte distribution width (RBC) [Ratio] 13.0 % Normal 11.6-14.6 [facility] Comment on above: Performed By: #### L [id number], L100.0100 #### [facility] [address] [place], [address] Hematocrit (Bld) [Volume fraction] 36.4 % Low 37-47 [facility] Comment on above: Performed By: #### L [id number], L100.0100 #### [facility] [address] [place], [address] Hemoglobin (Bld) [Mass/Vol] 12.3 g/dL Normal 12.0-15.0 [facility] Comment on above: Performed By: #### L 500.4050, L100.0100 #### [facility] [address] [place], [address] IG% 0.300 Normal 0.0-0.9 [facility] Comment on above: Result Comment: IG% - Immature Granulocytes (promyelocytes, myelocytes and metamyelocytes) > 1% indicates that a LEFT SHIFT is Present. Performed By: #### L [id number], L100.0100 #### [facility] [address] [place], [address] Lymphocytes/100 WBC (Bld) 31.7 % Normal 19-41 [facility] Comment on above: Performed By: #### L [id number], L100.0100 #### [facility] [address] [place], [address] MCH (RBC) [Entitic mass] 31.1 pg Normal 27.0-32.0 [facility] Comment on above: Performed By: #### L [id number], L100.0100 #### [facility] [address] [place], [address] MCHC (RBC) [Mass/Vol] 33.8 g/dL Normal 32-36 [facility] Comment on above: Performed By: #### L [id number], L100.0100 #### [facility] [address] [place], [address] MCV (RBC) [Entitic vol] 92.2 fL Normal 81-99 [facility] Comment on above: Performed By: #### L [id number], L100.0100 #### [facility] [address] [place], [address] Monocytes/100 WBC (Bld) 6.1 % Normal 0-10 [facility] Comment on above: Performed By: #### L [id number], L100.0100 #### [facility] [address] [place], [address] Neutrophils/100 WBC (Bld) 59.6 % Normal 47-70 [facility] Comment on above: Performed By: #### L [id number], L100.0100 #### [facility] [address] [place], [address] Nucleated RBC (Bld) [#/Vol] 0 10*3/uL Normal 0-5 [facility] Comment on above: Performed By: #### L 500.4050, L100.0100 #### [facility] [address] [place], [address] Platelet mean volume (Bld) [Entitic vol] 9.3 fL Normal 6.2-12.0 [facility] Comment on above: Performed By: #### L 500.4050, L100.0100 #### [facility] [address] [place], [address] Platelets (Bld) [#/Vol] 224 10*3/uL Normal 150-450 [facility] Comment on above: Performed By: #### L 500.4050, L100.0100 #### [facility] [address] [place], [address] RBC (Bld) [#/Vol] 3.95 10*6/uL Low 4.2-5.4 [facility] Comment on above: Performed By: #### L 500.4050, L100.0100 #### [facility] [address] [place], [address] RDW SD 43.9 fl Normal 35.1-43.9 [facility] Comment on above: Performed By: #### L [id number], L100.0100 #### [facility] [address] [place], [address] WBC (Bld) [#/Vol] 6.1 10*3/uL Normal 4.4-11.0 [facility] Comment on above: Performed By: #### L 500.4050, L100.0100 #### [facility] [address] [place], [address] Carbon dioxide, total [Moles /volume] in Central venous bloodOrdered By: Marie Perez on 06-16-2024 CO2 [Moles/Vol] 22.5 mmol/L 21.0-32.0 [facility] Chloride assayOrdered By: Awa Perez on 06-16-2024 Chloride [Moles/Vol] 106 mmol/L 98-108 [facility] Comprehensive Metabolic Prof ilon 06-16-2024 Albumin [Mass/Vol] 4.6 g/dL Normal 3.5-5.0 [facility] Comment on above: Performed By: #### L 500.4050, L100.0100 #### [facility] [address] [place], [address] Albumin/Globulin [Mass ratio] 2.2 {ratio} Normal 0.9-2.4 [facility] Comment on above: Performed By: #### L 500.4050, L100.0100 #### [facility] [address] [place], [address] ALK PHOS 57 U/L Normal 35-104 [facility] Comment on above: Performed By: #### L 500.4050, L100.0100 #### [facility] [address] [place], [address] ALT [Catalytic activity/Vol] 21 U/L Normal <=34 [facility] Comment on above: Performed By: #### L 500.4050, L100.0100 #### [facility] [address] [place], [address] AST [Catalytic activity/Vol] 17 U/L Normal <=31 [facility] Comment on above: Performed By: #### L 500.4050, L100.0100 #### [facility] [address] [place], [address] Bilirubin [Mass/Vol] 0.43 mg/dL Normal 0.00-1.30 [facility] Comment on above: Performed By: #### L 500.4050, L100.0100 #### [facility] [address] [place], [address] BUN/CRE 20.4 RATIO High 10-20 [facility] Comment on above: Performed By: #### L 500.4050, L100.0100 #### [facility] [address] [place], [address] Calcium [Mass/Vol] 9.7 mg/dL Normal 7.6-11.0 [facility] Comment on above: Performed By: #### L 500.4050, L100.0100 #### [facility] [address] [place], [address] Chloride [Moles/Vol] 106 mmol/L Normal 98-108 [facility] Comment on above: Performed By: #### L 500.4050, L100.0100 #### [facility] [address] [place], [address] CO2 [Moles/Vol] 22.5 mmol/L Normal 21.0-32.0 [facility] Comment on above: Performed By: #### L 500.4050, L100.0100 #### [facility] [address] [place], [address] Creatinine [Mass/Vol] 0.99 mg/dL Normal 0.70-1.20 [facility] Comment on above: Performed By: #### L 500.4050, L100.0100 #### [facility] [address] [place], [address] GAP 12 Normal 5-15 [facility] Comment on above: Performed By: #### L 500.4050, L100.0100 #### [facility] [address] [place], [address] GFR/1.73 sq M.predicted among non-blacks MDRD (S/P/Bld) [Vol rate/Area] 69 mL/min/{1.73_m2} Normal >60 [facility] Comment on above: Result Comment: mL/m in/1.73m2 CKD-EPI Creatinine Equation (2020) Performed By: #### L 500.4050, L100.0100 #### [facility] [address] [place], [address] Globulin (S) [Mass/Vol] 2.1 g/dL Low 2.2-4.2 [facility] Comment on above: Performed By: #### L [id number], L100.0100 #### [facility] [address] [place], [address] Glucose [Mass/Vol] 85 mg/dL Normal 70-99 [facility] Comment on above: Performed By: #### L 500.4050, L100.0100 #### [facility] [address] [place], [address] Potassium [Moles/Vol] 4.4 mmol/L Normal 3.3-5.1 [facility] Comment on above: Performed By: #### L [id number], L100.0100 #### [facility] [address] [place], [address] Sodium [Moles/Vol] 140 mmol/L Normal 133-145 [facility] Comment on above: Performed By: #### L [id number], L100.0100 #### [facility] [address] [place], [address] T PROT 6.7 g/dL Normal 5.9-8.4 [facility] Comment on above: Performed By: #### L 500.4050, L100.0100 #### [facility] [address] [place], [address] Urea nitrogen [Mass/Vol] 20 mg/dL High 4-19 [facility] Comment on above: Performed By: #### L 500.4050, L100.0100 #### [facility] [address] [place], [address] Eosinophil percentageOrdered By: Marie Perez on 06-16-2024 Eosinophils/100 WBC (Bld) 1.8 % 0-5 [facility] Erythrocyte distribution wid th ratioOrdered By: Marie Perez on 06-16-2024 Erythrocyte distribution width (RBC) [Ratio] 13.0 % 11.6-14.6 [facility] Erythrocyte distribution wid th standard deviationOrdered By: Marie Perez on 06-16-2024 Erythrocyte distribution width (RBC) [Entitic vol] 43.9 fL 35.1-43.9 [facility] Erythrocyte distribution width (RBC) [Ratio] 43.9 fl 35.1-43.9 [facility] GFR/1.73 sq M.predicted brandt g non-blacks MDRD (S/P/Bld) [Vol rate/Area]Ordered By: Marie Perez on 06-16-2024 Estimated GFR (MDRD) Non-Af Amer 69 >60 [facility] Comment on above: mL/min/1.73m2 CKD-EP I Creatinine Equation (2020) Glomerular filtration rate ( GFR) estimation/1.73 sq m using serum, plasma, or whole bOrdered By: Marie Perez on 06-16-2024 GFR/1.73 sq M.predicted among non-blacks MDRD (S/P/Bld) [Vol rate/Area] 69 mL/min/{1.73_m2} >60 [facility] Comment on above: mL/min/1.73m2 CKD-EP I Creatinine Equation (2020) Hematocrit Auto (Bld) [Volum e fraction]Ordered By: Marie Perez on 06-16-2024 Hematocrit (Bld) [Volume fraction] 36.4 % Low 37-47 [facility] Hemoglobin measurementOrdere d By: Marie Perez on 06-16-2024 Hemoglobin (Bld) [Mass/Vol] 12.3 g/dL 12.0-15.0 [facility] Immature granulocytes/100 WB C Auto (Bld)Ordered By: Marie Perez on 06-16-2024 Immature granulocytes/100 WBC (Bld) 0.300 % 0.0-0.9 [facility] Comment on above: IG% - Immature Granu locytes (promyelocytes, myelocytes and metamyelocytes) > 1% indicates that a LEFT SHIFT is Present. Laboratory - Chemistry and C hemistry - challengeOrdered By: Marie Perez on 06-16-2024 AST [Catalytic activity/Vol] 17 U/L <32 [facility] Lymphocytes Auto (Unsp spec) [#/Vol]Ordered By: Marie Perez on 06-16-2024 Lymphocytes (Bld) [#/Vol] 1.92 10*3/uL 0.83-4.51 [facility] Lymphocytes/100 WBC Auto (Un sp spec)Ordered By: Marie Perez on 06-16-2024 Lymphocytes/100 WBC (Bld) 31.7 % 19-41 [facility] MCV (mean corpuscular volume ) determinationOrdered By: Marie Perez on 06-16-2024 MCV (RBC) [Entitic vol] 92.2 fL 81-99 [facility] Mean corpuscular hemoglobin (MCH) determinationOrdered By: Marie Perez on 06-16-2024 MCH (RBC) [Entitic mass] 31.1 pg 27.0-32.0 [facility] Mean corpuscular hemoglobin concentration (MCHC) determinationOrdered By: Marie Perez on 06-16-2024 MCHC (RBC) [Mass/Vol] 33.8 g/dL 32-36 [facility] Mean platelet volume determi nationOrdered By: Marie Perez on 06-16-2024 Platelet mean volume (Bld) [Entitic vol] 9.3 fL 6.2-12.0 [facility] Monocyte percentageOrdered B y: Marie Perez on 06-16-2024 Monocytes/100 WBC (Bld) 6.1 % 0-10 [facility] Neutrophil percentageOrdered By: Marie Perez on 06-16-2024 Neutrophils/100 WBC (Bld) 59.6 % 47-70 [facility] Nucleated red blood cell per centageOrdered By: Marie Perez on 06-16-2024 Nucleated RBC/100 WBC (Bld) [Ratio] 0 % 0-5 [facility] Platelet countOrdered By: Awa Perez on 06-16-2024 Platelets (Bld) [#/Vol] 224 10*3/uL 150-450 [facility] Potassium (Unsp spec) [Mass/ Vol]Ordered By: Marie Perez on 06-16-2024 Potassium [Moles/Vol] 4.4 mmol/L 3.3-5.1 [facility] Potassium measurement (mass/ volume)Ordered By: Marie Perez on 06-16-2024 Potassium (Unsp spec) [Mass/Vol] 4.4 mmol/L 3.3-5.1 [facility] RBC Auto (Bld) [#/Vol]Ordere d By: Marie Perez on 06-16-2024 RBC (Bld) [#/Vol] 3.95 10*6/uL Low 4.2-5.4 [facility] Serum creatinine measurement (mass/volume)Ordered By: Marie Perez on 06-16-2024 Creatinine [Mass/Vol] 0.99 mg/dL 0.70-1.20 [facility] Serum globulin measurementOr dered By: Marie Perez on 06-16-2024 Globulin (S) [Mass/Vol] 2.1 g/dL Low 2.2-4.2 [facility] Serum glucose measurement (m ass/volume)Ordered By: Marie Perez on 06-16-2024 Glucose [Mass/Vol] 85 mg/dL 70-99 [facility] Serum or plasma alanine puckett otransferase (ALT) measurementOrdered By: Marie Perez on 06-16-2024 ALT [Catalytic activity/Vol] 21 U/L <35 [facility] Serum or plasma albumin jessica urement (mass/volume)Ordered By: Marie Perez on 06-16-2024 Albumin [Mass/Vol] 4.6 g/dL 3.5-5.0 [facility] Serum or plasma albumin/glob ulin mass ratioOrdered By: Marie Perez on 06-16-2024 Albumin/Globulin [Mass ratio] 2.2 {ratio} 0.9-2.4 [facility] Serum or plasma alkaline mariah sphatase measurementOrdered By: Marie Perez on 06-16-2024 ALP [Catalytic activity/Vol] 57 U/L 35-104 [facility] Serum or plasma calcium jessica urement (mass/volume)Ordered By: Marie Perez on 06-16-2024 Calcium [Mass/Vol] 9.7 mg/dL 7.6-11.0 [facility] Serum or plasma urea nitroge n measurement (mass/volume)Ordered By: Marie Perez on 06-16-2024 Urea nitrogen [Mass/Vol] 20 mg/dL High 07-31 [facility] Sodium levelOrdered By: Dirk Perez on 06-16-2024 Sodium [Moles/Vol] 140 mmol/L 133-145 [facility] Total proteinOrdered By: Amelia Perez on 06-16-2024 Protein [Mass/Vol] 6.7 g/dL 5.9-8.4 [facility] White blood cell (WBC) count Ordered By: Marie Perez on 06-16-2024 WBC (Bld) [#/Vol] 6.1 10*3/uL 4.4-11.0 [facility] Basic Metabolic Profile (BMP )on 06-02-2024 BUN/CRE 34.2 RATIO High 10- [facility] Comment on above: Performed By: #### L 500.2500 #### [facility] [address] [place], [address] CA,Total 9.1 mg/dL Normal 8.5-10.1 [facility] Comment on above: Performed By: #### L 500.2500 #### [facility] [address] [place], [address] Chloride [Moles/Vol] 109 mmol/L High 98-107 [facility] Comment on above: Performed By: #### L 500.2500 #### [facility] [address] [place], [address] CO2 [Moles/Vol] 25.0 mmol/L Normal 21.0-32.0 [facility] Comment on above: Performed By: #### L 500.2500 #### [facility] [address] [place], [address] Creatinine [Mass/Vol] 0.88 mg/dL Normal 0.55-1.02 [facility] Comment on above: Result Comment: The validity of the calculated GFR GFRAA in patients over 70 years has not been determined. Clinical correlation is essential. Performed By: #### L 500.2500 #### [facility] [address] [place], [address] EST GFR - AA 87 mL/min Normal >60 [facility] Comment on above: Result Comment: Afri can [place] GFR Calc Performed By: #### L 500.2500 #### [facility] [address] [place], [address] GAP 5 Normal 5-15 [facility] Comment on above: Performed By: #### L 500.2500 #### [facility] [address] [place], [address] GFR/1.73 sq M.predicted among non-blacks MDRD (S/P/Bld) [Vol rate/Area] 72 mL/min/{1.73_m2} Normal >60 [facility] Comment on above: Result Comment: Non- GFR Calc Performed By: #### L 500.2500 #### [facility] [address] [place], [address] Glucose [Mass/Vol] 99 mg/dL Normal 74-106 [facility] Comment on above: Performed By: #### L 500.2500 #### [facility] [address] [place], [address] Potassium [Moles/Vol] 4.6 mmol/L Normal 3.5-5.1 [facility] Comment on above: Performed By: #### L 500.2500 #### [facility] [address] [place], [address] Sodium [Moles/Vol] 139 mmol/L Normal 136-145 [facility] Comment on above: Performed By: #### L 500.2500 #### [facility] [address] [place], [address] Urea nitrogen [Mass/Vol] 30 mg/dL High 7-18 [facility] Comment on above: Performed By: #### L 500.2500 #### [facility] [address] [place], [address] Blood urea nitrogen (BUN)/cr eatinine ratioOrdered By: Estelita Pepe on 06-02-2024 Urea nitrogen/Creatinine [Mass ratio] 34.2 mg/mg High 10-20 [facility] Carbon dioxide measurementOr dered By: Estelita Pepe on 06-02-2024 CO2 [Moles/Vol] 25.0 mmol/L 21.0-32.0 [facility] Chloride measurementOrdered By: Estelita Pepe on 06-02-2024 Chloride [Moles/Vol] 109 mmol/L High 98-107 [facility] Estimated glomerular filtrat ion rate (GFR) AmericanOrdered By: Estelita Pepe on 06-02-2024 Estimated GFR (MDRD) Amer 87 mL/min >60 [facility] Comment on above: GFR Calc Glomerular filtration rate ( GFR) estimationOrdered By: Estelita Pepe on 06-02-2024 Estimated GFR (MDRD) Non-Af Amer 72 mL/min >60 [facility] Comment on above: Non- GFR Calc GFR/1.73 sq M.predicted among non-blacks MDRD (S/P/Bld) [Vol rate/Area] 72 mL/min/{1.73_m2} >60 [facility] Comment on above: Non- GFR Calc Glucose measurementOrdered B y: Estelita Pepe on 06-02-2024 Glucose [Mass/Vol] 99 mg/dL 74-106 [facility] Potassium measurementOrdered By: Estelita Pepe on 06-02-2024 Potassium [Moles/Vol] 4.6 mmol/L 3.5-5.1 [facility] Serum anion gap measurementO rdered By: Estelita Pepe on 06-02-2024 Anion gap [Moles/Vol] 5 mmol/L 5-15 [facility] Serum or plasma calcium jessica urement (mass/volume)Ordered By: Estelita Pepe on 06-02-2024 Calcium [Mass/Vol] 9.1 mg/dL 8.5-10.1 [facility] Serum or plasma creatinine m easurement (mass/volume)Ordered By: Estelita Pepe on 06-02-2024 Creatinine [Mass/Vol] 0.88 mg/dL 0.55-1.02 [facility] Comment on above: The validity of the calculated GFR & GFRAA in patients over 70 years has not been determined. Clinical correlation is essential. Serum or plasma urea nitroge n measurement (mass/volume)Ordered By: Estelita Pepe on 06-02-2024 Urea nitrogen [Mass/Vol] 30 mg/dL High 7-18 [facility] Sodium levelOrdered By: Silver martinezloly Afshin on 06-02-2024 Sodium [Moles/Vol] 139 mmol/L 136-145 [facility] TOXICOLOGY SCREEN, ROUTINE U RINEon 05-12-2024 Amphetamines Confirm (U) [Mass/Vol] Negative Normal Negative [facility] Comment on above: Order Comment: Speci men Type: URINE SPECIMEN Ordering Facility: [facility] Address: [address] [place] [address] Result Comment: Cuto ff threshold at 1000 ng/mL. Performed By: #### U TOX2 #### [facility] CLIA [id number] [address] [place] [address] [place] BARBITURATES, URINE Negative Normal Negative [facility] Comment on above: Order Comment: Speci men Type: URINE SPECIMEN Ordering Facility: [facility] Address: [address] [place] [address] Result Comment: Cuto ff threshold at 200 ng/mL. Performed By: #### U TOX2 #### [facility] CLIA [id number] [address] [place] [address] [place] BENZODIAZEPINES, UR Negative Normal Negative [facility] Comment on above: Order Comment: Speci men Type: URINE SPECIMEN Ordering Facility: [facility] Address: [address] [place] [address] Result Comment: Cuto ff threshold at 200 ng/mL. Performed By: #### U TOX2 #### [facility] CLIA [id number] [address] [place] [address] [place] Cannabinoids Screen Ql (U) Negative Normal Negative [facility] Comment on above: Order Comment: Speci men Type: URINE SPECIMEN Ordering Facility: [facility] Address: [address] [place] [address] Result Comment: Cuto ff threshold at 50 ng/mL. Performed By: #### U TOX2 #### [facility] CLIA [id number] [address] [place] [address] [place] Cocaine Ql (U) Negative Normal Negative [facility] Comment on above: Order Comment: Speci men Type: URINE SPECIMEN Ordering Facility: [facility] Address: [address] [place] [address] Result Comment: Cuto ff threshold at 300 ng/mL. Performed By: #### U TOX2 #### [facility] CLIA [id number] [address] [place] [address] [place] Ethanol (U) [Mass/Vol] <11 Normal <11 [facility] Comment on above: Order Comment: Speci men Type: URINE SPECIMEN Ordering Facility: [facility] Address: [address] [place] [address] Performed By: #### U TOX2 #### [facility] [place] [id number] [address] [place] [address] [place] Opiates Screen Ql (U) Negative Normal Negative [facility] Comment on above: Order Comment: Speci men Type: URINE SPECIMEN Ordering Facility: [facility] Address: [address] [place] [address] Result Comment: Cuto ff threshold at 300 ng/mL. Performed By: #### U TOX2 #### [facility] [place] [id number] [address] [place] [address] [place] oxyCODONE cutoff Screen (U) [Mass/Vol] Negative Normal Negative [facility] Comment on above: Order Comment: Speci men Type: URINE SPECIMEN Ordering Facility: [facility] Address: [address] [place] [address] Result Comment: Cuto ff threshold at 100 ng/mL. Performed By: #### U TOX2 #### [facility] [place] [id number] [address] [place] [address] [place] Phencyclidine Ql (U) Negative Normal Negative [facility] Comment on above: Order Comment: Speci men Type: URINE SPECIMEN Ordering Facility: [facility] Address: [address] [place] [address] Result Comment: Cuto ff threshold at 25 ng/mL. Performed By: #### U TOX2 #### [facility] [place] [id number] [address] [place] [address] [place] CNOVon 05-07-2024 CNOV Office Visit ([facility] ) -- SAMUEL MCCRACKEN ([id number]) 1970 F Date Time Provider Department 05/07/24 4:40 PM LOUIS PORRAS JR During your visit today, we recorded the following information about you: Pulse Respiration Blood pressure Weight 69/minute 16/minute 125/86 92.4 kg Louis Porras Jr., MD 05/07/2024 5:45 PM Signed ESTABLISHED PATIENT VISIT CHIEF COMPLAINT: Follow Up HISTORY OF PRESENT ILLNESS: Samuel Mccracken is a 53 year old female, with a PMH significant for and per last visit note via [facility] on 10/31/23: ASSESSMENT/PLAN: 1. Cold intolerance - ICD9: 780.99, ICD10: R68.89 (primary diagnosis) 2. Hair loss - ICD9: 704.00, ICD10: L65.9 Resolved. Normal thyroid studies. 3. Paresthesia of skin - ICD9: 782.0, ICD10: R20.2 4. Rheumatoid arthritis, involving unspecified site, unspecified whether rheumatoid factor present (HCC) - ICD9: 714.0, ICD10: M06.9 Significant improvement in symptoms after increasing lyrica to 100mg tid. No significant side effects, doing well. Will refill for 6 months with follow up. 5. Weight gain - ICD9: 783.1, ICD10: R63.5 Improved after diet change, sleep regulation and increased exercise. Noted 6 pound weight loss since last appt. 6. Migraine without aura and without status migrainosus, not intractable - ICD9: 346.10, ICD10: G43.009 Stable, last headache was three months ago and well controlled. 7. Fibromyalgia - ICD9: 729.1, ICD10: M79.7 8. Cervicalgia - ICD9: 723.1, ICD10: M54.2 Significant improvement with increased lyrica. Per my last note on 07/18/23: ASSESSMENT/PLAN: 1. Cold intolerance - ICD9: 780.99, ICD10: R68.89 2. Hair loss - ICD9: 704.00, ICD10: L65.9 3. Weight gain - ICD9: 783.1, ICD10: R63.5 Patient with concern that Lyrica may be cause of hair loss. However, also endorsing weight gain and cold intolerance. Multiple symptoms raises concern for other diffuse process such as hypothyroidism. Will send off TSH and T4. If abnormal will need follow up with PCP. 4. Paresthesia of skin - ICD9: 782.0, ICD10: R20.2 5. Fibromyalgia - ICD9: 729.1, ICD10: M79.7 6. Rheumatoid arthritis, involving unspecified site, unspecified whether rheumatoid factor present (HCC) - ICD9: 714.0, ICD10: M06.9 7. Cervicalgia - ICD9: 723.1, ICD10: M54.2 8. Migraine without aura and without status migrainosus, not intractable - ICD9: 346.10, ICD10: G43.009 Multiple pain and abnormal sensation symptoms controlled on Lyrica except for worsening headaches. Headaches are likely of multiple types including migraine, tension and cervicogenic per subjective history - possibly exacerbated by looking at computer monitor for >10 hours daily and neck positioning while viewing monitor. Discussed with pt and will try to increase Lyrica to 100mg TID. SE and ADRs d/w pt. Note, if thyroid normal and still having hair loss, may need to consider reducing or stopping Lyrica in the future. Patient understands and given failure of gabapentin in past, uncertain an appropriate alternative (I.e. Topamax and VPA could cause hair loss) - possibly Cymbalta. Will have pt follow up I 4-6 weeks to see how she is doing and determine whether change in meds needed and appropriate. Patient reports having URI over past few weeks. Recovering. Pt having NEW pain. Radiates from arm pin, down arm, into the hand. Impacts all 5 fingers and feels like on fire. No definite neck pain. Worse at night. No positional influence. Occurring nightly. MRI C spine showed no etiology of such symptoms. Can be associated with weakness. Pt cannot tell if radiating prox to distal to distal to prox. States when holding suction for cold water states while used to be cold now feels like holding icicles - does not notice with left hand. Continues on Lyrica. Reporting no side effects except weight gain. However, adds that is getting edema in feet. Reports PCP not concerned about cardiac source. Does not feel 100mg that much more effective than the 75mg previously taking. Pt did not notice edema when on 75mg TID. Pt has gained 37 pounds in the last year. Feels RA stable as is Fibromyalgia. Pt not wanting to try different med than Lyrica due to fear of side effects. Headaches rare if ever with Lyrica. REVIEW OF SYSTEMS GENERAL:No weight loss, malaise [...] frequency or incontinence MUSCULOSKELETAL: See HPI. NEUROLOGIC:Negative (more content not included)... Normal [facility] Internal Medicine Office Vis iton 04-30-2024 Internal Medicine Office Visit [facility] [address] [place] [address] [place] [address] OFFICE VISIT Date of Service: 04/30/24 MR#: [id number] Acct: [id number] Name: SAMUEL MCCRACKEN Rep #: [id number] : 1970 Provider: Dr. Estelita nava MD Age/Sex: 53/F Location: [facility] Status: Signed Intake Vital Signs 12/26/23 10:00 04/30/24 10:24 Height 5 ft 4 in 5 ft 4 in Weight: 209 lb BMI 35.9 BP 146/82 H Blood Pressure Location Lt brachial Position Sitting Respiration 16 Pulse 97 Pulse Source Monitor Temp 97.0 F L Temp Source Temporal Pulse Oximetry (%) 97 Oxygen Delivery Method room air Intake Visit Reasons: 4 M FU Chief Complaint: 4 M FU Nursery Attendant Required: No Accompanied by: Self Is patient in pain?: No Allergies penicillin G Allergy (Intermediate, Verified 04/30/24 10:20) hives clindamycin Adverse Reaction (Intermediate, Verified 04/30/24 10:20) stomach pain Medications ???Medication ???Instructions ???Recorded ???Confirmed ???Type cyclobenzaprine 10 mg tablet 10 mg PO HS PRN muscle spasm #90 11/11/22 04/30/24 Rx tabs sulfasalazine 500 mg tablet 1 g PO BID 02/24/23 04/30/24 History pregabalin 75 mg capsule (Lyrica) 100 mg PO TID 08/29/23 04/30/24 History multivitamin 1 tab PO DAILY 12/05/23 04/30/24 History tacrolimus 0.1 % topical ointment 1 applic topical BID #30 grams 12/05/23 04/30/24 Rx albuterol sulfate 90 mcg/actuation 2 puff inhalation Q6H PRN 04/30/24 04/30/24 Rx aerosol inhaler shortness of breath or wheezing #8.5 grams hydrochlorothiazide 12.5 mg tablet 12.5 mg PO QAM #30 tabs 04/30/24 04/30/24 Rx lisinopril 20 mg tablet 20 mg PO DAILY 04/30/24 04/30/24 History PFSH Medical History (Updated 04/30/24 @ 12:[address] Estelita Pepe MD) Viral syndrome Hyperlipidemia Obesity (BMI 30-39.9) Marijuana use Dietary restriction Smoker Health care maintenance Colon cancer screening Rheumatoid arthritis IBS (irritable bowel syndrome) Carpal tunnel syndrome Anemia Rheumatic arteritis Depression Alcohol use Arthritis Restless legs Back pain Migraine headache Difficulty swallowing History of IBS Heartburn Asthma Hx of sciatica History of pain when walking Hypertension COVID-19 Encounter for screening for COVID-19 History of wrist fracture Surgical History Hx of colonoscopy S/P vaginal hysterectomy Hx of lumbar discectomy Hx of tubal ligation Hx of tonsillectomy History of surgical removal of meniscus of knee History of removal of cyst Family History Daughter Asthma defect Mother Hypertension Depression Hyperlipidemia Rheumatic arteritis Colon polyps Grandmother Arthritis Cancer Breast CVA (cerebral vascular accident) Diabetes Father Hypertension CVA (cerebral vascular accident) Grandfather Heart disease, Onset Age: 60 M.I. 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 sexually active: Yes Smoking Status: Current some day smoker tobacco type: e-cigarettes alcohol intake: current alcohol intake frequency: holidays/special occasions only substance use type: does not use what type of physical activity do you participate in: weight training and other details: Cardio frequency: 1-2 times per week do you feel safe at home: Yes additional social history: single HPI HPI Chief Complaint: 4 M FU Details: SAMUEL MCCRACKEN, is a 53 F who presents to the office today for follow-up of her chronic conditions. Also has some concerns. She reports a 1 week history of feeling unwell. Nasal congestion, chest congestion and cough. Symptoms are progressively improving. No chills or fever. Also had increased watery stool which is also said to be improving. History of hypertension, blood pressure today is at 146/82 mmHg. She states that her numbers were elevated at home so she increased lisinopril to 20mg which she has been taking consistently. She states that she stays active but is not exercising due to her work schedule. Also concerned about progressive weight gain. She states that she tries to pay attention to her diet and stay active but she continues to gain weight predominantly around her abdominal area. No known history of diabetes. Other chronic conditions are stable. ROS Const Constitutional: Positive for fatigue and headache(s); No body ache, chills, excessive sweating, fever(s), frequent falls, snoring, weakness, weight change or change in appetite Eyes Eyes: No blurry (more content not included)... Normal [facility] Absolute neutrophil countOrd ered By: Marie Perez on 03-24-2024 Neutrophils (Bld) [#/Vol] 3.7 10*3/uL 2.0-7.7 [facility] Albumin to globulin ratioOrd ered By: Marie Perez on 03-24-2024 Albumin/Globulin [Mass ratio] 1.5 {ratio} 0.9-2.4 [facility] Basophil percentageOrdered B y: Marie Perez on 03-24-2024 Basophils/100 WBC (Bld) 0.5 % 0-1 [facility] Bilirubin, totalOrdered By: Marie Perez on 03-24-2024 Bilirubin [Mass/Vol] 0.60 mg/dL 0.20-1.00 [facility] Comment on above: For patients on eltr ombopag therapy, use of Dimension [place] TBIL is not recommended. Blood urea nitrogen (BUN)/cr eatinine ratioOrdered By: Marie Perez on 03-24-2024 Urea nitrogen/Creatinine [Mass ratio] 17.7 mg/mg 10- [facility] CBC W/Diff, Automatedon 03-14 Absolute Lymph 1.77 X10 3/uL Normal 0.83-4.51 [facility] Comment on above: Performed By: #### L 500.4050, L500.4100, L100.0100 #### [facility] [address] [place], [address] Absolute Neut 3.7 X10 3/uL Normal 2.0-7.7 [facility] Comment on above: Performed By: #### L 500.4050, L500.4100, L100.0100 #### [facility] [address] [place], [address] Basophils/100 WBC (Bld) 0.5 % Normal 0-1 [facility] Comment on above: Performed By: #### L 500.4050, L500.4100, L100.0100 #### [facility] [address] [place], [address] Eosinophils/100 WBC (Bld) 1.2 % Normal 0-5 [facility] Comment on above: Performed By: #### L 500.4050, L500.4100, L100.0100 #### [facility] [address] [place], [address] Erythrocyte distribution width (RBC) [Ratio] 12.9 % Normal 11.6-14.6 [facility] Comment on above: Performed By: #### L 500.4050, L500.4100, L100.0100 #### [facility] [address] [place], [address] Hematocrit (Bld) [Volume fraction] 35.9 % Low 37-47 [facility] Comment on above: Performed By: #### L 500.4050, L500.4100, L100.0100 #### [facility] [address] [place], [address] Hemoglobin (Bld) [Mass/Vol] 11.8 g/dL Low 12.0-15.0 [facility] Comment on above: Performed By: #### L 500.4050, L500.4100, L100.0100 #### [facility] [address] [place], [address] IG% 0.500 Normal 0.0-0.9 [facility] Comment on above: Result Comment: IG% - Immature Granulocytes (promyelocytes, myelocytes and metamyelocytes) > 1% indicates that a LEFT SHIFT is Present. Performed By: #### L 500.4050, L500.4100, L100.0100 #### [facility] [address] [place], [address] Lymphocytes/100 WBC (Bld) 30.4 % Normal 19-41 [facility] Comment on above: Performed By: #### L 500.4050, L500.4100, L100.0100 #### [facility] [address] [place], [address] MCH (RBC) [Entitic mass] 31.3 pg Normal 27.0-32.0 [facility] Comment on above: Performed By: #### L 500.4050, L500.4100, L100.0100 #### [facility] [address] [place], [address] MCHC (RBC) [Mass/Vol] 32.9 g/dL Normal 32-36 [facility] Comment on above: Performed By: #### L 500.4050, L500.4100, L100.0100 #### [facility] [address] [place], [address] MCV (RBC) [Entitic vol] 95.2 fL Normal 81-99 [facility] Comment on above: Performed By: #### L 500.4050, L500.4100, L100.0100 #### [facility] [address] [place], [address] Monocytes/100 WBC (Bld) 4.8 % Normal 0-10 [facility] Comment on above: Performed By: #### L 500.4050, L500.4100, L100.0100 #### [facility] [address] [place], [address] Neutrophils/100 WBC (Bld) 62.6 % Normal 47-70 [facility] Comment on above: Performed By: #### L 500.4050, L500.4100, L100.0100 #### [facility] [address] [place], [address] Nucleated RBC (Bld) [#/Vol] 0 10*3/uL Normal 0-5 [facility] Comment on above: Performed By: #### L 500.4050, L500.4100, L100.0100 #### [facility] [address] [place], [address] Platelet mean volume (Bld) [Entitic vol] 8.8 fL Normal 6.2-12.0 [facility] Comment on above: Performed By: #### L 500.4050, L500.4100, L100.0100 #### [facility] [address] [place], [address] Platelets (Bld) [#/Vol] 208 10*3/uL Normal 150-450 [facility] Comment on above: Performed By: #### L 500.4050, L500.4100, L100.0100 #### [facility] [address] [place], [address] RBC (Bld) [#/Vol] 3.77 10*6/uL Low 4.2-5.4 [facility] Comment on above: Performed By: #### L 500.4050, L500.4100, L100.0100 #### [facility] [address] [place], [address] RDW SD 44.7 fl High 35.1-43.9 [facility] Comment on above: Performed By: #### L 500.4050, L500.4100, L100.0100 #### [facility] [address] [place], [address] WBC (Bld) [#/Vol] 5.8 10*3/uL Normal 4.4-11.0 [facility] Comment on above: Performed By: #### L 500.4050, L500.4100, L100.0100 #### [facility] [address] [place], [address] Carbon dioxide measurementOr dered By: Marei Perez on 03-24-2024 CO2 [Moles/Vol] 26.0 mmol/L 21.0-32.0 [facility] Chloride measurementOrdered By: Marie Perez on 03-24-2024 Chloride [Moles/Vol] 110 mmol/L High 98-107 [facility] Comprehensive Metabolic Prof ilon 03-24-2024 Albumin [Mass/Vol] 4.1 g/dL Normal 3.2-5.0 [facility] Comment on above: Performed By: #### L 500.4050, L500.4100, L100.0100 #### [facility] [address] [place], [address] Albumin/Globulin [Mass ratio] 1.5 {ratio} Normal 0.9-2.4 [facility] Comment on above: Performed By: #### L 500.4050, L500.4100, L100.0100 #### [facility] [address] [place], [address] ALK P 60 U/L Normal 45-117 [facility] Comment on above: Performed By: #### L 500.4050, L500.4100, L100.0100 #### [facility] [address] [place], [address] ALT [Catalytic activity/Vol] 52 U/L Normal 13-56 [facility] Comment on above: Performed By: #### L 500.4050, L500.4100, L100.0100 #### [facility] [address] [place], [address] AST [Catalytic activity/Vol] 17 U/L Normal 15-37 [facility] Comment on above: Performed By: #### L 500.4050, L500.4100, L100.0100 #### [facility] [address] [place], [address] Bilirubin [Mass/Vol] 0.60 mg/dL Normal 0.20-1.00 [facility] Comment on above: Result Comment: For patients on eltrombopag therapy, use of Dimension [place] TBIL is not recommended. Performed By: #### L 500.4050, L500.4100, L100.0100 #### [facility] [address] [place], [address] BUN/CRE 17.7 RATIO Normal 10-20 [facility] Comment on above: Performed By: #### L 500.4050, L500.4100, L100.0100 #### [facility] [address] [place], [address] CA,Total 9.3 mg/dL Normal 8.5-10.1 [facility] Comment on above: Performed By: #### L 500.4050, L500.4100, L100.0100 #### [facility] [address] [place], [address] Chloride [Moles/Vol] 110 mmol/L High 98-107 [facility] Comment on above: Performed By: #### L 500.4050, L500.4100, L100.0100 #### [facility] [address] [place], [address] CO2 [Moles/Vol] 26.0 mmol/L Normal 21.0-32.0 [facility] Comment on above: Performed By: #### L 500.4050, L500.4100, L100.0100 #### [facility] [address] [place], [address] Creatinine [Mass/Vol] 0.79 mg/dL Normal 0.55-1.02 [facility] Comment on above: Result Comment: The validity of the calculated GFR GFRAA in patients over 70 years has not been determined. Clinical correlation is essential. Performed By: #### L 500.4050, L500.4100, L100.0100 #### [facility] [address] [place], [address] EST GFR - AA 98 mL/min Normal >60 [facility] Comment on above: Result Comment: Afri can [place] GFR Calc Performed By: #### L 500.4050, L500.4100, L100.0100 #### [facility] [address] [place], [address] GAP 6 Normal 5-15 [facility] Comment on above: Performed By: #### L 500.4050, L500.4100, L100.0100 #### [facility] [address] [place], [address] GFR/1.73 sq M.predicted among non-blacks MDRD (S/P/Bld) [Vol rate/Area] 81 mL/min/{1.73_m2} Normal >60 [facility] Comment on above: Result Comment: Non- GFR Calc Performed By: #### L 500.4050, L500.4100, L100.0100 #### [facility] [address] [place], [address] Globulin (S) [Mass/Vol] 2.7 g/dL Normal 2.2-4.2 [facility] Comment on above: Performed By: #### L 500.4050, L500.4100, L100.0100 #### [facility] [address] [place], [address] Glucose [Mass/Vol] 86 mg/dL Normal 74-106 [facility] Comment on above: Performed By: #### L 500.4050, L500.4100, L100.0100 #### [facility] [address] [place], [address] Potassium [Moles/Vol] 4.3 mmol/L Normal 3.5-5.1 [facility] Comment on above: Performed By: #### L 500.4050, L500.4100, L100.0100 #### [facility] [address] [place], [address] Sodium [Moles/Vol] 142 mmol/L Normal 136-145 [facility] Comment on above: Performed By: #### L 500.4050, L500.4100, L100.0100 #### [facility] [address] [place], [address] T PROT 6.8 g/dL Normal 6.4-8.2 [facility] Comment on above: Performed By: #### L 500.4050, L500.4100, L100.0100 #### [facility] [address] [place], [address] Urea nitrogen [Mass/Vol] 14 mg/dL Normal 7-18 [facility] Comment on above: Performed By: #### L 500.4050, L500.4100, L100.0100 #### [facility] [address] [place], [place], [address] Eosinophil percentageOrdered By: Marie Perez on 03-24-2024 Eosinophils/100 WBC (Bld) 1.2 % 0-5 [facility] Erythrocyte distribution wid th ratioOrdered By: Marie Perez on 03-24-2024 Erythrocyte distribution width (RBC) [Ratio] 12.9 % 11.6-14.6 [facility] Erythrocyte distribution wid th standard deviationOrdered By: Marie Perez on 03-24-2024 Erythrocyte distribution width (RBC) [Entitic vol] 44.7 fL High 35.1-43.9 [facility] Estimated glomerular filtrat ion rate (GFR) AmericanOrdered By: Marie Perez on 03-24-2024 Estimated GFR (MDRD) Amer 98 mL/min >60 [facility] Comment on above: GFR Calc Glomerular filtration rate ( GFR) estimationOrdered By: Marie Perez on 03-24-2024 Estimated GFR (MDRD) Non-Af Amer 81 mL/min >60 [facility] Comment on above: Non- GFR Calc Glucose measurementOrdered B y: Marie Perez on 03-24-2024 Glucose [Mass/Vol] 86 mg/dL 74-106 [facility] Hematocrit Auto (Bld) [Volum e fraction]Ordered By: Marie Perez on 03-24-2024 Hematocrit (Bld) [Volume fraction] 35.9 % Low 37-47 [facility] Hemoglobin measurementOrdere d By: Marie Perez on 03-24-2024 Hemoglobin (Bld) [Mass/Vol] 11.8 g/dL Low 12.0-15.0 [facility] High density lipoprotein (HD L) measurementOrdered By: Marie Perez on 03-24-2024 Cholesterol in HDL [Mass/Vol] 52 mg/dL >40 [facility] Comment on above: The drugs N-Acetylcy steine and Metamizole may falsely depress this assay. Reference Range HDL <40 mg/dL Low HDL Cholesterol HDL >or= 60 mg/dL High HDL Cholesterol Immature granulocytes/100 WB C Auto (Bld)Ordered By: Marie Perez on 03-24-2024 Immature granulocytes/100 WBC (Bld) 0.500 % 0.0-0.9 [facility] Comment on above: IG% - Immature Granu locytes (promyelocytes, myelocytes and metamyelocytes) > 1% indicates that a LEFT SHIFT is Present. Laboratory - Chemistry and C hemistry - challengeOrdered By: Marie Perez on 03-24-2024 AST [Catalytic activity/Vol] 17 U/L 15-37 [facility] Lipid Profileon 03-24-2024 Cholesterol [Mass/Vol] 221 mg/dL High 200 [facility] Comment on above: Result Comment: <200 mg/dL Desirable 200-240 mg/dL Borderline >240 mg/dL High Risk Performed By: #### L 500.4050, L500.4100, L100.0100 #### [facility] [address] [place], [address] Cholesterol in HDL [Mass/Vol] 52 mg/dL Normal [facility] Comment on above: Result Comment: The drugs N-Acetylcysteine and Metamizole may falsely depress this assay. Reference Range HDL <40 mg/dL Low HDL Cholesterol HDL >or= 60 mg/dL High HDL Cholesterol Performed By: #### L 500.4050, L500.4100, L100.0100 #### [facility] [address] [place], [address] Cholesterol in LDL [Mass/Vol] 143 mg/dL High 0-130 [facility] Comment on above: Performed By: #### L 500.4050, L500.4100, L100.0100 #### [facility] [address] [place], [address] Cholesterol in VLDL [Mass/Vol] 26 mg/dL Normal 5-40 [facility] Comment on above: Performed By: #### L 500.4050, L500.4100, L100.0100 #### [facility] [address] [place], [address] Triglyceride [Mass/Vol] 129 mg/dL Normal [facility] Comment on above: Result Comment: The drugs N-Acetylcysteine and Metamizole may falsely depress this assay. Serum Triglycerides Reference Interval Normal <150 mg/dL Borderline high 150 - 199 mg/dL High 200 - 499 mg/dL Very High > or = 500 mg/dL Performed By: #### L 500.4050, L500.4100, L100.0100 #### [facility] [address] [place], [address] CHOL Normal 200 [facility] Comment on above: Result Comment: DUPL ICATE Performed By: #### L 500.4100 #### [facility] [address] [place], [address] HDL Normal [facility] Comment on above: Result Comment: DUPL ICATE Performed By: #### L 500.4100 #### [facility] [address] [place], [address] LDL Normal 0-130 [facility] Comment on above: Result Comment: DUPL ICATE Performed By: #### L 500.4100 #### [facility] [address] [place], [address] TRIG Normal [facility] Comment on above: Result Comment: DUPL ICATE Performed By: #### L 500.4100 #### [facility] [address] [place], [address] VLDL Normal 5-40 [facility] Comment on above: Result Comment: DUPL ICATE Performed By: #### L 500.4100 #### [facility] [address] [place], [address] Low density lipoprotein (LDL ) cholesterol measurementOrdered By: Marie Perez on 03-24-2024 Cholesterol in LDL [Mass/Vol] 143 mg/dL High 0-130 [facility] Lymphocytes Auto (Unsp spec) [#/Vol]Ordered By: Marie Perez on 03-24-2024 Lymphocytes (Bld) [#/Vol] 1.77 10*3/uL 0.83-4.51 [facility] Lymphocytes/100 WBC Auto (Un sp spec)Ordered By: Marie Perez on 03-24-2024 Lymphocytes/100 WBC (Bld) 30.4 % 19-41 [facility] MCV (mean corpuscular volume ) determinationOrdered By: Marie Perez on 03-24-2024 MCV (RBC) [Entitic vol] 95.2 fL 81-99 [facility] Mean corpuscular hemoglobin (MCH) determinationOrdered By: Marie Peerz on 03-24-2024 MCH (RBC) [Entitic mass] 31.3 pg 27.0-32.0 [facility] Mean corpuscular hemoglobin concentration (MCHC) determinationOrdered By: Marie Perez on 03-24-2024 MCHC (RBC) [Mass/Vol] 32.9 g/dL 32-36 [facility] Mean platelet volume determi nationOrdered By: Marie Perez on 03-24-2024 Platelet mean volume (Bld) [Entitic vol] 8.8 fL 6.2-12.0 [facility] Monocyte percentageOrdered B y: Marie Perez on 03-24-2024 Monocytes/100 WBC (Bld) 4.8 % 0-10 [facility] Neutrophil percentageOrdered By: Marie Perez on 03-24-2024 Neutrophils/100 WBC (Bld) 62.6 % 47-70 [facility] Nucleated red blood cell per centageOrdered By: Marie Perez on 03-24-2024 Nucleated RBC/100 WBC (Bld) [Ratio] 0 % 0-5 [facility] Platelet countOrdered By: Awa Perez on 03-24-2024 Platelets (Bld) [#/Vol] 208 10*3/uL 150-450 [facility] Potassium measurementOrdered By: Marie Perez on 03-24-2024 Potassium [Moles/Vol] 4.3 mmol/L 3.5-5.1 [facility] RBC Auto (Bld) [#/Vol]Ordere d By: Marie Perez on 03-24-2024 RBC (Bld) [#/Vol] 3.77 10*6/uL Low 4.2-5.4 [facility] Serum anion gap measurementO rdered By: Marie Perez on 03-24-2024 Anion gap [Moles/Vol] 6 mmol/L 5-15 [facility] Serum globulin measurementOr dered By: Marie Perez on 03-24-2024 Globulin (S) [Mass/Vol] 2.7 g/dL 2.2-4.2 [facility] Serum or plasma alanine puckett otransferase (ALT) measurementOrdered By: Marie Peerz on 03-24-2024 ALT [Catalytic activity/Vol] 52 U/L 13-56 [facility] Serum or plasma albumin jessica urement (mass/volume)Ordered By: Marie Perez on 03-24-2024 Albumin [Mass/Vol] 4.1 g/dL 3.2-5.0 [facility] Serum or plasma alkaline mariah sphatase measurementOrdered By: Marie Perez on 03-24-2024 ALP [Catalytic activity/Vol] 60 U/L 45-117 [facility] Serum or plasma calcium jessica urement (mass/volume)Ordered By: Marie Perez on 03-24-2024 Calcium [Mass/Vol] 9.3 mg/dL 8.5-10.1 [facility] Serum or plasma cholesterol measurement (mass/volume)Ordered By: Marie Perez on 03-24-2024 Cholesterol [Mass/Vol] 221 mg/dL High <200 [facility] Comment on above: <200 mg/dL Desirable 200-240 mg/dL Borderline >240 mg/dL High Risk Serum or plasma creatinine m easurement (mass/volume)Ordered By: Marie Perez on 03-24-2024 Creatinine [Mass/Vol] 0.79 mg/dL 0.55-1.02 [facility] Comment on above: The validity of the calculated GFR & GFRAA in patients over 70 years has not been determined. Clinical correlation is essential. Serum or plasma urea nitroge n measurement (mass/volume)Ordered By: Marie Perez on 03-24-2024 Urea nitrogen [Mass/Vol] 14 mg/dL 7-18 [facility] Sodium levelOrdered By: Dirk Perez on 03-24-2024 Sodium [Moles/Vol] 142 mmol/L 136-145 [facility] Total proteinOrdered By: Amelia Perez on 03-24-2024 Protein [Mass/Vol] 6.8 g/dL 6.4-8.2 [facility] Triglycerides measurementOrd ered By: Marie Perez on 03-24-2024 Triglyceride [Mass/Vol] 129 mg/dL <199 [facility] Comment on above: The drugs N-Acetylcy steine and Metamizole may falsely depress this assay.Serum Triglycerides Reference Interval Normal <150 mg/dL Borderline high 150 - 199 mg/dL High 200 - 499 mg/dL Very High > or = 500 mg/dL Very low density lipoprotein (VLDL) cholesterol measurementOrdered By: Marie Perez on 03-24-2024 VLDL Cholesterol 26 mg/dL 5-40 [facility] White blood cell (WBC) count Ordered By: Marie Perez on 03-24-2024 WBC (Bld) [#/Vol] 5.8 10*3/uL 4.4-11.0 [facility] CNPAida 10-31-2023 [facility] Telephone ([place]) -- SAMUEL MCCRACKEN ([id number]) 1970 F Date Time Provider Department 10/31/23 ELAINE MCKENNA During your visit today, we recorded the following information about you: Elaine Mckenna PA-C 10/31/2023 3:37 PM Signed Please schedule for 6 month follow up. KENYON Villa Gillian, OCCA 10/31/2023 3:43 PM Signed TC to patient who is scheduled as requested. LU Ludwig Allergies As of Date: 10/31/2023 Noted Allergy Reaction CLINDAMYCIN 02/12/2021 8 - GI Upset 14 - Other: See Comments PENICILLIN G 02/12/2021 4 - Hives Date Reviewed: 10/31/2023 Reviewed by: Elaine Mckenna PA-C - Fully Assessed Prescriptions as of 10/31/2023 - pregabalin (LYRICA) 100 mg capsule Take 1 capsule by mouth three times a day for 180 days. - sulfaSALAzine EC (AZULFIDINE EN) 500 mg EC tablet Take 2 tablets by mouth twice daily. - albuterol HFA (PROVENTIL HFA, VENTOLIN HFA) 90 mcg/actuation inhaler Inhale 2 Puffs as instructed every 4 hours as needed. - predniSONE (DELTASONE) 10 mg tablet Take 1 tablet by mouth Every 3 Days. With flare takes PRN 3-5 days As needed - lisinopril (ZESTRIL, PRINIVIL) 20 mg tablet Take 10 mg by mouth once daily. - cyclobenzaprine (FLEXERIL) 10 mg tablet Take 10 mg by mouth daily at bedtime. - pyridoxine, vitamin B6, (VITAMIN B6) 100 mg tablet Take 100 mg by mouth once daily. Problem List As Of Date 10/31/2023 Noted Resolved ADD (attention deficit disorder) without hypera*12/31/2022 Carpal tunnel syndrome [G56.00] 12/31/2022 Essential (primary) hypertension [I10] 11/26/2022 Fibromyalgia [M79.7] 11/26/2022 Numbness and tingling sensation of skin [R20.0,*12/31/2022 Rheumatoid arthritis without elevated rheumatoi*12/31/2022 Tension headache [G44.209] 12/31/2022 Encounter Status:Closed by ELAINE MCKENNA on 10/31/23 [facility] 08-28-2023 [facility] Telephone (SLEWST) -- SAMUEL MCCRACKEN ([id number]) 1970 F Date Time Provider Department 08/28/23 LOUIS PORRAS JR During your visit today, we recorded the following information about you: Lynn Davis LPN 08/28/2023 3:45 PM Signed Prior Authorization received CoverMyMeds Lyrica (Pregabalin) New Rx sent for Pregabalin 100 mg. Phone call placed to [employer] [phone] Prior Authorization advised new dosage of Pregabalin 100 mg covered under the prior 75 mg approval number [id number] good through 09/2023, current medication filled 07/21/2023 - 10/16/2023 qty 270, no further action. Lynn Davis LPN Allergies As of Date: 08/28/2023 Noted Allergy Reaction CLINDAMYCIN 02/12/2021 8 - GI Upset 14 - Other: See Comments PENICILLIN G 02/12/2021 4 - Hives Date Reviewed: 07/18/2023 Reviewed by: Louis Porras Jr., MD - Fully Assessed Prescriptions as of 09/09/2023 - pregabalin (LYRICA) 100 mg capsule Take 1 capsule by mouth three times a day for 90 days. - sulfaSALAzine EC (AZULFIDINE EN) 500 mg EC tablet Take 2 tablets by mouth twice daily. - albuterol HFA (PROVENTIL HFA, VENTOLIN HFA) 90 mcg/actuation inhaler Inhale 2 Puffs as instructed every 4 hours as needed. - predniSONE (DELTASONE) 10 mg tablet Take 1 tablet by mouth Every 3 Days. With flare takes PRN 3-5 days As needed - lisinopril (ZESTRIL, PRINIVIL) 20 mg tablet Take 10 mg by mouth once daily. - cyclobenzaprine (FLEXERIL) 10 mg tablet Take 10 mg by mouth daily at bedtime. - pyridoxine, vitamin B6, (VITAMIN B6) 100 mg tablet Take 100 mg by mouth once daily. Problem List As Of Date 08/28/2023 Noted Resolved ADD (attention deficit disorder) without hypera*12/31/2022 Carpal tunnel syndrome [G56.00] 12/31/2022 Essential (primary) hypertension [I10] 11/26/2022 Fibromyalgia [M79.7] 11/26/2022 Numbness and tingling sensation of skin [R20.0,*12/31/2022 Rheumatoid arthritis without elevated rheumatoi*12/31/2022 Tension headache [G44.209] 12/31/2022 Encounter Status:Closed by LYNN DAVIS on 09/09/23 Normal [facility] Absolute lymphocyte countOrd ered By: Marie Perez on 06-30-2023 Lymphocytes Auto (Unsp spec) [#/Vol] 1.45 10*3/uL 0.83-4.51 [facility] Automated lymphocyte count a s percentage of total leukocytesOrdered By: Marie Perez on 06-30-2023 Lymphocytes/100 WBC Auto (Unsp spec) 30.9 % 19-41 [facility] Basophil percentageOrdered B y: Marie Perez on 06-30-2023 Basophils/100 WBC (Bld) 0.6 % 0-1 [facility] Bilirubin [Mass/Vol] 0.50 mg/dL 0.20-1.00 [facility] Comment on above: For patients on eltr ombopag therapy, use of Dimension [place] TBIL is not recommended. Chloride [Moles/Vol] 111 mmol/L 98-107 [facility] Eosinophils/100 WBC (Bld) 0.6 % 0-5 [facility] Glucose [Mass/Vol] 101 mg/dL 74-106 [facility] Comment on above: Fasting Glucose resu lt from 100 to 125 mg/dL suggests IMPAIRED HOMEOSTASIS per A.D.A. criteria. Hemoglobin (Bld) [Mass/Vol] 12.3 g/dL 12.0-15.0 [facility] Monocytes/100 WBC (Bld) 6.8 % 0-10 [facility] Neutrophils (Bld) [#/Vol] 2.8 10*3/uL 2.0-7.7 [facility] Neutrophils/100 WBC (Bld) 60.5 % 47-70 [facility] Potassium [Moles/Vol] 4.5 mmol/L 3.5-5.1 [facility] Protein [Mass/Vol] 6.3 g/dL 6.4-8.2 [facility] Sodium [Moles/Vol] 141 mmol/L 136-145 [facility] WBC (Bld) [#/Vol] 4.7 10*3/uL 4.4-11.0 [facility] Determination of erythrocyte mean corpuscular volume (MCV)Ordered By: Marie Perez on 06-30-2023 MCV (RBC) [Entitic vol] 96.2 fL 81-99 [facility] Erythrocyte distribution wid th ratioOrdered By: [facility] Chris on 06-30-2023 Erythrocyte distribution width (RBC) [Ratio] 12.3 % 11.6-14.6 [facility] Erythrocyte distribution wid th standard deviationOrdered By: [facility] Chris on 06-30-2023 Erythrocyte distribution width (RBC) [Entitic vol] 43.4 fL 35.1-43.9 [facility] Hematocrit Auto (Bld) [Volum e fraction]Ordered By: [facility] Chris on 06-30-2023 Hematocrit (Bld) [Volume fraction] 38.1 % 37-47 [facility] Immature granulocytes/100 WB C Auto (Bld)Ordered By: [facility] Chris on 06-30-2023 Immature granulocytes/100 WBC (Bld) 0.600 % 0.0-0.9 [facility] Comment on above: IG% - Immature Granu locytes (promyelocytes, myelocytes and metamyelocytes) > 1% indicates that a LEFT SHIFT is Present. Laboratory - Chemistry and C hemistry - challengeOrdered By: Marie Perez on 06-30-2023 Albumin/Globulin [Mass ratio] 1.6 {ratio} 0.9-2.4 [facility] ALP [Catalytic activity/Vol] 51 U/L 45-117 [facility] ALT [Catalytic activity/Vol] 25 U/L 13-56 [facility] CO2 [Moles/Vol] 26.0 mmol/L 21.0-32.0 [facility] Globulin (S) [Mass/Vol] 2.4 g/dL 2.2-4.2 [facility] Urea nitrogen/Creatinine [Mass ratio] 12.2 mg/mg 10-20 [facility] - Hematology and Cell countsOrdered By: Marie Perez on 06-30-2023 MCH (RBC) [Entitic mass] 31.1 pg 27.0-32.0 [facility] MCHC (RBC) [Mass/Vol] 32.3 g/dL 32-36 [facility] Nucleated RBC/100 WBC (Bld) [Ratio] 0 % 0-5 [facility] Platelet mean volume (Bld) [Entitic vol] 9.6 fL 6.2-12.0 [facility] Platelets (Bld) [#/Vol] 196 10*3/uL 150-450 [facility] No Panel InformationOrdered By: Marie Perez on 06-30-2023 Estimated GFR (MDRD) Amer 85 mL/min >60 [facility] Comment on above: GFR Calc Estimated GFR (MDRD) Non-Af Amer 70 mL/min >60 [facility] Comment on above: Non- GFR Calc RBC Auto (Bld) [#/Vol]Ordere d By: Marie Perez on 06-30-2023 RBC (Bld) [#/Vol] 3.96 10*6/uL 4.2-5.4 [facility] Serum or plasma calcium jessica urement (mass/volume)Ordered By: Marie Perez on 06-30-2023 Calcium [Mass/Vol] 8.7 mg/dL 8.5-10.1 [facility] Serum or plasma creatinine m easurement (mass/volume)Ordered By: Marie Perez on 06-30-2023 Creatinine [Mass/Vol] 0.90 mg/dL 0.55-1.02 [facility] Comment on above: The validity of the calculated GFR & GFRAA in patients over 70 years has not been determined. Clinical correlation is essential. Serum or plasma urea nitroge n measurement (mass/volume)Ordered By: Marie Perez on 06-30-2023 Urea nitrogen [Mass/Vol] 11 mg/dL -18 [facility] Thin prep Papanicolaou smear with manual screeningOrdered By: Marie Perez on 06-30-2023 Thin prep Papanicolaou smear with manual screening 3.9 g/dL 3.2-5.0 [facility] Thin prep Papanicolaou smear with manual screening 18 U/L 15-37 [facility] Thin prep Papanicolaou smear with manual screening 4 5-15 [facility] Absolute lymphocyte countOrd ered By: Marie Perez on 04-01-2023 Lymphocytes Auto (Unsp spec) [#/Vol] 1.27 10*3/uL 0.83-4.51 [facility] Basophil percentageOrdered B y: Marie Perez on 04-01-2023 Basophils/100 WBC (Bld) 0.5 % 0-1 [facility] Bilirubin [Mass/Vol] 0.60 mg/dL 0.20-1.00 [facility] Comment on above: For patients on eltr ombopag therapy, use of Dimension [place] TBIL is not recommended. Chloride [Moles/Vol] 110 mmol/L 98-107 [facility] Eosinophils/100 WBC (Bld) 1.0 % 0-5 [facility] Glucose [Mass/Vol] 97 mg/dL 74-106 [facility] Neutrophils (Bld) [#/Vol] 2.4 10*3/uL 2.0-7.7 [facility] Neutrophils/100 WBC (Bld) 59.9 % 47-70 [facility] Potassium [Moles/Vol] 4.6 mmol/L 3.5-5.1 [facility] Protein [Mass/Vol] 6.9 g/dL 6.4-8.2 [facility] Sodium [Moles/Vol] 140 mmol/L 136-145 [facility] WBC (Bld) [#/Vol] 3.9 10*3/uL 4.4-11.0 [facility] Blood erythrocytes count (nu mber/volume)Ordered By: Marie Perez on 04-01-2023 RBC (Bld) [#/Vol] 4.16 10*6/uL 4.2-5.4 [facility] Blood hemoglobin measurement (mass/volume)Ordered By: Marie Perez on 04-01-2023 Hemoglobin (Bld) [Mass/Vol] 13.1 g/dL 12.0-15.0 [facility] Blood lymphocytes/100 leukoc ytesOrdered By: Marie Perez on 04-01-2023 Lymphocytes/100 WBC (Bld) 32.2 % 19-41 [facility] Blood monocytes/100 leukocyt esOrdered By: Mariepao Perez on 04-01-2023 Monocytes/100 WBC (Bld) 6.1 % 0-10 [facility] Blood platelet mean volumeOr dered By: Marie Perez on 04-01-2023 Platelet mean volume (Bld) [Entitic vol] 8.7 fL 6.2-12.0 [facility] Determination of erythrocyte mean corpuscular volume (MCV)Ordered By: Marie Perez on 04-01-2023 MCV (RBC) [Entitic vol] 93.5 fL 81-99 [facility] Hematocrit Auto (Bld) [Volum e fraction]Ordered By: Maire Perez on 04-01-2023 Hematocrit (Bld) [Volume fraction] 38.9 % 37-47 [facility] - Chemistry and C hemistry - challengeOrdered By: [facility] Chris on 04-01-2023 ALP [Catalytic activity/Vol] 68 U/L 45-117 [facility] ALT [Catalytic activity/Vol] 23 U/L 13-56 [facility] CO2 [Moles/Vol] 25.0 mmol/L 21.0-32.0 [facility] Globulin (S) [Mass/Vol] 2.8 g/dL 2.2-4.2 [facility] Urea nitrogen/Creatinine [Mass ratio] 21.0 mg/mg 10-20 [facility] - Hematology and Cell countsOrdered By: Marie Perez on 04-01-2023 Erythrocyte distribution width (RBC) [Entitic vol] 41.4 fL 35.1-43.9 [facility] Erythrocyte distribution width (RBC) [Ratio] 12.0 % 11.6-14.6 [facility] Immature granulocytes/100 WBC (Bld) 0.300 % 0.0-0.9 [facility] Comment on above: IG% - Immature Granu locytes (promyelocytes, myelocytes and metamyelocytes) > 1% indicates that a LEFT SHIFT is Present. MCH (RBC) [Entitic mass] 31.5 pg 27.0-32.0 [facility] Nucleated RBC/100 WBC (Bld) [Ratio] 0 % 0-5 [facility] MCHC Auto (RBC) [Mass/Vol]Or dered By: Marie Perez on 04-01-2023 MCHC (RBC) [Mass/Vol] 33.7 g/dL 32-36 [facility] No Panel InformationOrdered By: Marie Perez on 04-01-2023 Estimated GFR (MDRD) Amer 111 mL/min >60 [facility] Comment on above: GFR Calc Estimated GFR (MDRD) Non-Af Amer 92 mL/min >60 [facility] Comment on above: Non- GFR Calc Platelets bldOrdered By: Amelia Perez on 04-01-2023 Platelets (Bld) [#/Vol] 255 10*3/uL 150-450 [facility] Serum or plasma albumin jessica urement (mass/volume)Ordered By: Marie Perez on 04-01-2023 Albumin [Mass/Vol] 4.1 g/dL 3.2-5.0 [facility] Serum or plasma albumin/glob ulin mass ratioOrdered By: Marie Perez on 04-01-2023 Albumin/Globulin [Mass ratio] 1.5 {ratio} 0.9-2.4 [facility] Serum or plasma calcium jessica urement (mass/volume)Ordered By: Marie Perez on 04-01-2023 Calcium [Mass/Vol] 8.8 mg/dL 8.5-10.1 [facility] Serum or plasma creatinine m easurement (mass/volume)Ordered By: Marie Perez on 04-01-2023 Creatinine [Mass/Vol] 0.72 mg/dL 0.55-1.02 [facility] Comment on above: The validity of the calculated GFR & GFRAA in patients over 70 years has not been determined. Clinical correlation is essential. Serum or plasma urea nitroge n measurement (mass/volume)Ordered By: Marie Perez on 04-01-2023 Urea nitrogen [Mass/Vol] 15 mg/dL 7-18 [facility] Thin prep Papanicolaou smear with manual screeningOrdered By: Marie Perez on 04-01-2023 Thin prep Papanicolaou smear with manual screening 11 U/L 15-37 [facility] Thin prep Papanicolaou smear with manual screening 5 5-15 [facility] TOX SCREEN ROUT URon 023 Amphetamines Confirm (U) [Mass/Vol] Negative Negative [facility] Barbiturates Urine Negative Negative [facility] Benzodiazepines Urine Negative Negative [facility] Cannabinoids Screen Ql (U) Negative Negative [facility] Cocaine Ql (U) Negative Negative [facility] Ethanol (U) [Mass/Vol] <11 mg/dL [facility] Opiates Screen Ql (U) Negative Negative [facility] oxyCODONE cutoff Screen (U) [Mass/Vol] Negative Negative [facility] Phencyclidine Ql (U) Negative Negative [facility] No Panel InformationOrdered By: Naomy Treviño on 02-13-2023 Follicle Stimulating Hormone 4.8 mIU/mL [facility] Comment on above: NORMAL REFERENCE RAN GES FEMALE FOLLICULAR 2.3 - 12.6 mIU/mL MID-CYCLE PEAK 5.2 - 17.5 mIU/mL LUTEAL 1.7 - 12.9 mIU/mL POST-MENOPAUSAL ON MHT 5.9 - 72.8 mIU/mL NOT ON MHT 12.7 - 132.2 mlU/mL MALE 0.7 - 10.8 mIU/mL Serum or plasma estradiol (E 2) measurement (mass/volume)Ordered By: Naomy Treviño on 02-13-2023 E2 [Mass/Vol] 149.7 pg/mL [facility] Comment on above: NORMAL REFERENCE RAN GES FEMALE FOLLICULAR 21.4 - 164.8 pg/mL MID-CYCLE PEAK 49.9 - 367.2 pg/mL LUTEAL 40.2 - 259.0 pg/mL POST-MENOPAUSAL ON MHT <11.0 - 462.1 pg/mL NOT ON MHT <11.0 - 58.3 pg/mL MALE <11.0 - 52.5 pg/mL NOTE:[employer]EM[employer] HAS CONFIRMED THE DRUG FULVETRANT (FASLODEX) MAY CAUSE FALSELY ELEVATED ESTRADIOL RESULTS WHEN USING THIS TEST METHOD. IF PATIENT IS TAKING FULVESTRANT AN ALTERNATIVE METHOD SHOULD BE USED TO DETERMINE ESTRADIOL CONCENTRATION. Absolute lymphocyte countOrd ered By: Marie Perez on 01-08-2023 Lymphocytes Auto (Unsp spec) [#/Vol] 1.77 10*3/uL 0.83-4.51 [facility] Basophil percentageOrdered B y: Estelita Pepe on 01-08-2023 Cholesterol [Mass/Vol] 176 mg/dL <200 [facility] Comment on above: <200 mg/dL Desirable 200-240 mg/dL Borderline >240 mg/dL High Risk Triglyceride [Mass/Vol] 108 mg/dL <199 [facility] Comment on above: The drugs N-Acetylcy steine and Metamizole may falsely depress this assay.Serum Triglycerides Reference Interval Normal <150 mg/dL Borderline high 150 - 199 mg/dL High 200 - 499 mg/dL Very High > or = 500 mg/dL Basophil percentageOrdered B y: Marie Perez on 01-08-2023 Basophils/100 WBC (Bld) 0.5 % 0-1 [facility] Bilirubin [Mass/Vol] 0.60 mg/dL 0.20-1.00 [facility] Comment on above: For patients on eltr ombopag therapy, use of Dimension [place] TBIL is not recommended. Chloride [Moles/Vol] 108 mmol/L 98-107 [facility] Eosinophils/100 WBC (Bld) 1.6 % 0-5 [facility] Glucose [Mass/Vol] 89 mg/dL 74-106 [facility] Neutrophils (Bld) [#/Vol] 3.8 10*3/uL 2.0-7.7 [facility] Neutrophils/100 WBC (Bld) 62.1 % 47-70 [facility] Potassium [Moles/Vol] 4.1 mmol/L 3.5-5.1 [facility] Protein [Mass/Vol] 6.7 g/dL 6.4-8.2 [facility] Sodium [Moles/Vol] 140 mmol/L 136-145 [facility] WBC (Bld) [#/Vol] 6.2 10*3/uL 4.4-11.0 [facility] Blood erythrocytes count (nu mber/volume)Ordered By: Marie Perez on 01-08-2023 RBC (Bld) [#/Vol] 4.16 10*6/uL 4.2-5.4 [facility] Blood hemoglobin measurement (mass/volume)Ordered By: Marie Perez on 01-08-2023 Hemoglobin (Bld) [Mass/Vol] 13.2 g/dL 12.0-15.0 [facility] Blood lymphocytes/100 leukoc ytesOrdered By: Marie Perez on 01-08-2023 Lymphocytes/100 WBC (Bld) 28.8 % 19-41 [facility] Blood monocytes/100 leukocyt esOrdered By: Marie Perez on 01-08-2023 Monocytes/100 WBC (Bld) 6.7 % 0-10 [facility] Blood platelet mean volumeOr dered By: [facility] Chris on 01-08-2023 Platelet mean volume (Bld) [Entitic vol] 9.6 fL 6.2-12.0 [facility] Determination of erythrocyte mean corpuscular volume (MCV)Ordered By: Mariepao Perez on 01-08-2023 MCV (RBC) [Entitic vol] 94.7 fL 81-99 [facility] Hematocrit Auto (Bld) [Volum e fraction]Ordered By: Marie Chris on 01-08-2023 Hematocrit (Bld) [Volume fraction] 39.4 % 37-47 [facility] Laboratory - Chemistry and C hemistry - challengeOrdered By: [facility] Chris on 01-08-2023 ALP [Catalytic activity/Vol] 62 U/L 45-117 [facility] ALT [Catalytic activity/Vol] 17 U/L 13-56 [facility] CO2 [Moles/Vol] 26.0 mmol/L 21.0-32.0 [facility] Globulin (S) [Mass/Vol] 2.6 g/dL 2.2-4.2 [facility] Urea nitrogen/Creatinine [Mass ratio] 14.9 mg/mg 10-20 [facility] - Hematology and Cell countsOrdered By: Mariepao Perez on 01-08-2023 Erythrocyte distribution width (RBC) [Entitic vol] 42.6 fL 35.1-43.9 [facility] Erythrocyte distribution width (RBC) [Ratio] 12.1 % 11.6-14.6 [facility] Immature granulocytes/100 WBC (Bld) 0.300 % 0.0-0.9 [facility] Comment on above: IG% - Immature Granu locytes (promyelocytes, myelocytes and metamyelocytes) > 1% indicates that a LEFT SHIFT is Present. MCH (RBC) [Entitic mass] 31.7 pg 27.0-32.0 [facility] Nucleated RBC/100 WBC (Bld) [Ratio] 0 % 0-5 [facility] MCHC Auto (RBC) [Mass/Vol]Or dered By: Marie Perez on 01-08-2023 MCHC (RBC) [Mass/Vol] 33.5 g/dL 32-36 [facility] No Panel InformationOrdered By: Marie Perez on 01-08-2023 Estimated GFR (MDRD) Amer 97 mL/min >60 [facility] Comment on above: GFR Calc Estimated GFR (MDRD) Non-Af Amer 80 mL/min >60 [facility] Comment on above: Non- GFR Calc Platelets bldOrdered By: Amelia Perez on 01-08-2023 Platelets (Bld) [#/Vol] 218 10*3/uL 150-450 [facility] Serum or plasma albumin jessica urement (mass/volume)Ordered By: Marie Perez on 01-08-2023 Albumin [Mass/Vol] 4.1 g/dL 3.2-5.0 [facility] Serum or plasma albumin/glob ulin mass ratioOrdered By: Marie Perez on 01-08-2023 Albumin/Globulin [Mass ratio] 1.6 {ratio} 0.9-2.4 [facility] Serum or plasma calcium jessica urement (mass/volume)Ordered By: Marie Perez on 01-08-2023 Calcium [Mass/Vol] 8.8 mg/dL 8.5-10.1 [facility] Serum or plasma cholesterol in HDL measurement (mass/volume)Ordered By: Estelita Pepe on 01-08-2023 Cholesterol in HDL [Mass/Vol] 44 mg/dL >40 [facility] Comment on above: The drugs N-Acetylcy steine and Metamizole may falsely depress this assay. Reference Range HDL <40 mg/dL Low HDL Cholesterol HDL >or= 60 mg/dL High HDL Cholesterol Serum or plasma cholesterol in VLDL measurement (mass/volume)Ordered By: Estelita Pepe on 01-08-2023 Cholesterol in VLDL [Mass/Vol] 22 mg/dL 5-40 [facility] Serum or plasma creatinine m easurement (mass/volume)Ordered By: Marie Perez on 01-08-2023 Creatinine [Mass/Vol] 0.80 mg/dL 0.55-1.02 [facility] Comment on above: The validity of the calculated GFR & GFRAA in patients over 70 years has not been determined. Clinical correlation is essential. Serum or plasma low density lipoprotein (LDL) cholesterol measurement (mass/volume)Ordered By: Estelita Pepe on 01-08-2023 Cholesterol in LDL [Mass/Vol] 110 mg/dL 0-130 [facility] Serum or plasma urea nitroge n measurement (mass/volume)Ordered By: Marie Perez on 01-08-2023 Urea nitrogen [Mass/Vol] 12 mg/dL 7-18 [facility] Thin prep Papanicolaou smear with manual screeningOrdered By: Marie Perez on 01-08-2023 Thin prep Papanicolaou smear with manual screening 7 U/L 15-37 [facility] Thin prep Papanicolaou smear with manual screening 6 5-15 [facility] CHLAMYDIA TRACH.,AMPLIFIEDon 12-10-2022 CHLAMYDIA TRACH.,AMPLIFIED Negative Normal Negative [facility] Comment on above: Result Comment: The APTIMA Combo 2 assay is FDA-approved for Chlamydia trachomatis and Neisseria gonorrhoeae testing on female endocervical and vaginal swabs, ThinPrep liquid pap samples, male urine samples and urethral swabs. Performance characteristics for Chlamydia trachomatis and Neisseria gonorrhoeae testing on specific rmg-PJF-yzrcbjxb sample types (female urine samples) have been validated by [facility]. This laboratory is certified by CLIA to perform high complexity testing. Samples from all other sites are not validated for this method. Performed By: #### C TAMP #### [facility] [address] [place] [address] N.GONORRHEA,AMPLIFIEDon 08- N.GONORRHEA,AMPLIFIED Negative Normal Negative [facility] Comment on above: Result Comment: The APTIMA Combo 2 assay is FDA-approved for Chlamydia trachomatis and Neisseria gonorrhoeae testing on female endocervical and vaginal swabs, ThinPrep liquid pap samples, male urine samples and urethral swabs. Performance characteristics for Chlamydia trachomatis and Neisseria gonorrhoeae testing on specific qdq-FGY-odzfnucc sample types (female urine samples) have been validated by [facility]. This laboratory is certified by CLIA to perform high complexity testing. Samples from all other sites are not validated for this method. Performed By: #### G CAMP #### [facility] [address] [place] [address] TRICHOMONAS,NUCLEIC ACID DET ECTIONon 12-10-2022 TRICHOMONAS VAGINALIS Negative Normal Negative [facility] Comment on above: Result Comment: The APTIMA Trichomonas vaginalis assay is FDA-approved for testing on female endocervical swabs, vaginal swabs, and ThinPrep liquid pap samples. Performance characteristics for Trichomonas vaginalis on specific kgq-HEM-avhvwonm sample types (female and male urine and male urethral swabs) have been validated by [facility]. This laboratory is certified by CLIA to perform high complexity testing. Samples from all other sites are not validated for this method. Performance characteristics for Trichomonas Vaginalis testing on urine samples has been validated by [facility]. Testing on this sample type is not FDA-approved, but such approval is not necessary. This laboratory is certified by CLIA to perform high complexity testing. Performed By: #### T FRANKY #### [facility] [address] [place] [address] CBC AND DIFFERENTIALon 12-08 % AUTOMATED IMMATURE GRAN 0.3 % Normal 0.0 - 0.9 [facility] Comment on above: Result Comment: Cinthia ture Granulocyte Count (IG) includes promyelocytes, myelocytes and metamyelocytes but does not include bands. Percent differential counts (%) should be interpreted in the context of the absolute cell counts (cells/L). Performed By: #### C BCDF #### [address] [address] Basophils (Bld) [#/Vol] 0.04 10*3/uL Normal 0.00 - 0.10 [facility] Comment on above: Performed By: #### C BCDF #### [address] [address] Basophils/100 WBC (Bld) 0.4 % Normal 0.0 - 2.0 [facility] Comment on above: Performed By: #### C BCDF #### [address] [address] Eosinophils (Bld) [#/Vol] 0.06 10*3/uL Normal 0.00 - 0.70 [facility] Comment on above: Performed By: #### C BCDF #### [address] [address] Eosinophils/100 WBC (Bld) 0.6 % Normal 0.0 - 6.0 [facility] Comment on above: Performed By: #### C BCDF #### [address] [address] Erythrocyte distribution width (RBC) [Ratio] 12.2 % Normal 11.5 - 14.5 [facility] Comment on above: Performed By: #### C BCDF #### [address] [address] Hematocrit (Bld) [Volume fraction] 40.7 % Normal 36.0 - 46.0 [facility] Comment on above: Performed By: #### C BCDF #### [address] [address] Hemoglobin (Bld) [Mass/Vol] 14.0 g/dL Normal 12.0 - 16.0 [facility] Comment on above: Performed By: #### C BCDF #### [address] [address] Lymphocytes (Bld) [#/Vol] 2.49 10*3/uL Normal 1.20 - 4.80 [facility] Comment on above: Performed By: #### C BCDF #### [address] [address] Lymphocytes/100 WBC (Bld) 23.8 % Normal 13.0 - 44.0 [facility] Comment on above: Performed By: #### C BCDF #### [address] [address] MCHC (RBC) [Mass/Vol] 34.4 g/dL Normal 32.0 - 36.0 [facility] Comment on above: Performed By: #### C BCDF #### [address] [address] MCV (RBC) [Entitic vol] 93 fL Normal 80 - 100 [facility] Comment on above: Performed By: #### C BCDF #### [address] [address] Monocytes (Bld) [#/Vol] 0.52 10*3/uL Normal 0.10 - 1.00 [facility] Comment on above: Performed By: #### C BCDF #### [address] [address] Monocytes/100 WBC (Bld) 5.0 % Normal 2.0 - 10.0 [facility] Comment on above: Performed By: #### C BCDF #### [address] [address] Neutrophils (Bld) [#/Vol] 7.33 10*3/uL Normal 1.20 - 7.70 [facility] Comment on above: Performed By: #### C BCDF #### [address] [address] Neutrophils/100 WBC (Bld) 69.9 % Normal 40.0 - 80.0 [facility] Comment on above: Performed By: #### C BCDF #### [address] [address] Platelets (Bld) [#/Vol] 242 10*3/uL Normal 150 - 450 [facility] Comment on above: Performed By: #### C BCDF #### [address] [address] RBC 4.37 x10E12/L Normal 4.00 - 5.20 [facility] Comment on above: Performed By: #### C BCDF #### [address] [address] WBC (Bld) [#/Vol] 10.5 10*3/uL Normal 4.4 - 11.3 [facility] Comment on above: Performed By: #### C BCDF #### [address] [address] COMPREHENSIVE PANELon 2022 Albumin [Mass/Vol] 5.0 g/dL Normal 3.4 - 5.0 [facility] Comment on above: Performed By: #### C MP #### [address] [address] ALP [Catalytic activity/Vol] 57 U/L Normal 33 - 110 [facility] Comment on above: Performed By: #### C MP #### [address] [address] ALT [Catalytic activity/Vol] 12 U/L Normal 7 - 45 [facility] Comment on above: Result Comment: Priscilla ents treated with Sulfasalazine may generate falsely decreased results for ALT. Performed By: #### C MP #### [address] [address] Anion gap [Moles/Vol] 18 mmol/L Normal 10 - 20 [facility] Comment on above: Performed By: #### C MP #### [address] [address] AST [Catalytic activity/Vol] 15 U/L Normal 9 - 39 [facility] Comment on above: Performed By: #### C MP #### [address] [address] Bilirubin [Mass/Vol] 0.7 mg/dL Normal 0.0 - 1.2 [facility] Comment on above: Performed By: #### C MP #### [address] [address] Calcium [Mass/Vol] 9.5 mg/dL Normal 8.6 - 10.3 [facility] Comment on above: Performed By: #### C MP #### [address] [address] Chloride [Moles/Vol] 103 mmol/L Normal 98 - 107 [facility] Comment on above: Performed By: #### C MP #### [address] [address] Creatinine [Mass/Vol] 0.95 mg/dL Normal 0.50 - 1.05 [facility] Comment on above: Performed By: #### C MP #### [address] [address] GFR/1.73 sq M.predicted among non-blacks MDRD (S/P/Bld) [Vol rate/Area] 73 mL/min/{1.73_m2} Normal >90 [facility] Comment on above: Result Comment: CALC ULATIONS OF ESTIMATED GFR ARE PERFORMED USING THE 2020 CKD-EPI STUDY REFIT EQUATION WITHOUT THE RACE VARIABLE FOR THE IDMS-TRACEABLE CREATININE METHODS. https://jasn.asnjournals.org/content//ASN.06882 [address] Performed By: #### C MP #### [address] [address] Glucose [Mass/Vol] 93 mg/dL Normal 74 - 99 [facility] Comment on above: Performed By: #### C MP #### [address] [address] HCO3 (Bld) [Moles/Vol] 20 mmol/L Low 21 - 32 [facility] Comment on above: Performed By: #### C MP #### [address] [address] Potassium [Moles/Vol] 3.6 mmol/L Normal 3.5 - 5.3 [facility] Comment on above: Performed By: #### C MP #### [address] [address] Protein [Mass/Vol] 6.9 g/dL Normal 6.4 - 8.2 [facility] Comment on above: Performed By: #### C MP #### [address] [address] Sodium [Moles/Vol] 137 mmol/L Normal 136 - 145 [facility] Comment on above: Performed By: #### C MP #### [facility] [address] [place] [address] Urea nitrogen [Mass/Vol] 9 mg/dL Normal 6 - 23 [facility] Comment on above: Performed By: #### C MP #### [address] [place] [address] LACTATEon 12-08-2022 Lactate [Moles/Vol] 0.8 mmol/L Normal 0.4 - 2.0 [facility] Comment on above: Result Comment: Carmencita puncture immediately after or during the administration of Metamizole may lead to falsely low results. Testing should be performed immediately prior to Metamizole dosing. Performed By: #### L ACT #### [address] [place] [address] Lactate [Moles/Vol] 5.0 mmol/L Critically high 0.4 - 2.0 [facility] Comment on above: Order Comment: LACT CALLED RB TO RASHI BUSTOS, 12/08/2022 12:11 Result Comment: Carmencita puncture immediately after or during the administration of Metamizole may lead to falsely low results. Testing should be performed immediately prior to Metamizole dosing. LACT CALLED RB TO RASHI BUSTOS, 12/08/2022 12:11 Performed By: #### L ACT ####[address] [address] N.GONORRHEA,AMPLIFIEDon 11-13 Lab Specimen Source Urine Normal [facility] Comment on above: Performed By: #### G CAMP #### [facility] [address] [place] [address] Performed By: #### C TAMP #### [facility] [address] [place] [address] Performed By: #### T FRANKY #### [facility] [address] [place] [address] Provider Note - ED v3on 11-13 Provider Note - ED v3 Provider Note: Results/Vital Signs: Pediatric Clinical Scoring (JOSE) is no recent JOSE charted on this account Chart Review: ED NOTES ED NOTES: HPI: Patient presents to the emergency room with a low abdominal/pelvic pain. She states that its been ongoing for a couple of months where she gets the stabbing pains and then they just improve on their own. She states that today she had a severe episode and she feels that she felt up pop and then had a syncopal episode from the pain. She reports that she had a partial hysterectomy and still has her ovaries. Denies any possibility of STDs but is willing to be tested. No vaginal discharge, urinary urgency or frequency. No flank pain. No back pain. No fever, nausea or vomiting. Review of systems: Negative except for what is mentioned in the HPI. Physical exam: General: Vitals noted, no distress. Afebrile. EENT: TMs clear. Posterior oropharynx unremarkable. Cardiac: Regular, rate, rhythm, no murmur. Pulmonary: Lungs clear bilaterally with good aeration. No adventitious breath sounds. Abdomen: Soft, nonsurgical. Nontender. No peritoneal signs. Normoactive bowel sounds. Extremities: No peripheral edema. Negative Homans bilaterally, no cords. Skin: No rash. Neuro: No focal neurologic deficits, NIH score of 0. HISTORY OF PRESENTING ILLNESS SAMUEL is a 51 year old Female and was seen by me at 08-Dec-2022 10:59 for a chief complaint of abdominal pain . Triage Information: Most recent Vital Sign Value Date Heart Rate (beats/min): 75 12-08-2022 10:49 Respirations (breaths/min): 22 12-08-2022 10:49 SpO2 (%): 100 12-08-2022 10:49 BP Systolic (mm Hg): 134 12-08-2022 10:49 BP Diastolic (mm Hg): 77 12-08-2022 10:49 PAST MEDICAL HISTORY ALLERGIES/INTOLERANCES: Allergy Allergen: penicillin Type: Drug Reaction: Hives/Urticaria Allergen: clindamycin Type: Drug Reaction: Unknown HEALTH HISTORY: No documented data. OUTPATIENT MEDICATIONS: Home Medications Review Status for Reconciliation: Incomplete Med Status: Incomplete Medication History Drug Name: sulfaSALAzine 500 mg oral delayed release tablet Instructions: 2 tab(s) orally 2 times a day Drug Name: pregabalin 75 mg oral capsule Instructions: 1 cap(s) orally 3 times a day Drug Name: lisinopril 10 mg oral tablet Instructions: 1 tab(s) orally once a day Drug Name: cyclobenzaprine 10 mg oral tablet Instructions: 1 tab(s) orally once a day (at bedtime) Drug Name: predniSONE 10 mg oral tablet Instructions: 1 tab(s) orally once a day for 3-5 days for flares Drug Name: diclofenac sodium 50 mg oral delayed release tablet Instructions: 1 tab(s) orally 3 times a day SIGNIFICANT EVENTS: Past Surgical History Description:Hysterectomy Description:tonsil MDM MDM/ED COURSE: Patient's CT showed a right ovarian cyst. We did do a follow-up ultrasound to ensure there was no ovarian torsion and patient does not have a torsion. She will be discharged to follow-up with her PCP in the next 2 to 3 days and will return here if she gets worse. DISPOSITION Diagnosis/Annotation: ED Dx Name:Ovarian cyst Code:N83.209 Disposition: discharged Type: home CONSULT CRITICAL CARE TIME Is this a critically ill patient: no Electronic Signatures: Rashi Bustos ([employer]) (Signed 08-Dec-2022 16:36) Authored: ED Notes, HPI, PMH, Results/Vital Signs, MDM/ED Course, Clinical Impression, Attestation, Chart Review, Scores Last Updated: 08-Dec-2022 16:36 by Rashi Bustos ([employer]) References: 1. Data Referenced From Triage - ED 08-Dec-2022 10:49 Normal [facility] Risk Screen - Adult Emergenc yon 12-08-2022 Risk Screen - Adult Emergency Preferred Language: Preferred Language: Preferred Language for Discussing Health Care (patient/designee)Bengali Patient Preferred Pharmacy: Patient Preferred Pharmacy Statement: I have reviewed and updated the patient's preferred pharmacy selection for today's visit. Advanced Directives: Advance Directive/DNRno Family Violence Adult: Abuse Screen: Are you or have you been threatened or abused physically, emotionally, or sexually by anyoneno Learning Assessment (Patient): Learning Assessment (Patient): Patient is Able to be Assessed for Learningyes Factors Influencing Readiness to Learnacuteness of illness Factors that Impact Ability to Learnacuteness of illness Devices/Methods Used to Communicatenone Learning Preferencesverbal instruction; written material Cultural Considerationsnone Developmental Considerationsnone Restorationist Considerationsnone Learning Assessment (Other Learner): Learning Assessment (Other Learner): Other learner availableno Pressure Injury/TB/Substance: Pressure Injury: Do you have a coughno Smoking Statusmoderate user (uses 11-30 cig/day, OR 0.5-1.5 ppd, OR 2-3 cans/pouches loose leaf tobacco per week, OR 0.5-1.5 vape pods per day) Tobacco Cessation Education (provide if tobacco use within the last 12 mos) patient declined Alcohol Useoccasionally Drug Useoccasionally Admission Risk Screen: Significant IndicatorsComplete CAGE: CAGE: Is this an injured patient at a Trauma Center ([facility]/[place]): no Electronic Signatures: Janet Cheema (RN) (Signed 08-Dec-2022 11:00) Authored: Preferred Language, Patient Preferred Pharmacy, Advanced Directives, Family Violence Adult, Learning Assessment (Patient), Learning Assessment (Other Learner), Pressure Injury/TB/Substance, Pressure Injury, CAGE Last Updated: 08-Dec-2022 11:00 by Janet Cheema (ÓSCAR) Normal [facility] Triage - EDon 12-08-2022 Triage - ED Quick Triage: Are You no Are You Currently Breastfeedingno Chart Review: ARRIVAL INFORMATION Mode of Arrival: private vehicle CHIEF COMPLAINT SAMUEL MCCRACKEN is a Female patient with a chief complaint of abdominal pain. Onset of the Complaint: 08-Dec-2022 08:00 Triage Date/Time: 08-Dec-2022 10:49 MELVINA: 3 Pain Rating (0-10): 10 = Severe Vital Signs: Temperature: F ( C) taken temporal Blood Pressure: 134/77 Mean: Heart Rate: 75 Respiratory Rate: 22 Pulse Oximetry: 100% on room air, no respiratory support. Height: 5 feet 3.00 inches. 160.0 CM Weight: 158.7 pounds. Calculated 72.0 kg. (scale measurement) Calculated BMI (kg/m2): 28.125 Calculated BSA (m2) 1.79 [place] Coma Scale: Best Eye Response: (E4) spontaneous Best Motor Response: (M6) obeys commands Best Verbal Response: (V5) oriented [place] Score: 15 Allergies: yes Patient has homicidal thoughts: no Risk Screens Suicide Risk Screen In the Past Month: Have you wished you were or wished you could go to sleep and not wake up no In the Past Month: Have you had any actual thoughts of killing yourself no In Your Lifetime: Have you ever done anything, started to do anything, or prepared to do anything to end your life no Saenz Fall Scale Screening Has the patient fallen before (or is the patient in the ED as a result of a fall) has not had a fall Does the patient have an impaired gait does not have impaired gait Is the patient cognitively impaired not cognitively impaired Interventions: Saenz Fall Interventions: LOW INTERVENTIONS: *patient oriented to surroundings and call system, * patient/family falls education completed and documented, *patients fall status communicated during bedside handoff, *whiteboard updated, *mode of toileting discussed with patient, *bed in low position with brakes locked, *call light in reach, * non-skid footwear TRAVEL HISTORY Travel History Coronavirus Screening: no exposure or symptoms Travel Exposure History: NO travel to International locations in the past 30 days PAIN Pain Scale Used: JOSE Pain Rating (0-10): 10 = Severe Past Medical History: Past Medical History Reviewedyes tonsil: Past Surgical History, Active Hysterectomy: Past Surgical History, Active Electronic Signatures: Janet Cheema (RN) (Signed 08-Dec-2022 10:59) Entered: Risk Screens, Pain, Travel History, Chart Review, Scores, Past Medical History Authored: Quick Triage, Risk Screens, Pain, Travel History, Chart Review, Scores, Past Medical History Last Updated: 08-Dec-2022 10:59 by Janet Cheema (RN) Normal [facility] URINALYSIS WITH CULTURE IF I NDICATEDon 12-08-2022 Appearance (U) CLEAR Normal CLEAR [facility] Comment on above: Performed By: #### U ARFX #### [address] [address] Bilirubin Ql (U) Negative Normal NEGATIVE [facility] Comment on above: Performed By: #### U ARFX #### [address] [address] Color (U) YELLOW Normal STRAW,YELLOW [facility] Comment on above: Performed By: #### U ARFX #### [address] [address] Glucose Ql (U) Negative Normal NEGATIVE [facility] Comment on above: Performed By: #### U ARFX #### [address] [address] Hemoglobin Ql (U) Negative Normal NEGATIVE [facility] Comment on above: Performed By: #### U ARFX #### [address] [address] Ketones Ql (U) Negative Normal NEGATIVE [facility] Comment on above: Performed By: #### U ARFX #### [address] [address] Leukocyte esterase Test strip Ql (U) Negative Normal NEGATIVE [facility] Comment on above: Performed By: #### U ARFX #### [address] [address] Nitrite Ql (U) Negative Normal NEGATIVE [facility] Comment on above: Performed By: #### U ARFX #### [address] [address] pH (U) 9.0 [pH] High 5.0 - 8.0 [facility] Comment on above: Performed By: #### U ARFX #### [address] [address] Protein Ql (U) Negative Normal NEGATIVE [facility] Comment on above: Performed By: #### U ARFX #### [address] [address] Specific gravity (U) [Rel density] 1.005 Normal 1.005 - 1.035 [facility] Comment on above: Performed By: #### U ARFX #### [address] [address] Urobilinogen (U) [Mass/Vol] mg/dL Normal 0.0 - 1.9 [facility] Comment on above: Performed By: #### U ARFX #### [address] [address] Yasmeen 10-16-2022 [place] Telephone ([facility] -- SAMUEL MCCRACKEN ([id number]) 1970 F Date Time Provider Department 10/16/22 CHIQUITA BLANTON, LOUIS HERNANDEZ During your visit today, we recorded the following information about you: Martha Smith Ryan HILL 10/16/2022 8:13 AM Signed Pt called and she needs to have another PA done for medication Pregabalin she takes 3 times a day. Pt's insurance changed to [facility] [place] PRIOR AUTHORIZATION Medication for Prior Authorization: Pregabalin Other formulary meds available : NO Insurance Company: [employer] phone number: [phone] Patient insurance ID number: [id number] Martha Sarah Ryan HILL Pt reports she runs out of medication tomorrow 10/17/22. Meredith Bryant LPN 10/16/2022 8:27 AM Signed PA started on CoverMyMeds. Await decision. LIZ Damon LPN 10/16/2022 8:42 AM Signed Medication approved. CaseId:[id number]; Status:Approved;Review Type:Prior Auth; Coverage Start Date:10/12/2022; Coverage End Date:11/11/2023; Meredith Bryant LPN Allergies As of Date: 10/16/2022 Noted Allergy Reaction CLINDAMYCIN 02/12/2021 8 - GI Upset 14 - Other: See Comments PENICILLIN G 02/12/2021 4 - Hives Date Reviewed: 05/20/2022 Reviewed by: Louis Porras Jr., MD - Fully Assessed Reason for Visit: Medication prior authorization [Other] Prescriptions as of 10/16/2022 - pregabalin (LYRICA) 75 mg capsule Take 1 capsule by mouth three times daily for 90 days. - sulfaSALAzine EC (AZULFIDINE EN) 500 mg EC tablet Take 2 tablets by mouth twice daily. - albuterol HFA (PROVENTIL HFA, VENTOLIN HFA) 90 mcg/actuation inhaler Inhale 2 Puffs as instructed every 4 hours as needed. - predniSONE (DELTASONE) 10 mg tablet Take 1 tablet by mouth Every 3 Days. With flare takes PRN 3-5 days - lisinopril (ZESTRIL, PRINIVIL) 20 mg tablet Take 20 mg by mouth once daily. - cyclobenzaprine (FLEXERIL) 10 mg tablet Take 10 mg by mouth daily at bedtime. - pyridoxine, vitamin B6, (VITAMIN B6) 100 mg tablet Take 100 mg by mouth once daily. Problem List As Of Date: 10/16/2022 (None) Encounter Status:Closed by MEREDITH BRYANT on 10/16/22 Normal [facility] Absolute lymphocyte countOrd ered By: Marie Perez on 09-20-2022 Lymphocytes Auto (Unsp spec) [#/Vol] 2.05 10*3/uL 0.83-4.51 [facility] Basophil percentageOrdered B y: Marie Perez on 09-20-2022 Basophils/100 WBC (Bld) 0.4 % 0-1 [facility] Bilirubin [Mass/Vol] 0.50 mg/dL 0.20-1.00 [facility] Comment on above: For patients on eltr ombopag therapy, use of Dimension [place] TBIL is not recommended. Chloride [Moles/Vol] 106 mmol/L 98-107 [facility] Eosinophils/100 WBC (Bld) 1.5 % 0-5 [facility] Glucose [Mass/Vol] 83 mg/dL 74-106 [facility] Neutrophils (Bld) [#/Vol] 4.1 10*3/uL 2.0-7.7 [facility] Neutrophils/100 WBC (Bld) 61.4 % 47-70 [facility] Potassium [Moles/Vol] 4.6 mmol/L 3.5-5.1 [facility] Protein [Mass/Vol] 6.7 g/dL 6.4-8.2 [facility] Sodium [Moles/Vol] 137 mmol/L 136-145 [facility] WBC (Bld) [#/Vol] 6.7 10*3/uL 4.4-11.0 [facility] Blood erythrocytes count (nu mber/volume)Ordered By: Marie Perze on 09-20-2022 RBC (Bld) [#/Vol] 4.19 10*6/uL 4.2-5.4 [facility] Blood hemoglobin measurement (mass/volume)Ordered By: Marie Perez on 09-20-2022 Hemoglobin (Bld) [Mass/Vol] 13.1 g/dL 12.0-15.0 [facility] Blood lymphocytes/100 leukoc ytesOrdered By: Marie Perez on 09-20-2022 Lymphocytes/100 WBC (Bld) 30.4 % 19-41 [facility] Blood monocytes/100 leukocyt esOrdered By: Marie Perez on 09-20-2022 Monocytes/100 WBC (Bld) 5.9 % 0-10 [facility] Blood platelet mean volumeOr dered By: Marie Perez on 09-20-2022 Platelet mean volume (Bld) [Entitic vol] 9.5 fL 6.2-12.0 [facility] Determination of erythrocyte mean corpuscular volume (MCV)Ordered By: Marie Perez on 09-20-2022 MCV (RBC) [Entitic vol] 97.4 fL 81-99 [facility] Hematocrit Auto (Bld) [Volum e fraction]Ordered By: Marie Perez on 09-20-2022 Hematocrit (Bld) [Volume fraction] 40.8 % 37-47 [facility] Laboratory - Chemistry and C hemistry - challengeOrdered By: Marie Perez on 09-20-2022 ALP [Catalytic activity/Vol] 60 U/L 45-117 [facility] ALT [Catalytic activity/Vol] 19 U/L 13-56 [facility] CO2 [Moles/Vol] 24.0 mmol/L 21.0-32.0 [facility] Globulin (S) [Mass/Vol] 2.7 g/dL 2.2-4.2 [facility] Urea nitrogen/Creatinine [Mass ratio] 17.8 mg/mg 10-20 [facility] - Hematology and Cell countsOrdered By: Marie Perez on 09-20-2022 Erythrocyte distribution width (RBC) [Entitic vol] 43.9 fL 35.1-43.9 [facility] Erythrocyte distribution width (RBC) [Ratio] 12.3 % 11.6-14.6 [facility] Immature granulocytes/100 WBC (Bld) 0.400 % 0.0-0.9 [facility] Comment on above: IG% - Immature Granu locytes (promyelocytes, myelocytes and metamyelocytes) > 1% indicates that a LEFT SHIFT is Present. MCH (RBC) [Entitic mass] 31.3 pg 27.0-32.0 [facility] Nucleated RBC/100 WBC (Bld) [Ratio] 0 % 0-5 [facility] MCHC Auto (RBC) [Mass/Vol]Or dered By: Marie Perez on 09-20-2022 MCHC (RBC) [Mass/Vol] 32.1 g/dL 32-36 [facility] No Panel InformationOrdered By: Marie Perez on 09-20-2022 Estimated GFR (MDRD) Amer 75 mL/min >60 [facility] Comment on above: GFR Calc Estimated GFR (MDRD) Non-Af Amer 62 mL/min >60 [facility] Comment on above: Non- GFR Calc Platelets bldOrdered By: Amelia Perez on 09-20-2022 Platelets (Bld) [#/Vol] 221 10*3/uL 150-450 [facility] Serum or plasma albumin jessica urement (mass/volume)Ordered By: Marie Perez on 09-20-2022 Albumin [Mass/Vol] 4.0 g/dL 3.2-5.0 [facility] Serum or plasma albumin/glob ulin mass ratioOrdered By: Marie Perez on 09-20-2022 Albumin/Globulin [Mass ratio] 1.5 {ratio} 0.9-2.4 [facility] Serum or plasma calcium jessica urement (mass/volume)Ordered By: Marie Perez on 09-20-2022 Calcium [Mass/Vol] 8.8 mg/dL 8.5-10.1 [facility] Serum or plasma creatinine m easurement (mass/volume)Ordered By: Marie Perez on 09-20-2022 Creatinine [Mass/Vol] 1.01 mg/dL 0.55-1.02 [facility] Comment on above: The validity of the calculated GFR & GFRAA in patients over 70 years has not been determined. Clinical correlation is essential. Serum or plasma urea nitroge n measurement (mass/volume)Ordered By: Marie Perez on 09-20-2022 Urea nitrogen [Mass/Vol] 18 mg/dL 7-18 [facility] Thin prep Papanicolaou smear with manual screeningOrdered By: Marie Perez on 09-20-2022 Thin prep Papanicolaou smear with manual screening 13 U/L 15-37 [facility] Thin prep Papanicolaou smear with manual screening 7 5-15 [facility] Absolute lymphocyte countOrd ered By: Dr. Perez on 07-26-2022 Lymphocytes Auto (Unsp spec) [#/Vol] 1.43 10*3/uL 0.83-4.51 [facility] Basophil percentageOrdered B y: Dr. Perez on 07-26-2022 Basophils/100 WBC (Bld) 0.4 % 0-1 [facility] Bilirubin [Mass/Vol] 0.40 mg/dL 0.20-1.00 [facility] Comment on above: For patients on eltr ombopag therapy, use of Dimension [place] TBIL is not recommended. Chloride [Moles/Vol] 108 mmol/L 98-107 [facility] Eosinophils/100 WBC (Bld) 1.5 % 0-5 [facility] Glucose [Mass/Vol] 99 mg/dL 74-106 [facility] Neutrophils (Bld) [#/Vol] 2.7 10*3/uL 2.0-7.7 [facility] Neutrophils/100 WBC (Bld) 59.0 % 47-70 [facility] Potassium [Moles/Vol] 4.8 mmol/L 3.5-5.1 [facility] Protein [Mass/Vol] 6.7 g/dL 6.4-8.2 [facility] Sodium [Moles/Vol] 136 mmol/L 136-145 [facility] WBC (Bld) [#/Vol] 4.5 10*3/uL 4.4-11.0 [facility] Blood erythrocytes count (nu mber/volume)Ordered By: Dr. Perez on 07-26-2022 RBC (Bld) [#/Vol] 3.84 10*6/uL 4.2-5.4 [facility] Blood hemoglobin measurement (mass/volume)Ordered By: Dr. Perez on 07-26-2022 Hemoglobin (Bld) [Mass/Vol] 12.2 g/dL 12.0-15.0 [facility] Blood lymphocytes/100 leukoc ytesOrdered By: Dr. Perez on 07-26-2022 Lymphocytes/100 WBC (Bld) 31.6 % 19-41 [facility] Blood monocytes/100 leukocyt esOrdered By: Dr. Perez on 07-26-2022 Monocytes/100 WBC (Bld) 7.3 % 0-10 [facility] Blood platelet mean volumeOr dered By: Dr. Perez on 07-26-2022 Platelet mean volume (Bld) [Entitic vol] 9.4 fL 6.2-12.0 [facility] Determination of erythrocyte mean corpuscular volume (MCV)Ordered By: Dr. Perez on 07-26-2022 MCV (RBC) [Entitic vol] 95.6 fL 81-99 [facility] Hematocrit Auto (Bld) [Volum e fraction]Ordered By: Dr. Perez on 07-26-2022 Hematocrit (Bld) [Volume fraction] 36.7 % 37-47 [facility] - Chemistry and C hemistry - challengeOrdered By: Dr. Perez on 07-26-2022 ALP [Catalytic activity/Vol] 57 U/L 45-117 [facility] ALT [Catalytic activity/Vol] 23 U/L 13-56 [facility] CO2 [Moles/Vol] 25.0 mmol/L 21.0-32.0 [facility] Globulin (S) [Mass/Vol] 2.7 g/dL 2.2-4.2 [facility] Urea nitrogen/Creatinine [Mass ratio] 28.2 mg/mg 10-20 [facility] - Hematology and Cell countsOrdered By: Dr. Perez on 07-26-2022 Erythrocyte distribution width (RBC) [Entitic vol] 45.1 fL 35.1-43.9 [facility] Erythrocyte distribution width (RBC) [Ratio] 12.9 % 11.6-14.6 [facility] Immature granulocytes/100 WBC (Bld) 0.200 % 0.0-0.9 [facility] Comment on above: IG% - Immature Granu locytes (promyelocytes, myelocytes and metamyelocytes) > 1% indicates that a LEFT SHIFT is Present. MCH (RBC) [Entitic mass] 31.8 pg 27.0-32.0 [facility] Nucleated RBC/100 WBC (Bld) [Ratio] 0 % 0-5 [facility] MCHC Auto (RBC) [Mass/Vol]Or dered By: Dr. Perez on 07-26-2022 MCHC (RBC) [Mass/Vol] 33.2 g/dL 32-36 [facility] No Panel InformationOrdered By: Dr. Perez on 07-26-2022 Estimated GFR (MDRD) Amer 87 mL/min >60 [facility] Comment on above: GFR Calc Estimated GFR (MDRD) Non-Af Amer 72 mL/min >60 [facility] Comment on above: Non- GFR Calc Platelets bldOrdered By: Dr. Perez on 07-26-2022 Platelets (Bld) [#/Vol] 195 10*3/uL 150-450 [facility] Serum or plasma albumin jessica urement (mass/volume)Ordered By: Dr. Perez on 07-26-2022 Albumin [Mass/Vol] 4.0 g/dL 3.2-5.0 [facility] Serum or plasma albumin/glob ulin mass ratioOrdered By: Dr. Perez on 07-26-2022 Albumin/Globulin [Mass ratio] 1.5 {ratio} 0.9-2.4 [facility] Serum or plasma calcium jessica urement (mass/volume)Ordered By: Dr. Perez on 07-26-2022 Calcium [Mass/Vol] 9.2 mg/dL 8.5-10.1 [facility] Serum or plasma creatinine m easurement (mass/volume)Ordered By: Dr. Perez on 07-26-2022 Creatinine [Mass/Vol] 0.89 mg/dL 0.55-1.02 [facility] Comment on above: The validity of the calculated GFR & GFRAA in patients over 70 years has not been determined. Clinical correlation is essential. Serum or plasma urea nitroge n measurement (mass/volume)Ordered By: Dr. Perez on 07-26-2022 Urea nitrogen [Mass/Vol] 25 mg/dL 7-18 [facility] Thin prep Papanicolaou smear with manual screeningOrdered By: Dr. Perez on 07-26-2022 Thin prep Papanicolaou smear with manual screening 11 U/L 15-37 [facility] Thin prep Papanicolaou smear with manual screening 3 5-15 [facility] Absolute lymphocyte countOrd ered By: Dr. Perez on 06-03-2022 Lymphocytes Auto (Unsp spec) [#/Vol] 1.42 10*3/uL 0.83-4.51 [facility] Basophil percentageOrdered B y: Dr. Perez on 06-03-2022 Basophils/100 WBC (Bld) 0.5 % 0-1 [facility] Bilirubin [Mass/Vol] 0.30 mg/dL 0.20-1.00 [facility] Comment on above: For patients on eltr ombopag therapy, use of Dimension [place] TBIL is not recommended. Chloride [Moles/Vol] 107 mmol/L 98-107 [facility] Eosinophils/100 WBC (Bld) 1.6 % 0-5 [facility] Glucose [Mass/Vol] 97 mg/dL 74-106 [facility] Neutrophils (Bld) [#/Vol] 3.9 10*3/uL 2.0-7.7 [facility] Neutrophils/100 WBC (Bld) 67.7 % 47-70 [facility] Potassium [Moles/Vol] 4.2 mmol/L 3.5-5.1 [facility] Protein [Mass/Vol] 6.7 g/dL 6.4-8.2 [facility] Sodium [Moles/Vol] 139 mmol/L 136-145 [facility] WBC (Bld) [#/Vol] 5.7 10*3/uL 4.4-11.0 [facility] Blood erythrocytes count (nu mber/volume)Ordered By: Dr. Perez on 06-03-2022 RBC (Bld) [#/Vol] 4.25 10*6/uL 4.2-5.4 [facility] Blood hemoglobin measurement (mass/volume)Ordered By: Dr. Perez on 06-03-2022 Hemoglobin (Bld) [Mass/Vol] 13.3 g/dL 12.0-15.0 [facility] Blood lymphocytes/100 leukoc ytesOrdered By: Dr. Perez on 06-03-2022 Lymphocytes/100 WBC (Bld) 24.8 % 19-41 [facility] Blood monocytes/100 leukocyt esOrdered By: Dr. Perez on 06-03-2022 Monocytes/100 WBC (Bld) 5.2 % 0-10 [facility] Blood platelet mean volumeOr dered By: Dr. Perez on 06-03-2022 Platelet mean volume (Bld) [Entitic vol] 9.3 fL 6.2-12.0 [facility] Determination of erythrocyte mean corpuscular volume (MCV)Ordered By: Dr. Perez on 06-03-2022 MCV (RBC) [Entitic vol] 94.4 fL 81-99 [facility] Hematocrit Auto (Bld) [Volum e fraction]Ordered By: Dr. Perez on 06-03-2022 Hematocrit (Bld) [Volume fraction] 40.1 % 37-47 [facility] - Chemistry and C hemistry - challengeOrdered By: Dr. Perez on 06-03-2022 ALP [Catalytic activity/Vol] 58 U/L 45-117 [facility] ALT [Catalytic activity/Vol] 18 U/L 13-56 [facility] CO2 [Moles/Vol] 26.0 mmol/L 21.0-32.0 [facility] Globulin (S) [Mass/Vol] 2.9 g/dL 2.2-4.2 [facility] Urea nitrogen/Creatinine [Mass ratio] 24.0 mg/mg 10-20 [facility] - Hematology and Cell countsOrdered By: Dr. Perez on 06-03-2022 Erythrocyte distribution width (RBC) [Entitic vol] 43.2 fL 35.1-43.9 [facility] Erythrocyte distribution width (RBC) [Ratio] 12.5 % 11.6-14.6 [facility] Immature granulocytes/100 WBC (Bld) 0.200 % 0.0-0.9 [facility] Comment on above: IG% - Immature Granu locytes (promyelocytes, myelocytes and metamyelocytes) > 1% indicates that a LEFT SHIFT is Present. MCH (RBC) [Entitic mass] 31.3 pg 27.0-32.0 [facility] Nucleated RBC/100 WBC (Bld) [Ratio] 0 % 0-5 [facility] MCHC Auto (RBC) [Mass/Vol]Or dered By: Dr. Perez on 06-03-2022 MCHC (RBC) [Mass/Vol] 33.2 g/dL 32-36 [facility] No Panel InformationOrdered By: Dr. Perez on 06-03-2022 Estimated GFR (MDRD) Amer 93 mL/min >60 [facility] Comment on above: GFR Calc Estimated GFR (MDRD) Non-Af Amer 77 mL/min >60 [facility] Comment on above: Non- GFR Calc Platelets bldOrdered By: Dr. Perez on 06-03-2022 Platelets (Bld) [#/Vol] 245 10*3/uL 150-450 [facility] Serum or plasma albumin jessica urement (mass/volume)Ordered By: Dr. Perez on 06-03-2022 Albumin [Mass/Vol] 3.8 g/dL 3.2-5.0 [facility] Serum or plasma albumin/glob ulin mass ratioOrdered By: Dr. Perez on 06-03-2022 Albumin/Globulin [Mass ratio] 1.3 {ratio} 0.9-2.4 [facility] Serum or plasma calcium jessica urement (mass/volume)Ordered By: Dr. Perez on 06-03-2022 Calcium [Mass/Vol] 9.1 mg/dL 8.5-10.1 [facility] Serum or plasma creatinine m easurement (mass/volume)Ordered By: Dr. Perez on 06-03-2022 Creatinine [Mass/Vol] 0.84 mg/dL 0.55-1.02 [facility] Comment on above: The validity of the calculated GFR & GFRAA in patients over 70 years has not been determined. Clinical correlation is essential. Serum or plasma urea nitroge n measurement (mass/volume)Ordered By: Dr. Perez on 06-03-2022 Urea nitrogen [Mass/Vol] 20 mg/dL 7-18 [facility] Thin prep Papanicolaou smear with manual screeningOrdered By: Dr. Perez on 06-03-2022 Thin prep Papanicolaou smear with manual screening 12 U/L 15-37 [facility] Thin prep Papanicolaou smear with manual screening 6 5-15 [facility] Blood erythrocytes count (nu mber/volume)Ordered By: Dr. Perez on 04-01-2022 RBC (Bld) [#/Vol] 3.92 10*6/uL 3.77-5.28 [facility] Erythrocyte [id number]-6-[id number] ate dehydrogenase (enzymatic activity/mass)Ordered By: Dr. Perez on 04-01-2022 G6PD (RBC) [Catalytic activity/Mass] 249 654-427 [facility] Comment on above: Result Units: U/10E1 2 RBCWhen decreased, G-6-PD, Quant. values are associated withacute hemolytic anemia when deficient individuals areexposed to oxidative stress, such as with certainmedications (e.g., primaquine), infection, or ingestion offava beans. Caution: In patients with acute hemolysis(e.g., abnormally low RBC values), testing for G-6-PD maybe falsely normal because older erythrocytes with a higherenzyme deficiency have been hemolyzed. Young erythrocytesand reticulocytes have normal or near-normal enzymeactivity. Normal values of G-6-PD may be measured forseveral weeks following a hemolytic event.Performed at: [facility] [id number] Director: Kd Miller PhD, Phone: [phone] at: [facility] [id number] Director: Shimon Genao MD, Phone: [phone] Absolute lymphocyte countOrd ered By: Dr. Perez on 03-25-2022 Lymphocytes Auto (Unsp spec) [#/Vol] 2.06 10*3/uL 0.83-4.51 [facility] Basophil percentageOrdered B y: Dr. Perez on 03-25-2022 Basophils/100 WBC (Bld) 0.7 % 0-1 [facility] Bilirubin [Mass/Vol] 0.30 mg/dL 0.20-1.00 [facility] Comment on above: For patients on eltr ombopag therapy, use of Dimension [place] TBIL is not recommended. Chloride [Moles/Vol] 110 mmol/L 98-107 [facility] Eosinophils/100 WBC (Bld) 5.6 % 0-5 [facility] Glucose [Mass/Vol] 107 mg/dL 74-106 [facility] Comment on above: Fasting Glucose resu lt from 100 to 125 mg/dL suggests IMPAIRED HOMEOSTASIS per A.D.A. criteria. Neutrophils (Bld) [#/Vol] 3.2 10*3/uL 2.0-7.7 [facility] Neutrophils/100 WBC (Bld) 53.5 % 47-70 [facility] Potassium [Moles/Vol] 4.5 mmol/L 3.5-5.1 [facility] Protein [Mass/Vol] 6.2 g/dL 6.4-8.2 [facility] Sodium [Moles/Vol] 141 mmol/L 136-145 [facility] WBC (Bld) [#/Vol] 5.9 10*3/uL 4.4-11.0 [facility] Blood erythrocytes count (nu mber/volume)Ordered By: Dr. Perez on 03-25-2022 RBC (Bld) [#/Vol] 4.18 10*6/uL 4.2-5.4 [facility] Blood hemoglobin measurement (mass/volume)Ordered By: Dr. Perez on 03-25-2022 Hemoglobin (Bld) [Mass/Vol] 13.4 g/dL 12.0-15.0 [facility] Blood lymphocytes/100 leukoc ytesOrdered By: Dr. Perez on 03-25-2022 Lymphocytes/100 WBC (Bld) 34.8 % 19-41 [facility] Blood monocytes/100 leukocyt esOrdered By: Dr. Perez on 03-25-2022 Monocytes/100 WBC (Bld) 4.9 % 0-10 [facility] Blood platelet mean volumeOr dered By: Dr. Perez on 03-25-2022 Platelet mean volume (Bld) [Entitic vol] 9.2 fL 6.2-12.0 [facility] Determination of erythrocyte mean corpuscular volume (MCV)Ordered By: Dr. Perez on 03-25-2022 MCV (RBC) [Entitic vol] 96.2 fL 81-99 [facility] Hematocrit Auto (Bld) [Volum e fraction]Ordered By: Dr. Perez on 03-25-2022 Hematocrit (Bld) [Volume fraction] 40.2 % 37-47 [facility] - Chemistry and C hemistry - challengeOrdered By: Dr. Perez on 03-25-2022 ALP [Catalytic activity/Vol] 68 U/L 45-117 [facility] ALT [Catalytic activity/Vol] 20 U/L 13-56 [facility] CO2 [Moles/Vol] 27.0 mmol/L 21.0-32.0 [facility] Globulin (S) [Mass/Vol] 2.4 g/dL 2.2-4.2 [facility] Urea nitrogen/Creatinine [Mass ratio] 13.4 mg/mg 10-20 [facility] - Hematology and Cell countsOrdered By: Dr. Perez on 03-25-2022 Erythrocyte distribution width (RBC) [Entitic vol] 46.9 fL 35.1-43.9 [facility] Erythrocyte distribution width (RBC) [Ratio] 13.2 % 11.6-14.6 [facility] Immature granulocytes/100 WBC (Bld) 0.500 % 0.0-0.9 [facility] Comment on above: IG% - Immature Granu locytes (promyelocytes, myelocytes and metamyelocytes) > 1% indicates that a LEFT SHIFT is Present. MCH (RBC) [Entitic mass] 32.1 pg 27.0-32.0 [facility] Nucleated RBC/100 WBC (Bld) [Ratio] 0 % 0-5 [facility] MCHC Auto (RBC) [Mass/Vol]Or dered By: Dr. Perez on 03-25-2022 MCHC (RBC) [Mass/Vol] 33.3 g/dL 32-36 [facility] No Panel InformationOrdered By: Dr. Perez on 03-25-2022 Estimated GFR (MDRD) Amer 86 mL/min >60 [facility] Comment on above: GFR Calc Estimated GFR (MDRD) Non-Af Amer 71 mL/min >60 [facility] Comment on above: Non- GFR Calc Platelets bldOrdered By: Dr. Perez on 03-25-2022 Platelets (Bld) [#/Vol] 303 10*3/uL 150-450 [facility] Serum or plasma albumin jessica urement (mass/volume)Ordered By: Dr. Perez on 03-25-2022 Albumin [Mass/Vol] 3.8 g/dL 3.2-5.0 [facility] Serum or plasma albumin/glob ulin mass ratioOrdered By: Dr. Perez on 03-25-2022 Albumin/Globulin [Mass ratio] 1.6 {ratio} 0.9-2.4 [facility] Serum or plasma calcium jessica urement (mass/volume)Ordered By: Dr. Perez on 03-25-2022 Calcium [Mass/Vol] 8.6 mg/dL 8.5-10.1 [facility] Serum or plasma creatinine m easurement (mass/volume)Ordered By: Dr. Perez on 03-25-2022 Creatinine [Mass/Vol] 0.90 mg/dL 0.55-1.02 [facility] Comment on above: The validity of the calculated GFR & GFRAA in patients over 70 years has not been determined. Clinical correlation is essential. Serum or plasma urea nitroge n measurement (mass/volume)Ordered By: Dr. Perez on 03-25-2022 Urea nitrogen [Mass/Vol] 12 mg/dL 7-18 [facility] Thin prep Papanicolaou smear with manual screeningOrdered By: Dr. Perez on 03-25-2022 Thin prep Papanicolaou smear with manual screening 9 U/L 15-37 [facility] Thin prep Papanicolaou smear with manual screening 4 5-15 [facility] Absolute lymphocyte countOrd ered By: Dr. Perez on 01-28-2022 Lymphocytes Auto (Unsp spec) [#/Vol] 0.93 10*3/uL 0.83-4.51 [facility] Basophil percentageOrdered B y: Dr. Perez on 01-28-2022 Basophils/100 WBC (Bld) 0.3 % 0-1 [facility] Bilirubin [Mass/Vol] 0.50 mg/dL 0.20-1.00 [facility] Comment on above: For patients on eltr ombopag therapy, use of Dimension [place] TBIL is not recommended. Chloride [Moles/Vol] 106 mmol/L 98-107 [facility] Eosinophils/100 WBC (Bld) 0.3 % 0-5 [facility] Glucose [Mass/Vol] 109 mg/dL 74-106 [facility] Comment on above: Fasting Glucose resu lt from 100 to 125 mg/dL suggests IMPAIRED HOMEOSTASIS per A.D.A. criteria. Neutrophils (Bld) [#/Vol] 6.0 10*3/uL 2.0-7.7 [facility] Neutrophils/100 WBC (Bld) 83.3 % 47-70 [facility] Potassium [Moles/Vol] 4.8 mmol/L 3.5-5.1 [facility] Protein [Mass/Vol] 7.1 g/dL 6.4-8.2 [facility] Sodium [Moles/Vol] 138 mmol/L 136-145 [facility] WBC (Bld) [#/Vol] 7.2 10*3/uL 4.4-11.0 [facility] Blood erythrocytes count (nu mber/volume)Ordered By: Dr. Perez on 01-28-2022 RBC (Bld) [#/Vol] 4.34 10*6/uL 4.2-5.4 [facility] Blood hemoglobin measurement (mass/volume)Ordered By: Dr. Perez on 01-28-2022 Hemoglobin (Bld) [Mass/Vol] 13.5 g/dL 12.0-15.0 [facility] Blood lymphocytes/100 leukoc ytesOrdered By: Dr. Perez on 01-28-2022 Lymphocytes/100 WBC (Bld) 12.9 % 19-41 [facility] Blood monocytes/100 leukocyt esOrdered By: Dr. Perez on 01-28-2022 Monocytes/100 WBC (Bld) 2.6 % 0-10 [facility] Blood platelet mean volumeOr dered By: Dr. Perez on 01-28-2022 Platelet mean volume (Bld) [Entitic vol] 8.9 fL 6.2-12.0 [facility] Determination of erythrocyte mean corpuscular volume (MCV)Ordered By: Dr. Perez on 01-28-2022 MCV (RBC) [Entitic vol] 91.9 fL 81-99 [facility] Hematocrit Auto (Bld) [Volum e fraction]Ordered By: Dr. Perez on 01-28-2022 Hematocrit (Bld) [Volume fraction] 39.9 % 37-47 [facility] - Chemistry and C hemistry - challengeOrdered By: Dr. Perez on 01-28-2022 ALP [Catalytic activity/Vol] 67 U/L 45-117 [facility] ALT [Catalytic activity/Vol] 28 U/L 13-56 [facility] CO2 [Moles/Vol] 24.0 mmol/L 21.0-32.0 [facility] Globulin (S) [Mass/Vol] 3.1 g/dL 2.2-4.2 [facility] Urea nitrogen/Creatinine [Mass ratio] 14.4 mg/mg 10-20 [facility] - Hematology and Cell countsOrdered By: Dr. Perez on 01-28-2022 Erythrocyte distribution width (RBC) [Entitic vol] 46.9 fL 35.1-43.9 [facility] Erythrocyte distribution width (RBC) [Ratio] 14.0 % 11.6-14.6 [facility] Immature granulocytes/100 WBC (Bld) 0.600 % 0.0-0.9 [facility] Comment on above: IG% - Immature Granu locytes (promyelocytes, myelocytes and metamyelocytes) > 1% indicates that a LEFT SHIFT is Present. MCH (RBC) [Entitic mass] 31.1 pg 27.0-32.0 [facility] Nucleated RBC/100 WBC (Bld) [Ratio] 0 % 0-5 [facility] MCHC Auto (RBC) [Mass/Vol]Or dered By: Dr. Perez on 01-28-2022 MCHC (RBC) [Mass/Vol] 33.8 g/dL 32-36 [facility] No Panel InformationOrdered By: Dr. Perez on 01-28-2022 Estimated GFR (MDRD) Amer 78 mL/min >60 [facility] Comment on above: GFR Calc Estimated GFR (MDRD) Non-Af Amer 65 mL/min >60 [facility] Comment on above: Non- GFR Calc Platelets bldOrdered By: Dr. Perez on 01-28-2022 Platelets (Bld) [#/Vol] 263 10*3/uL 150-450 [facility] Serum or plasma albumin jessica urement (mass/volume)Ordered By: Dr. Perez on 01-28-2022 Albumin [Mass/Vol] 4.0 g/dL 3.2-5.0 [facility] Serum or plasma albumin/glob ulin mass ratioOrdered By: Dr. Perez on 01-28-2022 Albumin/Globulin [Mass ratio] 1.3 {ratio} 0.9-2.4 [facility] Serum or plasma calcium ejssica urement (mass/volume)Ordered By: Dr. Perez on 01-28-2022 Calcium [Mass/Vol] 9.3 mg/dL 8.5-10.1 [facility] Serum or plasma creatinine m easurement (mass/volume)Ordered By: Dr. Perez on 01-28-2022 Creatinine [Mass/Vol] 0.98 mg/dL 0.55-1.02 [facility] Comment on above: The validity of the calculated GFR & GFRAA in patients over 70 years has not been determined. Clinical correlation is essential. Serum or plasma urea nitroge n measurement (mass/volume)Ordered By: Dr. Perez on 01-28-2022 Urea nitrogen [Mass/Vol] 14 mg/dL 7-18 [facility] Thin prep Papanicolaou smear with manual screeningOrdered By: Dr. Perez on 01-28-2022 Thin prep Papanicolaou smear with manual screening 14 U/L 15-37 [facility] Thin prep Papanicolaou smear with manual screening 8 5-15 [facility] No Panel Informationon 12-24 [facility] Absolute lymphocyte counton 12-10-2021 Lymphocytes Auto (Unsp spec) [#/Vol] 1.68 10*3/uL 0.83-4.51 [facility] Work Phone: Basophil percentageon 2021 Basophils/100 WBC (Bld) 0.5 % 0-1 [facility] Work Phone: Eosinophils/100 WBC (Bld) 2.1 % 0-5 [facility] Work Phone: Neutrophils (Bld) [#/Vol] 3.9 10*3/uL 2.0-7.7 [facility] Work Phone: Neutrophils/100 WBC (Bld) 64.1 % 47-70 [facility] Work Phone: WBC (Bld) [#/Vol] 6.1 10*3/uL 4.4-11.0 [facility] Work Phone: Blood erythrocytes count (nu mber/volume)on 12-10-2021 RBC (Bld) [#/Vol] 4.12 10*6/uL 4.2-5.4 [facility] Work Phone: Blood hemoglobin measurement (mass/volume)on 12-10-2021 Hemoglobin (Bld) [Mass/Vol] 12.6 g/dL 12.0-15.0 [facility] Work Phone: Blood lymphocytes/100 leukoc yteson 12-10-2021 Lymphocytes/100 WBC (Bld) 27.6 % 19-41 [facility] Work Phone: Blood monocytes/100 leukocyt eson 12-10-2021 Monocytes/100 WBC (Bld) 5.4 % 0-10 [facility] Work Phone: Blood platelet mean volumeon 12-10-2021 Platelet mean volume (Bld) [Entitic vol] 9.5 fL 6.2-12.0 [facility] Work Phone: [phone] Determination of erythrocyte mean corpuscular volume (MCV)on 12-10-2021 MCV (RBC) [Entitic vol] 90.8 fL 81-99 [facility] Work Phone: [phone] Hematocrit Auto (Bld) [Volum e fraction]on 12-10-2021 Hematocrit (Bld) [Volume fraction] 37.4 % 37-47 [facility] Work Phone: [phone] Laboratory - Hematology and Cell countson 12-10-2021 Erythrocyte distribution width (RBC) [Entitic vol] 41.4 fL 35.1-43.9 [facility] Work Phone: [phone] Erythrocyte distribution width (RBC) [Ratio] 12.6 % 11.6-14.6 [facility] Work Phone: [phone] Immature granulocytes/100 WBC (Bld) 0.300 % 0.0-0.9 [facility] Work Phone: Comment on above: IG% - Immature Granu locytes (promyelocytes, myelocytes and metamyelocytes) > 1% indicates that a LEFT SHIFT is Present. MCH (RBC) [Entitic mass] 30.6 pg 27.0-32.0 [facility] Work Phone: [phone] Nucleated RBC/100 WBC (Bld) [Ratio] 0 % 0-5 [facility] Work Phone: [phone] MCHC Auto (RBC) [Mass/Vol]on 12-10-2021 MCHC (RBC) [Mass/Vol] 33.7 g/dL 32-36 [facility] Work Phone: [phone] Platelets bldon 12-10-2021 Platelets (Bld) [#/Vol] 261 10*3/uL 150-450 [facility] Work Phone: CNPAida 11-27-2021 [place] Telephone (JODIECASIMIRO) -- SAMUEL [id number]) 1970 F Date Time Provider Department 11/27/21 CHIQUITA BLANTON, LOUIS HERNANDEZ During your visit today, we recorded the following information about you: DIANA Ludwig 11/27/2021 10:33 AM Signed Please assist patient in scheduling an EMG. Thank you. Jessica DIANA Charles Marjorie Gurrolall 11/29/2021 2:27 PM Signed Done. Thank you, Marjorie Curtis Allergies As of Date: 11/27/2021 Noted Allergy Reaction CLINDAMYCIN 02/12/2021 8 - GI Upset 14 - Other: See Comments PENICILLIN G 02/12/2021 4 - Hives Date Reviewed: 11/26/2021 Reviewed by: DIANA Ludwig - Fully Assessed Reason for Visit: Orders [681] Primary Visit Diagnosis:Demyelinating disease of central nervous system (HCC) [G37.9] Order(s):MRI CERVICAL SPINE WO/W IVCON [[id number]] Order #: [id number] FUTURE [] iv contrast (will be provided with radiology test)MRI CSP Inject, intravenously, once for 1 dose. No IV access, insert saline lock prior to the beginning of sedation, infusion, injection of imaging exam. Discontinue saline lock post exam. If Pt. has a central line or IVAD, may access for administration according to line specific nursing protocol. Once exam is complete flush line and de-access according to line specific nursing protocol in the MR contrast administration guidelines link.Disp: 1 EachRfl: 0 Prescriptions as of 11/29/2021 - lisinopril (ZESTRIL, PRINIVIL) 20 mg tablet Take 20 mg by mouth once daily. - cyclobenzaprine (FLEXERIL) 10 mg tablet Take 10 mg by mouth daily at bedtime. - turmeric root extract 500 mg cap Take 500 mg by mouth once daily. - pyridoxine, vitamin B6, (VITAMIN B6) 100 mg tablet Take 100 mg by mouth once daily. - L.acid/L.casei/B.bif/B.carlos /FOS (PROBIOTIC BLEND ORAL) Take 1 capsule by mouth once daily. ProBio 5 by [employer] - MEDICATION, NON-DATABASE Take 2 capsules by mouth once daily. [employer] Bio Cleanse Problem List As Of Date: 11/27/2021 (None) Prescriptions ordered this encounter Disp Refills Start End IV CONTRAST (RADIOLOGY PROCEDURE) 1 Ea* 0 11/27/2021 11/28/2021 Class: In Office Sig: MRI CSP Inject, intravenously, once for 1 dose. No IV access, insert saline lock prior to the beginning of sedation, infusion, injection of imaging exam. Discontinue saline lock post exam. If Pt. has a central line or IVAD, may access for administration according to line specific nursing protocol. Once exam is complete flush line and de-access according to line specific nursing protocol in the MR contrast administration guidelines link. Encounter Status:Closed by LOUIS PORRAS on 11/27/21 [facility] Absolute lymphocyte counton 09-24-2021 Lymphocytes Auto (Unsp spec) [#/Vol] 1.37 10*3/uL 0.83-4.51 [facility] Work Phone: [phone] Basophil percentageon 2021 Basophils/100 WBC (Bld) 0.7 % 0-1 [facility] Work Phone: Bilirubin [Mass/Vol] 0.30 mg/dL 0.20-1.00 [facility] Work Phone: Comment on above: For patients on eltr ombopag therapy, use of Dimension [place] TBIL is not recommended. Chloride [Moles/Vol] 108 mmol/L 98-107 [facility] Work Phone: Eosinophils/100 WBC (Bld) 2.6 % 0-5 [facility] Work Phone: Glucose [Mass/Vol] 89 mg/dL 74-106 [facility] Work Phone: Neutrophils (Bld) [#/Vol] 2.9 10*3/uL 2.0-7.7 [facility] Work Phone: Neutrophils/100 WBC (Bld) 62.1 % 47-70 [facility] Work Phone: Potassium [Moles/Vol] 4.1 mmol/L 3.5-5.1 [facility] Work Phone: Protein [Mass/Vol] 6.8 g/dL 6.4-8.2 [facility] Work Phone: Sodium [Moles/Vol] 139 mmol/L 136-145 [facility] Work Phone: WBC (Bld) [#/Vol] 4.6 10*3/uL 4.4-11.0 [facility] Work Phone: Blood erythrocytes count (nu mber/volume)on 09-24-2021 RBC (Bld) [#/Vol] 4.19 10*6/uL 4.2-5.4 [facility] Work Phone: Blood hemoglobin measurement (mass/volume)on 09-24-2021 Hemoglobin (Bld) [Mass/Vol] 13.0 g/dL 12.0-15.0 [facility] Work Phone: Blood lymphocytes/100 leukoc yteson 09-24-2021 Lymphocytes/100 WBC (Bld) 29.8 % 19-41 [facility] Work Phone: Blood monocytes/100 leukocyt eson 09-24-2021 Monocytes/100 WBC (Bld) 4.6 % 0-10 [facility] Work Phone: Blood platelet mean volumeon 09-24-2021 Platelet mean volume (Bld) [Entitic vol] 9.2 fL 6.2-12.0 [facility] Work Phone: Determination of erythrocyte mean corpuscular volume (MCV)on 09-24-2021 MCV (RBC) [Entitic vol] 91.4 fL 81-99 [facility] Work Phone: Erythrocyte sedimentation ra yuri 09-24-2021 ESR (Bld) [Velocity] 3 mm/h 0-30 [facility] Work Phone: Hematocrit Auto (Bld) [Volum e fraction]on 09-24-2021 Hematocrit (Bld) [Volume fraction] 38.3 % 37-47 [facility] Work Phone: Laboratory - Chemistry and C hemistry - challengeon 09-24-2021 ALP [Catalytic activity/Vol] 63 U/L 45-117 [facility] Work Phone: [phone] ALT [Catalytic activity/Vol] 20 U/L 13-56 [facility] Work Phone: [phone] CO2 [Moles/Vol] 28.0 mmol/L 21.0-32.0 [facility] Work Phone: Globulin (S) [Mass/Vol] 3.0 g/dL 2.2-4.2 [facility] Work Phone: [phone] Urea nitrogen/Creatinine [Mass ratio] 14.4 mg/mg 10-20 [facility] Work Phone: Laboratory - Hematology and Cell countson 09-24-2021 Erythrocyte distribution width (RBC) [Entitic vol] 43.7 fL 35.1-43.9 [facility] Work Phone: Erythrocyte distribution width (RBC) [Ratio] 13.1 % 11.6-14.6 [facility] Work Phone: Immature granulocytes/100 WBC (Bld) 0.200 % 0.0-0.9 [facility] Work Phone: Comment on above: IG% - Immature Granu locytes (promyelocytes, myelocytes and metamyelocytes) > 1% indicates that a LEFT SHIFT is Present. MCH (RBC) [Entitic mass] 31.0 pg 27.0-32.0 [facility] Work Phone: Nucleated RBC/100 WBC (Bld) [Ratio] 0 % 0-5 [facility] Work Phone: MCHC Auto (RBC) [Mass/Vol]on 09-24-2021 MCHC (RBC) [Mass/Vol] 33.9 g/dL 32-36 [facility] Work Phone: No Panel Informationon 09-24 Anti-Nuclear Antibody Screen Negative Negative [facility] Work Phone: Comment on above: Performed at: [address], [place] [id number] Director: Kd Miller PhD, Phone: [phone] Estimated GFR (MDRD) Amer 85 mL/min >60 [facility] Work Phone: Comment on above: GFR Calc Estimated GFR (MDRD) Non-Af Amer 71 mL/min >60 [facility] Work Phone: Comment on above: Non- GFR Calc Hepatitis B Surface Antigen Non-Reactive Nonreactive [facility] Work Phone: Hepatitis C Antibody Non-Reactive Nonreactive [facility] Work Phone: Comment on above: Non Reactive: < 0.8 Equivocal: >/= 0.8 to < 1.0 Reactive: >/= 1.0The [facility] recommends that a reactive/equivocal HCV antibody result be followed up by the HCV Nucleic Acid Amplificationtest (301212) Platelets bldon 09-24-2021 Platelets (Bld) [#/Vol] 250 10*3/uL 150-450 [facility] Work Phone: Serum cyclic citrullinated p eptide IgG antibody assay (units/volume)on 09-24-2021 Cyclic citrullinated peptide IgG Qn 9 units 0-19 [facility] Work Phone: Comment on above: Negative <20 Weak po sitive 20 - 39 Moderate positive 40 - 59 Strong positive >59Performed at: - [address] [id number] Director: Shimon Genao MD, Phone: [phone] Serum hepatitis B virus surf jay antibody IgG detectionon 09-24-2021 HBV surface IgG Ql (S) Non-Reactive [facility] Work Phone: Comment on above: Non Reactive: Incons istent with immunity less than <10 mIU/mL Reactive: Consistent with immunity greater than or equal to 10 mIU/mL Serum or plasma C reactive p rotein measurement (mass/volume)on 09-24-2021 CRP [Mass/Vol] 3.11 mg/L 0.0-3.0 [facility] Work Phone: Comment on above: C-Reactive Protein ( CRP) provides useful information for thediagnosis, therapy and monitoring of inflammatory processesand associated diseases. For the evaluation of Relative Riskfor Cardiovascular Disease, a High Sensitivity CRP (HSCRP)should be ordered. Serum or plasma albumin jessica urement (mass/volume)on 09-24-2021 Albumin [Mass/Vol] 3.8 g/dL 3.2-5.0 [facility] Work Phone: Serum or plasma albumin/glob ulin mass ratioon 09-24-2021 Albumin/Globulin [Mass ratio] 1.3 {ratio} 0.9-2.4 [facility] Work Phone: Serum or plasma calcium jessica urement (mass/volume)on 09-24-2021 Calcium [Mass/Vol] 8.9 mg/dL 8.5-10.1 [facility] Work Phone: Serum or plasma creatinine m easurement (mass/volume)on 09-24-2021 Creatinine [Mass/Vol] 0.90 mg/dL 0.55-1.02 [facility] Work Phone: Comment on above: The validity of the calculated GFR & GFRAA in patients over 70 years has not been determined. Clinical correlation is essential. Serum or plasma urea nitroge n measurement (mass/volume)on 09-24-2021 Urea nitrogen [Mass/Vol] 13 mg/dL 7-18 [facility] Work Phone: Serum rheumatoid factor dete ctionon 09-24-2021 Rheumatoid factor Ql (S) < 10.0 IU/mL <15 [facility] Work Phone: Thin prep Papanicolaou smear with manual screeningon 09-24-2021 Thin prep Papanicolaou smear with manual screening 12 U/L 15-37 [facility] Work Phone: Thin prep Papanicolaou smear with manual screening 3 5-15 [facility] Work Phone: Absolute lymphocyte counton 08-13-2021 Lymphocytes Auto (Unsp spec) [#/Vol] 2.19 10*3/uL 0.83-4.51 [facility] Work Phone: Basophil percentageon 2021 Basophil percentage 0-5 SEEN /hpf 0-5 [facility] Work Phone: Basophils/100 WBC (Bld) 0.4 % 0-1 [facility] Work Phone: Bilirubin [Mass/Vol] 0.40 mg/dL 0.20-1.00 [facility] Work Phone: Comment on above: For patients on eltr ombopag therapy, use of Dimension [place] TBIL is not recommended. Chloride [Moles/Vol] 106 mmol/L 98-107 [facility] Work Phone: Eosinophils/100 WBC (Bld) 2.7 % 0-5 [facility] Work Phone: Glucose [Mass/Vol] 92 mg/dL 74-106 [facility] Work Phone: Neutrophils (Bld) [#/Vol] 4.1 10*3/uL 2.0-7.7 [facility] Work Phone: Neutrophils/100 WBC (Bld) 58.9 % 47-70 [facility] Work Phone: Potassium [Moles/Vol] 4.5 mmol/L 3.5-5.1 [facility] Work Phone: Protein [Mass/Vol] 7.4 g/dL 6.4-8.2 [facility] Work Phone: Sodium [Moles/Vol] 136 mmol/L 136-145 [facility] Work Phone: WBC (Bld) [#/Vol] 7.0 10*3/uL 4.4-11.0 [facility] Work Phone: Bilirubin Test strip Ql (U)o n 08-13-2021 Bilirubin Ql (U) Negative Negative [facility] Work Phone: Blood erythrocytes count (nu mber/volume)on 08-13-2021 RBC (Bld) [#/Vol] 4.76 10*6/uL 4.2-5.4 [facility] Work Phone: [phone] Blood hemoglobin measurement (mass/volume)on 08-13-2021 Hemoglobin (Bld) [Mass/Vol] 14.3 g/dL 12.0-15.0 [facility] Work Phone: Blood lymphocytes/100 leukoc yteson 08-13-2021 Lymphocytes/100 WBC (Bld) 31.4 % 19-41 [facility] Work Phone: Blood monocytes/100 leukocyt eson 08-13-2021 Monocytes/100 WBC (Bld) 6.3 % 0-10 [facility] Work Phone: Blood platelet mean volumeon 08-13-2021 Platelet mean volume (Bld) [Entitic vol] 8.7 fL 6.2-12.0 [facility] Work Phone: [phone] Determination of erythrocyte mean corpuscular volume (MCV)on 08-13-2021 MCV (RBC) [Entitic vol] 90.1 fL 81-99 [facility] Work Phone: [phone] Hematocrit Auto (Bld) [Volum e fraction]on 08-13-2021 Hematocrit (Bld) [Volume fraction] 42.9 % 37-47 [facility] Work Phone: Ketones Test strip Ql (U)on 08-13-2021 Ketones Ql (U) Negative Negative [facility] Work Phone: [phone] Laboratory - Chemistry and C hemistry - challengeon 08-13-2021 ALP [Catalytic activity/Vol] 75 U/L 45-117 [facility] Work Phone: [phone] ALT [Catalytic activity/Vol] 20 U/L 13-56 [facility] Work Phone: [phone] CO2 [Moles/Vol] 26.0 mmol/L 21.0-32.0 [facility] Work Phone: [phone] Free T4 [Mass/Vol] 0.84 ng/dL 0.76-1.46 [facility] Work Phone: Globulin (S) [Mass/Vol] 3.2 g/dL 2.2-4.2 [facility] Work Phone: Urea nitrogen/Creatinine [Mass ratio] 26.8 mg/mg 10-20 [facility] Work Phone: Laboratory - Hematology and Cell countson 08-13-2021 Erythrocyte distribution width (RBC) [Entitic vol] 41.6 fL 35.1-43.9 [facility] Work Phone: Erythrocyte distribution width (RBC) [Ratio] 12.6 % 11.6-14.6 [facility] Work Phone: Immature granulocytes/100 WBC (Bld) 0.300 % 0.0-0.9 [facility] Work Phone: Comment on above: IG% - Immature Granu locytes (promyelocytes, myelocytes and metamyelocytes) > 1% indicates that a LEFT SHIFT is Present. MCH (RBC) [Entitic mass] 30.0 pg 27.0-32.0 [facility] Work Phone: Nucleated RBC/100 WBC (Bld) [Ratio] 0 % 0-5 [facility] Work Phone: MCHC Auto (RBC) [Mass/Vol]on 08-13-2021 MCHC (RBC) [Mass/Vol] 33.3 g/dL 32-36 [facility] Work Phone: Mucus LM Ql (Urine sed)on Mucus Ql (Urine sed) 0 SEEN /hpf [facility] Work Phone: Nitrite Test strip Ql (U)on 08-13-2021 Nitrite Ql (U) Negative Negative [facility] Work Phone: No Panel Informationon 08-13 Estimated GFR (MDRD) Amer 90 mL/min >60 [facility] Work Phone: Comment on above: GFR Calc Estimated GFR (MDRD) Non-Af Amer 75 mL/min >60 [facility] Work Phone: Comment on above: Non- GFR Calc Free Triiodothyronine (T3) pg/dL 2.6 pg/mL 2.18-3.98 [facility] Work Phone: Thyroid Stimulating Hormone (TSH) 1.28 uIU/mL 0.358-3.74 [facility] Work Phone: Platelets bldon 08-13-2021 Platelets (Bld) [#/Vol] 321 10*3/uL 150-450 [facility] Work Phone: Protein Test strip Ql (U)on 08-13-2021 Protein Ql (U) Negative Negative [facility] Work Phone: Serum or plasma albumin jessica urement (mass/volume)on 08-13-2021 Albumin [Mass/Vol] 4.2 g/dL 3.2-5.0 [facility] Work Phone: Serum or plasma albumin/glob ulin mass ratioon 08-13-2021 Albumin/Globulin [Mass ratio] 1.3 {ratio} 0.9-2.4 [facility] Work Phone: Serum or plasma calcium jessica urement (mass/volume)on 08-13-2021 Calcium [Mass/Vol] 9.3 mg/dL 8.5-10.1 [facility] Work Phone: Serum or plasma creatinine m easurement (mass/volume)on 08-13-2021 Creatinine [Mass/Vol] 0.86 mg/dL 0.55-1.02 [facility] Work Phone: Comment on above: The validity of the calculated GFR & GFRAA in patients over 70 years has not been determined. Clinical correlation is essential. Serum or plasma urea nitroge n measurement (mass/volume)on 08-13-2021 Urea nitrogen [Mass/Vol] 23 mg/dL 7-18 [facility] Work Phone: Squamous epithelial cells de tection in urine sediment by light microscopyon 08-13-2021 Epithelial cells.squamous LM Ql (Urine sed) 0 SEEN /hpf 5-10 [facility] Work Phone: Thin prep Papanicolaou smear with manual screeningon 08-13-2021 Thin prep Papanicolaou smear with manual screening 13 U/L 15-37 [facility] Work Phone: Thin prep Papanicolaou smear with manual screening 4 5-15 [facility] Work Phone: Urine blood detectionon 05-0 RBC Ql (U) Negative Negative [facility] Work Phone: RBC Ql (U) 0 SEEN /hpf 0-5 [facility] Work Phone: Urine clarityon 08-13-2021 Clarity (U) Sl. Cloudy Clear [facility] Work Phone: Urine color determinationon 08-13-2021 Color (U) Yellow Yellow [facility] Work Phone: Urine creatinine measurement (mass/volume)on 08-13-2021 Creatinine (U) [Mass/Vol] 44.60 mg/dL NO RANGE EST. [facility] Work Phone: Urine glucose detectionon Glucose Ql (U) Normal mg/dl Normal [facility] Work Phone: Urine leukocyte esterase det ection by dipstickon 08-13-2021 Leukocyte esterase Test strip Ql (U) 25 /ul Negative [facility] Work Phone: Urine pHon 08-13-2021 pH (U) 6.0 [pH] 5.0 - 8.0 [facility] Work Phone: Urine protein measurement (m ass/volume)on 08-13-2021 Protein (U) [Mass/Vol] mg/dL 0.0-11.8 [facility] Work Phone: Urine protein/creatinine mas s ratioon 08-13-2021 Protein/Creatinine (U) [Mass ratio] TNP [facility] Work Phone: Comment on above: Test not performed Urine sediment bacteria coun t by microscopy (number/high power field)on 08-13-2021 Bacteria LM.HPF (Urine sed) [#/Area] 0 /[HPF] None Seen [facility] Work Phone: Urine specific gravity measu rementon 08-13-2021 Specific gravity (U) [Rel density] 1.010 1.002-1.030 [facility] Work Phone: Urobilinogen Auto test strip Ql (U)on 08-13-2021 Urobilinogen Ql (U) Normal mg/dl Normal [facility] Work Phone: Absolute lymphocyte counton 06-26-2021 Lymphocytes Auto (Unsp spec) [#/Vol] 1.06 10*3/uL 0.83-4.51 [facility] Work Phone: Basophil percentageon 2021 Basophils/100 WBC (Bld) 0.1 % 0-1 [facility] Work Phone: Eosinophils/100 WBC (Bld) 0.4 % 0-5 [facility] Work Phone: Neutrophils (Bld) [#/Vol] 9.3 10*3/uL 2.0-7.7 [facility] Work Phone: Neutrophils/100 WBC (Bld) 87.8 % 47-70 [facility] Work Phone: WBC (Bld) [#/Vol] 10.5 10*3/uL 4.4-11.0 [facility] Work Phone: Blood erythrocytes count (nu mber/volume)on 06-26-2021 RBC (Bld) [#/Vol] 3.79 10*6/uL 4.2-5.4 [facility] Work Phone: Blood hemoglobin measurement (mass/volume)on 06-26-2021 Hemoglobin (Bld) [Mass/Vol] 12.0 g/dL 12.0-15.0 [facility] Work Phone: Blood lymphocytes/100 leukoc yteson 06-26-2021 Lymphocytes/100 WBC (Bld) 10.1 % 19-41 [facility] Work Phone: Blood monocytes/100 leukocyt eson 06-26-2021 Monocytes/100 WBC (Bld) 1.2 % 0-10 [facility] Work Phone: Blood platelet mean volumeon 06-26-2021 Platelet mean volume (Bld) [Entitic vol] 8.4 fL 6.2-12.0 [facility] Work Phone: Determination of erythrocyte mean corpuscular volume (MCV)on 06-26-2021 MCV (RBC) [Entitic vol] 92.1 fL 81-99 [facility] Work Phone: Glucose Glucometer (BldC) [M ass/Vol]on 06-26-2021 Glucose [Mass/Vol] 121 mg/dL 74-106 [facility] Work Phone: Comment on above: MANAGEMENT OF PATIEN T CARE PER NURSING PROTOCOL Hematocrit Auto (Bld) [Volum e fraction]on 06-26-2021 Hematocrit (Bld) [Volume fraction] 34.9 % 37-47 [facility] Work Phone: Laboratory - Chemistry and C hemistry - challengeon 06-26-2021 HCG ( test) Ql (U) Negative [facility] Work Phone: Comment on above: Very dilute urine sp ecimens, as indicated by a low specificgravity, may not contain client support representative levels of hCG. If is still suspected, a first morning urinespecimen should be collected 48 hours later and tested. Laboratory - Hematology and Cell countson 06-26-2021 Erythrocyte distribution width (RBC) [Entitic vol] 42.0 fL 35.1-43.9 [facility] Work Phone: Erythrocyte distribution width (RBC) [Ratio] 12.5 % 11.6-14.6 [facility] Work Phone: Immature granulocytes/100 WBC (Bld) 0.400 % 0.0-0.9 [facility] Work Phone: Comment on above: IG% - Immature Granu locytes (promyelocytes, myelocytes and metamyelocytes) > 1% indicates that a LEFT SHIFT is Present. MCH (RBC) [Entitic mass] 31.7 pg 27.0-32.0 [facility] Work Phone: [phone] Nucleated RBC/100 WBC (Bld) [Ratio] 0 % 0-5 [facility] Work Phone: [phone] MCHC Auto (RBC) [Mass/Vol]on 06-26-2021 MCHC (RBC) [Mass/Vol] 34.4 g/dL 32-36 [facility] Work Phone: [phone] Platelets bldon 06-26-2021 Platelets (Bld) [#/Vol] 222 10*3/uL 150-450 [facility] Work Phone: Laboratory - Chemistry and C hemistry - challengeon 06-25-2021 Magnesium [Mass/Vol] 2.0 mg/dL 1.6-2.6 [facility] Work Phone: MRI LUMBAR SP W/WO CONTRASTo n 03-16-2021 MRI LUMBAR SP W/WO CONTRAST EXAMINATION: MRI LUMBAR SP W/WO CONTRAST CLINICAL HISTORY: Bilateral leg pain TECHNIQUE: Routine lumbosacral spine MR protocol without and with intravenous gadolinium. MQ: [id number] Contrast: Gadavist. Contrast Dose: 8 high degree mild bulge small facet joint fluid. Minimal facet arthropathy at L3-4. L4-5 may be a little ligamentum flavum hypertrophy mainly on the left cc Route of Administration: IV COMPARISON: None. RESULT: Counting reference: Lumbosacral junction. For the purposes of this report, L4-5 is considered the level of the iliac crest and assume there are 5 lumbar-type vertebrae. Anatomic variant: None. Localizer images: No additional findings. Alignment: Alignment is anatomic. Bone marrow signal/fracture: No aggressive osseous lesions. 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 There are type II Modic changes at L5-S1 and a partial right laminectomy at L5. No evidence of acute or chronic fracture. Conus: Conus medullaris terminates at the inferior endplate of L1. No abnormal cord signal. No bunching of the cauda equina. Disc: Discectomy changes are noted at L5-S1. Paraspinal soft tissues: Postsurgical changes as discussed below. Lower thoracic spine: Visualized lower thoracic canal and foramina are patent. L1-L2: Canal and foramina are patent. L2-L3: Small circumferential bulge. Mild facet arthropathy with joint effusions. No spinal canal stenosis or foraminal narrowing. L3-L4: Mild to moderate facet arthropathy. No spinal canal stenosis or foraminal narrowing. L4-L5: Mild circumferential bulge, mild left ligamentum flavum hypertrophy and [id number] facet arthropathy. No spinal canal stenosis or foraminal narrowing. L5-S1: Right right hemilaminectomy and discectomy. Disc height loss, mild disc bulge, endplate and facet hypertrophy resulting in bilateral partial subarticular recess effacement and moderate bilateral neural foraminal narrowing. There is enhancement in the right lateral epidural space and subarticular recess consistent with epidural scarring. No evidence of recurrent disc herniation. Sacrum and iliac wings: The visualized sacrum and iliac wings are within normal limits. IMPRESSION: No significant spinal canal stenosis. Postoperative change at L5-S1 without recurrent disc herniation. Moderate bilateral foraminal narrowing at L5-S1 due to endplate/facet arthropathy. Anatomic Thoracic/Lumbar Variant: None. L4-5 is considered the level of the iliac crest and assume there are 5 lumbar-type vertebrae. Dictated by [employer] Packer: Edgard Torres DO I, Scott Garcia MD, have supervised the procedure and/or image review, and agree with the above interpretation and report. This report was electronically signed by Scott Garcia MD 03/16/2021 4:12 PM Reported By: SCOTT GARCIA MD Signed By: SCOTT GARCIA MD [facility] Vital Signs Date Time Vital Sign Value Performing Clinician Facility 01-14-2025 [id number] Body height 162.[address] Estelita Pepe MD Work Phone: [facility] 01-14-2025 11:19-0400 Body mass index (BMI) [Ratio] 30.9 kg/m2 Dr. Estelita Pepe MD Work Phone: [facility] 01-14-2025 11:19-0400 Body weight 81.[address] Estelita Pepe MD Work Phone: [facility] 01-14-2025 11:19-0400 Diastolic blood pressure 84 mm[Hg] Dr. Estelita Pepe MD Work Phone: [facility] 01-14-2025 11:19-0400 Systolic blood pressure 144 mm[Hg] Dr. Estelita Pepe MD Work Phone: [facility] 01-07-2025 14:37-0400 Body height 162.[address] Estelita Pepe MD Work Phone: [facility] 01-07-2025 14:37-0400 Body mass index (BMI) [Ratio] 31.3 kg/m2 Dr. Estelita Pepe MD Work Phone: [facility] 01-07-2025 14:37-0400 Body temperature 98.7 [degF] Dr. Estelita Pepe MD Work Phone: [facility] 01-07-2025 14:37-0400 Body weight 82.[address] Estelita Pepe MD Work Phone: [facility] 01-07-2025 14:37-0400 Diastolic blood pressure 78 mm[Hg] Dr. Estelita Pepe MD Work Phone: [facility] 01-07-2025 14:37-0400 Heart rate 109 /min Dr. Estelita Pepe MD Work Phone: [facility] 01-07-2025 14:37-0400 Respiratory rate 16 /min Dr. Estelita Pepe MD Work Phone: [facility] 01-07-2025 14:37-0400 SaO2% (BldA) [Mass fraction] 97 % Dr. Estelita Pepe MD Work Phone: [facility] 01-07-2025 14:37-0400 Systolic blood pressure 128 mm[Hg] Dr. Estelita Pepe MD Work Phone: [facility] 07-14-2024 15:29-0400 Body weight 86.46 kg Elaine Cristobaler PA-C Work Phone: [facility] 07-14-2024 15:29-0400 Diastolic blood pressure 77 mm[Hg] Elaine Cristobaler PA-C Work Phone: [facility] 07-14-2024 15:29-0400 Heart rate 71 /min Elaine Cristobaler PA-C Work Phone: [facility] 07-14-2024 15:29-0400 SaO2% (BldA) [Mass fraction] 99 % Elaine Cristobaler PA-C Work Phone: [facility] 07-14-2024 15:29-0400 Systolic blood pressure 121 mm[Hg] Elaine Cristobaler PA-C Work Phone: [facility] 05-07-2024 16:39-0500 Body weight 92.44 kg Louis Porras Jr., MD Work Phone: [facility] 05-07-2024 16:39-0500 Diastolic blood pressure 86 mm[Hg] Louis Porras Jr., MD Work Phone: [facility] 05-07-2024 16:39-0500 Heart rate 69 /min Louis Porras Jr., MD Work Phone: [facility] 05-07-2024 16:39-0500 Respiratory rate 16 /min Louis Porras Jr., MD Work Phone: [facility] 05-07-2024 16:39-0500 SaO2% (BldA) [Mass fraction] 99 % Louis Porras Jr., MD Work Phone: [facility] 05-07-2024 16:39-0500 Systolic blood pressure 125 mm[Hg] Louis Porras Jr., MD Work Phone: [facility] 04-30-2024 10:24-0500 Body height 162.[address] Estelita Pepe MD Work Phone: [facility] 04-30-2024 10:24-0500 Body mass index (BMI) [Ratio] 35.9 kg/m2 Dr. Estelita Pepe MD Work Phone: [facility] 04-30-2024 10:24-0500 Body temperature 97 [degF] Dr. Estelita Pepe MD Work Phone: [facility] 04-30-2024 10:24-0500 Body weight 94.[address] Estelita Pepe MD Work Phone: [facility] 04-30-2024 10:24-0500 Diastolic blood pressure 82 mm[Hg] Dr. Estelita Pepe MD Work Phone: [facility] 04-30-2024 10:24-0500 Heart rate 97 /min Dr. Estelita Pepe MD Work Phone: [facility] 04-30-2024 10:24-0500 Respiratory rate 16 /min Dr. Estelita Pepe MD Work Phone: [facility] 04-30-2024 10:24-0500 SaO2% (BldA) [Mass fraction] 97 % Dr. Estelita Pepe MD Work Phone: [facility] 04-30-2024 10:24-0500 Systolic blood pressure 146 mm[Hg] Dr. Estelita Pepe MD Work Phone: [facility] 06-30-2023 08:28-0400 Body height 162.[address] Estelita Pepe Work Phone: [facility] 06-30-2023 08:23-0400 Body mass index (BMI) [Ratio] 31.9 kg/m2 Dr. Estelita Pepe Work Phone: [facility] 06-30-2023 08:23-0400 Body weight 84.[address] Estelita Pepe Work Phone: [facility] 06-30-2023 08:23-0400 Diastolic blood pressure 82 mm[Hg] Dr. Estelita Pepe Work Phone: [facility] 06-30-2023 08:23-0400 Systolic blood pressure 121 mm[Hg] Dr. Estelita Pepe Work Phone: [facility] 03-31-2023 13:54-0500 Body weight 77.75 kg Louis Porras Jr., MD Work Phone: [facility] 03-31-2023 13:54-0500 Diastolic blood pressure 86 mm[Hg] oLuis Porras Jr., MD Work Phone: [facility] 03-31-2023 13:54-0500 Heart rate 88 /min Louis Porras Jr., MD Work Phone: [facility] 03-31-2023 13:54-0500 Respiratory rate 16 /min Louis Porras Jr., MD Work Phone: [facility] 03-31-2023 13:54-0500 SaO2% (BldA) [Mass fraction] 96 % Louis Porras Jr., MD Work Phone: [facility] 03-31-2023 13:54-0500 Systolic blood pressure 138 mm[Hg] Louis Porras Jr., MD Work Phone: [facility] 03-14-2023 12:43-0500 Body temperature 98.8 [degF] Dr. Estelita Pepe Work Phone: [facility] 03-14-2023 12:43-0500 Diastolic blood pressure 61 mm[Hg] Dr. Estelita Pepe Work Phone: [facility] 03-14-2023 12:43-0500 Heart rate 56 /min Dr. Estelita Pepe Work Phone: [facility] 03-14-2023 12:43-0500 Respiratory rate 16 /min Dr. Estelita Pepe Work Phone: [facility] 03-14-2023 12:43-0500 SaO2% (BldA) [Mass fraction] 97 % Dr. Estelita Pepe Work Phone: [facility] 03-14-2023 12:43-0500 Systolic blood pressure 95 mm[Hg] Dr. Estelita Pepe Work Phone: [facility] 03-14-2023 11:43-0500 Body height 162.[address] Estelita Pepe Work Phone: [facility] 03-14-2023 11:43-0500 Body mass index (BMI) [Ratio] 28.6 kg/m2 Dr. Estelita Pepe Work Phone: [facility] 03-14-2023 11:43-0500 Body weight 75.[address] Estelita Pepe Work Phone: [facility] 02-28-2023 09:42-0500 Body mass index (BMI) [Ratio] 30.1 kg/m2 Dr. Estelita Pepe Work Phone: [facility] 02-28-2023 09:42-0500 Body weight 77.[address] Estelita Pepe Work Phone: [facility] 02-24-2023 13:07-0500 Body height 160.[address] Estelita Pepe Work Phone: [facility] 02-24-2023 13:07-0500 Body mass index (BMI) [Ratio] 30.8 kg/m2 Dr. Estelita Pepe Work Phone: [facility] 02-24-2023 13:07-0500 Body temperature 99.3 [degF] Dr. Estelita Pepe Work Phone: [facility] 02-24-2023 13:07-0500 Body weight 78.[address] Estelita Pepe Work Phone: [facility] 02-24-2023 13:07-0500 Diastolic blood pressure 82 mm[Hg] Dr. Estelita Pepe Work Phone: [facility] 02-24-2023 13:07-0500 Heart rate 85 /min Dr. Estelita Pepe Work Phone: [facility] 02-24-2023 13:07-0500 Respiratory rate 16 /min Dr. Estelita Pepe Work Phone: [facility] 02-24-2023 13:07-0500 SaO2% (BldA) [Mass fraction] 99 % Dr. Estelita Pepe Work Phone: [facility] 02-24-2023 13:07-0500 Systolic blood pressure 132 mm[Hg] Dr. Estelita Pepe Work Phone: [facility] 02-13-2023 16:11-0400 Body height 160.[address] Estelita Pepe Work Phone: [facility] 02-13-2023 16:10-0400 Body mass index (BMI) [Ratio] 30.4 kg/m2 Dr. Estelita Pepe Work Phone: [facility] 02-13-2023 16:10-0400 Body weight 77.[address] Estelita Pepe Work Phone: [facility] 02-13-2023 16:10-0400 Diastolic blood pressure 85 mm[Hg] Dr. Estelita Pepe Work Phone: [facility] 02-13-2023 16:10-0400 Systolic blood pressure 133 mm[Hg] Dr. Estelita Pepe Work Phone: [facility] 12-31-2022 07:01-0400 Body temperature 98.71 [degF] Elaine Cristobaler PA-C Work Phone: [facility] 12-31-2022 07:01-0400 Body weight 76.3 kg Elaine Cristobaler PA-C Work Phone: [facility] 12-31-2022 07:01-0400 Diastolic blood pressure 74 mm[Hg] Elaine Cristobaler PA-C Work Phone: [facility] 12-31-2022 07:01-0400 Heart rate 72 /min Elaine Cristobaler PA-C Work Phone: [facility] 12-31-2022 07:01-0400 Respiratory rate 16 /min Elaine Cristobaler PA-C Work Phone: [facility] 12-31-2022 07:01-0400 SaO2% (BldA) [Mass fraction] 98 % Elaine Cristobaler PA-C Work Phone: [facility] 12-31-2022 07:01-0400 Systolic blood pressure 104 mm[Hg] Elaine Cristobaler PA-C Work Phone: [facility] 12-08-2022 12:49-0400 Body height 160 cm No Pcp Required [facility] 12-08-2022 12:49-0400 Body weight 72 kg No Pcp Required [facility] 12-08-2022 12:49-0400 Diastolic blood pressure 77 mm[Hg] No Pcp Required [facility] 12-08-2022 12:49-0400 Heart rate 75 /min No Pcp Required [facility] 12-08-2022 12:49-0400 Respiratory rate 22 /min No Pcp Required [facility] 12-08-2022 12:49-0400 SaO2% (BldA) [Mass fraction] 100 % No Pcp Required [facility] 12-08-2022 12:49-0400 Systolic blood pressure 134 mm[Hg] No Pcp Required [facility] 11-25-2022 13:36-0400 Diastolic blood pressure 87 mm[Hg] Dr. Estelita Pepe Work Phone: [facility] 11-25-2022 13:36-0400 Heart rate 67 /min Dr. Estelita Pepe Work Phone: [facility] 11-25-2022 13:36-0400 Respiratory rate 18 /min Dr. Estelita Pepe Work Phone: [facility] 11-25-2022 13:36-0400 Systolic blood pressure 143 mm[Hg] Dr. Estelita Pepe Work Phone: [facility] 11-21-2022 13:35-0400 Diastolic blood pressure 90 mm[Hg] Dr. Estelita Pepe Work Phone: [facility] 11-21-2022 13:35-0400 Heart rate 78 /min Dr. Estelita Pepe Work Phone: [facility] 11-21-2022 13:35-0400 Respiratory rate 16 /min Dr. Estelita Pepe Work Phone: [facility] 11-21-2022 13:35-0400 SaO2% (BldA) [Mass fraction] 99 % Dr. Estelita Pepe Work Phone: [facility] 11-21-2022 13:35-0400 Systolic blood pressure 120 mm[Hg] Dr. Estelita Pepe Work Phone: [facility] 11-11-2022 13:12-0400 Body height 160.[address] Estelita Pepe Work Phone: [facility] 11-11-2022 13:12-0400 Body mass index (BMI) [Ratio] 30.6 kg/m2 Dr. Estelita Pepe Work Phone: [facility] 11-11-2022 13:12-0400 Body temperature 97.9 [degF] Dr. Estelita Pepe Work Phone: [facility] 11-11-2022 13:12-0400 Body weight 78.[address] Estelita Pepe Work Phone: [facility] 11-11-2022 13:12-0400 Diastolic blood pressure 86 mm[Hg] Dr. Estelita Pepe Work Phone: [facility] 11-11-2022 13:12-0400 Heart rate 78 /min Dr. Estelita Pepe Work Phone: [facility] 11-11-2022 13:12-0400 Respiratory rate 14 /min Dr. Estelita Pepe Work Phone: [facility] 11-11-2022 13:12-0400 SaO2% (BldA) [Mass fraction] 99 % Dr. Estelita Pepe Work Phone: [facility] 11-11-2022 13:12-0400 Systolic blood pressure 124 mm[Hg] Dr. Estelita Pepe Work Phone: [facility] 09-16-2022 13:56-0400 Body temperature 98.4 [degF] Louis Porras Jr., MD Work Phone: [facility] 09-16-2022 13:56-0400 Body weight 78.56 kg Louis Porras Jr., MD Work Phone: [facility] 09-16-2022 13:56-0400 Diastolic blood pressure 87 mm[Hg] Louis Porras Jr., MD Work Phone: [facility] 09-16-2022 13:56-0400 Heart rate 74 /min Louis Porras Jr., MD Work Phone: [facility] 09-16-2022 13:56-0400 Respiratory rate 18 /min Louis Porras Jr., MD Work Phone: [facility] 09-16-2022 13:56-0400 SaO2% (BldA) [Mass fraction] 99 % Louis Porras Jr., MD Work Phone: [facility] 09-16-2022 13:56-0400 Systolic blood pressure 135 mm[Hg] Louis Porras Jr., MD Work Phone: [facility] 05-20-2022 15:19-0500 Body temperature 99.1 [degF] Louis Porras Jr., MD Work Phone: [facility] 05-20-2022 15:19-0500 Body weight 81.19 kg Louis Porras Jr., MD Work Phone: [facility] 05-20-2022 15:19-0500 Diastolic blood pressure 82 mm[Hg] Louis Porras Jr., MD Work Phone: [facility] 05-20-2022 15:19-0500 Heart rate 74 /min Louis Porras Jr., MD Work Phone: [facility] 05-20-2022 15:19-0500 Respiratory rate 16 /min Louis Porras Jr., MD Work Phone: [facility] 05-20-2022 15:19-0500 SaO2% (BldA) [Mass fraction] 97 % Louis Porras Jr., MD Work Phone: [facility] 05-20-2022 15:19-0500 Systolic blood pressure 138 mm[Hg] Louis Porras Jr., MD Work Phone: [facility] 05-06-2022 10:21-0500 Body mass index (BMI) [Ratio] 31.4 kg/m2 Dr. Estelita Pepe Work Phone: [facility] 05-06-2022 10:21-0500 Body weight 82.[address] Estelita Pepe Work Phone: [facility] 05-06-2022 10:21-0500 Diastolic blood pressure 79 mm[Hg] Dr. Estelita Pepe Work Phone: [facility] 05-06-2022 10:21-0500 Systolic blood pressure 131 mm[Hg] Dr. Estelita Pepe Work Phone: [facility] 01-14-2022 14:27-0400 Body temperature 98.29 [degF] Louis Porras Jr., MD Work Phone: [facility] 01-14-2022 14:27-0400 Body weight 81.65 kg Louis Porras Jr., MD Work Phone: [facility] 01-14-2022 14:27-0400 Diastolic blood pressure 82 mm[Hg] Louis Porras Jr., MD Work Phone: [facility] 01-14-2022 14:27-0400 Heart rate 85 /min Louis Porras Jr., MD Work Phone: [facility] 01-14-2022 14:27-0400 Respiratory rate 18 /min Louis Porras Jr., MD Work Phone: [facility] 01-14-2022 14:27-0400 SaO2% (BldA) [Mass fraction] 97 % Louis Porras Jr., MD Work Phone: [facility] 01-14-2022 14:27-0400 Systolic blood pressure 138 mm[Hg] Louis Porras Jr., MD Work Phone: [facility] 08-06-2021 09:08-0400 Body mass index (BMI) [Ratio] 32.4 kg/m2 Dr. Estelita Pepe Work Phone: [facility] Work Phone: 08-06-2021 09:08-0400 Body weight [address] Estelita Pepe Work Phone: [facility] Work Phone: 08-06-2021 09:08-0400 Diastolic blood pressure 88 mm[Hg] Dr. Estelita Pepe Work Phone: [facility] Work Phone: 08-06-2021 09:08-0400 Systolic blood pressure 134 mm[Hg] Dr. Estelita Pepe Work Phone: [facility] Work Phone: 08-06-2021 09:08-0400 Body mass index (BMI) [Ratio] 32.4 kg/m2 Dr. Estelita Pepe Work Phone: [facility] Work Phone: 08-06-2021 09:08-0400 Body weight [address] Estelita Pepe Work Phone: [facility] Work Phone: 08-06-2021 09:08-0400 Diastolic blood pressure 88 mm[Hg] Dr. Estelita Pepe Work Phone: [facility] Work Phone: 08-06-2021 09:08-0400 Systolic blood pressure 134 mm[Hg] Dr. Estelita Pepe Work Phone: [facility] Work Phone: 07-09-2021 10:54-0400 Body mass index (BMI) [Ratio] 33.5 kg/m2 Dr. Estelita Pepe Work Phone: [facility] Work Phone: 07-09-2021 10:54-0400 Body weight 85.[address] Estelita Pepe Work Phone: [facility] Work Phone: 07-09-2021 10:54-0400 Diastolic blood pressure 90 mm[Hg] Dr. Estelita Pepe Work Phone: [facility] Work Phone: 07-09-2021 10:54-0400 Systolic blood pressure 120 mm[Hg] Dr. Estelita Pepe Work Phone: [facility] Work Phone: 07-09-2021 10:54-0400 Body mass index (BMI) [Ratio] 33.5 kg/m2 Dr. Estelita Pepe Work Phone: [facility] Work Phone: 07-09-2021 10:54-0400 Body weight 85.[address] Estelita Pepe Work Phone: [facility] Work Phone: 07-09-2021 10:54-0400 Diastolic blood pressure 90 mm[Hg] Dr. Estelita Pepe Work Phone: [facility] Work Phone: 07-09-2021 10:54-0400 Systolic blood pressure 120 mm[Hg] Dr. Estelita Pepe Work Phone: [facility] Work Phone: 06-26-2021 16:07-0400 Body temperature 97.2 [degF] Dr. Estelita Pepe Work Phone: [facility] Work Phone: 06-26-2021 16:07-0400 Diastolic blood pressure 68 mm[Hg] Dr. Estelita Pepe Work Phone: [facility] Work Phone: 06-26-2021 16:07-0400 Heart rate 88 /min Dr. Estelita Pepe Work Phone: [facility] Work Phone: 06-26-2021 16:07-0400 Respiratory rate 16 /min Dr. Estelita Pepe Work Phone: [facility] Work Phone: 06-26-2021 16:07-0400 SaO2% (BldA) [Mass fraction] 97 % Dr. Estelita Pepe Work Phone: [facility] Work Phone: 06-26-2021 16:07-0400 Systolic blood pressure 111 mm[Hg] Dr. Estelita Pepe Work Phone: [facility] Work Phone: 06-26-2021 09:13-0400 Body mass index (BMI) [Ratio] 33.5 kg/m2 Dr. Estelita Pepe Work Phone: [facility] Work Phone: 06-26-2021 09:13-0400 Body weight [address] Estelita Pepe Work Phone: [facility] Work Phone: 06-18-2021 09:03-0500 Body mass index (BMI) [Ratio] 33.3 kg/m2 Dr. Estelita Pepe Work Phone: [facility] Work Phone: 06-18-2021 09:03-0500 Body weight 85.[address] Estelita Pepe Work Phone: [facility] Work Phone: 06-18-2021 08:03-0500 Body mass index (BMI) [Ratio] 33.3 kg/m2 Dr. Estelita Pepe Work Phone: [facility] Work Phone: 06-18-2021 08:03-0500 Body weight 85.[address] Estelita Pepe Work Phone: [facility] Work Phone: 05-07-2021 08:48-0500 Body mass index (BMI) [Ratio] 32.8 kg/m2 Dr. Estelita Pepe Work Phone: [facility] Work Phone: 05-07-2021 08:48-0500 Body weight 83.[address] Estelita Pepe Work Phone: [facility] Work Phone: 05-07-2021 08:48-0500 Diastolic blood pressure 92 mm[Hg] Dr. Estelita Pepe Work Phone: [facility] Work Phone: 05-07-2021 08:48-0500 Systolic blood pressure 148 mm[Hg] Dr. Estelita Pepe Work Phone: [facility] Work Phone: Encounters Encounter Date Encounter Type Care Provider Facility Start: 01-14-2025 Encounter for gynecological examination (general) (routine) without abnormal findings Naomy Treviño [facility] Start: 01-14-2025 End: 01-14-[address] Naomy Treviño MD -[facility] Work Phone: Start: 01-14-2025 End: 01-14-[address] Naomy Treviño MD [facility] Start: 01-14-2025 End: 01-14-[address] Estelita Pepe MD Work Phone: -[facility] Start: 01-14-2025 End: 01-14[facility] Start: 01-07-2025 Encounter for genera l adult medical examination without abnormal findings [facility] Start: 01-07-2025 End: 01-07-[address] Estelita Pepe MD -[facility] Work Phone: Start: 01-07-2025 End: 01-07-[address] Estelita Pepe MD [facility] Start: 01-07-2025 End: 01-07-[address] Estelita Pepe MD Work Phone: -[facility] Start: 11-19-2024 End: 11-19-[address] Estelita Pepe MD Work Phone: [facility] Start: 11-19-2024 End: 11-19-[address] Marie Perez MD -[facility] [place] Work Phone: Start: 11-19-2024 End: 11-19-2024 ambulatory Estelita Pepe Facility:[facility] Start: 10-08-2024 End: 10-08-[address] Estelita Pepe MD Work Phone: -[facility] Start: 10-08-2024 End: 10-08-[address] Naomy Treviño MD -[facility] Work Phone: Start: 10-08-2024 End: 10-08-2024 ambulatory Naomy Treviño Facility:[facility] Start: 10-01-2024 End: 10-01-[address] Estelita Pepe MD Work Phone: [facility] Work Phone: Start: 10-01-2024 End: 10-01-[address] Naomy Treviño MD -[facility] Work Phone: Start: 10-01-2024 End: 10-01-2024 ambulatory Naomy Treviño Facility:[facility] Start: 09-24-2024 End: 09-24-[address] Estelita Pepe MD Work Phone: [facility] Work Phone: Start: 09-24-2024 End: 09-24-[address] Marie Perez MD -[facility] [place] Work Phone: Start: 09-24-2024 End: 09-24-2024 ambulatory Estelita Pepe Facility:[facility] Start: 09-15-2024 ambulatory Estelita Pepe Facili ty:[facility] Start: 07-14-2024 End: 07-14-2024 Patient encounter procedure Elaine Mckenna PA-C Work Phone: Neurology Comment on above: Paresthesia of skin (Primary Dx); Rheumatoid arthritis, involving unspecified site, unspecified whether rheumatoid factor present (HCC); Fibromyalgia; Migraine without aura and without status migrainosus, not intractable; Cervicalgia; Weight gain; Bilateral carpal tunnel syndrome Start: 07-14-2024 End: 07-14-2024 ambulatory ESTELITA PEPE Facility:[facility] Start: 06-16-2024 End: 06-16-[address] Estelita Pepe MD Work Phone: [facility] Work Phone: Start: 06-16-2024 End: 06-16-[address] Marie Perez MD -[facility] [place] Work Phone: Start: 06-16-2024 End: 06-16-2024 ambulatory [facility] Pepe Facility:[facility] Start: 06-02-2024 End: 06-02-[address] Estelita Pepe MD -[facility] [place] Work Phone: Start: 06-02-2024 End: 06-02-2024 [facility] Facility:[facility] Start: 05-12-2024 End: 05-12-2024 ambulatory ESTELITA PEPE Facility:[facility] Start: 05-07-2024 End: 05-07-2024 Patient encounter procedure Louis Porras MD Work Phone: Neurology Comment on above: Paresthesia of skin (Primary Dx); Rheumatoid arthritis, involving unspecified site, unspecified whether rheumatoid factor present (HCC); Fibromyalgia; Migraine without aura and without status migrainosus, not intractable; Pain of right upper arm; Cervicalgia; Long-term use of high-risk medication Start: 05-07-2024 End: 05-07-2024 ambulatory LOUIS PORRAS JR Facility:[facility] Start: 04-30-2024 End: 04-30-[address] Estelita Pepe MD -[facility] Work Phone: Start: 04-30-2024 End: 04-30-2024 ambulatory [facility] Facility:[facility] Start: 03-24-2024 End: 03-24-[address] Marie Perez MD -[facility] [place] Work Phone: Start: 03-24-2024 End: 03-24-2024 ambulatory [facility] Facility:[facility] Start: 01-13-2024 End: 01-13-2024 Refill Elaine Mckenna PA-C Work Phone: Neurology Start: 10-31-2023 End: 10-31-2023 ambulatory Elaine Mckenna PA-C Work Phone: Neurology Comment on above: Cold intolerance (Pr imary Dx); Hair loss; Paresthesia of skin; Rheumatoid arthritis, involving unspecified site, unspecified whether rheumatoid factor present (HCC); Weight gain; Migraine without aura and without status migrainosus, not intractable; Fibromyalgia; Cervicalgia Start: 10-31-2023 End: 10-31-2023 Telemedicine consultation with patient Elaine BILLINGS-Aniya Work Phone: Neurology Start: 10-31-2023 Telephone encounter Elaine BILLINGS-C Work Phone: Neurology Start: 08-28-2023 Telephone encounter Louis Porras MD Work Phone: Neurology Start: 08-23-2023 ambulatory Louis palomo Jr., MD Work Phone: Neurology Start: 08-23-2023 Patient encounter procedure Louis Porras MD Work Phone: Neurology Comment on above: My appointment August 12 Start: 08-12-2023 ambulatory Louis palomo Jr., MD Work Phone: Neurology Start: 08-12-2023 Follow-up encounter Louis Porras MD Work Phone: Neurology Comment on above: Never received a tiffani l for followup appointment Start: 07-25-2023 End: 07-25-[address] Estelita Pepe Work Phone: [facility] Work Phone: Start: 07-25-2023 End: 07-25-[address] Estelita Pepe Work Phone: [facility] Work Phone: Start: 07-18-2023 End: 07-18-2023 ambulatory Louis Porras MD Work Phone: Neurology Comment on above: Chronic nonintractab le headache, unspecified headache type (Primary Dx); Cold intolerance; Hair loss; Weight gain; Paresthesia of skin; Fibromyalgia; Rheumatoid arthritis, involving unspecified site, unspecified whether rheumatoid factor present (HCC); Cervicalgia; Migraine without aura and without status migrainosus, not intractable Start: 07-18-2023 End: 07-18-2023 Telemedicine consultation with patient Louis Porras Jr., MD Work Phone: [facility] Start: 06-30-2023 End: 06-30-[address] Estelita Pepe Work Phone: [facility] Work Phone: Start: 06-30-2023 End: 06-30-[address] Estelita Pepe Work Phone: [facility] Work Phone: Start: 04-16-2023 End: 04-16-[address] Estelita Pepe Work Phone: [facility] Work Phone: Start: 04-16-2023 End: 04-16-[address] Estelita Pepe Work Phone: [facility], [facility] Work Phone: Start: 04-01-2023 End: 04-01-[address] Estelita Pepe Work Phone: [facility] Work Phone: Start: 04-01-2023 End: 04-01-[address] Estelita Pepe Work Phone: [facility] Work Phone: Start: 03-31-2023 End: 03-31-2023 Patient encounter procedure Louis Porras MD Work Phone: Neurology Comment on above: Paresthesia of skin (Primary Dx); Fibromyalgia; Rheumatoid arthritis, involving unspecified site, unspecified whether rheumatoid factor present (HCC); Cervicalgia; Migraine without aura and without status migrainosus, not intractable; High risk medication use; Chronic nonintractable headache, unspecified headache type Start: 03-14-2023 Non-patient / Non-visit Dr. Carlos Pepe Work Phone: [facility] Start: 03-14-2023 End: 03-14-2023 Admission to same day surgery center Dr. Estelita Pepe Work Phone: [facility] Work Phone: Start: 03-14-2023 End: 03-14-[address] Estelita Pepe Work Phone: [facility] Work Phone: Start: 02-28-2023 Non-patient / Non-visit Dr. Carlos Pepe Work Phone: [facility] Work Phone: Start: 02-25-2023 End: 02-25-[address] Estelita Pepe Work Phone: [facility] Work Phone: Start: 02-25-2023 End: 02-25-[address] Estelita Pepe Work Phone: [facility] Work Phone: Start: 02-24-2023 End: 02-24-[address] Estelita Pepe Work Phone: [facility] Work Phone: Start: 02-13-2023 End: 02-13-[address] Estelita Pepe Work Phone: [facility] Work Phone: Start: 02-13-2023 End: 02-13-[address] Estelita Pepe Work Phone: [facility] Work Phone: Start: 01-08-2023 End: 01-08-[address] Estelita Pepe Work Phone: [facility] Work Phone: Start: 01-08-2023 End: 01-08-[address] Estelita Pepe Work Phone: [facility] Work Phone: Start: 12-31-2022 End: 12-31-2022 Patient encounter procedure Elaine Mckenna PA-C Work Phone: Neurology Comment on above: Paresthesia of skin (Primary Dx); Fibromyalgia Start: 12-15-2022 ambulatory Louis palomo Jr., MD Work Phone: [facility] Start: 12-15-2022 Patient encounter procedure Louis Porras MD Work Phone: Neurology Comment on above: [place] for my appointment Start: 12-08-2022 End: 12-08-2022 Emergency department patient visit Rashi Siegel ED Bed 10 Start: 11-25-2022 End: 11-25-[address] Estelita Pepe Work Phone: [facility] Work Phone: Start: 11-21-2022 End: 11-21-[address] Estelita Pepe Work Phone: [facility] Work Phone: Start: 11-11-[address] Loly Pepe Work Phone: [facility] Start: 11-11-2022 End: 11-11-2022 Encounter for general adult medical examination without abnormal findings Dr. Estelita Pepe Work Phone: [facility] Start: 11-11-2022 End: 11-11-[address] Estelita Pepe Work Phone: [facility] Work Phone: Start: 10-16-2022 Telephone encounter Louis Porras MD Work Phone: Sleep Comment on above: Medication prior aut horization Start: 09-20-2022 End: 09-20-[address] Estelita Pepe Work Phone: [facility] Work Phone: Start: 09-16-2022 End: 09-16-2022 Patient encounter procedure Louis Porras MD Work Phone: Neurology Comment on above: Paresthesia of skin (Primary Dx); Chronic nonintractable headache, unspecified headache type; Intractable episodic headache, unspecified headache type; Cervicalgia; Fibromyalgia; Rheumatoid arthritis, involving unspecified site, unspecified whether rheumatoid factor present ([facility]) Start: 09-16-2022 Telephone encounter Louis Porras MD Work Phone: [facility] Comment on above: Medication Problem Start: 07-26-2022 End: 07-26-2022 Refill Louis Porras MD Work Phone: Neurology Comment on above: Refill Request Start: 07-26-2022 End: 07-26-[address] Estelita Pepe Work Phone: [facility] Start: 06-10-2022 End: 06-10-2022 Patient encounter procedure Osmin Cantu MD Work Phone: Pain Management Comment on above: Cervical myofascial pain syndrome (Primary Dx); Paresthesia of skin; Weakness; Pain of left lower extremity; Muscle spasm of left lower extremity; Chronic nonintractable headache, unspecified headache type; Foraminal stenosis of cervical region; Myofascial pain syndrome of thoracic spine Start: 06-03-2022 End: 06-03-[address] Estelita Pepe Work Phone: [facility] Start: 05-20-2022 End: 05-20-2022 Patient encounter procedure Louis Porras MD Work Phone: Neurology Comment on above: Paresthesia of skin (Primary Dx); Weakness; Pain of left lower extremity; Muscle spasm of left lower extremity; Chronic nonintractable headache, unspecified headache type; Foraminal stenosis of cervical region; Intractable episodic headache, unspecified headache type; Cervicalgia Start: 05-06-2022 End: 05-06-[address] Estelita Pepe Work Phone: [facility] Start: 05-06-2022 End: 05-06-[address] Estelita Pepe Work Phone: [facility] Work Phone: Start: 05-06-2022 End: 05-06-[address] Estelita Pepe Work Phone: [facility] Start: 04-01-2022 End: 04-01-[address] Estelita Pepe Work Phone: [facility] Work Phone: Start: 04-01-2022 End: 04-01-[address] Estelita Pepe Work Phone: [facility] Start: 03-25-2022 End: 03-25-[address] Estelita Pepe Work Phone: [facility] Start: 02-25-2022 End: 02-25-[address] Estelita Pepe Work Phone: [facility] Start: 01-28-2022 End: 01-28-2022 ambulatory [facility] Work Phone: Start: 01-28-2022 End: 01-28-2022 Patient encounter procedure [facility] Start: 01-14-2022 End: 01-14-2022 Patient encounter procedure Louis Porras MD Work Phone: Neurology Comment on above: Paresthesia of skin (Primary Dx); Weakness; Pain of left lower extremity; Muscle spasm of left lower extremity; Involuntary movements; Chronic nonintractable headache, unspecified headache type Start: 12-24-2021 End: 12-24-2021 Subsequent hospital visit by physician M[facility] (I-Stat/1.5t) Work Phone: Radiology Comment on above: Chronic nonintractab le headache, unspecified headache type [R51.9, G89.29] Start: 12-10-2021 End: 12-10-2021 ambulatory [facility] Work Phone: Start: 12-10-2021 End: 12-10-2021 Patient encounter procedure [facility] Start: 11-27-2021 Telephone encounter Louis Porras MD Work Phone: Sleep Comment on above: Orders Start: 11-26-2021 ambulatory Louis palomo MD Work Phone: Neurology Comment on above: Tests requested Start: 11-13-2021 Telephone encounter Louis Porras MD Work Phone: Neurology Comment on above: Request Outside [facility] Records Start: 09-24-2021 End: 09-24-[address] [facility] [place] Start: 08-13-2021 End: 08-13-[address] [facility] Start: 08-06-2021 End: 08-06-[address] Estelita Pepe Work Phone: [facility] Start: 07-09-2021 End: 07-09-[address] Estelita Pepe Work Phone: [facility] Start: 06-26-2021 End: 06-26-2021 Admission to same day surgery center Dr. Estelita Pepe [facility] Start: 06-26-2021 Non-patient / Non-visit Dr. Carlos Pepe Work Phone: [facility] Start: 06-25-2021 Non-patient / Non-visit Dr. Carlos Pepe Work Phone: [facility] Start: 06-18-2021 End: 06-18-[address] Estelita Pepe Work Phone: [facility] Start: 05-07-2021 End: 05-07-[address] Estelita Pepe [facility] Start: 05-07-2021 End: 05-07-[address] Estelita Pepe Work Phone: [facility] Start: 04-30-2021 End: 04-30-[address] Estelita Pepe Work Phone: [facility] Start: 03-16-2021 End: 03-16-2021 Subsequent hospital visit by physician Radha Quintanilla Work Phone: [facility] Comment on above: BILAT LEG PAIN Procedures Date Procedure Procedure Detail Performing Clinician Start: 10-08-[address] Karen Pepe MD Work Phone: Start: 10-08-[address] Estelita Pepe MD Work Phone: Start: 10-01-2024 Screening mammography Maris Pepe MD Work Phone: Start: 06-02-2024 Measurement of renal function Dr. Estelita Pepe MD Work Phone: Comment on above: GFR Calc Start: 07-25-2023 Screening mammography Maris Pepe Work Phone: Start: 04-16-[address] Loly Pepe Work Phone: Start: 03-14-[address] Karen Pepe Work Phone: Start: 02-25-[address] Loly Pepe Work Phone: Start: 05-06-2022 Screening mammography D marty Pepe Work Phone: Start: 12-24-2021 Mri brain brain stem w/o w/contrast material Louis Porras MD Work Phone: Start: 06-25-2021 End: 06-25-[address] Estelita Pepe Work Phone: Start: 04-30-2021 Screening mammography D marty Pepe Work Phone: H/O: hysterectomy S/P vaginal hysterectomy Dr. Estelita Pepe Work Phone: H/O: surgery History of remov al of cyst Dr. Estelita Pepe Work Phone: H/O: tubal ligation History of t ubal ligation Dr. Estelita Pepe Work Phone: History of tonsillectomy History of tonsillectomy Dr. Estelita Pepe Work Phone: Viral antigen assay Dr. Silver Pepe Work Phone: Plan of Treatment Date Care Activity Detail Author Start: 12-08-2025 Diabetes Screening Diabetes Screening [facility] Start: 07-14-2025 BP Controlled (<130/80) BP Controlled (<130/80) [facility] Start: 01-21-2025 End: 01-21-2025 Patient encounter procedure 01/21/2025 4:40 PM EDT Office Visit Neurology [address] [place] [address] [id number] [place] [address] [place] [address] [id number] 6 month follow up Neurology Comment on above: 6 month follow up Start: 01-14-2025 Lipid 1996 panel - Serum or Plasma [facility] Start: 01-14-2025 17-Hydroxyprogesterone [Mass/volume] in Serum or Plasma [facility] Start: 01-14-2025 Dehydroepiandrosterone sulfate (DHEA-S) [Mass/volume] in Serum or Plasma [facility] Start: 01-14-2025 Estradiol (E2) [Mass/volume] in Serum or Plasma [facility] Start: 01-14-2025 Follicle stimulating hormone measurement [facility] Start: 01-14-2025 Testosterone Free [Mass/volume] in Serum or Plasma [facility] Start: 01-14-2025 [facility] Start: 11-26-2024 DIABETES SCREEN DIABETES SCREEN [facility] Start: 07-14-2024 End: 07-14-2024 Patient encounter procedure 07/14/2024 3:30 PM EDT Office Visit Neurology [address] [place] [address] [id number] Elaine Mckenna PA-C [address] [facility] [place] [address] 3 month follow up Neurology Comment on above: 3 month follow up Start: 05-21-2024 End: 08-20-2024 TOXICOLOGY SCREEN, ROUTINE URINE TOXICOLOGY SCREEN, ROUTINE URINE Lab Routine Long-term use of high-risk medication Expected: 05/21/2024, Expires: 08/20/2024 [facility] Work Phone: Comment on above: Expected: 05/21/2024, Expires: Start: 05-07-2024 End: 05-07-2024 Patient encounter procedure 05/07/2024 4:40 PM EST Office Visit [facility] [address] [facility], [place] [id number] Louis Porras Jr., MD [address] [id number] 6 month follow up Neurology Comment on above: 6 month follow up Start: 01-01-2024 BP Controlled (<130/80) BP Controlled (<130/80) [facility] Start: 12-14-2023 Influenza vaccination [facility] Start: 11-10-2023 Hepatitis B Vaccine (2 of 2 - CpG 2-dose series) Hepatitis B Vaccine (2 of 2 - CpG 2-dose series) [facility] Start: 10-31-2023 End: 10-31-2023 Follow-up encounter 10/31/2023 3:00 PM EDT [facility] [address] [place] [address] [place] [id number] Elaine Mckenna PA-C [address], [place] [id number] Follow up headaches Neurology Comment on above: Follow up headaches Start: 08-26-2023 End: 08-26-2023 Follow-up encounter 08/26/2023 11:40 AM EDT [facility] [address] [place], [place] [address] Louis Porras Jr., MD [address] [facility] [address] [place] [address] 6 wk follow up Sleep Comment on above: 6 wk follow up Start: 07-18-2023 End: 10-17-2023 Thyrotropin [Units/volume] in Serum or Plasma TSH BLD Lab Routine Cold intolerance Hair loss Weight gain Expected: 07/18/2023, Expires: 10/17/2023 [facility] Work Phone: Comment on above: Expected: 07/18/2023, Expires: 4 Start: 07-18-2023 End: 10-17-2023 Thyroxine (T4) free [Mass/volume] in Serum or Plasma T4 FREE/FREE THYROX Lab Routine Cold intolerance Hair loss Weight gain Expected: 07/18/2023, Expires: 10/17/2023 [facility] Work Phone: Comment on above: Expected: 07/18/2023, Expires: Start: 04-14-2023 Behavioral Health Screening Behavioral Health Screening [facility] Start: 03-14-2023 Patient discharge [facility] Start: 12-13-2022 Influenza vaccination [facility] Start: 11-11-2022 Patient referral [facility] Work Phone: Start: 04-14-2022 DEPRESSION ASSESSMENT DEPRESSION ASSESSMENT [facility] Start: 12-13-2021 Influenza vaccination INFLUENZA (#1) [facility] Start: 06-26-2021 Patient discharge [facility] Work Phone: Start: 06-26-2021 Anesthesia vaginal hysterectomy incl biopsy ANESTH VAGINAL HYSTERECTOMY [facility] Work Phone: Start: 06-26-2021 Vag hyst 250 gm/< w/rmvl tube&/ovary VAG HYST INCLUDING T/O [facility] Work Phone: Start: 06-26-2021 [facility] Work Phone: Start: 06-26-2021 Introduction of urinary catheter [facility] Work Phone: Start: 06-26-2021 End: 06-26-2021 Ambulation therapy management [facility] Work Phone: Start: 06-26-2021 End: 06-26-2021 Continuous pulse oximetry [facility] Work Phone: Start: 06-26-2021 End: 06-26-2021 Elevation of head of bed [facility] Work Phone: Start: 06-26-2021 End: 06-26-2021 Incentive spirometry [facility] Work Phone: Start: 06-26-2021 End: 06-26-2021 Measuring intake and output [facility] Work Phone: Start: 06-26-2021 End: 06-26-2021 Notification of physician [facility] Work Phone: Start: 06-26-2021 End: 06-26-2021 Oxygen therapy [facility] Work Phone: Start: 06-26-2021 End: 06-26-2021 Patient education [facility] Work Phone: Start: 06-26-2021 End: 06-26-2021 Procedures relating to eating and drinking [facility] Work Phone: Start: 06-26-2021 End: 06-26-2021 Taking patient vital signs [facility] Work Phone: Start: 06-26-2021 End: 06-26-2021 [facility] Work Phone: Start: 04-14-2021 DEPRESSION ASSESSMENT DEPRESSION ASSESSMENT [facility] Start: 2017 COLOGUARD (FIT-DNA) COLOGUARD (FIT-DNA) [facility] Start: 2017 Colonoscopy COLONOSCOPY [facility] Start: 2017 COLORECTAL CANCER SCREENING COLORECTAL CANCER SCREENING [facility] Start: [address] COLONOGRAPHY [facility] Start: 2017 DIABETES SCREEN DIABETES SCREEN [facility] Start: 2017 FECAL OCCULT BLOOD FECAL OCCULT BLOOD [facility] Start: 2017 Lipid 1996 panel - Serum or Plasma Lipid Screening [facility] Start: 2017 Lipid panel Lipid Screening [facility] Start: 2017 LIPID SCREEN LIPID SCREEN [facility] Start: 2017 Screening for malignant neoplasm of colon [facility] Start: 2017 SIGMOIDOSCOPY SIGMOIDOSCOPY [facility] Start: 2012 Mammography [facility] Start: 2012 Screening for malignant neoplasm of breast Mammogram Screening [facility] Start: 2002 HPV TESTING HPV TESTING [facility] Start: 2002 Screening for malignant neoplasm of cervix HPV Testing [facility] Start: 1993 PAP TESTING PAP TESTING [facility] Start: 1993 Screening for malignant neoplasm of cervix Pap Testing [facility] Start: 12-13-1991 Hepatitis B Vaccine (1 of 3 - 19+ 3-dose series) Hepatitis B Vaccine (1 of 3 - 19+ 3-dose series) [facility] Start: 12-13-1991 Pneumococcal Vaccine: 50+ (1 of 2 - PCV) Pneumococcal Vaccine: 50+ (1 of 2 - PCV) [facility] Start: 12-13-1991 SHINGRIX VACCINE (1 of 2) SHINGRIX VACCINE (1 of 2) [facility] Start: 12-13-1991 Urine microalbumin profile [facility] Start: 1990 Annual PCP Team Chronic Disease Visit Annual PCP Team Chronic Disease Visit [facility] Start: 1990 Anxiety Screening Anxiety Screening [facility] Start: 1990 BP Controlled (<130/80) BP Controlled (<130/80) [facility] Start: 1990 Depression Screening Depression Screening [facility] Start: 1990 HEPATITIS C SCREENING HEPATITIS C SCREENING [facility] Start: 1990 Hepatitis C screening Hepatitis C Screening [facility] Start: 1990 HIV SCREENING HIV SCREENING [facility] Start: 1990 HIV screening HIV Screening [facility] Start: 1984 Adult depression screening assessment DEPRESSION SCREENING [facility] Start: 12-13-1983 Screening for malignant neoplasm of cervix Cervical Cancer Screening [facility] Start: 1978 PNEUMOCOCCAL (1 - PCV) PNEUMOCOCCAL (1 - PCV) [facility] Start: 1978 Pneumococcal vaccination [facility] Start: 1977 COVID-19 VACCINE (#1) COVID-19 VACCINE (#1) [facility] Start: 06-11-1973 COVID-19 VACCINE (#1) COVID-19 VACCINE (#1) [facility] Start: 1972 HEPATITIS B (1 of 3 - 3-dose series) HEPATITIS B (1 of 3 - 3-dose series) [facility] Start: 1972 Hepatitis B Vaccine (1 of 3 - 3-dose series) Hepatitis B Vaccine (1 of 3 - 3-dose series) [facility] Cholesterol [Mass/vo lume] in Serum or Plasma [facility] Cholesterol in HDL [Mass/volume] in Serum or Plasma [facility] Colonoscopy [facility] Cyclic citrullinated peptide IgG Ab [Units/volume] in Serum or Plasma [facility] Work Phone: Lipid 1996 panel - S dwaine or Plasma [facility] Low density lipoprot ein cholesterol measurement [facility] MG Breast - bilatera l Screening [facility] End: 12-27-2022 Mri spinal canal cervical w/o & w/contr matrl MRI CERVICAL SPINE WO/W IVCON Radiology Routine 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 Occurrences starting 11/27/2021 until 12/27/2022 [facility] Work Phone: Comment on above: 1 Occurrences starting 11/27/2021 until 12/27/2022 Mullerian inhibiting substance [Mass/volume] in Serum or Plasma [facility] Patient referral [facility] Work Phone: Total cholesterol:HD L ratio measurement [facility] Triglycerides measurement [facility] VLDL cholesterol measurement [facility] Immunizations Immunization Date Immunization Notes Care Provider Tracy justice 11-10-2023 Hepatitis B vaccine (recombinant), CpG adjuvanted Dr. Estelita Pepe MD Work Phone: [facility] 10-13-2023 Hepatitis B vaccine (recombinant), CpG adjuvanted Dr. Estelita Pepe MD Work Phone: [facility] Payers Date Payer Category Payer Unknown [id number] 2024 Self-pay [id number] 2022 Private Health Insurance MMO [employer] PPO [id number] 2022 Unknown [id number] 2021 Unknown [employer] PPO [id number] 2021-Present [phone] [address] [place] [address] PPO [id number] 2021 Unknown [id number] 1972 Unknown [id number]. 356 Unknown [id number] Unknown [id number] Unknown [id number]. 462 Unknown [id number] [id number]. 462 Unknown [id number] [id number]. 462 Unknown [id number]. 462 Unknown [id number] [id number]. 462 Unknown [id number] [id number]. 462 Unknown [id number] [id number]. 462 Unknown [id number] [id number]. 462 Unknown [id number]. 462 Unknown [id number] [id number]. 462 Unknown [id number]. 462 Unknown [id number]. 462 Social History Date Type Detail Facility Start: 08-13-2021 End: 06-30-2023 Tobacco smoking status [facility] Tobacco smoking consumption unknown [facility] Start: 1970 [facility] Start[facility] 1970 [facility] Start: 11-26-2021 End: 05-07-2024 Tobacco smoking status ALIS Ex-smoker [facility] End: 08-16-2020 History of tobacco use Current smoker [facility] End: 08-16-2020 History of tobacco use Cigarette Smoker [facility] Start: 11-16-2021 End: 11-26-2021 Exposure to SARS-CoV-2 (event) Not sure [facility] Start: 01-14-2022 End: 05-07-2024 Tobacco use and exposure Smokeless tobacco non-user [facility] Start: 01-14-2022 End: 07-14-2024 Alcohol intake Ex-drinker (finding) [facility] Start: 01-14-2022 History SDOH Alcohol Comment Unable due to medication [facility] Start: 01-04-2022 End: 01-14-2022 Exposure to SARS-CoV-2 (event) Yes [facility] Start: 05-13-2022 End: 09-16-2022 History of Social function [facility] Start: 05-13-2022 End: 09-16-2022 Tobacco use panel [facility] Adult Depression Screening Assessment 2 [facility] Start: 11-19-2021 Gender identity Identifies as female gender (finding) [facility] Start: 06-30-2023 End: 01-14-2025 Tobacco smoking status NHIS Current some day smoker [facility] Start: 06-30-2024 Sex Female (finding) [facility] NEGATED: Highlighted row [facility] Goals Date Patient Goal Desired Activity /State Mental Status Date Assessment Result Facility 03-14-2023 Cognitive function Voice/Name [facility] Work Phone: 06-26-2021 Cognitive function Touch/Shaking [facility] Work Phone: 06-26-2021 Cognitive function Patient Orien tation Person;Place;Time [facility] Work Phone: Clinical Notes 11-16-2021 to 01-14-2025 Note Date & Type Note Facility 01-14-2025 Progress note [facility] 01-07-2025 Evaluation note Diagnosis Onset Date [facility] 2:29pm Hyperlipidemia chronic January 07, 2025 2:29pm Hypertension chronic January 072024 2:29pm Rheumatoid arthritis chronic Dec 2:29pm Encounter for routine gynecological examination noneactive January 14 11:11am [facility] Work Phone: [phone]) 203-563009-26-2025 Progress [facility] Internal Medicine [address] [place] [address] OFFICE VISIT Date of Service: 01/07/25 MR#: [id number] Acct: [id number] Name: SAMUEL MCCRACKEN Rep #: [id number] : 1970 Provider: Dr. Silver Pepe MD Age/Sex: 54/F Location: [facility] Status: Signed Intake Vital Signs 04/30/24 10:24 01/07/25 14:37 Height 5 ft 4 in 5 ft 4 in Weight: 182 lb 8 oz BMI 31.3 BP 128/78 H Blood Pressure Location Lt brachial Position Sitting Respiration 16 Pulse 109 H Pulse Source Monitor Temp 98.7 F Temp Source Temporal Pulse Oximetry (%) 97 Oxygen Delivery Method room air Intake Visit Reasons: 3 M FU Chief Complaint: FU Nursery Attendant Required: No Accompanied by: Self Is patient in pain?: No Allergies penicillin G Allergy (Intermediate, Verified 01/07/25 14:37) hives clindamycin Adverse Reaction (Intermediate, Verified 01/07/25 14:37) stomach pain Medications ?Medication ?Instructions ?Recorded ?Confirmed ?Type cyclobenzaprine 10 mg tablet 10 mg PO HS PRN muscle sp asm #90 11/11/22 01/07/25 Rx tabs sulfasalazine 500 mg tablet 1 g PO BID 02/24/23 History multivitamin 1 tab PO DAILY 12/05/2312/14 History albuterol sulfate 90 mcg/actuation 2 puff inhalation Q 6H PRN 04/30/24 01/07/25 Rx aerosol inhaler shortness of breath or wheez ing #8.5 grams tacrolimus 0.1 % topical ointment 1 applic topical BID #30 grams 12/08/24 01/07/25 Rx lisinopril 20 mg tablet 10 mg (1/2 x 20 mg) PO DAILY #90 01/07/25 01/07/25 Rx TABLETS Nurse's Note: follow up [facility] Medical History Viral syndrome Hyperlipidemia Obesity (BMI 30-39.9) Marijuana use Dietary restriction Smoker Health care maintenance Colon cancer screening Rheumatoid arthritis IBS (irritable bowel syndrome) Carpal tunnel syndrome Anemia Rheumatic arteritis Depression Alcohol use Arthritis Restless legs Back pain Migraine headache Difficulty swallowing History of IBS Heartburn Asthma Hx of sciatica History of pain when walking Hypertension COVID-19 Encounter for screening for COVID-19 History of wrist fracture Surgical History Hx of colonoscopy S/P vaginal hysterectomy Hx of lumbar discectomy Hx of tubal ligation Hx of tonsillectomy History of surgical removal of meniscus of knee History of removal of cyst Family History Daughter Asthma defect Mother Hypertension Depression Hyperlipidemia Rheumatic arteritis Colon polyps Grandmother Arthritis Cancer Breast CVA (cerebral vascular accident) Diabetes Father Hypertension CVA (cerebral vascular accident) Grandfather Heart disease, Onset Age: 60 M.I. 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 sexually active: Yes Smoking Status: Current some day smoker tobacco type: e-cigarettes alcohol intake: current alcohol intake frequency: holidays/special occasions only substance use type: does not use what type of physical activity do you participate in: weight training and otherdetails: Cardio frequency: 1-2 times per week do you feel safe at home: Yes additional social history: single HPI HPI Chief Complaint: FU Details: SAMUEL MCCRACKEN, is a 54-year-old female presenting for management of chronic conditions, notably essential hypertension, rheumatoid arthritis, and past elevated cholesterol levels. History of hypertension. Her hypertension has improved significantly, with bloodpressure readings now around 120/80 mmHg, attributed largely to a weight loss ofapproximately 30 pounds over a few months. She had been previously prescribed lisinopril 20 mg but is currently maintaining well on 10 mg of lisinopril daily. The patient's elevated cholesterol was brought up due to prior history; there isconcern that recentdietary changes might affect her cholesterol levels. She initially followed a carnivore diet but has gradually incorporated carbohydratessuch as fruits and rice to assess tolerability and identify any upset with thesefoods. Her rheumatoid arthritis is being managed successfully with sulfasalazine 1 g BID, which has prevented any substantial flare-ups since diagnosed. The patient reports no symptoms such as joint pain orswelling, suggesting effective symptomcontrol. Other chronic medical conditions are stable. Not open to the flu shot. Followsup closely with STEREO PLOTTER OPERATOR and last colon cancer screening was in 2022. Has not seen adermatologist. Attestation: Documentation on this patient encounter was supported using ambient scribe technology/ voice AI technology. The patient consented to recording for the purpose of documenting the encounter. Provider reviewed content of the generatednote prior to signature. ROS Const Constitutional: No body ache, excessive sweating, fatigue, fever(s), frequent falls, headache(s), snoring, weakness, weight change, sleep problems or change in appetite Eyes Eyes: No blurry vision, change in vision, vision loss, dry eyes, eye pain or Light sensitivity ENT ENT: No abnormal hearing, ear or mastoid pain, tinnitus, nasal congestion, headache(s), neck pain or sore throat Resp Respiratory: No cough, excessive phlegm production, hemoptysis, shortness of breath, snoring or wheezing Cardio Cardiology: No chest pain at rest, chest pain with exertion, excessive sweating,shortness of breath, dyspnea on exertion, lightheadedness, orthopnea or palpitations Gastro GI: No abdominal pain, change in bowel habits, constipation, cramping, diarrhea,nausea/dyspepsia orvomiting Genitourinary-Female: No burning urination, painful urination, urinary incontinence, urinary frequency, blood in urine, abnormal periods or pelvic pain Musc Musculoskeletal: No abnormal gait, joint pain, back pain, limited range of motion, neck pain, numbness, stiffness, tingling or Arthritis Skin Skin: No dry skin, redness, lesions, itchy eyes, rash or wounds Neuro Neurology: No abnormal gait, abnormal hearing, abnormal speech, dizziness, weakness, frequent falls, headache(s), memory loss, numbness or tingling Psych Psychiatric: No anxiety, No change in appetite, No depression, No memory loss and No Thoughts of harming yourself/Others Endo Endocrine: No cold intolerance, excessive sweating, fatigue, flushing, heat intolerance, increased thirst/drinking, increased hunger or weight change Aller/Imm Allergy/Immunologic: No itchy eyes, seasonal allergy symptoms, hives or wheezing Dwayne/Lymp Hematologic/Lymphatic: No easy bleeding, easy bruising or enlarged lymph nodes Exam Const General: cooperative, comfortable and no acute distress Orientation: alert, awake and oriented x3 HENNE Head: normal to inspection, normocephalic and atraumatic Ears: hearing grossly normal bilaterally Eyes General: appearance normal, both eyes and all related structures Neck Neck: normal visual inspection, full ROM, no lymphadenopathy and supple Neck mass: No Thyroid: thyroid normal Resp Effort & Inspection: normal respiratory effort and able to speak in complete sentences Auscultation: Bilateral: Clear to Auscultation Cardio Rate: regular rate Rhythm: regular rhythm Heart Sounds: S1 normal and S2 normal GI Palpation: soft (Nontender, no palpable organomegaly) Neuro General: patient alert, patient awake, patient oriented x3, moves all extremities and CN's II-XI intact bilaterally Extrem General: no clubbing, cyanosis or edema Psych Appearance: grossly normal Mental Status: mental status grossly normal Mood: congruent mood Affect: normal affect Coding Level of Care Code Off vis,est,level 4 Diagnoses Primary hypertension I10 Hypertension type: primary hypertension Hyperlipidemia E78.5 Rheumatoid arthritis M06.9 Rheumatoid arthritis location: unspecified site Health care maintenance Z00.00 Assessment and Plan Assessment and Plan (1) Hypertension: Status: Chronic Qualifiers: Hypertension type: primary hypertension Qualified Code(s): I10 - Essential (primary) hypertension Plan: Hypertension is stable with current management utilizing lisinopril 10 mg daily,alongside lifestylechanges. The patient has achieved weight loss which is contributing positively to blood pressure levels, currently stable around 128/78 mmHg. Home log reviewed, better readings at home. Will continuecurrent medication dose and monitor. (2) Hyperlipidemia: Status: Chronic Plan: Repeat lipid profile ordered, will review. Dietary lifestyle modifications recommended. (3) Rheumatoid arthritis: Status: Chronic Qualifiers: Rheumatoid arthritis location: unspecified site Plan: Overall, stable. Currently on sulfasalazine 1 g twice daily with good symptom control. Continue follow-up with rheumatology. (4) Health care maintenance: Status: Acute Plan: Not open to the flu shot. Referred to dermatology for skin cancer screening. Colon cancer screeningdue in 2032. Continue follow-up with STERE[facility] PLOTTER OPERATOR. This note was generated with Ookbeeation software. It may contain incorrectwords, spelling, and punctuation that were not noted in checking the note beforesigning. Orders: Orders Lipid Profile Today E78.5 - Hyperlipidemia, unspecified Referrals Dermatology Z00.00 - Encounter for general adult medical examination without abnormal findings Medications: Changed From lisinopril 20 mg PO DAILY 90 TABLETS 1RF To lisinopril 10 mg (1/2 x 20 mg) PO DAILY 90 TABLETS 1RF Patient Instructions: - Continue taking lisinopril 10 mg daily for blood pressure management. - Schedule blood work for cholesterol before the next visit in three months. - Continue sulfasalazine 1 g BID for rheumatoid arthritis. - Monitor any dietary impacts on health and maintain a balanced diet, including lean meats for cholesterol management. - Set up an appointment for a preventative skin exam with a local application specialist as discussed. - Maintain weight loss and report any new symptoms or issues as they arise. 01/07/25 1521 alaina KOEHLER> Date _ Estelita Pepe MD Cosigner Signature: Date (if applicable) CC: ~ [facility]09-26-2025 Progress note Author Estelita Pepe [facility] Note Date/Time January 07, 2025 2:55pm [facility] Internal Medicine [address] [place] [address] [place] [address] OFFICE VISIT Date of Service: 01/07/25 MR#: [id number] Acct: [id number] Name: SAMUEL MCCRACKEN Rep #: [id number] : 1970 Provider: Dr. Silver Pepe MD Age/Sex: 54/F Location: [facility] Status: Signed Intake Vital Signs 04/30/24 10:24 01/07/25 14:37 Height 5 ft 4 in 5 ft 4 in Weight: 182 lb 8 oz BMI 31.3 BP 128/78 H Blood Pressure Location Lt brachial Position Sitting Respiration 16 Pulse 109 H Pulse Source Monitor Temp 98.7 F Temp Source Temporal Pulse Oximetry (%) 97 Oxygen Delivery Method room air Intake Visit Reasons: 3 M FU Chief Complaint: FU Nursery Attendant Required: No Accompanied by: Self Is patient in pain?: No Allergies penicillin G Allergy (Intermediate, Verified 01/07/25 14:37) hives clindamycin Adverse Reaction (Intermediate, Verified 01/07/25 14:37) stomach pain Medications ?Medication ?Instructions ?Recorded ?Confirmed ?Type cyclobenzaprine 10 mg tablet 10 mg PO HS PRN muscle sp asm #90 11/11/22 01/07/25 Rx tabs sulfasalazine 500 mg tablet 1 g PO BID 02/24/23 History multivitamin 1 tab PO DAILY 12/05/2312/14 History albuterol sulfate 90 mcg/actuation 2 puff inhalation Q 6H PRN 04/30/24 01/07/25 Rx aerosol inhaler shortness of breath or wheez ing #8.5 grams tacrolimus 0.1 % topical ointment 1 applic topical BID #30 grams 12/08/24 01/07/25 Rx lisinopril 20 mg tablet 10 mg (1/2 x 20 mg) PO DAILY #90 01/07/25 01/07/25 Rx TABLETS Nurse's Note: follow up [facility] Medical History Viral syndrome Hyperlipidemia Obesity (BMI 30-39.9) Marijuana use Dietary restriction Smoker Health care maintenance Colon cancer screening Rheumatoid arthritis IBS (irritable bowel syndrome) Carpal tunnel syndrome Anemia Rheumatic arteritis Depression Alcohol use Arthritis Restless legs Back pain Migraine headache Difficulty swallowing History of IBS Heartburn Asthma Hx of sciatica History of pain when walking Hypertension COVID-19 Encounter for screening for COVID-19 History of wrist fracture Surgical History Hx of colonoscopy S/P vaginal hysterectomy Hx of lumbar discectomy Hx of tubal ligation Hx of tonsillectomy History of surgical removal of meniscus of knee History of removal of cyst Family History Daughter Asthma defect Mother Hypertension Depression Hyperlipidemia Rheumatic arteritis Colon polyps Grandmother Arthritis Cancer Breast CVA (cerebral vascular accident) Diabetes Father Hypertension CVA (cerebral vascular accident) Grandfather Heart disease, Onset Age: 60 M.I. 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 sexually active: Yes Smoking Status: Current some day smoker tobacco type: e-cigarettes alcohol intake: current alcohol intake frequency: holidays/special occasions only substance use type: does not use what type of physical activity do you participate in: weight training and otherdetails: Cardio frequency: 1-2 times per week do you feel safe at home: Yes additional social history: single HPI HPI Chief Complaint: FU Details: SAMUEL MCCRACKEN, is a 54-year-old female presenting for management of chronic conditions, notably essential hypertension, rheumatoid arthritis, and past elevated cholesterol levels. History of hypertension. Her hypertension has improved significantly, with bloodpressure readings now around 120/80 mmHg, attributed largely to a weight loss ofapproximately 30 pounds over a few months. She had been previously prescribed lisinopril 20 mg but is currently maintaining well on 10 mg of lisinopril daily. The patient's elevated cholesterol was brought up due to prior history; there isconcern that recent dietary changes might affect her cholesterol levels. She initially followed a carnivore diet but has gradually incorporated carbohydratessuch as fruits and rice to assess tolerability and identify any upset with thesefoods. Her rheumatoid arthritis is being managed successfully with sulfasalazine 1 g BID, which has prevented any substantial flare-ups since diagnosed. The patient reports no symptoms such as joint pain or swelling, suggesting effective symptomcontrol. Other chronic medical conditions are stable. Not open to the flu shot. Followsup closely with [facility] and last colon cancer screening was in 2022. Has not seen adermatologist. Attestation: Documentation on this patient encounter was supported using ambient scribe technology/ voice AI technology. The patient consented to recording for the purpose of documenting the encounter. Provider reviewed content of the generatednote prior to signature. ROS Const Constitutional: No body ache, excessive sweating, fatigue, fever(s), frequent falls, headache(s), snoring, weakness, weight change, sleep problems or change in appetite Eyes Eyes: No blurry vision, change in vision, vision loss, dry eyes, eye pain or Light sensitivity ENT ENT: No abnormal hearing, ear or mastoid pain, tinnitus, nasal congestion, headache(s), neck pain or sore throat Resp Respiratory: No cough, excessive phlegm production, hemoptysis, shortness of breath, snoring or wheezing Cardio Cardiology: No chest pain at rest, chest pain with exertion, excessive sweating,shortness of breath, dyspnea on exertion, lightheadedness, orthopnea or palpitations Gastro GI: No abdominal pain, change in bowel habits, constipation, cramping, diarrhea,nausea/dyspepsia or vomiting Genitourinary-Female: No burning urination, painful urination, urinary incontinence, urinary frequency, blood in urine, abnormal periods or pelvic pain Musc Musculoskeletal: No abnormal gait, joint pain, back pain, limited range of motion, neck pain, numbness, stiffness, tingling or Arthritis Skin Skin: No dry skin, redness, lesions, itchy eyes, rash or wounds Neuro Neurology: No abnormal gait, abnormal hearing, abnormal speech, dizziness, weakness, frequent falls, headache(s), memory loss, numbness or tingling Psych Psychiatric: No anxiety, No change in appetite, No depression, No memory loss and No Thoughts of harming yourself/Others Endo Endocrine: No cold intolerance, excessive sweating, fatigue, flushing, heat intolerance, increased thirst/drinking, increased hunger or weight change Aller/Imm Allergy/Immunologic: No itchy eyes, seasonal allergy symptoms, hives or wheezing Dwayne/Lymp Hematologic/Lymphatic: No easy bleeding, easy bruising or enlarged lymph nodes Exam Const General: cooperative, comfortable and no acute distress Orientation: alert, awake and oriented x3 [facility] Head: normal to inspection, normocephalic and atraumatic Ears: hearing grossly normal bilaterally Eyes General: appearance normal, both eyes and all related structures Neck Neck: normal visual inspection, full ROM, no lymphadenopathy and supple Neck mass: No Thyroid: thyroid normal Resp Effort & Inspection: normal respiratory effort and able to speak in complete sentences Auscultation: Bilateral: Clear to Auscultation Cardio Rate: regular rate Rhythm: regular rhythm Heart Sounds: S1 normal and S2 normal GI Palpation: soft (Nontender, no palpable organomegaly) Neuro General: patient alert, patient awake, patient oriented x3, moves all extremities and CN's II-XI intact bilaterally Extrem General: no clubbing, cyanosis or edema Psych Appearance: grossly normal Mental Status: mental status grossly normal Mood: congruent mood Affect: normal affect Coding Level of Care Code Off vis,est,level 4 Diagnoses Primary hypertension I10 Hypertension type: primary hypertension Hyperlipidemia E78.5 Rheumatoid arthritis M06.9 Rheumatoid arthritis location: unspecified site Health care maintenance Z00.00 Assessment and Plan Assessment and Plan (1) Hypertension: Status: Chronic Qualifiers: Hypertension type: primary hypertension Qualified Code(s): I10 - Essential (primary) hypertension Plan: Hypertension is stable with current management utilizing lisinopril 10 mg daily,alongside lifestyle changes. The patient has achieved weight loss which is contributing positively to blood pressure levels, currently stable around 128/78 mmHg. Home log reviewed, better readings at home. Will continue current medication dose and monitor. (2) Hyperlipidemia: Status: Chronic Plan: Repeat lipid profile ordered, will review. Dietary lifestyle modifications recommended. (3) Rheumatoid arthritis: Status: Chronic Qualifiers: Rheumatoid arthritis location: unspecified site Plan: Overall, stable. Currently on sulfasalazine 1 g twice daily with good symptom control. Continue follow-up with rheumatology. (4) Health care maintenance: Status: Acute Plan: Not open to the flu shot. Referred to dermatology for skin cancer screening. Colon cancer screening due in 2032. Continue follow-up with [facility]TER OPERATOR. This note was generated with [employer] dictation software. It may contain incorrectwords, spelling, and punctuation that were not noted in checking the note beforesigning. Orders: Orders Lipid Profile Today E78.5 - Hyperlipidemia, unspecified Referrals Dermatology Z00.00 - Encounter for general adult medical examination without abnormal findings Medications: Changed From lisinopril 20 mg PO DAILY 90 TABLETS 1RF To lisinopril 10 mg (1/2 x 20 mg) PO DAILY 90 TABLETS 1RF Patient Instructions: - Continue taking lisinopril 10 mg daily for blood pressure management. - Schedule blood work for cholesterol before the next visit in three months. - Continue sulfasalazine 1 g BID for rheumatoid arthritis. - Monitor any dietary impacts on health and maintain a balanced diet, including lean meats for cholesterol management. - Set up an appointment for a preventative skin exam with a local application specialist as discussed. - Maintain weight loss and report any new symptoms or issues as they arise. 01/07/25 1521 <Electronically signed by Estelita foley MD> Date _ Estelita Pepe MD Cosigner Signature: Date (if applicable) CC: ~ [employer] Work Phone: [phone] Radiology Diagnostic study note [facility] Imaging Services [address] [place], [place] [address] Breast Limited Unilateral MR#: [id number] Acct: [id number] Name: SAMUEL MCCRACKEN Rep #: [id number] : 1970 F 53 From: Rand Fernandez MD PCP: Dr. Estelita Pepe MD Status: R EG CLI Study:Breast Limited Unilateral Date of Exam: 10/08/24 Exam# [id number] Ordering Dr: Naomy Chamberlain MD EXAM: DIAG MAMM W/CAD, UNILAT; BREAST LIMITED UNILATERAL; RT BRST UNILAT OSMIN ADD-ON 10/08/2024 CLINICAL HISTORY: F, Age 53 y/o , ASSYMETRY RIGHT BREAST; ABNORMAL MAMMOGRAM; ABN MAMM TECHNIQUE: DIAG MAMM W/CAD, UNILAT; BREAST LIMITED UNILATERAL; RT BRST UNILAT OSMIN ADD-ON. COMPARISON: Prior exam(s) dated 10/01/2024, 07/25/2023, 05/06/2022, 04/30/2021. FINDINGS: MAMMOGRAM: TISSUE DENSITY: The breasts are heterogeneously dense, which may obscure small masses. Unilateral Right Breast Mammographic Findings: Follow-up examination performed for the asymmetry in the right breast seen on examination of 10/01/2024. On the present examination, the asymmetry in the inferior right breast at middle depth visualized on the MLO view partially effaces. ULTRASOUND: Right breast: Ultrasound performed of the inferior right breast demonstrates no sonographic correlate. There are no suspicious sonographic findings. US/Breast Limited Unilateral IMPRESSION: The asymmetry in the inferior right breast at middle depth is probably benign. Recommend short interval six-month follow-up diagnostic mammogram of the right breast for further evaluation. OVERALL FINAL ASSESSMENT BI-RADS 3: PROBABLY BENIGN. RECOMMENDATION: 6 Month Follow-up A letter with findings and recommendations will be mailed to the patient. Reading Location: [facility] CC: Dr. Estelita Pepe MD; Dr. Naomy Treviño MD ~ Salesperson Art Objects: Signed [facility]04-02-2025 Instructions* Patient Instructions* Elaine Mckenna PA-C - 07/14/2024 3:43 PM EDT Continue with wrist splints Stay on lyrica 75mg three times a day Follow up in 6 months [facility] NoteHNO ID: [id number] Author: ELAINE MCKENNA PA-C Service: ? Author Type: Physician Administrative Assistant Data Entry Type: Progress Notes Filed: 07/14/2024 16:06 Note Text: [facility] Name: Samuel Mccracken Age: [age] year old Gender: female Primary Care Provider: Estelita Pepe MD Assessment/Plan: 07/14/2024 - General Neurology, Elaine Mckenna PA-C ASSESSMENT ASSESSMENT/PLAN: 1. Paresthesia of skin - ICD9: 782.0, ICD10: R20.2 (primary diagnosis) 2. Rheumatoid arthritis, involving unspecified site, unspecified whether rheumatoid factor present (HCC) - ICD9: 714.0, ICD10: M06.9 3. Fibromyalgia - ICD9: 729.1, ICD10: M79.7 Stable, no new symptoms. Continuing Lyrica 75 mg 3 times daily, refill sent today. 4. Migraine without aura and without status migrainosus, not intractable - ICD9: 346.10, ICD10: G43.009 Has been asymptomatic in terms of headaches. Tolerated going down on Lyrica well. 5. Cervicalgia - ICD9: 723.1, ICD10: M54.2 No significant neck pain today. 6. Weight gain - ICD9: 783.1, ICD10: R63.5 Notes improvement, lost about 13 pounds since last appointment. Feels that decreasing the Lyrica was helpful with this. Also notes edema has resolved in her lower extremities, was put on hydrochlorothiazide and took this for about a month with significant improvement. 7. Bilateral carpal tunnel syndrome - ICD9: 354.0, ICD10: G56.03 Still experiencing symptoms of bilateral carpal tunnel, worse on the right. 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 Does wear wrist splints when she goes home but is unable to wear them at work. Denies any significant weakness, more just discomfort at the wrist and into the first 3 digits of the hand. Occasionally will radiate throughout the entire hand as well. Discussed possible referral to orthopedics should things worsen but patient would like to defer at this time she does not have the time to take off work. No other new symptoms that would warrant additional workup at this time. Encouraged conservative therapy. Patient agreeable to treatment plan of care at this time, all questions were answered. Patient to follow-up in 6 months. Elaine Mckenna PA-C Encounter Diagnosis ICD-10-CM 1. Paresthesia of skin R20.2 pregabalin (LYRICA) 75 mg capsule 2. Rheumatoid arthritis, involving unspecified site, unspecified whether rheumatoid factor present ([facility]) M06.9 pregabalin (LYRICA) 75 mg capsule 3. Fibromyalgia M79.7 pregabalin (LYRICA) 75 mg capsule 4. Migraine without aura and without status migrainosus, not intractable G43.009 pregabalin (LYRICA) 75 mg capsule 5. Cervicalgia M54.2 pregabalin (LYRICA) 75 mg capsule 6. Weight gain R63.5 7. Bilateral carpal tunnel syndrome G56.03 Return in about 6 months (around 01/13/2025). Chart, labs,and relevant images reviewed. Chief Complaint:Patient presents with: Established Patient: Parathesia of skin, cold intolerance Chart Review: 05/07/[address] Porras ASSESSMENT/PLAN: 1. Paresthesia of skin - ICD9: 782.0, ICD10: R20.2 (primary diagnosis) 2. Rheumatoid arthritis, involving unspecified site, unspecified whether rheumatoid factor present (HCC) - ICD9: 714.0, ICD10: M06.9 3. Fibromyalgia - ICD9: 729.1, ICD10: M79.7 4. Migraine without aura and without status migrainosus, not intractable - ICD9: 346.10, ICD10: G43.009 All symptoms stable on Lyrica 100mg TID. However, now having pedal edema. Unfortunately do not have PCP labs and will request. However, if workup for other causes of edema (vascular, cardiac) -- pt reports they have -- will try to lower dose of Lyrica to 75mg TID to see if swelling decreases while also maintaining pain control. Will continue to lower dose as tolerated. 5. Pain of right upper arm - ICD9: 729.5, ICD10: M79.621 6. Cervicalgia - ICD9: 723.1, ICD10: M54.2 Uncertain etiology. Later pt reports some cervical pain, but most of pain appears to be from prox arm to hand. Etiology uncertain. Not constant or following pattern of plexitis. Possible CTS - reports h/o R CTS in past - note most recent EMG/NCV was of LUE. Also possible due to C radic. Patient not wanting additional testing at this time. She will try to use a wrist splint of the next 1-2 weeks. However, if no improvement, pt will contact us at such time, will proceed with EMG/NCV. Pt agrees with plan. 7. Long-term use of high-risk medication - ICD9: V58.69, ICD10: Z79.899 - TOXICOLOGY SCREEN, ROUTINE URINE (Cannot get today due to lab being closed at time of appt). Requesting in the next week. Note pt does admit to rare cannabis use - social. Prior tox screen neg for cannabinoids. Pt aware of possible interaction of such with Lyrica. Louis Porras MD HPI: Last seen by Dr. Porras on 05/07/24 for new pain and paresthesias. Having new arm pain, worse at night. MRI c spine normal. On lyrica 100mg tid but having edema, discussed going down to 75mg tid. Deferrin (more content not included)... [facility]04-02-2025 History of Present illness Narrative* Elaine Mckenna PA-C - 07/14/2024 3:23 PM EDT Images from the original note were not included. [facility] Name: Samuel Mccracken Age: [age] year old Gender: female Primary Care Provider: Estelita Pepe MD Assessment/Plan: 07/14/2024 - General Neurology, Elaine Mckenna PA-C ASSESSMENT ASSESSMENT/PLAN: 1. Paresthesia of skin - ICD9: 782.0, ICD10: R20.2 (primary diagnosis) 2. Rheumatoid arthritis, involving unspecified site, unspecified whether rheumatoid factor present (HCC) - ICD9: 714.0, ICD10: M06.9 3. Fibromyalgia - ICD9: 729.1, ICD10: M79.7 Stable, no new symptoms. Continuing Lyrica 75 mg 3 times daily, refill sent today. 4. Migraine without aura and without status migrainosus, not intractable - ICD9: 346.10, ICD10: G43.009 Has been asymptomatic in terms of headaches. Tolerated going down on Lyrica well. 5. Cervicalgia - ICD9: 723.1, ICD10: M54.2 No significant neck pain today. 6. Weight gain - ICD9: 783.1, ICD10: R63.5 Notes improvement, lost about 13 pounds since last appointment. Feels that decreasing the Lyrica was helpful with this. Also notes edema has resolved in her lower extremities, was put on hydrochlorothiazide and took this for about a month with significant improvement. 7. Bilateral carpal tunnel syndrome - ICD9: 354.0, ICD10: G56.03 Still experiencing symptoms of bilateral carpal tunnel, worse on the right. 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 Does wear wrist splints when she goes home but is unable to wear them at work. Denies any significant weakness, more just discomfort at the wrist and into the first 3 digits of the hand. Occasionally will radiate throughout the entire hand as well. Discussed possible referral to orthopedics should things worsen but patient would like to defer at this time shedoes not have the time to take off work. No other new symptoms that would warrant additional workupat this time. Encouraged conservative therapy. Patient agreeable to treatment plan of care at this time, all questions were answered. Patient to follow-up in 6 months. Elaine Mckenna PA-C Encounter Diagnosis ICD-10-CM 1. Paresthesia of skin R20.2 pregabalin (LYRICA) 75 mg capsule 2. Rheumatoid arthritis, involving unspecified site, unspecified whether rheumatoid factor present (HCC) M06.9 pregabalin (LYRICA) 75 mg capsule 3. Fibromyalgia M79.7 pregabalin (LYRICA) 75 mg capsule 4. Migraine without aura and without status migrainosus, not intractable G43.009 pregabalin (LYRICA) 75 mg capsule 5. Cervicalgia M54.2 pregabalin (LYRICA) 75 mg capsule 6. Weight gain R63.5 7. Bilateral carpal tunnel syndrome G56.03 Return in about 6 months (around 01/13/2025). Chart, labs,and relevant images reviewed. Chief Complaint:Patient presents with: Established Patient: Parathesia of skin, cold intolerance Chart Review: 05/07/[address] Porras ASSESSMENT/PLAN: 1. Paresthesia of skin - ICD9: 782.0, ICD10: R20.2 (primary diagnosis) 2. Rheumatoid arthritis, involving unspecified site, unspecified whether rheumatoid factor present (HCC) - ICD9: 714.0, ICD10: M06.9 3. Fibromyalgia - ICD9: 729.1, ICD10: M79.7 4. Migraine without aura and without status migrainosus, not intractable - ICD9: 346.10, ICD10: G43.009 All symptoms stable on Lyrica 100mg TID. However, now having pedal edema. Unfortunately do not havePCP labs and will request. However, if workup for other causes of edema (vascular, cardiac) -- pt reports they have -- will try to lower dose of Lyrica to 75mg TID to see if swelling decreases while also maintaining pain control. Will continue to lower dose as tolerated. 5. Pain of right upper arm - ICD9: 729.5, ICD10: M79.621 6. Cervicalgia - ICD9: 723.1, ICD10: M54.2 Uncertain etiology. Later pt reports some cervical pain, but most of pain appears to be from prox arm to hand. Etiology uncertain. Not constant or following pattern of plexitis. Possible CTS - reports h/o R CTS in past - note most recent EMG/NCV was of LUE. Also possible due to C radic. Patient notwanting additional testing at this time. She will try to use a wrist splint of the next 1-2 weeks. However, if no improvement, pt will contact us at such time, will proceed with EMG/NCV. Pt agrees with plan. 7. Long-term use of high-risk medication - ICD9: V58.69, ICD10: Z79.899 - TOXICOLOGY SCREEN, ROUTINE URINE (Cannot get today due to lab being closed at time of appt). Requesting in the next week. Note pt does admit to rare cannabis use - social. Prior tox screen neg for cannabinoids. Pt aware of possible interaction of such with Lyrica. Louis Porras MD HPI: Last seen by Dr. Porras on 05/07/24 for new pain and paresthesias. Having new arm pain, worse at night. MRI c spine normal. On lyrica 100mg tid but having edema, discussed going down to 75mg tid. Deferring testing for arm pain. Patient presents for follow-up appointment. Notes since last appointment she has been improving. Notes that she is lost about 13 pounds, notes that the edema in her legs has resolved. Was on hydrochlorothiazide for about a month which significantly helped. Also feels that going down on the Lyrica to 75 mg 3 times daily also was helpful. No worsening headaches since going down on the medication. Does report she still having some arm pain, reports pain at the wrist, worse on the right that radiates into the first 3 digits of the hand along with some numbness. 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 Not dropping things, no significant weakness, more just discomfort. No new symptoms or concerns today. Review of Systems ACTIVE PROBLEM LIST Add (Attention Deficit Disorder) Without Hyperactivity Carpal Tunnel Syndrome Essential (Primary) Hypertension Fibromyalgia Numbness and Tingling Sensation of Skin Rheumatoid Arthritis Without Elevated Rheumatoid Factor (Hcc) Tension Headache History reviewed. No pertinent past medical history. Medications: Reviewed hydroCHLOROthiazide 12.5 mg capsule Take 12.5 mg by mouth once daily. sulfaSALAzine EC (AZULFIDINE EN) 500 mg EC [...] 10 mg by mouth daily at bedtime. pregabalin (LYRICA) 75 mg capsule Take 1 capsule by mouth three times a day for 180 days. ALLERGIES Allergen Reactions Clindamycin GI Upset, Other: See Comments Penicillin G Hives History reviewed. No pertinent family history. PAST SURGICAL HISTORY Procedure Laterality Date VAGINAL HYSTERECTOMY 06/26/2021 Social Hx: @Alcohol Use: Not on file Tobacco Use: Medium Risk (07/14/2024) Patient History Smoking Tobacco Use: Former Smokeless Tobacco Use: Never Passive Exposure: Not on file 07/14/24 1529 BP: 121/77 Pulse: 71 Neurologic Exam Cognitive and Language: Alert and answered questions appropriately. Language was fluent. Cranial Nerves: Extraocular movements were full with no diplopia or nystagmus. Facial strength was symmetric. Motor: Moves all 4 extremities Sensory: No evidence of neglect Coordination: Normal finger to nose and heel to cantu testing bilaterally. Normal gait. Labs: No results found for: WBC, HGB, HCT, MCV, PLT No results found for: HBA1C No results found for: CHOL, HDL, LDL, TG Results for orders placed or performed in visit on 05/12/24 TOXICOLOGY SCREEN, ROUTINE URINE Result Value Ref Range Phencyclidine Urine Negative Negative Benzodiazepines Urine Negative Negative Cocaine Urine Negative Negative Amphetamines Urine Negative Negative Cannabinoids, Urine Negative Negative Opiates Urine Negative Negative Barbiturates Urine Negative Negative Ethanol, Urine <11 <11 mg/dL Oxycodone, Urine Negative Negative Radiology: MRI Head/Brain - Last 2 Impressions MRI BRAIN WO/W IVCON Exam End: 12/24/2021 3:25 PM (Final result) Impression: IMPRESSION: Few punctate foci of nonspecific white matter change, likely the subtle sequelae of remote insult and within expected limits for age. No abnormal intracranial enhancement or mass effect.... and MRI Spine - Last 2 Impressions MRI THORACIC SPINE WO/W IVCON Exam End: 12/24/2021 3:25 PM (Final result) Impression: IMPRESSION: Cervical spondylosis notable for mild spinal canal and moderate left foraminal narrowing at C5-6. No cord compression. Patent thoracic spinal canal and neural foramina. No evidence of a demyelinating lesion involving the cervical or thoracic spinal cord. Cervical Anatomic Variant: None. Assume 7 cervical vertebrae with counting from the craniocervical junction. Anatomic Thoracic/Lumbar Variant: None. L4-5 is considered the level of the iliac crest and assume there are 5 lumbar-type vertebrae. 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 No cord compression. Patent thoracic spinal canal and neural foramina. No evidence of a demyelinating lesion involving the cervical or thoracic spinal cord. Cervical Anatomic Variant: None. Assume 7 cervical vertebrae with counting from the craniocervical junction. Anatomic Thoracic/Lumbar Variant: None. L4-5 is considered the level of the iliac crest and assume there are 5 lumbar-type vertebrae. 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 Note that unless urgent, test and MRI results will be discussed at next follow- up visit. PROMIS (Patient-Reported Outcomes Measurement Information System) is a set of person-centered measures that evaluates and monitors physical, social, and emotional health. It can be used with the general population and with individuals living with chronic conditions. PROMIS 10: PHYSICAL AND MENTAL HEALTH: 05/13/2022 PHQ-9 PHQ-2 Score 2 PHQ-9 Score 9 Medical Decision Making: Medical Decision Making Level: 1 - N/A I spent a total of 30 minutes on the date of the service which included preparing to see the patient, [id number] patient care, completing clinical documentation, obtaining and/or reviewing separately obtained history, performing a medically appropriate examination, counseling and educating the pat ient/family/caregiver, and ordering medications, tests, or procedures. PDMP website checked and validated. All prescriptions have been APPROPRIATELY filled. No suspiciousactivity was identified. 07/14/2024 by Elaine Mckenna PA-C documented in [facility]25 NoteHNO ID: [id number] Author: LOUIS PORRAS JR, MD Service: ? Author Type: Physician Type: Progress Notes Filed: 05/07/2024 17:45 Note Text: ESTABLISHED PATIENT VISIT CHIEF COMPLAINT: Follow Up HISTORY OF PRESENT ILLNESS: Samuel Mccracken is a 53 year old female, with a PMH significant for and per last visit note via [facility] on 10/31/23: ASSESSMENT/PLAN: 1. Cold intolerance - ICD9: 780.99, ICD10: R68.89 (primary diagnosis) 2. Hair loss - ICD9: 704.00, ICD10: L65.9 Resolved. Normal thyroid studies. 3. Paresthesia of skin - ICD9: 782.0, ICD10: R20.2 4. Rheumatoid arthritis, involving unspecified site, unspecified whether rheumatoid factor present (HCC) - ICD9: 714.0, ICD10: M06.9 Significant improvement in symptoms after increasing lyrica to 100mg tid. No significant side effects, doing well. Will refill for 6 months with follow up. 5. Weight gain - ICD9: 783.1, ICD10: R63.5 Improved after diet change, sleep regulation and increased exercise. Noted 6 pound weight loss since last appt. 6. Migraine without aura and without status migrainosus, not intractable - ICD9: 346.10, ICD10: G43.009 Stable, last headache was three months ago and well controlled. 7. Fibromyalgia - ICD9: 729.1, ICD10: M79.7 8. Cervicalgia - ICD9: 723.1, ICD10: M54.2 Significant improvement with increased lyrica. Per my last note on 07/18/23: ASSESSMENT/PLAN: 1. Cold intolerance - ICD9: 780.99, ICD10: R68.89 2. Hair loss - ICD9: 704.00, ICD10: L65.9 3. Weight gain - ICD9: 783.1, ICD10: R63.5 Patient with concern that Lyrica may be cause of hair loss. However, also endorsing weight gain and cold intolerance. Multiple symptoms raises concern for other diffuse process such as hypothyroidism. Will send off TSH and T4. If abnormal will need follow up with PCP. 4. Paresthesia of skin - ICD9: 782.0, ICD10: R20.2 5. Fibromyalgia - ICD9: 729.1, ICD10: M79.7 6. Rheumatoid arthritis, involving unspecified site, unspecified whether rheumatoid factor present (HCC) - ICD9: 714.0, ICD10: M06.9 7. Cervicalgia - ICD9: 723.1, ICD10: M54.2 8. Migraine without aura and without status migrainosus, not intractable - ICD9: 346.10, ICD10: G43.009 Multiple pain and abnormal sensation symptoms controlled on Lyrica except for worsening headaches. Headaches are likely of multiple types including migraine, tension and cervicogenic per subjective history - possibly exacerbated by looking at computer monitor for >10 hours daily and neck positioning while viewing monitor. Discussed with pt and will try to increase Lyrica to 100mg TID. SE and ADRs d/w pt. Note, if thyroid normal and still having hair loss, may need to consider reducing or stopping Lyrica in the future. Patient understands and given failure of gabapentin in past, uncertain an appropriate alternative (I.e. Topamax and VPA could cause hair loss) - possibly Cymbalta. Will have pt follow up I 4-6 weeks to see how she is doing and determine whether change in meds needed and appropriate. Patient reports having URI over past few weeks. Recovering. Pt having NEW pain. Radiates from arm pin, down arm, into the hand. Impacts all 5 fingers and feels like on fire. No definite neck pain. Worse at night. No positional influence. Occurring nightly. MRI C spine showed no etiology of such symptoms. Can be associated with weakness. Pt cannot tell if radiating prox to distal to distal to prox. States when holding suction for cold water states while used to be cold now feels like holding icicles - does not notice with left hand. Continues on Lyrica. Reporting no side effects except weight gain. However, adds that is getting edema in feet. Reports PCP not concerned about cardiac source. Does not feel 100mg that much more effective than the 75mg previously taking. Pt did not notice edema when on 75mg TID. Pt has gained 37 pounds in the last year. Feels RA stable as is Fibromyalgia. Pt not wanting to try different med than Lyrica due to fear of side effects. Headaches rare if ever with Lyrica. REVIEW OF SYSTEMS GENERAL:No weight loss, malaise [...] HPI. NEUROLOGIC:Negative for focal numbness or weakness, headaches and dizziness or syncope, vision changes, speech/languag changes - EXCEPT that as per HPI above. SKIN:Negative for lesions, rash, and itching. LAB/IMAGING: Those performed since patient's last visit have been reviewed. Glucose (mg (more content not included)...[facility]01-24-2025 History of Present illness Narrative* Louis Porras Jr., MD - 05/07/2024 4:56 PM EST ESTABLISHED PATIENT VISIT CHIEF COMPLAINT: Follow Up HISTORY OF PRESENT ILLNESS: Samuel Mccracken is a 53 year old female, with a PMH significant for and per last visit note via [facility] on 10/31/23: ASSESSMENT/PLAN: 1. Cold intolerance - ICD9: 780.99, ICD10: R68.89 (primary diagnosis) 2. Hair loss - ICD9: 704.00, ICD10: L65.9 Resolved. Normal thyroid studies. 3. Paresthesia of skin - ICD9: 782.0, ICD10: R20.2 4. Rheumatoid arthritis, involving unspecified site, unspecified whether rheumatoid factor present (HCC) - ICD9: 714.0, ICD10: M06.9 Significant improvement in symptoms after increasing lyrica to 100mg tid. No significant side effects, doing well. Will refill for 6 months with follow up. 5. Weight gain - ICD9: 783.1, ICD10: R63.5 Improved after diet change, sleep regulation and increased exercise. Noted 6 pound weight loss since last appt. 6. Migraine without aura and without status migrainosus, not intractable - ICD9: 346.10, ICD10: G43.009 Stable, last headache was three months ago and well controlled. 7. Fibromyalgia - ICD9: 729.1, ICD10: M79.7 8. Cervicalgia - ICD9: 723.1, ICD10: M54.2 Significant improvement with increased lyrica. Per my last note on 07/18/23: ASSESSMENT/PLAN: 1. Cold intolerance - ICD9: 780.99, ICD10: R68.89 2. Hair loss - ICD9: 704.00, ICD10: L65.9 3. Weight gain - ICD9: 783.1, ICD10: R63.5 Patient with concern that Lyrica may be cause of hair loss. However, also endorsing weight gain andcold intolerance. Multiple symptoms raises concern for other diffuse process such as hypothyroidism. Will send off TSH and T4. If abnormal will need follow up with PCP. 4. Paresthesia of skin - ICD9: 782.0, ICD10: R20.2 5. Fibromyalgia - ICD9: 729.1, ICD10: M79.7 6. Rheumatoid arthritis, involving unspecified site, unspecified whether rheumatoid factor present (HCC) - ICD9: 714.0, ICD10: M06.9 7. Cervicalgia - ICD9: 723.1, ICD10: M54.2 8. Migraine without aura and without status migrainosus, not intractable - ICD9: 346.10, ICD10: G43.009 Multiple pain and abnormal sensation symptoms controlled on Lyrica except for worsening headaches. Headaches are likely of multiple types including migraine, tension and cervicogenic per subjective history - possibly exacerbated by looking at computer monitor for >10 hours daily and neck positioning while viewing monitor. Discussed with pt and will try to increase Lyrica to 100mg TID. SE and ADRs d/w pt. Note, if thyroid normal and still having hair loss, may need to consider reducing or stopping Lyrica in the future. Patient understands and given failure of gabapentin in past, uncertain an appropriate alternative (I.e. Topamax and VPA could cause hair loss) - possibly Cymbalta. Will have pt follow up I 4-6 weeks to see how she is doing and determine whether change in meds needed and appropriate. Patient reports having URI over past few weeks. Recovering. Pt having NEW pain. Radiates from arm pin, down arm, into the hand. Impacts all 5 fingers and feels like on fire. No definite neck pain. Worse at night. No positional influence. Occurring nightly. MRI C spine showed no etiology of such symptoms. Can be associated with weakness. Pt cannot tell if radiating prox to distal to distal to prox. States when holding suction for cold water states while used to be cold now feels like holding icicles - does not notice with left hand. Continues on Lyrica. Reporting no side effects except weight gain. However, adds that is getting edema in feet. Reports PCP not concerned about cardiac source. Does not feel 100mg that much more effective than the 75mg previously taking. Pt did not notice edema when on 75mg TID. Pt has gained 37 pounds in the last year. Feels RA stable as is Fibromyalgia. Pt not wanting to try different med than Lyrica due to fear of side effects. Headaches rare if ever with Lyrica. REVIEW OF SYSTEMS GENERAL:No weight loss, malaise [...] HPI. NEUROLOGIC:Negative for focal numbness or weakness, headaches [...] ALT (U/L) Date Value 11/26/2021 17 MEDICATIONS: hydroCHLOROthiazide 12.5 mg capsule Take 12.5 mg by mouth once daily. pregabalin (LYRICA) 100 mg capsule Take 1 capsule by mouth three times a day for 180 days. sulfaSALAzine EC (AZULFIDINE EN) 500 mg [...] Take 100 mg by mouth once daily. SOCIAL HISTORY Social History Tobacco Use Smoking status: Former Current packs/day: 0.00 Types: Cigarettes Quit date: 08/16/2020 Years since quittin.7 Smokeless tobacco: Never Substance Use Topics Alcohol use: Not Currently Comment: Unable due to medication Drug use: Never PHYSICAL EXAMINATION BP 125/86 Pulse 69 Resp 16 Wt 92.4 kg (203 lb 12.8 oz) SpO2 99% GENERAL EXAM: General appearance: NAD, pleasant. HEENT: NC/AT, nasal congestion absent, no oral lesions, membranes moist. NECK: ROM nml. Lungs: CTA bilaterally. CV: RRR nl S1, S2 Extr: No cyanosis, clubbing, + trace pedal edema. Pulses intact (DPP). Skin: Cool to touch. NEUROLOGICAL EXAM: General: [...] HTS intact. No tremors. Sensation: Light touch, pin, vibration intact throughout. No evidence of neglect. Gait: Stable with nml stride and arm swing. Assessment and Plan: ASSESSMENT/PLAN: 1. Paresthesia of skin - ICD9: 782.0, ICD10: R20.2 (primary diagnosis) 2. Rheumatoid arthritis, involving unspecified site, unspecified whether rheumatoid factor present (HCC) - ICD9: 714.0, ICD10: M06.9 3. Fibromyalgia - ICD9: 729.1, ICD10: M79.7 4. Migraine without aura and without status migrainosus, not intractable - ICD9: 346.10, ICD10: G43.009 All symptoms stable on Lyrica 100mg TID. However, now having pedal edema. Unfortunately do not havePCP labs and will request. However, if workup for other causes of edema (vascular, cardiac) -- pt reports they have -- will try to lower dose of Lyrica to 75mg TID to see if swelling decreases while also maintaining pain control. Will continue to lower dose as tolerated. 5. Pain of right upper arm - ICD9: 729.5, ICD10: M79.621 6. Cervicalgia - ICD9: 723.1, ICD10: M54.2 Uncertain etiology. Later pt reports some cervical pain, but most of pain appears to be from prox arm to hand. Etiology uncertain. Not constant or following pattern of plexitis. Possible CTS - reports h/o R CTS in past - note most recent EMG/NCV was of LUE. Also possible due to C radic. Patient notwanting additional testing at this time. She will try to use a wrist splint of the next 1-2 weeks. However, if no improvement, pt will contact us at such time, will proceed with EMG/NCV. Pt agrees with plan. 7. Long-term use of high-risk medication - ICD9: V58.69, ICD10: Z79.899 - TOXICOLOGY SCREEN, ROUTINE URINE (Cannot get today due to lab being closed at time of appt). Requesting in the next week. Note pt does admit to rare cannabis use - social. Prior tox screen neg for cannabinoids. Pt aware of possible interaction of such with Lyrica. Louis Porras MD PDMP website checked and validated. All prescriptions have been APPROPRIATELY filled. No suspiciousactivity was identified. 05/07/2024 by Louis Porras MD I spent a total of 35 minutes on the date of the service which included preparing to see the patient, [id number] patient care, completing clinical documentation, obtaining and/or reviewing separately obtained history, performing a medically appropriate examination, counseling and educating the pat ient/family/caregiver, ordering medications, tests, or procedures, and communicating results to thepatient/family/caregiver. documented in this [facility] Evaluation note* Diagnosis Onset Date Resolution Status Admit Date Obesity (BMI 30-39.9) acute Nicho ua2024 10:20am Viral syndrome acute April 302024 10:20am Hyperlipidemia chronic April 302024 10:20am Hypertension chronic April 10:20am [facility] Work Phone: [phone] 977-865810-01-2024 Telephone encounter Note* Telephone Encounter - Elaine Mckenna PA-C - 01/13/2024 3:37 PM EDT 6 month supply sent for Lyrica 100mg tid, refill sent. PDMP website checked and validated. All prescriptions have been APPROPRIATELY filled. No suspiciousactivity was identified. 01/13/2024 by Elaine Mckenna PA-C [facility]-01-2024 Miscellaneous Notes* Telephone Encounter - Elaine Mckenna PA-C - 01/13/2024 3:37 PM EDT 6 month supply sent for Lyrica 100mg tid, refill sent. PDMP website checked and validated. All prescriptions have been APPROPRIATELY filled. No suspiciousactivity was identified. 01/13/2024 by Elaine Mckenna PA-C * Telephone Encounter - Sophie Garcia LPN - 01/13/2024 3:09 PM EDT Prescription Refill Information The patient has been identified by name and date of : Yes Caregiver verified no other encounters exist for this prescription request: Yes The last office visit in the department: 10/31/23 10/31/2023 - General Neurology, Elaine Mckenna PA-C ASSESSMENT ASSESSMENT/PLAN: 1. Cold intolerance - ICD9: 780.99, ICD10: R68.89 (primary diagnosis) 2. Hair loss - ICD9: 704.00, ICD10: L65.9 Resolved. Normal thyroid studies. 3. Paresthesia of skin - ICD9: 782.0, ICD10: R20.2 4. Rheumatoid arthritis, involving unspecified site, unspecified whether rheumatoid factor present (HCC) - ICD9: 714.0, ICD10: M06.9 Significant improvement in symptoms after increasing lyrica to 100mg tid. No significant side effects, doing well. Will refill for 6 months with follow up. 5. Weight gain - ICD9: 783.1, ICD10: R63.5 Improved after diet change, sleep regulation and increased exercise. Noted 6 pound weight loss since last appt. 6. Migraine without aura and without status migrainosus, not intractable - ICD9: 346.10, ICD10: G43.009 Stable, last headache was three months ago and well controlled. 7. Fibromyalgia - ICD9: 729.1, ICD10: M79.7 8. Cervicalgia - ICD9: 723.1, ICD10: M54.2 Significant improvement with increased lyrica. Patient overall doing well on Lyrica 100mg tid, no new concerns today. Notes many previous concernsnoted above have resolved. Will continue with current regimen, no changes made. Will follow up in 6months with myself or Dr. Porras. Patient agreeable to treatment plan of care at this time. Elaine Mckenna PA-C Does the patient have a future office visit with this provider/department: Yes, 05/07/24 [facility] Requested Prescriptions Pending Prescriptions Disp Refills pregabalin (LYRICA) 100 mg capsule 270 capsule 1 Sig: Take 1 capsule by mouth three times a day for 180 days. Sophie Garcia LPN January 13, 2024 3:10 PM * Telephone Encounter - Sophie Garcia LPN - 01/13/2024 3:04 PM EDT AWA started on covermymeds, approved Samuel Mccracken ([place] Jesus: [id number]) - [id number] Lyrica 100MG capsules status: PA Response - Approved Created: January 13, 2024 Sent: January 13, 2024 * Telephone Encounter - Martha Davis LPN - 01/13/2024 1:53 PM EDT Luisana Murphy with [employer] calling to let you know a PA nerds to be done for Lyrica. PreviousPA 11-11-23 on Lyrica. PRIOR AUTHORIZATION Medication for Prior Authorization: Lyrica Other formulary meds available : Yes (2) Gabapentin Capsules 100 m, 300mg or 400 mg. Gabapentin Tablets 600 mg or 800 mg. Insurance Company: [employer] #[id number] Patient insurance ID number: [id number] Martha Davis LPN REF # [id number] Once approved and they will need a new rx sent will for the Lyrica 100 mg. Do not send in the new rx until the PA is completed an approved per Luisana. Martha Davis LPN documented in this [facility]Select [facility] [place]-2024 Telephone encounter Note * Telephone Encounter - Sophie Garcia LPN - 01/13/2024 3:09 PM EDT Prescription Refill Information The patient has been identified by name and date of : Yes Caregiver verified no other encounters exist for this prescription request: Yes The last office visit in the department: 10/31/23 10/31/2023 - General Neurology, Elaine Mckenna PA-C ASSESSMENT ASSESSMENT/PLAN: 1. Cold intolerance - ICD9: 780.99, ICD10: R68.89 (primary diagnosis) 2. Hair loss - ICD9: 704.00, ICD10: L65.9 Resolved. Normal thyroid studies. 3. Paresthesia of skin - ICD9: 782.0, ICD10: R20.2 4. Rheumatoid arthritis, involving unspecified site, unspecified whether rheumatoid factor present (HCC) - ICD9: 714.0, ICD10: M06.9 Significant improvement in symptoms after increasing lyrica to 100mg tid. No significant side effects, doing well. Will refill for 6 months with follow up. 5. Weight gain - ICD9: 783.1, ICD10: R63.5 Improved after diet change, sleep regulation and increased exercise. Noted 6 pound weight loss since last appt. 6. Migraine without aura and without status migrainosus, not intractable - ICD9: 346.10, ICD10: G43.009 Stable, last headache was three months ago and well controlled. 7. Fibromyalgia - ICD9: 729.1, ICD10: M79.7 8. Cervicalgia - ICD9: 723.1, ICD10: M54.2 Significant improvement with increased lyrica. Patient overall doing well on Lyrica 100mg tid, no new concerns today. Notes many previous concernsnoted above have resolved. Will continue with current regimen, no changes made. Will follow up in 6months with myself or Dr. Porras. Patient agreeable to treatment plan of care at this time. Elaine Mckenna PA-C Does the patient have a future office visit with this provider/department: Yes, 05/07/24 [facility] Requested Prescriptions Pending Prescriptions Disp Refills pregabalin (LYRICA) 100 mg capsule 270 capsule 1 Sig: Take 1 capsule by mouth three times a day for 180 days. Sophie Garcia LPN January 13, 2024 3:10 PM [facility] Telephone encounter Note* Telephone Encounter - Sophie Garcia LPN - 01/13/2024 3:04 PM EDT AWA started on covermymeds, approved Samuel Mccracken ([place] Jesus: [id number]) - [id number] Lyrica 100MG capsules status: AWA Response - Approved Created: January 13, 2024 Sent: January 13, 2024 [facility] Telephone encounter Note* Telephone Encounter - Martha Davis LPN - 01/13/2024 1:53 PM EDT Luisana Murphy with [employer] calling to let you know a PA nerds to be done for Lyrica. PreviousPA 11-11-23 on Lyrica. PRIOR AUTHORIZATION Medication for Prior Authorization: Lyrica Other formulary meds available : Yes (2) Gabapentin Capsules 100 m, 300mg or 400 mg. Gabapentin Tablets 600 mg or 800 mg. Insurance Company: [employer] #[id number] Patient insurance ID number: [id number] Martha Davis LPN REF # [id number] Once approved and they will need a new rx sent will for the Lyrica 100 mg. Do not send in the new rx until the PA is completed an approved per Luisana. Martha Davis LPN [facility] Telephone encounter Note* Telephone Encounter - Jessica Charles OCCA - 10/31/2023 3:43 PM EDT TC to patient who is scheduled as requested. LU Ludwig [facility]07-19-2024 Miscellaneous Notes* Telephone Encounter - Jessica Charles OCCA - 10/31/2023 3:43 PM EDT TC to patient who is scheduled as requested. LU Ludwig * Telephone Encounter - Elaine Mckenna PA-C - 10/31/2023 3:36 PM EDT Please schedule for 6 month follow up. Elaine Mckenna PA-C documented in this encounterSelect [facility] [place]-2024 Telephone encounter Note * Telephone Encounter - Elaine Mckenna PA-C - 10/31/2023 3:36 PM EDT Please schedule for 6 month follow up. Elaine Mckenna PA-C [facility] Instructions* Patient Instructions* Elaine Mckenna PA-C - 10/31/2023 3:19 PM EDT Continue with lyrica 100mg tid. No changes today Follow up in 6 months. documented in this encounterSelect [facility] [place]-19-2024 NoteHNO ID: [id number] Author: ELAINE MCKENNA PA-C Service: ? Author Type: Physician Administrative Assistant Data Entry Type: Progress Notes Filed: 10/31/2023 15:37 Note Text: [facility] Follow Up / Established Virtual Visit I have communicated my name and active licensure. The patient's identity and physical location were verified at the time of this visit. Either the patient or their legal client support representative has been informed of the risks and benefits of -- and alternatives to -- treatment through a remote evaluation and consents to proceed with the evaluation remotely. Individuals who were included in, or assisted with the encounter were: Samuel Mccracken Elaine Mckenna PA-C Chief Complaint/Issues: Samuel Mccracken is a 52 year old female seen in the [facility] for: Follow up Most Recent Neurological Assessment and Plan: Last Filed Values None HPI/Interval History: Last Visit: 07/18/[address] Porras ASSESSMENT/PLAN: 1. Cold intolerance - ICD9: 780.99, ICD10: R68.89 2. Hair loss - ICD9: 704.00, ICD10: L65.9 3. Weight gain - ICD9: 783.1, ICD10: R63.5 Patient with concern that Lyrica may be cause of hair loss. However, also endorsing weight gain and cold intolerance. Multiple symptoms raises concern for other diffuse process such as hypothyroidism. Will send off TSH and T4. If abnormal will need follow up with PCP. 4. Paresthesia of skin - ICD9: 782.0, ICD10: R20.2 5. Fibromyalgia - ICD9: 729.1, ICD10: M79.7 6. Rheumatoid arthritis, involving unspecified site, unspecified whether rheumatoid factor present (HCC) - ICD9: 714.0, ICD10: M06.9 7. Cervicalgia - ICD9: 723.1, ICD10: M54.2 8. Migraine without aura and without status migrainosus, not intractable - ICD9: 346.10, ICD10: G43.009 Multiple pain and abnormal sensation symptoms controlled on Lyrica except for worsening headaches. Headaches are likely of multiple types including migraine, tension and cervicogenic per subjective history - possibly exacerbated by looking at computer monitor for >10 hours daily and neck positioning while viewing monitor. Discussed with pt and will try to increase Lyrica to 100mg TID. SE and ADRs d/w pt. Note, if thyroid normal and still having hair loss, may need to consider reducing or stopping Lyrica in the future. Patient understands and given failure of gabapentin in past, uncertain an appropriate alternative (I.e. Topamax and VPA could cause hair loss) - possibly Cymbalta. Will have pt follow up I 4-6 weeks to see how she is doing and determine whether change in meds needed and appropriate. Louis Porras MD Today: Patient is here for headache/migraine follow up. Last seen by Dr. Porras on 07/18/23 for headache. Daily headaches, stress and lack of sleep. OTC not helpful. Noting weight gain and feeling cold, ordered thyroid studies. Increased lyrica to 100mg tid but may decrease if still having sxs. Since last visit symptoms have improved. States that she initially had some fatigue after increasing the lyrica to 300mg a day, but this resolved and notes her symptoms significantly improved. Did have one migraine right after her last appt but otherwise has been headache free. Notes that her weight gain, hair loss, edema and fatigue have significantly improved as well, notes that she increased her activity and lost 6 pounds. Believes that she is going thorugh menopause as well, notes that she is unable to tell as she had a partial hysterectomy. No new concerns today, otherwise doing well. General Examination: She is alone. General: Awake, alert, interactive, no acute distress, good nutritional status, normal development, well-kept Only a limited general examination was done. Neurological Exam Mental Status Alert, fully oriented, attentive, with normal cognition, memory, speech and affect. Cranial Nerves Extraocular movements normal. No nystagmus, no ptosis, and pupils equal. Face symmetrical. Motor Examination and Coordination Distance Motor Examination Arms: Well-coordinated symmetrical strong antigravity movements of both arms. Manipulates phone and small objects well. No tremor or adventitious movements. No apparent muscle atrophy or deformity/contracture. Assessment AND Plan 10/31/2023 - General Neurology, Elaine Mckenna PA-C ASSESSMENT ASSESSMENT/PLAN: 1. Cold intolerance - ICD9: 780.99, ICD10: R68.89 (primary diagnosis) 2. Hair loss - ICD9: 704.00, ICD10: L65.9 Resolved. Normal thyroid studies. 3. Paresthesia of skin - ICD9: 782.0, ICD10: R20.2 4. Rheumatoid arthritis, involving unspecified site, unspecified whether rheumatoid factor present (HCC) - ICD9: 714.0, ICD10: M06.9 Significant improvement in symptoms after increasing lyrica to 100mg tid. No significant side effects, doing well. Will refill for 6 months with follow up. 5. Weight gain - ICD9: 783.1, ICD10: R63.5 Improved after diet change (more content not included)...[facility]07-19-2024 History of Present illness Narrative* Elaine Mckenna PA-C - 10/31/2023 3:02 PM EDT Images from the original note were not included. [facility] Follow Up / Established Virtual Visit I have communicated my name and active licensure. The patient's identity and physical location wereverified at the time of this visit. Either the patient or their legal client support representative has been informed of the risks and benefits of -- and alternatives to -- treatment through a remote evaluation andconsents to proceed with the evaluation remotely. Individuals who were included in, or assisted with the encounter were: Samuel Mckenna PA-C Chief Complaint/Issues: Samuel Mccracken is a 52 year old female seen in the [facility] Neurology for: Follow up Most Recent Neurological Assessment and Plan: Last Filed Values None HPI/Interval History: Last Visit: 07/18/[address] Porras ASSESSMENT/PLAN: 1. Cold intolerance - ICD9: 780.99, ICD10: R68.89 2. Hair loss - ICD9: 704.00, ICD10: L65.9 3. Weight gain - ICD9: 783.1, ICD10: R63.5 Patient with concern that Lyrica may be cause of hair loss. However, also endorsing weight gain andcold intolerance. Multiple symptoms raises concern for other diffuse process such as hypothyroidism. Will send off TSH and T4. If abnormal will need follow up with PCP. 4. Paresthesia of skin - ICD9: 782.0, ICD10: R20.2 5. Fibromyalgia - ICD9: 729.1, ICD10: M79.7 6. Rheumatoid arthritis, involving unspecified site, unspecified whether rheumatoid factor present (HCC) - ICD9: 714.0, ICD10: M06.9 7. Cervicalgia - ICD9: 723.1, ICD10: M54.2 8. Migraine without aura and without status migrainosus, not intractable - ICD9: 346.10, ICD10: G43.009 Multiple pain and abnormal sensation symptoms controlled on Lyrica except for worsening headaches. Headaches are likely of multiple types including migraine, tension and cervicogenic per subjective history - possibly exacerbated by looking at computer monitor for >10 hours daily and neck positioning while viewing monitor. Discussed with pt and will try to increase Lyrica to 100mg TID. SE and ADRs d/w pt. Note, if thyroid normal and still having hair loss, may need to consider reducing or stopping Lyrica in the future. Patient understands and given failure of gabapentin in past, uncertain an appropriate alternative (I.e. Topamax and VPA could cause hair loss) - possibly Cymbalta. Will have pt follow up I 4-6 weeks to see how she is doing and determine whether change in meds needed and appropriate. Louis Porras MD Today: Patient is here for headache/migraine follow up. Last seen by Dr. Porras on 07/18/23 for headache. Daily headaches, stress and lack of sleep. OTC not helpful. Noting weight gain and feeling cold, ordered thyroid studies. Increased lyrica to 100mg tid but may decrease if still having sxs. Since last visit symptoms have improved. States that she initially had some fatigue after increasing the lyrica to 300mg a day, but this resolved and notes her symptoms significantly improved. Did have one migraine right after her last appt but otherwise has been headache free. Notes that her weight gain, hair loss, edema and fatigue have significantly improved as well, notes that she increased her activity and lost 6 pounds. Believes that she is going thorugh menopause as well, notes that she is unable to tell as she had a partial hysterectomy. No new concerns today, otherwise doing well. General Examination: She is alone. General: Awake, alert, interactive, no acute distress, good nutritional status, normal development,well-kept Only a limited general examination was done. Neurological Exam Mental Status Alert, fully oriented, attentive, with normal cognition, memory, speech and affect. Cranial Nerves Extraocular movements normal. No nystagmus, no ptosis, and pupils equal. Face symmetrical. Motor Examination and Coordination Distance Motor Examination Arms: Well-coordinated symmetrical strong antigravity movements of both arms. Manipulates phone andsmall objects well. No tremor or adventitious movements. No apparent muscle atrophy or deformity/contracture. Assessment & Plan 10/31/2023 - General Neurology, Elaine Mckenna PA-C ASSESSMENT ASSESSMENT/PLAN: 1. Cold intolerance - ICD9: 780.99, ICD10: R68.89 (primary diagnosis) 2. Hair loss - ICD9: 704.00, ICD10: L65.9 Resolved. Normal thyroid studies. 3. Paresthesia of skin - ICD9: 782.0, ICD10: R20.2 4. Rheumatoid arthritis, involving unspecified site, unspecified whether rheumatoid factor present (HCC) - ICD9: 714.0, ICD10: M06.9 Significant improvement in symptoms after increasing lyrica to 100mg tid. No significant side effects, doing well. Will refill for 6 months with follow up. 5. Weight gain - ICD9: 783.1, ICD10: R63.5 Improved after diet change, sleep regulation and increased exercise. Noted 6 pound weight loss since last appt. 6. Migraine without aura and without status migrainosus, not intractable - ICD9: 346.10, ICD10: G43.009 Stable, last headache was three months ago and well controlled. 7. Fibromyalgia - ICD9: 729.1, ICD10: M79.7 8. Cervicalgia - ICD9: 723.1, ICD10: M54.2 Significant improvement with increased lyrica. Patient overall doing well on Lyrica 100mg tid, no new concerns today. Notes many previous concernsnoted above have resolved. Will continue with current regimen, no changes made. Will follow up in 6months with myself or Dr. Porras. Patient agreeable to treatment plan of care at this time. Elaine Mckenna PA-C No diagnosis found. No follow-ups on file. Data Review Objective Current Outpatient Medications Medication Sig pregabalin (LYRICA) 100 mg capsule Take 1 capsule by mouth [...] No current facility-administered medications for this visit. ACTIVE PROBLEM LIST Add (Attention Deficit Disorder) Without Hyperactivity Carpal Tunnel Syndrome Essential (Primary) Hypertension Fibromyalgia Numbness and Tingling Sensation of Skin Rheumatoid Arthritis Without Elevated Rheumatoid Factor (Hcc) Tension Headache No past medical history on file. PAST SURGICAL HISTORY Procedure Laterality Date VAGINAL HYSTERECTOMY 06/26/2021 Social History Tobacco Use Smoking status: Former Types: Cigarettes Quit date: 08/16/2020 Years since quittin.2 Smokeless tobacco: Never Substance Use Topics Alcohol use: Not Currently Comment: Unable due to medication Drug use: Never No family history on file. Review of Systems Lab and Test Review: TSH and T4 normal Outside Data/Labs: Subjective Patient-Entered Data: 10/31/23 - GENERAL NEUROLOGY SCORES 03/29/2023 07/18/2023 10/30/2023 PROMIS 10 Health, in general Good Good Good Quality of life, in general Good Good Good Physical health, in general Good Good Good Mental health, in general Good Very good Fair Social activities satisfaction Good Very good Good Performing ADL's Completely Completely Completely Social role satisfaction Good Very good Good Pain, on average 2 2 2 Fatigue, on average Mild Moderate Moderate Emotional problems Sometimes Sometimes Sometimes PHYSICAL Score 50.8 (Very Good) 47.7 (Good) 47.7 (Good) MENTAL Score 43.5 (Good) 48.3 (Very Good) 41.1 (Good) 05/13/2022 05/13/2022 Depression Screening PHQ-2 Score 2 PHQ-9 Score 9 JEFFRY-2 Total Score 4 JEFFRY-7 Total Score 9 05/13/2022 SLEEP APNEA SCORE Probability of moderate-severe sleep apnea (%) SAPS V2 4 (Sleep study not recommended) No data to display 06/09/2022 PROMIS CAT Sleep Disturbance PROMIS Sleep Disturbance T-Score 62 (moderate) PROMIS Sleep Disturbance Percentile 12 I spent a total of 30 minutes on the date of the service which included preparing to see the patient, [id number] patient care, completing clinical documentation, obtaining and/or reviewing separately obtained history, performing a medically appropriate examination, counseling and educating the pat ient/family/caregiver, and ordering medications, tests, or procedures. Elaine Mckenna PA-C 10/30/2023 PROMIS Global Health Physical Health Summary Physical health: Good Everyday physical activity, ability: Completely Fatigue: Moderate Pain level: 2 General health: Good Social activities/roles, ability: Good Physical Health T-Score 47.7 (Good) Physical Health Percentile 41 PROMIS Global Health Mental Health Summary Quality of life: Good Mental health (mood,thinking): Fair Social satisfaction: Good Emotional problems (anxious,depressed): Sometimes Mental Health T-Score 41.1 (Good) Mental Health Percentile 19 Percentiles provide an indication of how a patient's score ranks in relation to the [place] general population. > 31st percentile is within normal limits or better *< 31st percentile is at least SD worse than population, which may be clinically relevant < 16th percentile is at least 1 SD worse than population and warrants attention [facility] [place] Telephone encounter Note * Telephone Encounter - Lynn Davis LPN - 08/28/2023 3:39 PM EDT Prior Authorization received CoverMyMeds Lyrica (Pregabalin) New Rx sent for Pregabalin 100 mg. Phone call placed to [employer] [phone] Prior Authorization advised new dosage of Pregabalin 100 mg covered under the prior 75 mg approval number [id number] [facility] through 09/2023, current medication filled 07/21/2023 - 10/16/2023 qty 270, no further action. Lynn Davis LPN [facility]24 Miscellaneous Notes* Telephone Encounter - Lynn Davis LPN - 08/28/2023 3:39 PM EDT Prior Authorization received CoverMyMeds Lyrica (Pregabalin) New Rx sent for Pregabalin 100 mg. Phone call placed to [employer] [phone] Prior Authorization advised new dosage of Pregabalin 100 mg covered under the prior 75 mg approval number [id number] [facility] through 09/2023, current medication filled 07/21/2023 - 10/16/2023 qty 270, no further action. Lynn Davis LPN documented [facility] [place] Telephone encounter Note * Telephone Encounter - Louis Porras Jr., MD - 08/25/2023 9:39 PM EDT Per PDMP review, patient received a 90 day supply in July 2023 from [facility]. Thus, too early for refills. Please confirm with [facility] when time. Louis Porras MD PDMP website checked and validated . [facility] Miscellaneous Notes* Telephone Encounter - Louis Porras Jr., MD - 08/25/2023 9:39 PM EDT Per PDMP review, patient received a 90 day supply in July 2023 from [facility]. Thus, too early for refills. Please confirm with [facility] when time. Louis Porras MD PDMP website checked and validated . documented in [facility] [place] History of Present illness Narrative* Louis Porras Jr., MD - 07/18/2023 11:33 AM EDT 07/18/2023 PROMIS Global Health Physical Health Summary Physical health: Good Everyday physical activity, ability: Completely Fatigue: Moderate Pain level: 2 General health: Good Social activities/roles, ability: Very good Physical Health T-Score 47.7 (Good) Physical Health Percentile 41 PROMIS Global Health Mental Health Summary Quality of life: Good Mental health (mood,thinking): Very good Social satisfaction: Very good Emotional problems (anxious,depressed): Sometimes Mental Health T-Score 48.3 (Very Good) Mental Health Percentile 43 Percentiles provide an indication of how a patient's score ranks in relation to the [place] general population. > 31st percentile is within normal limits or better *< 31st percentile is at least SD worse than population, which may be clinically relevant < 16th percentile is at least 1 SD worse than population and warrants attention ESTABLISHED PATIENT VISIT (Virtual Visit with Video) For this virtual visit, the patient has been identified by name and (MRN and photo identification as well if available). Those taking part in visit: Patient and physician via [employer]. Consent for this visit received from patient. I have communicated my name and active licensure. The patient's identity and physical location wereverified at the time of this visit. Either the patient or their legal client support representative has been informed of the risks and benefits of -- and alternatives to -- treatment through a remote evaluation andconsents to proceed with the evaluation remotely. HISTORY OF PRESENT ILLNESS: Samuel Mccracken is a 52 year old female, with a PMH significant for and per last office visit with me on 03/31/23: 1. Paresthesia of skin - ICD9: 782.0, [...] refills provided. 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 Pt understanding of reasons for UDS. Follow up 3 months or sooner prn. Patient reports doing good. 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 States studies are keeping her up late at night. No s/s of sleep disorder. States due to lack of sleep, is having headaches daily - can occur any time of day. Ease up at end of the night if takes ibuprofen. No definite associated photophobia or phonophobia or other sensitivity but on computer all day for classes. Pt thinks it is due to lack of sleep secondary to class work. Often can be just gary cranial -other times feels like a band - other times feels like radiating up from the neck. OTCs not that effective. No new meds otherwise. Weight up about 8 pounds. No snoring, no witnessed apneas. When getsadequate sleep finds it to be restorative. Pt worried that Lyrica might be contributing to hair loss. No constipation. Im always cold. Last T4 normal but in 2021. REVIEW OF SYSTEMS GENERAL:See HPI HEENT:Negative for frequent or significant headaches, No changes in hearing or vision, no nose bleeds or other nasal problems NECK:See HPI. RESPIRATORY: Negative for cough, wheezing or shortness of breath. CARDIOVASCULAR: Negative for chest pain, leg swelling or palpitations. GASTROINTESTINAL: Negative for abdominal discomfort, blood in stools or black stools or change in bowel habits GENITOURINARY: No history of dysuria, frequency or incontinence MUSCULOSKELETAL: See HPI. NEUROLOGIC:See HPI. SKIN:Negative for lesions, rash, and itching. HEMATOLOGIC/LYMPHATIC/IMMUNOLOGIC:Negative for prolonged bleeding, bruising easily or swollen [...] three times a day for 90 days. Do not start before April 18, 2023. sulfaSALAzine EC (AZULFIDINE EN) 500 mg EC [...] Types: Cigarettes Quit date: 08/16/2020 Years since quittin.9 Smokeless tobacco: Never Substance Use Topics Alcohol use: Not Currently Comment: Unable due to medication Drug use: Never PHYSICAL EXAMINATION There were no vitals taken for this visit. GENERAL EXAM: General appearance: NAD, pleasant. HEENT: NC/AT, nasal congestion absent, no oral lesions, membranes moist. NECK: ROM nml. LUNGS: No audible cough, wheeze, sob. NEUROLOGICAL EXAM: General: Awake, alert, oriented x3 (person,place,time), speech fluent, no dysarthria; comprehension, naming, repetition intact. CN: EOMI, face symmetric, hearing is intact, palate and tongue movements are intact and symmetric. SCM and trapezius strength symmetric. Motor: TOMLINSON equal and symmetric. Coordination: FNF, JESI, HTS intact. No tremors. Sensation: LT subjectively intact throughout. No evidence of neglect. Gait: Stable. Assessment and Plan: ASSESSMENT/PLAN: 1. Cold intolerance - ICD9: 780.99, ICD10: R68.89 2. Hair loss - ICD9: 704.00, ICD10: L65.9 3. Weight gain - ICD9: 783.1, ICD10: R63.5 Patient with concern that Lyrica may be cause of hair loss. However, also endorsing weight gain andcold intolerance. Multiple symptoms raises concern for other diffuse process such as hypothyroidism. Will send off TSH and T4. If abnormal will need follow up with PCP. 4. Paresthesia of skin - ICD9: 782.0, ICD10: R20.2 5. Fibromyalgia - ICD9: 729.1, ICD10: M79.7 6. Rheumatoid arthritis, involving unspecified site, unspecified whether rheumatoid factor present (HCC) - ICD9: 714.0, ICD10: M06.9 7. Cervicalgia - ICD9: 723.1, ICD10: M54.2 8. Migraine without aura and without status migrainosus, not intractable - ICD9: 346.10, ICD10: G43.009 Multiple pain and abnormal sensation symptoms controlled on Lyrica except for worsening headaches. Headaches are likely of multiple types including migraine, tension and cervicogenic per subjective history - possibly exacerbated by looking at computer monitor for >10 hours daily and neck positioning while viewing monitor. Discussed with pt and will try to increase Lyrica to 100mg TID. SE and ADRs d/w pt. Note, if thyroid normal and still having hair loss, may need to consider reducing or stopping Lyrica in the future. Patient understands and given failure of gabapentin in past, uncertain an appropriate alternative (I.e. Topamax and VPA could cause hair loss) - possibly Cymbalta. Will have pt follow up I 4-6 weeks to see how she is doing and determine whether change in meds needed and appropriate. Louis Porras MD I spent a total of 33 minutes on the date of the service which included preparing to see the patient, [id number] patient care, completing clinical documentation, obtaining and/or reviewing separately obtained history, performing a medically appropriate examination, counseling and educating the pat ient/family/caregiver, ordering medications, tests, or procedures, and communicating results to thepatient/family/caregiver. PDMP website checked and validated. All prescriptions have been APPROPRIATELY filled. No suspiciousactivity was identified. Note: A urine tox screen and urine pain panel have been completed appropriately (after 12 weeks of initiating therapy and at least yearly thereafter). 07/18/2023 by Louis Porras MD documented in [place] encounterSarah [place] [id number] History of Present illness Narrative* Louis Porras Jr., MD - 03/31/2023 1:55 PM EST ESTABLISHED PATIENT VISIT CHIEF COMPLAINT: Follow up [...] titrating up to 75mg lyrica tid. No sideeffects, recent CMP normal. No daytime sleepiness and no break through symptoms. No new symptoms orred flag signs or symptoms that would warrant [...] enough. Thus, will increase dose to 75mg TID.SE and ADRs again reviewed with pt. She agrees with plan. Encouraged massage therapy and physical therapy as recommended by Dr. Cantu. No additional workup at this time. Follow up in 3 months or sooner prn. Pt recently loss job due to cuts, in setting of moving daughter from [place] to back home and loss of a car. Now on unemployment. States stressed to the max. Stress has exacerbated migraines x1, but patient [...] dysarthria; comprehension, naming, repetition intact. 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 Fund of knowledge grossly normal [...] refills provided. 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 Pt understanding of reasons for UDS. Follow up 3 months or sooner prn. Louis Porras MD I spent a total of 24 minutes on the date of the service which included preparing to see the patient, [id number] patient care, completing clinical documentation, obtaining and/or reviewing separately obtained history, performing a medically appropriate examination, counseling and educating the pat ient/family/caregiver, ordering medications, tests, or procedures, communicating results to the patient/family/caregiver . PDMP website checked and validated. All prescriptions have been APPROPRIATELY filled. No suspiciousactivity was identified. 03/31/2023 by Louis Porras MD documented in this encounterSelect [facility] [place] Procedure [facility]09-19-2023 Instructions* Patient Instructions* Elaine Mckenna PA-C - 12/31/2022 7:25 AM EDT Continue 75mg three times a day Follow up in March with Dr. Porras as planned documented in this encounterSelect [facility] [place] History of Present illness Narrative* Elaine Mckenna PA-C - 12/31/2022 7:12 AM EDT ESTABLISHED PATIENT VISIT Last visit: 09/16/22 With [...] enough. Thus, will increase dose to 75mg TID.SE and ADRs again reviewed with pt. She agrees with plan. Encouraged massage therapy and physical therapy as recommended by Dr. Cantu. No additional workup at this time. Follow up in 3 months or sooner prn. Louis Porras MD CHIEF COMPLAINT: follow up HISTORY OF PRESENT ILLNESS: Samuel Mccracken is a 52 year old female, There were no vitals taken for this visit. with a PMH significant for fibromyalgia, RA, tension headache, HTN. Chiquita 09/16/22- improved with lyrica, increased to [address]mg tid[address] Cantu and does not want to do injections. Etiology likely RA and Fibromyalgia. Was unable to attend last appontment due to being [place] of [place]. Since last appointment no break thorugh nerve pain. No new sympotms, no side effects with increasing Lyrica. No day time sleepiness. No new concerns. No new meds or diagnoses. Has tried gabapentin inthe past with no help. Reports that she [...] disturbance, mood disorder and recent psychosocial stressors. HEMATOLOGIC/LYMPHATIC/IMMUNOLOGIC:Negative for prolonged bleeding, bruising easily or swollen [...] dysarthria; comprehension, naming, repetition intact. Short and retirement memory intact. CN: PERRL, EOMI and without [...] titrating up to 75mg lyrica tid. No sideeffects, recent CMP normal. No daytime sleepiness and no break through symptoms. No new symptoms orred flag signs or symptoms that would warrant [...] which included preparing to see the patient, [id number] patient care, completing clinical documentation, obtaining and/or reviewing separately obtained history, performing a medically appropriate examination, counseling and educating the pat ient/family/caregiver, and ordering medications, tests, or procedures. This document has been created with the use of voice recognition technology. It may contain inaccuracies: (e.g. misspellings, inaccurate syntax or word sense) that have escaped review. [facility] website checked and validated. All prescriptions have been APPROPRIATELY filled. No suspiciousactivity was identified. 12/31/2022 by Elaine Mckenna PA-C documented in this encounter[facility] Miscellaneous Notes* Telephone Encounter - Louis Porras Jr., MD - 12/17/2022 10:34 AM EDT [facility] website checked and validated. All prescriptions have been APPROPRIATELY filled. No suspiciousactivity was identified. 12/17/2022 by Louis Porras MD * Telephone Encounter - Jessica Charles OCCA - 12/17/2022 8:19 AM EDT message sent back to patient with providers message below. Nothing further at this time. LU Beard * Telephone Encounter - Ernestina Castillo LPN - 12/17/2022 8:17 AM EDT Patient is calling had family emergency in [place], had to reschedule her appt. Went over notes below from Dr Porras with understanding. Patient asking if would send rx to local pharmacy until her appt? Her is going to have ot order picker rx and get it to her. She will not be back in the area until 12/29. Patient uses [facility] pharmacy. Patient phone number is [phone] if needed. Please advise * Telephone Encounter - Louis Porras Jr., MD - 12/17/2022 8:10 AM EDT This is a controlled med and cannot be Rx'd outside the [facility]. Louis Porras MD * Telephone Encounter - Meredith Bryant LPN - 12/17/2022 7:42 AM EDT Pt has made follow up appointment in person with MQ on 12-31-22. Please advise. Meredith Bryant LPN documented in this encounterSelect [facility]07-05-2023 Miscellaneous Notes* Telephone Encounter - Meredith Bryant LPN - 10/16/2022 8:40 AM EDT Medication approved. CaseId:[id number]; Status:Approved;Review Type:Prior Auth; Coverage Start Date:10/12/2022; Coverage End Date:11/11/2023; Meredith Bryant LPN * Telephone Encounter - Meredith Bryant LPN - 10/16/2022 8:27 AM EDT PA started on CoverMyMeds. Await decision. Meredith Bryant LPN * Telephone Encounter - Martha Davis LPN - 10/16/2022 8:09 AM EDT Pt called and she needs to have another PA done for medication Pregabalin she takes 3 times a day. Pt's insurance changed to [facility] [place] PRIOR AUTHORIZATION Medication for Prior Authorization: Pregabalin Other formulary meds available : NO Insurance Company: [employer] phone number: [phone] Patient insurance ID number: [id number] Martha Davis LPN Pt reports she runs out of medication tomorrow 10/17/22. documented in this encounterSelect [facility]06-05-2023 Miscellaneous Notes* Telephone Encounter - Meredith Bryant LPN - 09/16/2022 5:19 PM EDT Medication approved. Pt notified via TC. Meredith Bryant LPN * Telephone Encounter - Meredith Bryant LPN - 09/16/2022 4:34 PM EDT PA started via covermymeds. Sent to plan. Await decision. Meredith Bryant LPN * Telephone Encounter - Helena Waters LPN - 09/16/2022 4:22 PM EDT Pt calls to report that insurance does not want to cover pregabalin 75 mg tid. Pharmacy advised provider would need to change dose/medication or a prior authorization is needed for insurance. Pt reports she will be out of medication tomorrow. Ms. reporree documented in this encounterSelect [facility]06-05-2023 History of Present illness Narrative* Louis Porras Jr., MD - 09/16/2022 1:57 PM EDT ESTABLISHED PATIENT VISIT CHIEF COMPLAINT: Follow up [...] with Lyrica 75mg BID to see if anyimprovement in symptoms with additional concerns for CTS [...] through down back and hands. Saw Dr. Cantu, and did not want to do injections [...] resp. rate 18, weight 78.6 kg (173 lb3.2 oz), SpO2 99 %. GENERAL EXAM: General [...] enough. Thus, will increase dose to 75mg TID.SE and ADRs again reviewed with pt. She agrees with plan. Encouraged massage therapy and physical therapy as recommended by Dr. Cantu. No additional workup at this time. Follow up in 3 months or sooner prn. Louis Porras MD PDMP website checked and validated. All prescriptions have been APPROPRIATELY filled. No suspiciousactivity was identified. 09/16/2022 by Louis Porras MD Medical Decision Making: Problems: Moderate: 2+ stable chronic illnesses Risk: Moderate: Drug management Medical Decision Making Level: 4 - Moderate documented in this encounterSelect [facility]04-17-2023 Miscellaneous Notes* Telephone Encounter - Louis Porras Jr., MD - 07/29/2022 11:28 AM EDT PDMP website checked and validated. All prescriptions have been APPROPRIATELY filled. No suspiciousactivity was identified. 07/29/2022 by Louis Porras MD * Telephone Encounter - Meredith Bryant LPN - 07/29/2022 9:54 AM EDT [facility] 05/20/22 with [facility] NOV 09/16/22 with [facility] Refill 05/20/22 with qty: 60 and 2 refills Pt states she will not have enough until follow up appt in September Meredith Bryant LPN [place] Assessment/Plan Assessment and Plan: ASSESSMENT/PLAN: 1. Paresthesia [...] with Lyrica 75mg BID to see if anyimprovement in symptoms with additional concerns for CTS on prior EMG/NCV as well as inability to rule out small fiber type neuropathy. Pt to follow up after evaluation by spine and pain. Encouraged pt to follow up with Rheum as well. Louis Porras MD documented in this encounterSelect Medical [facility]02-27-2023 History of Present illness Narrative* Osmin Cantu MD - 06/10/2022 11:05 AM EST [facility] Date: June 10, 2022 - 11:05 AM Samuel Mccracken is seen in consultation requested by Dr. Louis Porras Jr. for an opinion regarding chronic neck pain. My final recommendations will be communicated back to the requesting physician by way of shared medical record or via US mail. Chief Complaint: neck pain SUBJECTIVE: Samuel Mccracken, is a 51 year old female who presents with neck pain. The pain started 7+ years ago,with no known injury or trauma. The pain [...] cooking, household cleaning, lifting, and social activities. 50%pain in spine vs 50% (radiating) pain in the extremity. Litigation: No. Worker's Compensation: No. Prior pain treatment has included Medication: pregabalin with substantial relief. Cervical injection in 2015 in [place]. ALLERGIES Allergen Reactions Clindamycin GI Upset, Other: [...] Panel: No results found for: UQCANN, UQBNZL, RVV9CSA, UQAMPH, UQMAMP, UQBUPRE, UQNORBUP, UQMTHD, UQEDDP, UQTRAM, UQDTRM, UQFNTL, UQNFTL, UQCODE, UQMORP, UQDCDN, UQHCOD, UQOXYC, UQHMOR, UQOXYM, UQCREA, UQPH,UQSPGR, UQOXID, UQSPQ The pain panel was N/A [...] diagnostic tests reviewed for today's visit: The [facility] EMR was reviewed during thevisit IMAGING STUDIES: No new imaging studies were [...] but also diagnostic information that procedures provide. 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 The patient is in agreement withthe above and verbalized understanding. I have discussed and confirmed the above treatment plan with the patient and I have reviewed the nurses notes and I am aware of the family/social history. I have confirmed ROS findings. Osmin Cantu MD June 10, 2022 cc: Louis Porras [address] [facility] [address] [facility] [id number] Results of consultation to be transmitted via electronic medical record for those providers who practice within [facility] [place] or with access to [employer] via MD Connect, or via letter. documented in this encounterSelect Medical [facility]ty [facility]02-06-2023 History of Present illness Narrative* Louis Porras Jr., MD - 05/20/2022 3:12 PM EST ESTABLISHED PATIENT VISIT CHIEF COMPLAINT: Follow Up [...] steroids, possible RA or inflammation superimposed on knownlumbar disease. At this point with improvement, discussed [...] from the back of head, into neck anddown into shoulder blades. Has happened twice and lasted couple hours. Issue that is more prominentis sense that muscles are pulling into the spine, and feels like they are locked. Not loosening with Flexeril. LUE more bothered than R. States both hands go numb if holding steering wheel or otherwise either hand will go numb if holding something too long. 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 Besides pain in [...] HPI. SKIN:Negative for lesions, rash, and itching. HEMATOLOGIC/LYMPHATIC/IMMUNOLOGIC:Negative for prolonged bleeding, bruising easily or swollen [...] Take 100 mg by mouth once daily. L.acid/L.casei/B.bif/B.carlos/FOS (PROBIOTIC BLEND ORAL) Take 1 capsule by [...] papilledema, EOMI and without nystagmus, VFF to confrontation,facial sensation and strength are normal and symmetric, [...] with Lyrica 75mg BID to see if anyimprovement in symptoms with additional concerns for CTS on prior EMG/NCV as well as inability to rule out small fiber type neuropathy. Pt to follow up after evaluation by spine and pain. Encouraged pt to follow up with Rheum as well. Louis Porras MD I spent a total of 35 minutes on the date of the service which included preparing to see the patient, [id number] patient care, completing clinical documentation, obtaining and/or reviewing separately obtained history, performing a medically appropriate examination, counseling and educating the pat ient/family/caregiver, ordering medications, tests, or procedures, and communicating results to thepatient/family/caregiver. PDMP website checked and validated. All prescriptions have been APPROPRIATELY filled. No suspiciousactivity was identified. 05/20/2022 by Louis Porras MD documented in this encounterSelect [facility]10-03-2022 History of Present illness Narrative* Louis Porras Jr., MD - 01/14/2022 2:06 PM EDT ESTABLISHED PATIENT VISIT CHIEF COMPLAINT: Follow Up HISTORY OF PRESENT ILLNESS: Samuel Dumont is a 51 year old female, with [...] would need to consider a demyelinating disorder suchas MS. Otherwise possible that patient may have multiple disorder, but again, at this time, difficult to determine what these in fact would be. Neuro exam is non focal except for subjective deficits on sensory testing. At this time, will proceed with MRI brain, C spine and T spine to determine if demyelination or other [employer] lesion present that might be the cause of symptoms (I.e. headache - mass, lower ext symptoms - herniation...). Will also get EMG/NCV to evaluate for peripheral n etiology of symptoms. Also willcheck for metabolic etiologies including B12 deficiency or [...] HPI. SKIN:Negative for lesions, rash, and itching. HEMATOLOGIC/LYMPHATIC/IMMUNOLOGIC:Negative for prolonged bleeding, bruising easily or swollen [...] Take 100 mg by mouth once daily. L.acid/L.casei/B.bif/B.carlos/FOS (PROBIOTIC BLEND ORAL) Take 1 capsule by [...] steroids, possible RA or inflammation superimposed on knownlumbar disease. At this point with improvement, discussed with patient treatment options, but feel it might be best to first see how methotrexate works over the next few months. If symptoms worsen the patient will contact us immediately. For now will schedule follow up in ~4 months. Pt agrees with plan. Louis Porras MD I spent a total of 30+ minutes on the date of the service which included preparing to see the patient, [id number] patient care, completing clinical documentation, obtaining and/or reviewing separately obtained history, performing a medically appropriate examination, counseling and educating the pa tient/family/caregiver, independently interpreting results (not separately reported), and communicating results to the patient/family/caregiver (this includes reviewing results directly with patient). documented in this encounterSelect Medical [facility]09-12-2022 History of Present illness Narrative* Jane Morton, RT(R) - 12/24/2021 1:40 PM EDT Radiology Service Progress Note DATE OF SERVICE: [...] spine SIGNATURE: RT Cedric(R) PATIENT NAME: Samuel Dumont DATE: December 24, 2021 TIME: 2:20 PM documented in this encounterSelect Medical Specialty [facility]08-16-2022 Miscellaneous Notes* Telephone Encounter - DIANA Ludwig - 11/27/2021 10:36 AM EDT Pt updated through . DIANA Ludwig * Telephone Encounter - DIANA Ludwig - 11/27/2021 9:42 AM EDT In looking over pt chart the EMG was ordered yesterday at office visit but was not on home health scheduler worksheet. Will route to scheduling pool once other issues addressed to be scheduled. Please advise in regards to MRI questions. Thank you. DIANA Ludwig documented in this [facility]08-16-2022 Miscellaneous Notes* Telephone Encounter - DIANA Ludwig - 11/27/2021 10:33 AM EDT Please assist patient in scheduling an EMG. Thank you. DIANA Ludwig documented in this encounterSelect Medical [facility]ty [facility]08-05-2022 Miscellaneous Notes* Telephone Encounter - DIANA Ludwig - 11/16/2021 3:47 PM EDT Records received via fax. Copy placed on providers desk for review with original sent to scanning. DIANA Ludwig * Telephone Encounter - DIANA Ludwig - 11/13/2021 3:21 PM EDT Noted. Will leave encounter open until records received. DIANA Ludwig * Telephone Encounter - Martha Davis LPN - 11/13/2021 3:18 PM EDT Pt called in and information was given. Pt will contact her doctor to fax records. Fax number was provided. Martha Davis LPN * Telephone Encounter - DIANA Ludwig - 11/13/2021 1:38 PM EDT TC to patient to inquire about current PCP and contact information. No answer, left message to return call. Pt has an upcoming appointment on 11/[address] Porras and there are no records on patient. Will need recent OV notes, imaging, any sleep studies and recent lab work from PCPs office. DIANA Ludwig documented in this encounterSelect Medical [facility]ty [facility]ronEvaluation note* Diagnosis Onset Date Resolution Status Menorrhagia with regular cycle resolved Menorrhagia with regular cycle resolved Menorrhagia with regular cycle resolved [facility] Work Phone: Evaluation note* Diagnosis Onset Date Resolution Status Menorrhagia with regular cycle resolved Menorrhagia with regular cycle resolved Encounter for postoperative care noneactive Encounter for postoperative care noneactive [facility] Work Phone: Evaluation note* Diagnosis Demyelinating disease of central nervous system (HCC)- Primary Demyelinating disease of central nervous system, unspecified documented in this encounter [facility]Eval[facility] noteNo assessment information availableWKettering [facility] Work Phone: evaluation note* Diagnosis Chronic nonintractable headache, unspecified headache type Paresthesia of skin Disturbance of skin sensation Involuntary movements Abnormal involuntary movements Demyelinating disease of central nervous system (HCC) Demyelinating disease of central nervous system, unspecified documented in this encounter [facility]* Diagnosis Paresthesia of skin- Primary Disturbance of skin sensation Weakness Other malaise and fatigue Pain of left lower extremity Muscle spasm of left lower extremity Involuntary movements Abnormal involuntary movements Chronic nonintractable headache, unspecified headache type documented in this encounter [facility]* Diagnosis Onset Date Resolution Status Encounter for examination re quired by Department of Transportation (DOT) acute [facility] Work Phone: Evaluation note* Diagnosis Onset Date Resolution Status Encounter for examination re quired by Department of Transportation (DOT) acute Encounter for routine gynecological examination noneactive [facility] Work Phone: evaluation note* Diagnosis Paresthesia of skin- Primary Disturbance of skin sensation Weakness Other malaise and fatigue Pain of left lower extremity Muscle spasm of left lower extremity Chronic nonintractable headache, unspecified headache type Foraminal stenosis of cervical region Spinal stenosis in cervical region Intractable episodic headache, unspecified headache type Cervicalgia documented in this encounter [facility]* Diagnosis Cervical myofascial pain syndrome- Primary Mylagia and myositis, unspecified Paresthesia of skin Disturbance of skin sensation Weakness Other malaise and fatigue Pain of left lower extremity Muscle spasm of left lower extremity Chronic nonintractable headache, unspecified headache type Foraminal stenosis of cervical region Spinal stenosis in cervical region Myofascial pain syndrome of thoracic spine documented in this encounter [facility]* Diagnosis Paresthesia of skin Disturbance of skin sensation Weakness Other malaise and fatigue Pain of left lower extremity Muscle spasm of left lower extremity Chronic nonintractable headache, unspecified headache type [facility] Diagnosis Onset Date Resolution Status Encounter for routine gynecological examination noneactive [facility] Work Phone: Evaluation note* Diagnosis Paresthesia of skin- Primary Disturbance of skin sensation Chronic nonintractable headache, unspecified headache type Intractable episodic headache, unspecified headache type Cervicalgia Fibromyalgia Mylagia and myositis, unspecified Rheumatoid arthritis, involving unspecified site, unspecified whether rheumatoid factor present (HCC) documented in this encounter [facility] note* Diagnosis Paresthesia of skin Disturbance of skin sensation Chronic nonintractable headache, unspecified headache type Cervicalgia Fibromyalgia Mylagia and myositis, unspecified Rheumatoid arthritis, involving unspecified site, unspecified whether rheumatoid factor present (HCC) documented in this encounter [facility] note* Diagnosis Paresthesia of skin- Primary Disturbance of skin sensation Fibromyalgia Mylagia and myositis, unspecified documented in this encounter [facility] note* Diagnosis Onset Date Resolution Status Health care maintenance acut e Fibromyalgia chronic Hypertension chronic Rheumatoid arthritis chronic [facility] Work Phone: Evaluation note* Diagnosis Onset Date Resolution Status Health care maintenance acut e Fibromyalgia chronic Hypertension chronic Rheumatoid arthritis chronic Climacteric acute Hemorrhagic cyst acute [facility] Work Phone: evaluation note* Diagnosis Onset Date Resolution Status Health care maintenance acut e Fibromyalgia chronic Hypertension chronic Rheumatoid arthritis chronic Climacteric acute Hemorrhagic cyst acute Fibromyalgia chronic Hypertension chronic Rheumatoid arthritis chronic [facility] Work Phone: Evaluation note* Diagnosis Onset Date Resolution Status Climacteric acute Hemorrhagic cyst acute Fibromyalgia chronic Hypertension chronic Rheumatoid arthritis chronic Colon cancer screening acute [facility] Work Phone: Evaluation note* Diagnosis Paresthesia of skin- Primary Disturbance [...] unspecified headache type [facility]* Diagnosis Onset Date Resolution Status Colon cancer screening acute Encounter for routine gynecological examination noneactive [facility] Work Phone: Evaluation note* Diagnosis Cold intolerance- Primary Other general symptoms Hair loss Alopecia, unspecified Paresthesia of skin Disturbance of skin sensation Rheumatoid arthritis, involving unspecified site, unspecified whether rheumatoid factor present (HCC) Weight gain Abnormal weight gain Migraine without aura and without status migrainosus, not intractable Migraine without aura, without mention of intractable migraine without mention of status migrainosus Fibromyalgia Mylagia and myositis, unspecified Cervicalgia documented in this encounter [facility]* Diagnosis Paresthesia of skin Disturbance of skin sensation Rheumatoid arthritis, involving unspecified site, unspecified whether rheumatoid factor present (HCC) Migraine without aura and without status migrainosus, not intractable Migraine without aura, without mention of intractable migraine without mention of status migrainosus Fibromyalgia Mylagia and myositis, unspecified Cervicalgia documented in this encounter [facility]* Diagnosis Chronic nonintractable headache, unspecified headache type- Primary Cold intolerance Other general symptoms Hair loss Alopecia, unspecified Weight gain Abnormal weight gain Paresthesia of skin Disturbance of skin sensation Fibromyalgia Mylagia and myositis, unspecified Rheumatoid arthritis, involving unspecified site, unspecified whether rheumatoid factor present (HCC) Cervicalgia Migraine without aura and without status migrainosus, not intractable Migraine without aura, without mention of intractable migraine without mention of status migrainosus documented in this encounter [facility]* Diagnosis Paresthesia of skin- Primary Disturbance of skin sensation Rheumatoid arthritis, involving unspecified site, unspecified whether rheumatoid factor present (HCC) Fibromyalgia Mylagia and myositis, unspecified Migraine without aura and without status migrainosus, not intractable Migraine without aura, without mention of intractable migraine without mention of status migrainosus Pain of right upper arm Pain in limb Cervicalgia Long-term use of high-risk medication documented in this encounter [facility]* Diagnosis Paresthesia of skin- Primary Disturbance of skin sensation Rheumatoid arthritis, involving unspecified site, unspecified whether rheumatoid factor present (HCC) Fibromyalgia Mylagia and myositis, unspecified Migraine without aura and without status migrainosus, not intractable Migraine without aura, without mention of intractable migraine without mention of status migrainosus Cervicalgia Weight gain Abnormal weight gain Bilateral carpal tunnel syndrome Carpal tunnel syndrome documented in this encounter [facility]* Diagnosis Onset Date Resolution Status Admit Date Health care maintenance acute S eptember 2024 2:29pm Hyperlipidemia chronic January 07, 2025 2:29pm Hypertension chronic January 072024 2:29pm Rheumatoid arthritis chronic Sept emb2024 2:29pm [employer] Work Phone: History and physical note Author Lucia Doll [facility] March 14, 2023 11:47am Note Date/Time March 14, 2023 1 1:42am [facility] Medical Records Department [address] [place] [address] History & Physical Exam 03/14/23 1140 MR#: [id number] Acct: [id number] Name: SAMUEL MCCRACKEN Rep #:[id number] : 1970 52 From: Lucia Doll MD PCP: Dr. Estelita Pepe MD Status:R [facility] Location: [place] [address] HPI - General HPI Narrative SAMUEL MCCRACKEN, is a 52 F who presents for screening colonoscopy. Patient had a colonoscopy about 10 years ago due to intestinal issues/IBS per patient- neg. Patient's maternal great aunt was diagnosed with colon cancer and no immediate relatives, mom had polyps unsure size. Patient has bowel movements daily deniesany blood. Patient denies any chronic abdominal pain/nausea/vomiting/reflux. PFSH Medical History Alcohol use Anemia Arthritis Asthma Back pain Carpal tunnel syndrome Colon cancer screening COVID-19 Depression Dietary restriction Difficulty swallowing Encounter for screening for COVID-19 Health care maintenance Heartburn History of IBS History of pain when walking History of wrist fracture Hx of sciatica Hypertension IBS (irritable bowel syndrome) Marijuana use Migraine headache Restless legs Rheumatic arteritis Rheumatoid arthritis Smoker Home Medications cyclobenzaprine 10 mg tablet 10 mg PO HS PRN muscle spasm #90 tabs 11/11/22 [Rx Last Taken Unknown] pregabalin 75 mg capsule (Lyrica) 75 mg PO TID 11/11/22 [History Last Taken 03/14/23] lisinopril 10 mg tablet 10 mg PO DAILY #90 tabs 02/24/23 [Rx Last Taken 03/14/23] sulfasalazine 500 mg tablet 1 g PO BID 02/24/23 [History Last Taken Unknown] Allergy/AdvReac Type Severity Reaction Status Date / Time penicillin G Allergy Intermediate hives Verified 02/28/23 09:36 clindamycin AdvReac Intermediate stomach Verified 02/28/23 09:36 pain Family History (Updated 02/28/23 @ 09:36 by Dianna Horowitz) Daughter Asthma defect Mother Hypertension Depression Hyperlipidemia Rheumatic arteritis Colon polyps Grandmother Arthritis Cancer Breast CVA (cerebral vascular accident) Diabetes Father Hypertension CVA (cerebral vascular accident) Grandfather Heart disease, Onset Age: 60 M.I. 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 sexually active: Yes Smoking Status: Current some day smoker tobacco type: e-cigarettes alcohol intake: current alcohol intake frequency: holidays/special occasions only substance use type: does not use what type of physical activity do you participate in: weight training and otherdetails: Cardio frequency: 1-2 times per week do you feel safe at home: Yes additional social history: single Past Medical/Surgical History Planned Operation Planned Operative Procedure/s: COLONOSCOPY Previous Hospitalizations/Surgeries HX Hospitalizations: No HX of Surgeries: tonsillectomy tubal ligation left knee meniscus repair laminectomy cyst removal right knee Any Problems With Anesthesia: No You/Your Family Experience Fever (Hyperthermia) With Anes: No Cholinesterase deficiency: No Cardiovascular Hx Hypertension: No Respiratory Hx Sleep Apnea: No CPAP: No Hx Respiratory Tract Infection/Cold (presently): No Do You Snore Loudly (louder than talking or can be heard): No Do You Often Feel Tired/ Fatigued/ Sleepy Dring Daytime?: No Has Anyone Observed You Stop Breathing During Sleep?: No Result (for STOP score): Negative Smoking Status: Current some day smoker Neurological Hx Seizures: No Does patient have nerve stimulator: No Reproduction : No Genitourinary Hx Renal Disease: No Endocrine Hx Diabetes: No Miscellaneous Hx Cancer: No Recent Exposure to Contagious Disease: No Allergies penicillin G Allergy (Intermediate, Verified 02/28/23 09:36) hives clindamycin Adverse Reaction (Intermediate, Verified 02/28/23 09:36) stomach pain Discharge Is Pt Admitted From a [facility], or a Residential: No Who Could Help: DAUGHTER After D/C, Where Do you Plan to Go: Return Home Physical Exam Const alert, oriented x3 and no apparent distress HEENT normocephalic and head/scalp atraumatic Resp normal respiratory effort Cardio regular rate GI soft to palpation and non-tender; Negative for non-distended Palpation: Negative for guarding Extremity no clubbing, cyanosis or edema Skin no rashes or lesions noted Neuro CN's II-XII intact bilaterally Psych mental status grossly normal Assessment & Plan Assessment/Plan (1) Colon cancer screening: Surgery Risks - Colonoscopy I discussed with the patient the risks of the procedure: Yes Risks Include but are not Limited To: Risks include but are not limited to: Bleeding, perforation requiring further surgery, inability to complete colonoscopy requiring barium enema. 03/14/23 1147 <Electronically signed by Lucia Doll MD> Cosigner Signature (if applicable): CC: Dr. Estelita Pepe MD; Dr. Lucia Doll MD~ Signed [facility] Work Phone: Hospital Discharge instructionsAmbulatory Orders* Dermatology Location: None Selected [facility] Work Phone: Progress note Author Naomy Treviño [facility] Note Date/Time January 14, 2025 11 :52am [facility] [address], [address] [place] [address] OFFICE VISIT Date of Service: 01/14/25 MR#: [id number] Acct: [id number] Name: SAMUEL MCCRACKEN Rep #: [id number] : 1970 Provider: Dr. 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: No Is patient in pain?: No Allergies penicillin G Allergy (Intermediate, Verified 01/14/25 11:21) hives clindamycin Adverse Reaction (Intermediate, Verified 01/14/25 11:21) stomach pain Medications ?Medication ?Instructions ?Recorded ?Confirmed ?Type cyclobenzaprine 10 mg tablet 10 mg PO HS PRN muscle sp asm #90 11/11/22 01/14/25 Rx tabs sulfasalazine 500 mg tablet 1 g PO BID 02/24/23 History albuterol sulfate 90 mcg/actuation 2 puff inhalation Q 6H PRN 04/30/24 01/14/25 Rx aerosol inhaler shortness of breath or wheez ing #8.5 grams tacrolimus 0.1 % topical ointment 1 applic topical BID #30 grams 12/08/24 01/14/25 Rx lisinopril 20 mg tablet 10 mg (1/2 x 20 mg) PO DAILY #90 01/07/25 01/14/25 Rx TABLETS Is last menstrual period known: No Post menopausal: No Patient : No : No PFSH Medical History Viral syndrome Hyperlipidemia Obesity (BMI 30-39.9) Marijuana use Dietary restriction Smoker Health care maintenance Colon cancer screening Rheumatoid arthritis IBS (irritable bowel syndrome) Carpal tunnel syndrome Anemia Rheumatic arteritis Depression Alcohol use Arthritis Restless legs Back pain Migraine headache Difficulty swallowing History of IBS Heartburn Asthma Hx of sciatica History of pain when walking Hypertension COVID-19 Encounter for screening for COVID-19 History of wrist fracture Surgical History Hx of colonoscopy S/P vaginal hysterectomy Hx of lumbar discectomy Hx of tubal ligation Hx of tonsillectomy History of surgical removal of meniscus of knee History of removal of cyst Family History Daughter Asthma defect Mother Hypertension Depression Hyperlipidemia Rheumatic arteritis Colon polyps Grandmother Arthritis Cancer Breast CVA (cerebral vascular accident) Diabetes Father Hypertension CVA (cerebral vascular accident) Grandfather Heart disease, Onset Age: 60 M.I. 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 Date Name GA/Weeks Outcome Route Bth Weight Infant Gen Labor Lgth Anes t hesia Del Locatn Provider FOB Unknown Renetta 1992 Unknown Marjorie 1998 HPI Encounter for routine gynecological examination Details: SAMUEL MCCRACKEN is a 54 year old who presents for annual exam. Last PAP: hysterectomy History of abnormal PAP: Last mammogram: 10/08/24 - probably benign will need follow up History of abnormal mammogram: 10/08/2024 - benign US Colon cancer screening: colonoscopy 2022 Other preventative health care screenings: PCP [facility] Female Reproductive History Menopausal Symptoms: Yes hot flashes and Yes night sweats ROS Const Constitutional: Reports as per HPI and night sweats; Denies fatigue, increased appetite, poor appetite, weight gain or weight loss Cardio Card: Denies chest pain Resp Resp: Denies cough or dyspnea GI GI: Reports as per HPI; Denies abdominal pain, bloating, constipation, nausea or vomiting : Reports as per HPI, hot flashes and other; Denies difficulty voiding, dysuria, hematuria, nipple discharge, pelvic pain, prolapse symptoms, urinary frequency, urinary incontinence, urinary urgency, vaginal discharge, vaginal dryness, vaginal odor or vaginal pruritus Skin Skin/Breast: Denies changing lesions, breast mass, breast pain, breast skin changes or nipple discharge Psych Psych: Denies anxiety or depression Exam Const General: cooperative, healthy appearing, comfortable, no acute distress, well developed and well groomed HENMT Head: normal to inspection and normocephalic Ears: hearing grossly normal bilaterally and external ears normal Nose: external nose normal Face and sinus: normal facial exam Neck Neck: normal visual inspection, full ROM and no lymphadenopathy Thyroid: thyroid normal Chest Chest palpation & inspection: normal inspection of the chest Breast inspection: normal inspection of the breasts and normal inspection of theaxillae Breast palpation: normal palpation of the breasts, normal palpation of the axillae and no axillary lymphadenopathy Resp Effort & Inspection: normal respiratory effort GI Inspection: normal to inspection and non-distended Palpation: soft, no hepatosplenomegaly and no guarding General: bladder normal to palpation External Female Exam: normal external appearance, normal appearance of the urethra and no lesions Urethra: normal appearance of the urethra and normal palpation Speculum Exam - Vagina: normal appearance of the vagina and normal vaginal discharge Bimanual Exam- Vagina & Uterus: bladder normal to palpation Bimanual Exam- Adnexa, other: normal adnexae, no masses and non-tender Skin General: no rashes or lesions noted Neuro General: patient alert, moves all extremities and no focal motor deficits Extrem General: normal to inspection and no pedal edema Psych Appearance: grossly normal Mental Status: mental status grossly normal Affect: normal affect Speech and Movement: speech and movement normal Attitude: cooperative Coding Level of Care Code Off vis,est,prev 40-64yrs Diagnoses Encounter for gynecological examination without abnormal finding Z01.419 Gynecological examination findings: abnormal findings ABSENT Assessment and Plan Assessment and Plan (1) Encounter for routine gynecological examination: Qualifiers: Gynecological examination findings: abnormal findings ABSENT Qualified Code(s): Z01.419 - Encounter for gynecological examination (general) (routine) without abnormal findings Plan Cervical cancer screening: hyst Breast cancer screening: mamm other health maintenance examination reviewed and orders placed if needed. Encouraged maintenance of a healthy weight and active lifestyle and handout given. Annual exam handout including recommendations for good health guidelines, Calcium/vitamin D recommendations, and basic screening information given. Problem list up to date, see problem list details for any additional plan information. Follow up in one year for annual health maintenance exam or sooner if needed. 01/14/25 [id number] <Electronically signed by Naomy maharaj MD> Date _ Naomy Baptiste Signature: Date (if applicable) CC: ~ [facility] Work Phone: Reason for referral (narrative)No reason for referral information availableWKettering Memorial Hospital Work Phone: Summary Purpose Family History No Family History Records Found Relationship Condition Age at Onset Recorded Date/T rebecca daughter Asthma Unknown Dysmorphism Unknown mother Hypertension Unknown Depression Unknown Hyperlipidemia Unknown Rheumatic arteritis Unknown grandmother Arthritis Unknown Malignant neoplasm Unknown Cerebrovascular accident (CVA) Unknown Diabetes mellitus Unknown father Hypertension Unknown grandfather Cardiac disease 60 uncle Diabetes mellitus Unknown Mental disorder Unknown Relationship Condition Age at Onset Recorded Date/T rebecca daughter Asthma Unknown Dysmorphism Unknown mother Hypertension Unknown Depression Unknown Hyperlipidemia Unknown Rheumatic arteritis Unknown Polyp of colon Unknown grandmother Arthritis Unknown Malignant neoplasm Unknown Cerebrovascular accident (CVA) Unknown Diabetes mellitus Unknown father Hypertension Unknown grandfather Cardiac disease 60 uncle Diabetes mellitus Unknown Mental disorder Unknown aunt Malignant neoplasm of colon Unknown Advance Directives No Advanced Directives Records Found Advance Directive Response Recorded Date/ Time Living Will No June 19, 2021 12:20pm Power of Sheep Farm Manager No June 19 12:20pm Advance Directive Response Recorded Date/ Time Living Will No June 19, 2021 11:20am Power of Sheep Farm Manager No June 19 11:20am Advance Directive Response Recorded Date/ Time Living Will No February 11 1:44pm Power of Sheep Farm Manager No February 11, 2023 1:44pm Advance Directive Response Recorded Date/ Time Living Will No March 12 023 10:42am Power of Sheep Farm Manager No March 12, 2023 10:42am Advance Directive Response Recorded Date/ Time Living Will No March 12 023 11:42am Power of Sheep Farm Manager No March 12, 2023 11:42am Chief Complaint and Reason for Visit Chief Complaint SCREENING Discuss surgical options AUB TVHBS possible LAVH VAG HYSTER, BILATERAL SALPING VAG HYSTER, BILATERAL SALPING VAG HYSTER, BILATERAL SALPING 2 wk TVHBS possible LAVH 6wk post op Reason for Visit Menorrhagia with reg ular cycle Menorrhagia with regular cycle Menorrhagia with regular cycle Chief Complaint TVHBS possible LAVH VAG HYSTER, BILATERAL SALPING VAG HYSTER, BILATERAL SALPING VAG HYSTER, BILATERAL SALPING 2 wk TVHBS possible LAVH 6wk post op Reason for Visit Menorrhagia with reg ular cycle Menorrhagia with regular cycle Encounter for postoperative care Encounter for postoperative care Chief Complaint 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 Reason for Visit Encounter for examin ation required by Department of Transportation (DOT) Chief Complaint 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) Reason for Visit Encounter for examin ation required by Department of Transportation (DOT) Encounter for routine gynecological examination Chief Complaint SCREENING 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) PAIN- COPY PCP Reason for Visit Encounter for routin e gynecological examination Chief Complaint PAIN- COPY PCP EST CARE bp check bp machine check [facility] for [facility] Hypertension Rheumatoid arthritis Chief Complaint EST CARE bp check bp machine check problems from ruptured cyst E-ORDER/NEED ORDER Reason for Visit Health care maintena nce Fibromyalgia Hypertension Rheumatoid arthritis Climacteric Hemorrhagic cyst Chief Complaint EST CARE bp check bp machine check problems from ruptured cyst E-ORDER/NEED ORDER 5 M Follow Up CYST Reason for Visit Health care maintena nce Fibromyalgia Hypertension Rheumatoid arthritis Climacteric Hemorrhagic cyst Fibromyalgia Hypertension Rheumatoid arthritis Chief Complaint bp check bp machine check problems from ruptured cyst E-ORDER/NEED ORDER 5 M Follow Up CYST Amb Documentation Reason for Visit Climacteric Hemorrhagic cyst Fibromyalgia Hypertension Rheumatoid arthritis Colon cancer screening Chief Complaint problems from ruptur ed cyst E-ORDER/NEED ORDER 5 M Follow Up CYST Amb Documentation PAIN- COPY PCP Reason for Visit Climacteric Hemorrhagic cyst Fibromyalgia Hypertension Rheumatoid arthritis Colon cancer screening Chief Complaint problems from ruptur ed cyst E-ORDER/NEED ORDER 5 M Follow Up CYST Amb Documentation PAIN- COPY PCP PELVIC PAIN Reason for Visit Climacteric Hemorrhagic cyst Fibromyalgia Hypertension Rheumatoid arthritis Colon cancer screening Chief Complaint PAIN- COPY PCP PELVIC PAIN 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) Reason 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 Visit Colon cancer screeni ng Encounter for routine gynecological examination Chief Complaint PAIN- COPY PCP PELVIC PAIN 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) 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 Reason for Visit Encounter for routin e gynecological examination Chief Complaint Admit Date PAIN- COPY PCP March 24, 2024 3:55pm 4 M FU April 30, 2024 1 0:20am EORDER June 02, 2024 8:51am PAIN- COPY PCP June 16, 2024 3:16 pm Reason for Visit Admit Date Obesity (BMI 30-39.9) April 30, 2024 10:20am Viral syndrome April 30, 2024 1 0:20am Hyperlipidemia April 30, 2024 1 0:20am Hypertension April 30, 2024 1 0:20am Chief Complaint Admit Date EORDER June 02, 2024 8:51am PAIN- COPY PCP June 16, 2024 3:16 pm PAIN- COPY PCP September 24, 2024 1:33 pm Chief Complaint Admit Date PAIN- COPY PCP June 16, 2024 3:16 pm PAIN- COPY PCP September 24, 2024 1:33 pm screen for breast cancer October 01, 2024 12:01pm Chief Complaint Admit Date PAIN- COPY PCP June 16, 2024 3:16 pm PAIN- COPY PCP September 24, 2024 1:33 pm screen for breast cancer October 01, 2024 12:01pm ABNORMAL MAMMOGRAM October 08, 2024 1:56 pm Chief Complaint Admit Date PAIN- COPY PCP September 24, 2024 1:33 pm screen for breast cancer October 01, 2024 12:01pm ABNORMAL MAMMOGRAM October 08, 2024 1:56 pm Chief Complaint Admit Date PAIN- COPY PCP September 24, 2024 1:33 pm screen for breast cancer October 01, 2024 12:01pm ABNORMAL MAMMOGRAM October 08, 2024 1:56 pm 3 M FU January 07, 2025 2:29pm Reason for Visit Admit Date Health care maintenance January 07, 2025 2:29pm Hyperlipidemia January 07, 2025 2:29pm Hypertension January 07, 2025 2:29pm Rheumatoid arthritis January 07 2:29pm Chief Complaint Admit Date PAIN- COPY PCP September 24, 2024 1:33 pm screen for breast cancer October 01, 2024 12:01pm ABNORMAL MAMMOGRAM October 08, 2024 1:56 pm 3 M FU January 07, 2025 2:29pm 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 14, 2025 11 :11am Reason for Visit Admit Date Health care maintenance January 07, 2025 2:29pm Hyperlipidemia January 07, 2025 2:29pm Hypertension January 07, 2025 2:29pm Rheumatoid arthritis January 07 2:29pm Encounter for routine gynecological exam ination January 14, 2025 11:11am Reason for Referral Specialty Diagnoses / Procedures Referred By Contac t Referred To Contact MR IMAGING Diagnoses Demyelinating disease of central nervous system (HCC) Procedures MRI CERVICAL SPINE WO/W IVCON MRI SPINAL CANAL CERVICAL W/O & W/CONTR JUL Louis Porras Jr., MD [address] [facility] [address] [place] [address] Mr Imaging Referral ID Status Reason Start Date Expiration Date Visits Requested Visits Authorized [id number] Pending Review Auto-Generat ed Referral 11/27/2021 12/27/2022 1 1 Referral ID Status Reason Start Date Expiration Date V isits Requested Visits Authorized [id number] Closed Auto-Generate d Referral 11/27/2021 12/27/2022 1 1 Specialty Diagnoses / Procedures Referred By Contac t Referred To Contact MR IMAGING Diagnoses Chronic nonintractable headache, unspecified headache type Paresthesia of skin Demyelinating disease of central nervous system (HCC) Involuntary movements Procedures MRI THORACIC SPINE WO/W IVCON MRI SPINAL CANAL THORACIC W/O & W/CONTR JUL Louis Porras Jr., MD [address] [facility] [address] [place] [address] Mr Imaging Referral ID Status Reason Start Date Expiration Date V isits Requested Visits Authorized [id number] Closed Auto-Generate d Referral 11/26/2021 12/26/2022 1 1 Specialty Diagnoses / Procedures Referred By Contac t Referred To Contact MR IMAGING Diagnoses Chronic nonintractable headache, unspecified headache type Paresthesia of skin Involuntary movements Procedures MRI BRAIN WO/W IVCON MRI BRAIN BRAIN STEM W/O W/CONTRAST MATERIAL Louis Porras Jr., MD [address] [facility] [address] [place] [address] Mr Imaging Referral ID Status Reason Start Date Expiration Date V isits Requested Visits Authorized [id number] Closed Auto-Generate d Referral 11/26/2021 12/25/2021 1 1 Specialty Diagnoses / Procedures Referred By Contac t Referred To Contact Spine [place] Diagnoses Paresthesia of skin Weakness Pain of left lower extremity Muscle spasm of left lower extremity Chronic nonintractable headache, unspecified headache type Foraminal stenosis of cervical region Procedures CONSULT TO [facility] OFFICE/OUTPATIENT [facility] 60-74 MINUTES Louis Porras Jr., MD [address] [place] [address] Referral ID Status Reason Start Date Expiration Date Visits Requested Visits Authorized [id number] Authorized PCP Requested Referral 05/20/2022 05/20/2023 1 1 Specialty Diagnoses / Procedures Referred By Contac t Referred To Contact Diagnoses Cervical myofascial pain syndrome Myofascial pain syndrome of thoracic spine Procedures CONSULT TO [facility] OFFICE/OUTPATIENT [facility] 60-74 MINUTES Osmin Cantu MD [address] [facility] [place] [address] Referral ID Status Reason Start Date Expiration Date Visits Requested Visits Authorized [id number] Authorized PCP Requested Referral 06/10/2022 06/10/2023 1 1 Additional Source Comments Source Comments (unrecognize d section and content) In the event this informatio n is protected by the Federal Confidentiality of Alcohol and Drug Abuse Patient Records regulations: The Federal rules restrict any use of the information to criminally investigate or prosecute any alcohol or drug abuse patient.[facility] the event this information is protected by the Federal Confidentiality of Alcohol and Drug Abuse Patient Records regulations: The Federal rules restrict any use of the information to criminally investigate or prosecute any alcohol or drug abuse patient.[facility] the event this information is protected by the Federal Confidentiality of Alcohol and Drug Abuse Patient Records regulations: The Federal rules restrict any use of the information to criminally investigate or prosecute any alcohol or drug abuse patient.[facility] the event this information is protected by the Federal Confidentiality of Alcohol and Drug Abuse Patient Records regulations: The Federal rules restrict any use of the information to criminally investigate or prosecute any alcohol or drug abuse patient.[facility] the event this information is protected by the Federal Confidentiality of Alcohol and Drug Abuse Patient Records regulations: The Federal rules restrict any use of the information to criminally investigate or prosecute any alcohol or drug abuse patient.[facility] the event this information is protected by the Federal Confidentiality of Alcohol and Drug Abuse Patient Records regulations: The Federal rules restrict any use of the information to criminally investigate or prosecute any alcohol or drug abuse patient.[facility] the event this information is protected by the Federal Confidentiality of Alcohol and Drug Abuse Patient Records regulations: The Federal rules restrict any use of the information to criminally investigate or prosecute any alcohol or drug abuse patient.[facility] the event this information is protected by the Federal Confidentiality of Alcohol and Drug Abuse Patient Records regulations: The Federal rules restrict any use of the information to criminally investigate or prosecute any alcohol or drug abuse patient.[facility] the event this information is protected by the Federal Confidentiality of Alcohol and Drug Abuse Patient Records regulations: The Federal rules restrict any use of the information to criminally investigate or prosecute any alcohol or drug abuse patient.[facility] the event this information is protected by the Federal Confidentiality of Alcohol and Drug Abuse Patient Records regulations: The Federal rules restrict any use of the information to criminally investigate or prosecute any alcohol or drug abuse patient.[facility] the event this information is protected by the Federal Confidentiality of Alcohol and Drug Abuse Patient Records regulations: The Federal rules restrict any use of the information to criminally investigate or prosecute any alcohol or drug abuse patient.[facility]ron[facility] the event this information is protected by the Federal Confidentiality of Alcohol and Drug Abuse Patient Records regulations: The Federal rules restrict any use of the information to criminally investigate or prosecute any alcohol or drug abuse patient.[facility]In the event this information is protected by the Federal Confidentiality of Alcohol and Drug Abuse Patient Records regulations: The Federal rules restrict any use of the information to criminally investigate or prosecute any alcohol or drug abuse patient.[facility]ronIn the event this information is protected by the Federal Confidentiality of Alcohol and Drug Abuse Patient Records regulations: The Federal rules restrict any use of the information to criminally investigate or prosecute any alcohol or drug abuse patient.[facility]In the event this information is protected by the Federal Confidentiality of Alcohol and Drug Abuse Patient Records regulations: The Federal rules restrict any use of the information to criminally investigate or prosecute any alcohol or drug abuse patient.[facility]In the event this information is protected by the Federal Confidentiality of Alcohol and Drug Abuse Patient Records regulations: The Federal rules restrict any use of the information to criminally investigate or prosecute any alcohol or drug abuse patient.[facility] the event this information is protected by the Federal Confidentiality of Alcohol and Drug Abuse Patient Records regulations: The Federal rules restrict any use of the information to criminally investigate or prosecute any alcohol or drug abuse patient.[facility] the event this information is protected by the Federal Confidentiality of Alcohol and Drug Abuse Patient Records regulations: The Federal rules restrict any use of the information to criminally investigate or prosecute any alcohol or drug abuse patient.[facility]In the event this information is protected by the Federal Confidentiality of Alcohol and Drug Abuse Patient Records regulations: The Federal rules restrict any use of the information to criminally investigate or prosecute any alcohol or drug abuse patient.[facility]In the event this information is protected by the Federal Confidentiality of Alcohol and Drug Abuse Patient Records regulations: The Federal rules restrict any use of the information to criminally investigate or prosecute any alcohol or drug abuse patient.[facility]In the event this information is protected by the Federal Confidentiality of Alcohol and Drug Abuse Patient Records regulations: The Federal rules restrict any use of the information to criminally investigate or prosecute any alcohol or drug abuse patient.[facility]ronIn the event this information is protected by the Federal Confidentiality of Alcohol and Drug Abuse Patient Records regulations: The Federal rules restrict any use of the information to criminally investigate or prosecute any alcohol or drug abuse patient.[facility]In the event this information is protected by the Federal Confidentiality of Alcohol and Drug Abuse Patient Records regulations: The Federal rules restrict any use of the information to criminally investigate or prosecute any alcohol or drug abuse patient.[facility]ronIn the event this information is protected by the Federal Confidentiality of Alcohol and Drug Abuse Patient Records regulations: The Federal rules restrict any use of the information to criminally investigate or prosecute any alcohol or drug abuse patient.[facility] INFORMATION SOURCE (unrecogn ized section and content) DATE CREATED AUTHOR 04/04/2021 [facility] corby Bradley DATE CREATED AUTHOR AUTHOR'S ORGANIZ ATION 10/16/2022 [facility] DATE CREATED AUTHOR AUTHOR'S ORGANIZ ATION [facility]/10/2022 [facility] DATE CREATED AUTHOR AUTHOR'S ORGANIZ ATION 07/19/2024 [facility] DATE CREATED AUTHOR AUTHOR'S ORGANIZ ATION 02/09/2025 [facility] Goals (unrecognized section and content) Goals may be documented in a n alternate sectionGoals may be documented in an alternate sectionGoals may be documented in an alternate sectionGoals may be documented in an alternate sectionGoals may be documented in an alternate sectionGoals may be documented in an alternate sectionGoals may be documented in an alternate sectionGoals may be documented in an alternate sectionGoals may be documented in an alternate sectionGoals may be documented in an alternate sectionGoals may be documented in an alternate sectionGoals may be documented in an alternate sectionGoals may be documented in an alternate sectionGoals may be documented in an alternate sectionGoals may be documented in an alternate sectionGoals may be documented in an alternate sectionGoals may be documented in an alternate section Reason for Visit (unrecogniz ed section and content) Reason Comments Request Outside Medical Records Reason Comments Orders Specialty Diagnoses / Procedures Referred By Lane galindo Referred To Contact MR IMAGING Diagnoses Chronic nonintractable headache, unspecified headache type Paresthesia of skin Demyelinating disease of central nervous system (HCC) Involuntary movements Procedures MRI THORACIC SPINE WO/W IVCON MRI SPINAL CANAL THORACIC W/O & W/CONTR MATRL Louis Porras Jr., MD [address] [facility] [address] [place] [address] Mr Imaging Referral ID Status Reason Start Date Expiration Date V isits Requested Visits Authorized [id number] Closed Auto-Generate d Referral 11/26/2021 12/26/2022 1 1 Reason Comments Established Patient Follow up N/T and mu scle weakness Reason Comments Follow Up Specialty Diagnoses / Procedures Referred By Lane t Referred To Contact Sp[facility] [place] Diagnoses Paresthesia of skin Weakness Pain of left lower extremity Muscle spasm of left lower extremity Chronic nonintractable headache, unspecified headache type Foraminal stenosis of cervical region Procedures CONSULT TO [facility] OFFICE/OUTPATIENT [facility] 60-74 MINUTES Louis Porras Jr., MD [address] [facility] [address] [place] [address] Referral ID Status Reason Start Date Expiration Date V isits Requested Visits Authorized [id number] Closed PCP Requested Referral 05/20/2022 05/20/2023 1 1 Reason Onset Date Comments Refill Request 07/26/2022 Reason Comments Medication Problem Reason Comments Follow Up Reason Comments Medication prior authorization Reason Comments New Patient Evaluation Reason Comments Follow Up Pt reported Moe have decreased, denied visual changes, denied numbness. Reason Comments Established Patient Reason Comments Established Patient Parathesia of skin, cold intolerance Care Teams (unrecognized sec tion and content) Team Status: Active Member Role Status Dates Dr. Estelita Pepe MD Primary Care Provider Active Team Status: Inactive Member Role Status Dates Dr. Estelita Pepe MD Primary Care Provider, Refer ring Provider Active Dr. Naomy Treviño MD Attending Provider Active Team Status: Inactive Member Role Status Dates Dr. Estelita Pepe MD Primary Care Provider, Refer ring Provider Active Sheldon [place], [place] Attending Provider Active Team Status: Inactive Member Role Status Dates Dr. Estelita Pepe MD Primary Care Provider Active Dr. Marie Perez MD Attending Provider, Referring Provider Active Team Status: Inactive Member Role Status Dates Dr. Estelita Pepe MD Primary Care Provider Active Dr. Naomy Treviño MD Attending Provider Active Team Status: Inactive Member Role Status Dates Dr. Estelita Pepe MD Primary Care P owen, Attending Provider, Referring Provider Active Team Status: Inactive Member Role Status Dates Dr. Estelita Pepe MD Primary Care Provider Active Dr. Naomy Treviño MD Attending Provider, Referr ing Provider Active Team Status: Active Member Role Status Dates Dr. Estelita Pepe MD Primary Care Provider Active Dianna Horowitz Attending Provider Active Team Status: Active Member Role Status Dates Dr. Estelita Pepe MD Primary Care Provider, Refer ring Provider Active Dr. Lucia Doll MD Attending Provider, Other Pro vider Active Team Status: Inactive Member Role Status Dates Dr. Estelita Pepe MD Primary Care Provider, Refer ring Provider Active Dr. Lucia Doll MD Attending Provider Active Sub Master Relationship Specialty Start Date End Date Estelita Pepe MD [address] [place] [address] PCP - General Internal Medicine 05/07/24 Team Status: Inactive Member Role Status Dates Dr. Estelita Pepe MD Primary Care Provider Active Start: March 24, 2024 End: March 24, 2024 Dr. Marie Perez MD Attending Provider Active Start: March 24, 2024 End: March 24, 2024 Dr. Marie Perez MD Referring Provider Active Start: March 24, 2024 End: March 24, 2024 Team Status: Inactive Member Role Status Dates Dr. Estelita Pepe MD Primary Care Provider Active Start: April 30, 2024 End: April 30, 2024 Dr. Estelita Pepe MD Attending Provider Active Start: April 30, 2024 End: April 30, 2024 Dr. Estelita Pepe MD Referring Provider Active Start: April 30, 2024 End: April 30, 2024 Team Status: Inactive Member Role Status Dates Dr. Estelita Pepe MD Primary Care Provider Active Start: June 02, 2024 End: June 02, 2024 Dr. Estelita Pepe MD Attending Provider Active Start: June 02, 2024 End: June 02, 2024 Dr. Estelita Pepe MD Referring Provider Active Start: June 02, 2024 End: June 02, 2024 Team Status: Inactive Member Role Status Dates Dr. Estelita Pepe MD Primary Care Provider Active Start: June 16, 2024 End: June 16, 2024 Dr. Marie Perez MD Attending Provider Active Start: June 16, 2024 End: June 16, 2024 Dr. Marie Perez MD Referring Provider Active Start: June 16, 2024 End: June 16, 2024 Sub Master Relationship Specialty Start Date End Date Estelita Pepe MD [address] [place] [address] PCP - General Internal Medicine 05/07/24 Team Status: Inactive Member Role Status Dates Dr. Estelita Pepe MD Primary Care Provider Active Start: September 24, 2024 End: September 24, 2024 Dr. Marie Perez MD Attending Provider Active Start: September 24, 2024 End: September 24, 2024 Dr. Marie Perez MD Referring Provider Active Start: September 24, 2024 End: September 24, 2024 Team Status: Inactive Member Role Status Dates Dr. Estelita Pepe MD Primary Care Provider Active Start: October 01, 2024 End: October 01, 2024 Dr. Naomy Treviño MD Attending Provider Active Start: October 01, 2024 End: October 01, 2024 Dr. Namoy Treviño MD Referring Provider Active Start: October 01, 2024 End: October 01, 2024 Team Status: Active Member Role/Relationship Status Dates Dr. Estelita Pepe MD Primary Care Provider Active Team Status: Inactive Member Role/Relationship Status Dates Dr. Estelita Pepe MD Primary Care Provider Active Start: June 16, 2024 End: June 16, 2024 Dr. Marie Perez MD Attending Provider Active Start: June 16, 2024 End: June 16, 2024 Dr. Marie Perez MD Referring Provider Active Start: June 16, 2024 End: June 16, 2024 Team Status: Inactive Member Role/Relationship Status Dates Dr. Estelita Pepe MD Primary Care Provider Active Start: September 24, 2024 End: September 24, 2024 Dr. Marie Perez MD Attending Provider Active Start: September 24, 2024 End: September 24, 2024 Dr. Marie Perez MD Referring Provider Active Start: September 24, 2024 End: September 24, 2024 Team Status: Inactive Member Role/Relationship Status Dates Dr. Estelita Pepe MD Primary Care Provider Active Start: October 01, 2024 End: October 01, 2024 Dr. Naomy Treviño MD Attending Provider Active Start: October 01, 2024 End: October 01, 2024 Dr. Naomy Treviño MD Referring Provider Active Start: October 01, 2024 End: October 01, 2024 Team Status: Inactive Member Role/Relationship Status Dates Dr. Estelita Pepe MD Primary Care Provider Active Start: October 08, 2024 End: October 08, 2024 Dr. Naomy Treviño MD Attending Provider Active Start: October 08, 2024 End: October 08, 2024 Dr. Naomy Treviño MD Referring Provider Active Start: October 08, 2024 End: October 08, 2024 Team Status: Inactive Member Role/Relationship Status Dates Dr. Estelita Pepe MD Primary Care Provider Active Start: September 24, 2024 End: September 24, 2024 Dr. Marie Perez MD Attending Provider Active Start: September 24, 2024 End: September 24, 2024 Dr. Marie Perez MD Referring Provider Active Start: September 24, 2024 End: September 24, 2024 Team Status: Inactive Member Role/Relationship Status Dates Dr. Estelita Pepe MD Primary Care Provider Active Start: October 01, 2024 End: October 01, 2024 Dr. Naomy Treviño MD Attending Provider Active Start: October 01, 2024 End: October 01, 2024 Dr. Naomy Treviño MD Referring Provider Active Start: October 01, 2024 End: October 01, 2024 Team Status: Inactive Member Role/Relationship Status Dates Dr. Estelita Pepe MD Primary Care Provider Active Start: October 08, 2024 End: October 08, 2024 Dr. Naomy Treviño MD Attending Provider Active Start: October 08, 2024 End: October 08, 2024 Dr. Naomy Treviño MD Referring Provider Active Start: October 08, 2024 End: October 08, 2024 Team Status: Inactive Member Role/Relationship Status Dates Dr. Estelita Pepe MD Primary Care Provider Active Start: November 19, 2024 End: November 19, 2024 Dr. Marie Perez MD Attending Provider Active Start: November 19, 2024 End: November 19, 2024 Dr. Marie Perez MD Referring Provider Active Start: November 19, 2024 End: November 19, 2024 Team Status: Active Member Role/Relationship Status Dates Dr. Estelita Pepe MD Primary care physician Activ e Team Status: Inactive Member Role/Relationship Status Dates Dr. Estelita Pepe MD Primary care physician Activ e Start: September 24, 2024 End: September 24, 2024 Dr. Marie Perez MD Attending physician Active Start: September 24, 2024 End: September 24, 2024 Dr. Marie Perez MD Referring Provider Active Start: September 24, 2024 End: September 24, 2024 Team Status: Inactive Member Role/Relationship Status Dates Dr. Estelita Pepe MD Primary care physician Activ e Start: October 01, 2024 End: October 01, 2024 Dr. Naomy Treviño MD Attending physician Active Start: October 01, 2024 End: October 01, 2024 Dr. Naomy Treviño MD Referring Provider Active Start: October 01, 2024 End: October 01, 2024 Team Status: Inactive Member Role/Relationship Status Dates Dr. Estelita Pepe MD Primary care physician Activ e Start: October 08, 2024 End: October 08, 2024 Dr. Naomy Treviño MD Attending physician Active Start: October 08, 2024 End: October 08, 2024 Dr. Naomy Treviño MD Referring Provider Active Start: October 08, 2024 End: October 08, 2024 Team Status: Inactive Member Role/Relationship Status Dates Dr. Estelita Pepe MD Primary care physician Activ e Start: November 19, 2024 End: November 19, 2024 Dr. Marie Perez MD Attending physician Active Start: November 19, 2024 End: November 19, 2024 Dr. Marie Perez MD Referring Provider Active Start: November 19, 2024 End: November 19, 2024 Team Status: Inactive Member Role/Relationship Status Dates Dr. Estelita Pepe MD Primary care physician Activ e Start: January 07, 2025 End: January 07, 2025 Dr. Estelita Pepe MD Attending physician Active Start: January 07, 2025 End: January 07, 2025 Dr. Estelita Pepe MD Referring Provider Active Start: January 07, 2025 End: January 07, 2025 Team Status: Inactive Member Role/Relationship Status Dates Dr. Estelita Pepe MD Primary care physician Activ e Start: January 14, 2025 End: January 14, 2025 Dr. Estelita Pepe MD Referring Provider Active Start: January 14, 2025 End: January 14, 2025 Dr. Naomy Treviño MD Attending physician Active Start: January 14, 2025 End: January 14, 2025 Team Status: Active Member Role/Relationship Status Dates Dr. Estelita Pepe MD Primary care physician Activ e Start: January 14, 2025 Dr. Naomy Treviño MD Attending physician Active Start: January 14, 2025 <item> Privacy Markings (unrecogniz ed section and [...] BE BASED ON THE PRIMARY CLINICAL RECORDS. [employer] provides no warranty or guarantee of the accuracy or completeness of information in this document.
[2025-03-18 10:18] LABS: Hematocrit 39.7 % (37-47); Hemoglobin 13.2 g/dL (12.0-15.0); Immature Granulocytes Count 0.020 X10^3/uL (0.0-0.0); Mean Corp Hgb Conc 33.2 g/dL (32-36); Mean Corpuscular Volume 94.7 fL (81-99); Mean Platelet Vol. 9.8 fl (6.2-12.0); NRBC Flagged by Analyzer 0 % (0-5); Platelet Count 214 K/mm3 (150-450); RBC Distribution Width CV 12.9 % (11.6-14.6); RBC Distribution Width SD 45.1 fl (35.1-43.9); Red Blood Count 4.19 M/mm3 (4.2-5.4); White Blood Count 5.8 K/mm3 (4.4-11.0)
[2025-03-18 12:07] LABS: AST(SGOT) 14 U/L (<=31); Alanine Aminotransfer ALT/SGPT 16 U/L (<=34); Albumin, Serum 4.4 g/dL (3.5-5.0); Alkaline Phosphatase 60 U/L (35-104); Anion Gap 12 (5-15); BUN 16 mg/dL (4-19); BUN/Creat Ratio 18.8 RATIO (10-20); Calcium,Total 9.3 mg/dL (7.6-11.0); Carbon Dioxide 23.1 mmol/L (21.0-32.0); Chloride 106 mmol/L (98-108); Globulin 2.0 g/dL (2.2-4.2); Glucose 97 mg/dL (70-99); Potassium 5.2 mmol/L (3.3-5.1)
== END | disposition home or self-care (01) ==
LOC: MTLAB 07:41
PROVIDERS: PCP Internal Medicine; Referring Provider Internal Medicine Rheumatology; Visit Provider Internal Medicine Rheumatology
DX: M06.4 Inflammatory polyarthropathy (principal); Z79.899 Other long term (current) drug therapy
CPT/HCPCS: 36415; 80053; 85025